=== PATIENT | male | born 1955 | race Caucasian/White ===

== ENCOUNTER 2019-05-09 09:51 | Inpatient (IN) | payer BC ==
--- NOTE | 2019-05-09 11:36 | ER Document Report ---
ED Medical Screen (RME) - General Chief Complaint: Foot Pain Stated Complaint: RIGHT FOOT PAIN Time Seen by Provider: 05/09/19 11:28 Primary Care Provider: KAMALJIT ORTEZ [Primary Care Provider] - Follow up as needed TRAVEL OUTSIDE OF THE [place] IN LAST 30 DAYS: No - HPI Notes: 05/09/19 11:35 64-year-old male to the emergency department with complaints of progressively worsening right lower foot and ankle pain, edema, erythema for the past 2 weeks. He states this started after he stepped on a rock and twisted his ankle. He seen both his primary care and orthopedist and they told him that he has gout. He has never had gout before. He states he has been taking colchicine and tramadol but the foot just keeps getting worse. Family report at home fevers up to 101. Patient has never had a DVT before. I have performed a medical screening exam on the patient and determined the patient will need further management by mainside provider. I have placed initial orders to help expedite his care. - Related Data Allergies/Adverse Reactions: No Known Allergies Allergy (Unverified 04/05/11 10:07) Past Medical History Past Surgical History: Reports: Hx Tonsillectomy - Immunizations Hx Diphtheria, Pertussis, Tetanus Vaccination: - unknown Physical Exam - Vital signs Vitals: Temp Pulse Resp BP Pulse Ox 98.4 F 85 18 139/68 H 96 05/09/19 10:55 05/09/19 10:55 05/09/19 10:55 05/09/19 10:55 05/09/19 10:55 Course - Vital Signs Vital signs: Temp Pulse Resp BP Pulse Ox 98.4 F 85 18 139/68 H 96 05/09/19 11:28 05/09/19 10:55 05/09/19 11:28 05/09/19 10:55 05/09/19 11:28 Doctor's Discharge - Discharge Referrals: KAMALJIT ORTEZ [Primary Care Provider] - Follow up as needed
--- NOTE | 2019-05-09 12:22 | RADIOLOGY REPORT (SQ) ---
EXAM DESCRIPTION: FOOT RIGHT COMPLETE COMPLETED DATE/TIME: 05/09/2019 12:10 pm REASON FOR STUDY: foot and ankle swelling and erythema COMPARISON: 04/05/2011 NUMBER OF VIEWS: Three views. TECHNIQUE: AP, lateral and oblique radiographic images acquired of the right foot. LIMITATIONS: None. FINDINGS: MINERALIZATION: Normal. BONES: No acute fracture dislocation. There are healed fractures of the 1st and 2nd metatarsals. JOINTS: Degenerative changes in the talonavicular joint. SOFT TISSUES: There is soft tissue swelling dorsally. OTHER: No other significant finding. IMPRESSION: Soft tissue swelling dorsally. No acute fracture or dislocation. TECHNICAL DOCUMENTATION: JOB ID: [id number] [employer]- All Rights Reserved Reading location - IP/workstation name: [email or web address]
--- NOTE | 2019-05-09 12:23 | RADIOLOGY REPORT (SQ) ---
EXAM DESCRIPTION: ANKLE RIGHT COMPLETE COMPLETED DATE/TIME: 05/09/2019 12:10 pm REASON FOR STUDY: foot and ankle swelling and erythema COMPARISON: None. NUMBER OF VIEWS: Three views. TECHNIQUE: AP, lateral, and oblique radiographic images acquired of the right ankle. LIMITATIONS: None. FINDINGS: MINERALIZATION: Normal. BONES: No acute fracture or dislocation. No worrisome bone lesions. JOINTS: Small joint effusion. Degenerative changes in the tail of navicular joint. SOFT TISSUES: No soft tissue swelling. No foreign body. OTHER: No other significant finding. IMPRESSION: Small joint effusion. No acute fracture. TECHNICAL DOCUMENTATION: JOB ID: [id number] [employer]- All Rights Reserved Reading location - IP/workstation name: [email or web address]
[2019-05-09 13:05] LABS: HEMATOCRIT 38.5 % (37.9-51.0); HEMOGLOBIN 13.1 g/dL (13.5-17.0); MEAN CORPUSCULAR HEMOGLOBIN 32.3 pg (27.0-33.4); MEAN CORPUSCULAR VOLUME 95 fl (80-97); PLATELET COUNT 146 10^3/uL (150-450); RED BLOOD COUNT 4.05 10^6/uL (4.35-5.55); WHITE BLOOD COUNT 21.5 10^3/uL (4.0-10.5)
[2019-05-09 13:23] LABS: ALBUMIN 2.6 g/dL (3.5-5.0); ALKALINE PHOSPHATASE 170 U/L (38-126); ANION GAP 12 (5-19); ASPARTATE AMINO TRANSFERASE 40 U/L (17-59); BILIRUBIN,DIRECT 3.5 mg/dL (0.0-0.4); BILIRUBIN,TOTAL 4.9 mg/dL (0.2-1.3); BLOOD UREA NITROGEN 24 mg/dL (7-20); CALCIUM 7.8 mg/dL (8.4-10.2); CARBON DIOXIDE 25 mmol/L (22-30); CHLORIDE 88 mmol/L (98-107); GLUCOSE 230 mg/dL (75-110); POTASSIUM 4.6 mmol/L (3.6-5.0); TOTAL PROTEIN 6.1 g/dL (6.3-8.2)
[2019-05-09 13:33] LABS: ABSOLUTE LYMPHOCYTES# (MANUAL) 0.9 10^3/uL (0.5-4.7); ABSOLUTE MONOCYTES # (MANUAL) 1.3 10^3/uL (0.1-1.4); ANISOCYTOSIS SLIGHT; BAND NEUTROPHILS % (MANUAL) 1 % (3-5); BASOPHILS % (MANUAL) 0 % (0-2); EOSINOPHILS % (MANUAL) 0 % (0-6); LYMPHOCYTES % (MANUAL) 4 % (13-45); MONOCYTES % (MANUAL) 6 % (3-13); PLATELET CLUMPS PRESENT; PLATELET COMMENT ADEQUATE; SEGMENTED NEUTROPHILS % (MAN) 89 % (42-78); TOTAL CELLS COUNTED 100; TOXIC GRANULATION SLIGHT; TOXIC VACUOLATION PRESENT
[2019-05-09] MEDS ORDERED: NORMAL SALINE 1000 ML 1,000 ML IV ONE ×2 (13:36→16:19)
--- NOTE | 2019-05-09 13:52 | RADIOLOGY REPORT (SQ) ---
EXAM DESCRIPTION: VENOUS UNILATERAL LOWER COMPLETED DATE/TIME: 05/09/2019 1:42 pm REASON FOR STUDY: unilateral leg swelling (right) COMPARISON: None. TECHNIQUE: Dynamic and static barbosa scale and color images acquired of the right leg venous system. S elected spectral images acquired with additional compression and augmentation maneuvers. The contrala teral common femoral vein and saphenofemoral junction were also imaged. Images stored on PACS. LIMITATIONS: None. FINDINGS: COMMON FEMORAL: Normal phasicity, compression and augmentation. No visualized echogenic ma terial on barbosa scale. No defects on color images. FEMORAL: Normal compression and augmentation. No visualized echogenic material on barbosa scale. No defe cts on color images. POPLITEAL: Normal compression, augmentation. No visualized echogenic material on barbosa scale. No defec ts on color images. CALF VESSELS: Normal compression, augmentation. No visualized echogenic material on barbosa scale. No de fects on color images. GSV and SSV: Normal compression, augmentation. No visualized echogenic material on barbosa scale. No def ects on color images. ANY DEEP VENOUS INSUFFICIENCY: Not evaluated. ANY EVIDENCE OF POPLITEAL CYST: No. OTHER: No other significant finding. CONTRALATERAL COMMON FEMORAL VEIN AND SAPHENOFEMORAL JUNCTION: Normal phasicity, compression and augmentation. No visualized echogenic material on barbosa scale. No de fects on color images. IMPRESSION: NO EVIDENCE DVT OR SVT IN THE RIGHT LEG. TECHNICAL DOCUMENTATION: JOB ID: [id number] [employer]- All Rights Reserved Reading location - IP/workstation name: [email or web address]
[2019-05-09] MEDS ORDERED: VANCOMYCIN HCL INJ 1000 MG VIAL IV ONE (16:21)
[2019-05-09] MEDS ORDERED: CEFEPIME 2 GM/D5W RTU 2 GM/50 ML RTUPB IV ONE (16:41)
--- NOTE | 2019-05-09 16:47 | ER Document Report ---
ED Extremity Problem, Lower - General Chief Complaint: Foot Pain Stated Complaint: RIGHT FOOT PAIN Time Seen by Provider: 05/09/19 16:00 Mode of Arrival: Wheelchair Information source: Patient Notes: Patient presents complaining of right foot and leg pain. Patient states 2 weeks ago he stepped on a rock while wearing shoes and developed right foot tenderness. Patient states that he went to see the primary doctor about this and had an x-ray on 04/27/2019 and was diagnosed with arthritis. Patient was placed on steroids at that time. Patient states that he continued to have pain and swelling to the foot and saw orthopedics on 05/03/2019 and was diagnosed with gout. Patient was placed on colchicine and tramadol at that time. Patient is complained of increased pain and swelling to the right lower extremity. Patient states for the past 4 days has had a fever. Patient reports nausea no vomiting or diarrhea. Patient also reports right shoulder pain right elbow and right hand pain. Patient complains of some chest discomfort across the entire upper chest from shoulder to shoulder for the past 4 days. Patient denies any difficulty breathing or shortness of breath. Patient states he has noticed that his urine has turned brown since yesterday. Patient denies any abdominal pain or back pain. TRAVEL OUTSIDE OF THE [place] IN LAST 30 DAYS: No - HPI Patient complains to provider of: Pain, Swelling Location: Leg Occurred: Last week Onset/Duration: Worse Quality of pain: Achy Pain Level: 4 Associated symptoms: Chest pain, Fever, Painful ambulation. denies: Rapid heart rate Exacerbated by: Movement, Walking Relieved by: Nothing - Related Data Allergies/Adverse Reactions: No Known Allergies Allergy (Unverified 04/05/11 10:07) Past Medical History - General Information source: Patient - Social History Smoking Status: Current Every Day Smoker Frequency of alcohol use: Occasional Drug Abuse: None Occupation: [employer] Lives with: Spouse/Significant other Family History: Reviewed & Not Pertinent Patient has suicidal ideation: No Patient has homicidal ideation: No - Medical History Medical History: Negative Past Surgical History: Reports: Hx Tonsillectomy - Immunizations Hx Diphtheria, Pertussis, Tetanus Vaccination: - unknown Review of Systems - Review of Systems Constitutional: Fever EENT: No symptoms reported Cardiovascular: Chest pain. denies: Dyspnea, Syncope, Dizziness Respiratory: No symptoms reported. denies: Cough Gastrointestinal: Nausea. denies: Abdominal pain, Diarrhea, Vomiting Genitourinary: No symptoms reported. denies: Dysuria Male Genitourinary: No symptoms reported Musculoskeletal: Leg swelling - Right lower extremity swelling. denies: Back pain Skin: Other - Erythema to right ankle right knee Hematologic/Lymphatic: No symptoms reported Neurological/Psychological: No symptoms reported Physical Exam - Vital signs Vitals: Temp Pulse Resp BP Pulse Ox 98.4 F 85 18 139/68 H 96 05/09/19 10:55 05/09/19 10:55 05/09/19 10:55 05/09/19 10:55 05/09/19 10:55 - General General appearance: Alert In distress: Mild - HEENT Head: Normocephalic, Atraumatic Eyes: Normal Conjunctiva: Normal Nasal: Normal Mouth/Lips: Normal Mucous membranes: Normal Neck: Normal, Supple. No: Lymphadenopathy - Respiratory Respiratory status: No respiratory distress Chest status: Tender Breath sounds: Rhonchi Chest palpation: Normal - Cardiovascular Rhythm: Regular Heart sounds: S1 appreciated, S2 appreciated Murmur: No - Abdominal Inspection: Normal Distension: No distension Bowel sounds: Normal Tenderness: Nontender Organomegaly: No organomegaly - Back Back: Normal, Nontender. No: CVA tenderness - Extremities General upper extremity: Normal inspection, Tender - Tenderness to right shoulder joint, right elbow joint and the right wrist, no tenderness to the joints of the right hand, Normal ROM, Normal strength General lower extremity: Tender - Right lower extremity tenderness 3+ edema with edema and erythema to the right ankle, right knee streaking to the right thigh Shoulder: Tender - Shoulder joint tenderness, no swelling erythema, or calor. No: Ecchymosis, Limited ROM Arm: Normal, Nontender Elbow: Tender - Right elbow joint tenderness, no swelling erythema or calor. No: Ecchymosis, Instability, Joint effusion, Limited ROM, Swollen bursa Forearm: Normal, Nontender Wrist: Tender - Right wrist tenderness, no swelling erythema or calor Hand: Normal, Nontender Hip: Normal, Nontender Knee: Tender - Erythema over lying the right knee, Joint effusion, Pain with ROM, Other - Erythema that blanches up the right thigh Ankle: Tender - Tenderness, erythema and edema about the right ankle joint with effusion, Edema. No: Limited ROM Foot: Edema - Right foot edema - Neurological Neuro grossly intact: Yes Cognition: Normal Orientation: AAOx4 [place] Coma Scale Eye Opening: Spontaneous Lillie Coma Scale Verbal: Oriented [place] Coma Scale Motor: Obeys Commands [place] Coma Scale Total: 15 - Psychological Associated symptoms: Normal affect, Normal mood - Skin Skin Temperature: Warm Skin Moisture: Dry Skin Color: Erythema - Right ankle, right knee extending into the right thigh, Mottled Course - Re-evaluation Re-evalutation: 05/09/19 16:[address] Katz, Dr. Katz to bedside for examination. Recommends consulting with orthopedics having orthopedic surgeon to come in to evaluate patient. Recommends calling hospitalist for medical admission. Recommends adding on cefepime in addition to vancomycin at this time. Does not suspect necrotizing fasciitis at this time. 05/09/19 16:[address] Vieira for consultation. Dr. Vieira asked to come in to evaluate patient. Recommends adding on ESR CRP as well as MRI of the extremity so he is better able to evaluate patient when he arrives. 05/09/19 17:[address] Colbert guarding patient presentation. Dr Colbert agrees to accept pt for admission. 05/09/19 17:47 Dr Vieira examine pt and feels pt's presentation is consistent with cellulitis at this time. Dr. Vieira does recommend adding on shoulder x-ray for further evaluation of patient's shoulder joint pain at this time. - Vital Signs Vital signs: Temp Pulse Resp BP Pulse Ox 99.9 F 89 18 152/67 H 97 05/09/19 18:41 05/09/19 18:41 05/09/19 18:41 05/09/19 18:41 05/09/19 18:41 - Laboratory Result Diagrams: 05/09/19 12:28 05/09/19 12:28 Laboratory results interpreted by me: 05/09/19 05/09/19 05/09/19 12:28 12:28 12:28 WBC 21.5 H RBC 4.05 L Hgb 13.1 L RDW 15.0 H Plt Count 146 L Seg Neuts % (Manual) 89 H Band Neutrophils % 1 L Lymphocytes % (Manual) 4 L Abs Neuts (Manual) 19.4 H ESR Sodium 125.1 L Chloride 88 L BUN 24 H Glucose 230 H Hemoglobin A1c % Lactic Acid Lactic Acid (Sepsis) 2.5 H Calcium 7.8 L Total Bilirubin 4.9 H Direct Bilirubin 3.5 H Alkaline Phosphatase 170 H C-Reactive Protein Total Protein 6.1 L Albumin 2.6 L Urine Protein Urine Glucose (UA) Urine Blood Urine Nitrite (Reflex) Urine Urobilinogen Leukocyte Esterase Rfl 05/09/19 05/09/19 05/09/19 16:30 16:30 16:30 WBC RBC Hgb RDW Plt Count Seg Neuts % (Manual) Band Neutrophils % Lymphocytes % (Manual) Abs Neuts (Manual) ESR 41 H Sodium Chloride BUN Glucose Hemoglobin A1c % 6.3 H Lactic Acid 2.4 H Lactic Acid (Sepsis) Calcium Total Bilirubin Direct Bilirubin Alkaline Phosphatase C-Reactive Protein Total Protein Albumin Urine Protein Urine Glucose (UA) Urine Blood Urine Nitrite (Reflex) Urine Urobilinogen Leukocyte Esterase Rfl 05/09/19 05/09/19 16:30 16:50 WBC RBC Hgb RDW Plt Count Seg Neuts % (Manual) Band Neutrophils % Lymphocytes % (Manual) Abs Neuts (Manual) ESR Sodium Chloride BUN Glucose Hemoglobin A1c % Lactic Acid Lactic Acid (Sepsis) Calcium Total Bilirubin Direct Bilirubin Alkaline Phosphatase C-Reactive Protein 141.8 H Total Protein Albumin Urine Protein 30 H Urine Glucose (UA) 50 H Urine Blood MODERATE H Urine Nitrite (Reflex) POSITIVE H Urine Urobilinogen 4.0 H Leukocyte Esterase Rfl LARGE H - Diagnostic Test Radiology reviewed: Image reviewed, Reports reviewed Discharge - Discharge Clinical Impression: Cellulitis Qualifiers: Site of cellulitis: extremity Site of cellulitis of extremity: lower extremity Laterality: right Qualified Code(s): L03.115 - Cellulitis of right lower limb Leukocytosis Qualifiers: Leukocytosis type: unspecified Qualified Code(s): D72.829 - Elevated white blood cell count, unspecified Disposition: ADMITTED INPATIENT Admitting Provider: Sayra (Hospitalist) Unit Admitted: Telemetry
[2019-05-09 16:49] LABS: VENOUS BLOOD BASE EXCESS 1.7 mmol/L; VENOUS BLOOD HCO3 26.2 mmol/L (20-32); VENOUS BLOOD PH 7.42 (7.30-7.42)
[2019-05-09 17:00] LABS: INTERNATIONAL RATION (INR) 1.19; PROTHROMBIN TIME 15.2 SEC (11.4-15.4)
--- NOTE | 2019-05-09 17:31 | RADIOLOGY REPORT (SQ) ---
EXAM DESCRIPTION: CHEST 2 VIEWS COMPLETED DATE/TIME: 05/09/2019 5:16 pm REASON FOR STUDY: cp COMPARISON: None. EXAM PARAMETERS: NUMBER OF VIEWS: two views TECHNIQUE: Digital Frontal and Lateral radiographic views of the chest acquired. RADIATION DOSE: NA LIMITATIONS: none FINDINGS: LUNGS AND PLEURA: No opacities, masses or pneumothorax. No pleural effusion. MEDIASTINUM AND HILAR STRUCTURES: No masses or contour abnormalities. HEART AND VASCULAR STRUCTURES: Heart normal size. No evidence for failure. BONES: No acute findings. HARDWARE: None in the chest. OTHER: No other significant finding. IMPRESSION: NO ACUTE RADIOGRAPHIC FINDING IN THE CHEST. TECHNICAL DOCUMENTATION: JOB ID: [id number] [employer]- All Rights Reserved Reading location - IP/workstation name: [email or web address]
--- NOTE | 2019-05-09 17:56 | PDOC CONSULTATION ---
Consultation Consult Date: 05/09/19 Provider Consulted: FATOU RYAN History of Present Illness Patient complains of: Right leg pain History of Present Illness: RENATA STRICKLAND is a 64 year old male presents today with right lower extremity pain and swelling. He states over the past 2 weeks has had increasing pain and swelling of his right lower extremity. Patient was seen by urgent care and outside orthopedic clinic for the issue. Initial treatment was prednisone Without improvement. Second opinion patient was started on antigout medication which also failed to provide relief. Patient does not see primary care physician regularly and denies significant medical history. Does note fever and chills which have been ongoing for the past 48 hours. Complains of pain in his right shoulder as well without specific injury. Pain worse with overhead activity and motion. Pain 4/5. Past Surgical History Past Surgical History: Reports: Tonsillectomy Social History Smoking Status: Current Every Day Smoker Family History Parental Family History Reviewed: No Children Family History Reviewed: No Sibling(s) Family History Reviewed.: No Medication/Allergy Allergies/Adverse Reactions: No Known Allergies Allergy (Unverified 04/05/11 10:07) Review of Systems Constitutional: PRESENT: chills, fever(s). ABSENT: headache(s), weight gain, weight loss Eyes: ABSENT: visual disturbances Ears: ABSENT: hearing changes Cardiovascular: ABSENT: chest pain, dyspnea on exertion, edema, orthropnea, palpitations Respiratory: ABSENT: cough, hemoptysis Gastrointestinal: ABSENT: abdominal pain, constipation, diarrhea, hematemesis, hematochezia, nausea, vomiting Genitourinary: ABSENT: dysuria, hematuria Musculoskeletal: PRESENT: as per HPI Integumentary: ABSENT: rash, wounds Neurological: ABSENT: abnormal gait, abnormal speech, confusion, dizziness, focal weakness, syncope Psychiatric: ABSENT: anxiety, depression, homidical ideation, suicidal ideation Endocrine: ABSENT: cold intolerance, heat intolerance, menstrual abnormalities, polydipsia, polyuria Hematologic/Lymphatic: ABSENT: easy bleeding, easy bruising, lymphadenopathy Physical Exam Vital Signs: Temp Pulse Resp BP Pulse Ox 98.4 F 85 18 139/68 H 98 05/09/19 11:28 05/09/19 10:55 05/09/19 11:28 05/09/19 10:55 05/09/19 16:17 Intake & Output 05/08/19 05/09/19 05/10/19 06:59 06:59 06:59 Weight 90.7 kg General appearance: PRESENT: no acute distress, well-developed, well-nourished Head exam: PRESENT: atraumatic, normocephalic Eye exam: PRESENT: conjunctiva pink, EOMI, PERRLA, scleral icterus Ear exam: PRESENT: normal external ear exam Mouth exam: PRESENT: moist, tongue midline Neck exam: PRESENT: full ROM. ABSENT: carotid bruit, JVD, lymphadenopathy, thyromegaly Cardiovascular exam: PRESENT: RRR. ABSENT: diastolic murmur, rubs, systolic murmur Pulses: PRESENT: normal dorsalis pedis pul, +2 pedal pulses bilateral Vascular exam: PRESENT: normal capillary refill GI/Abdominal exam: PRESENT: normal bowel sounds, soft. ABSENT: distended, guarding, mass, organolmegaly, rebound, tenderness Rectal exam: PRESENT: deferred Musculoskeletal exam: PRESENT: other - Right lower extremity: Demarcated erythema and swelling along the right ankle with increased redness and swelling posterior-lateral. Tenderness to palpation. No palpable fluctuance. Diffuse swelling. Compartments soft and compressible. Positive pitting edema. Dors ely pedis pulse 2+. Intact plantarflexion/dorsiflexion without discomfort. Erythema lymphangitis extending along the anterior aspect of the knee along the medial thigh without palpable fluctuance. Right shoulder: Tenderness palpation anteriorly. Limited range of motion. Pain with attempted range of motion. Full elbow flexion/extension. No streaking erythema or palpable fluctuance. Neurological exam: PRESENT: alert, awake, oriented to person, oriented to place, oriented to time, oriented to situation, CN II-XII grossly intact. ABSENT: motor sensory deficit Psychiatric exam: PRESENT: appropriate affect, normal mood. ABSENT: homicidal ideation, suicidal ideation Skin exam: PRESENT: dry, intact, warm. ABSENT: cyanosis, rash Results Laboratory Results: 05/09/19 12:28 05/09/19 12:28 05/09/19 05/09/19 05/09/19 12:28 12: 16:30 WBC 21.5 H RBC 4.05 L Hgb 13.1 L Hct 38.5 MCV 95 MCH 32.3 MCHC 34.0 RDW 15.0 H Plt Count 146 L Seg Neutrophils % Not Reportable VBG pH VBG pCO2 VBG HCO3 VBG Base Excess Sodium 125.1 L Potassium 4.6 Chloride 88 L Carbon Dioxide 25 Anion Gap 12 BUN 24 H Creatinine 0.84 Est GFR ( Amer) > 60 Glucose 230 H Lactic Acid Calcium 7.8 L Total Bilirubin 4.9 H AST 40 Alkaline Phosphatase 170 H C-Reactive Protein Total Protein 6.1 L Albumin 2.6 L Lipase 145.9 05/09/19 05/09/19 05/09/19 16:30 16:30 16:30 WBC RBC Hgb Hct MCV MCH MCHC RDW Plt Count Seg Neutrophils % VBG pH 7.42 VBG pCO2 41.0 VBG HCO3 26.2 VBG Base Excess 1.7 Sodium Potassium Chloride Carbon Dioxide Anion Gap BUN Creatinine Est GFR ( Amer) Glucose Lactic Acid 2.4 H Calcium Total Bilirubin AST Alkaline Phosphatase C-Reactive Protein 141.8 H Total Protein Albumin Lipase 05/09/19 16:30 Troponin I < 0.012 Impressions: Ankle X-Ray 05/09/19 11:34 IMPRESSION: Small joint effusion. No acute fracture. Foot X-Ray 05/09/19 11:34 IMPRESSION: Soft tissue swelling dorsally. No acute fracture or dislocation. Venous Doppler Study 05/09/19 11:34 IMPRESSION: NO EVIDENCE DVT OR SVT IN THE RIGHT LEG. Chest X-Ray 05/09/19 16:17 IMPRESSION: NO ACUTE RADIOGRAPHIC FINDING IN THE CHEST. Status: Image reviewed by me - I have reviewed patient's radiographs consistent with soft tissue swelling. No evidence of acute osseous abnormality there is chronic degenerative changes of the midfoot. Assessment & Plan - Diagnosis (1) Cellulitis Qualifiers: Site of cellulitis: extremity Site of cellulitis of extremity: lower extremity Laterality: right Qualified Code(s): L03.115 - Cellulitis of right lower limb Is this a current diagnosis for this admission?: Yes Plan: Patient has fairly advanced cellulitis of the right lower extremity however no signs or symptoms to suggest necrotizing fasciitis. LRINEC score of 5 which is low but not no risk. We will obtain an MRI to evaluate possible deep abscess. Patient can also complains of right shoulder discomfort there is no sign or symptoms to suggest abscess but given patient's complaints I have recommended radiographs for further evaluation. Clinical picture does not indicate need for operative intervention would recommend IV antibiotics. Will follow clinically.
[2019-05-09] MEDS ORDERED: VANCOMYCIN HCL 0 MG in DEXTROSE 5%-WATER 250 ML IV NR (18:00)
--- NOTE | 2019-05-09 18:38 | RADIOLOGY REPORT (SQ) ---
EXAM DESCRIPTION: SHOULDER RIGHT 2 OR MORE VIEWS COMPLETED DATE/TIME: 05/09/2019 6:22 pm REASON FOR STUDY: r shoulder pain COMPARISON: 08/19/2010 NUMBER OF VIEWS: Three views. TECHNIQUE: Internal rotation, external rotation, and Y view images acquired of the right shoulder. LIMITATIONS: None. FINDINGS: MINERALIZATION: Normal. BONES: No acute fracture. No worrisome bone lesions. JOINTS: No dislocation. VISUALIZED LUNGS AND RIBS: No pneumothorax. No rib fracture. SOFT TISSUES: No radiopaque foreign body. OTHER: No other significant finding. IMPRESSION: NEGATIVE STUDY OF THE RIGHT SHOULDER. NO RADIOGRAPHIC EVIDENCE OF ACUTE INJURY. TECHNICAL DOCUMENTATION: JOB ID: [id number] [employer]- All Rights Reserved Reading location - IP/workstation name: [email or web address]
[2019-05-09] MEDS ORDERED: PROMETHAZINE HCL INJ 25 MG/1 ML VIAL IV PRN (18:40)
[2019-05-09] MEDS ORDERED: ONDANSETRON HCL INJ/PF 4 MG/2 ML SDV IV PRN (18:40)
[2019-05-09] MEDS ORDERED: IPRATROPIUM/ALBUTEROL 0.5-2.5 MG/3 ML AMPUL NEB PRN (18:40)
--- NOTE | 2019-05-09 18:40 | PDOC H&P ---
History of Present Illness History of Present Illness: RENATA STRICKLAND is a 64 year old male no significant past medical history except for tobacco abuse and arthritis presenting to ED complaining of worsening right lower extremity swelling, pain associated with fever and chills. About 2 weeks ago he stepped on a hard rock and sustained a bruising in the plantar aspect of his right foot, the following day he noticed that his foot was swelling and starting to hurt, he went to an urgent care where he was given a shot of steroids and discharged home with diagnosis of arthritis. His right lower extremity pain, erythema and swelling not worse and traveled proximally all the way to his thigh. He also noted increasing bilateral shoulder pain and stiffness with no erythema or swelling and does not remember any trauma to the shoulders. He went to Ortho clinic and was diagnosed with gout and was discharged on colchicine and steroids. Couple days after right foot swelling he also developed copious nonbloody diarrhea which has resolved without any treatment. He has also noted sediments in his urine, and dysuria but denies any lesions or discharge. He has history of syphilis and gonorrhea when he was in the which he states were successfully treated. Currently he is on a monogamous relationship but not sure if his partner has any STIs. Patient has also been having fever and chills associated with nausea however den ies any vomiting, shortness of breath, chest pain, diarrhea, constipation, numbness, tingling, headache, vision changes, genital ulcers, oral lesions or any rash. Past Surgical History Past Surgical History: Reports: Tonsillectomy Social History Smoking Status: Current Every Day Smoker Family History Parental Family History Reviewed: Yes Children Family History Reviewed: Yes Sibling(s) Family History Reviewed.: Yes Medication/Allergy Home Medications: No Home Medications 05/09/19 Allergies/Adverse Reactions: No Known Allergies Allergy (Unverified 04/05/11 10:07) Physical Exam Vital Signs: Temp Pulse Resp BP Pulse Ox 98.4 F 85 18 139/68 H 98 05/09/19 11:28 05/09/19 10:55 05/09/19 11:28 05/09/19 10:55 05/09/19 16:17 Intake & Output 05/08/19 05/09/19 05/10/19 06:59 06:59 06:59 Weight 90.7 kg General appearance: PRESENT: no acute distress, well-developed, well-nourished Eye exam: PRESENT: conjunctiva pink, EOMI, PERRLA. ABSENT: scleral icterus Mouth exam: PRESENT: moist, tongue midline Neck exam: ABSENT: carotid bruit, JVD, lymphadenopathy, thyromegaly Respiratory exam: PRESENT: clear to auscultation brenda. ABSENT: rales, rhonchi, wheezes Cardiovascular exam: PRESENT: RRR. ABSENT: diastolic murmur, rubs, systolic murmur Pulses: PRESENT: normal dorsalis pedis pul GI/Abdominal exam: PRESENT: normal bowel sounds, soft. ABSENT: distended, guarding, mass, organolmegaly, rebound, tenderness Gentrourinary exam: ABSENT: ecchymosis, erythema, lacerations, lesions, scrotal swelling, testicular tenderness, urethral discharge, indwelling catheter, other Extremities exam: PRESENT: joint swelling, pedal edema, +2 edema, other - Left ankle swelling and tenderness, 2+ pitting edema below the knee, medial aspect of the knee erythema dullness, proximal thigh erythema no tenderness or discharge. Neurological exam: PRESENT: alert, awake, oriented to person, oriented to place, oriented to time, oriented to situation, CN II-XII grossly intact. ABSENT: motor sensory deficit Skin exam: PRESENT: dry, intact, warm. ABSENT: cyanosis, rash Results Laboratory Results: 05/09/19 12:28 05/09/19 12:28 05/09/19 05/09/19 05/09/19 12:28 12:28 16:30 WBC 21.5 H RBC 4.05 L Hgb 13.1 L Hct 38.5 MCV 95 MCH 32.3 MCHC 34.0 RDW 15.0 H Plt Count 146 L Seg Neutrophils % Not Reportable VBG pH VBG pCO2 VBG HCO3 VBG Base Excess Sodium 125.1 L Potassium 4.6 Chloride 88 L Carbon Dioxide 25 Anion Gap 12 BUN 24 H Creatinine 0.84 Est GFR ( Amer) > 60 Glucose 230 H Lactic Acid Calcium 7.8 L Total Bilirubin 4.9 H AST 40 Alkaline Phosphatase 170 H C-Reactive Protein Total Protein 6.1 L Albumin 2.6 L Lipase 145.9 05/09/19 05/09/19 05/09/19 16:30 16:30 16:30 WBC RBC Hgb Hct MCV MCH MCHC RDW Plt Count Seg Neutrophils % VBG pH 7.42 VBG pCO2 41.0 VBG HCO3 26.2 VBG Base Excess 1.7 Sodium Potassium Chloride Carbon Dioxide Anion Gap BUN Creatinine Est GFR ( Amer) Glucose Lactic Acid 2.4 H Calcium Total Bilirubin AST Alkaline Phosphatase C-Reactive Protein 141.8 H Total Protein Albumin Lipase 05/09/19 16:30 Troponin I < 0.012 Impressions: Ankle X-Ray 05/09/19 11:34 IMPRESSION: Small joint effusion. No acute fracture. Foot X-Ray 05/09/19 11:34 IMPRESSION: Soft tissue swelling dorsally. No acute fracture or dislocation. Venous Doppler Study 05/09/19 11:34 IMPRESSION: NO EVIDENCE DVT OR SVT IN THE RIGHT LEG. Chest X-Ray 05/09/19 16:17 IMPRESSION: NO ACUTE RADIOGRAPHIC FINDING IN THE CHEST. Assessment and Plan - Diagnosis (1) Septic arthritis Qualifiers: Septic arthritis location: ankle Laterality: right Is this a current diagnosis for this admission?: Yes Plan: Septic arthritis VS reactive arthritis VS gonococcal arthritis VS acute gout. Elevated ESR and CRP. Right lower extremity x-ray negative for osteomyelitis. Right lower extremity venous Doppler negative for DVT. Admit to medical floor. Start on empiric IV antibiotics. Rule out gonococcus, chlamydia and syphilis. Arthrocentesis to rule out crystal induced arthritis. MRI to rule out osteomyelitis. UA. Urine culture blood culture. Ortho has been consulted. Follow-up recommendations. (2) Hyponatremia Is this a current diagnosis for this admission?: Yes Plan: Mostly delusional. Patient endorsing excessive p.o. water intake. Continue normal saline. Seizure precautions. CMP tomorrow. (3) Cellulitis Qualifiers: Site of cellulitis: extremity Site of cellulitis of extremity: lower extremity Laterality: right Qualified Code(s): L03.115 - Cellulitis of right lower limb Is this a current diagnosis for this admission?: Yes Plan: As per #1.
[2019-05-09] MEDS ORDERED: PIPERACILLIN SODIUM/TAZOBACTAM 4.5 GM in NORMAL SALINE 100 ML IV SCH (18:45)
[2019-05-09] MEDS ORDERED: GLUCAGON,HUMAN RECOMB 1 MG INJ IM PRN (18:59)
[2019-05-09] MEDS ORDERED: DEXTROSE 40% GEL 15 GM TUBE PO PRN ×2 (18:59)
[2019-05-09] MEDS ORDERED: DEXTROSE 50%-WATER 25 GM/50 ML DISP.SYRIN IV PRN ×2 (18:59)
[2019-05-09] MEDS: OXYCODONE-ACETAMINOPHEN 5-325 MG TABLET PO PRN (19:53)
[2019-05-09] MEDS: NORMAL SALINE 1000 ML 1,000 ML IV PRN (19:55)
[2019-05-09 20:25] LABS: APPEARANCE,URINE CLOUDY; BILIRUBIN,URINE NEGATIVE (NEGATIVE); COLOR,URINE AMBER; GLUCOSE, URINE 50 mg/dL (NEGATIVE); KETONES,URINE NEGATIVE (NEGATIVE); PROTEIN,URINE 30 mg/dL (NEGATIVE); URINE SPECIFIC GRAVITY 1.018
[2019-05-09] MEDS: ACETAMINOPHEN 325 MG TABLET PO PRN (20:50)
[2019-05-09] MEDS ORDERED: PIPERACILLIN SODIUM/TAZOBACTAM 3.375 GM in NORMAL SALINE 100 ML IV SCH (21:00)
[2019-05-09] MEDS: PIPERACILLIN SODIUM/TAZOBACTAM 4.5 GM in NORMAL SALINE 100 ML IV SCH (21:40)
[2019-05-09] MEDS: HEPARIN SOD (PORCINE) 5,000 UNIT/ML 1 ML VIAL SUBCUT SCH (21:40)
[2019-05-10] MEDS: OXYCODONE-ACETAMINOPHEN 5-325 MG TABLET PO PRN ×3 (00:06→20:05)
--- NOTE | 2019-05-10 00:15 | EKG REPORT ---
SEVERITY:- ABNORMAL ECG - SINUS RHYTHM INCOMPLETE RBBB AND LAFB : Confirmed by: Keyla Harden 10-May-2019 00:14:46
[2019-05-10] MEDS ORDERED: INFLUENZA QUAD (6MOS+) 2019-20 VAC 0.5 ML SYR IM ONE (01:46)
[2019-05-10] MEDS: INSULIN LISPRO 100 UNIT/ML 3 ML VIAL SUBCUT SCH ×5 (02:01→21:22)
[2019-05-10] MEDS: PIPERACILLIN SODIUM/TAZOBACTAM 4.5 GM in NORMAL SALINE 100 ML IV SCH ×4 (02:41→21:23)
[2019-05-10 04:27] LABS: CHLAM PCR NOT DETECTED (NOT DETECT)
[2019-05-10] MEDS: HEPARIN SOD (PORCINE) 5,000 UNIT/ML 1 ML VIAL SUBCUT SCH ×3 (05:08→21:22)
[2019-05-10] MEDS: VANCOMYCIN HCL 1,500 MG in DEXTROSE 5%-WATER 250 ML IV SCH ×2 (05:10→18:10)
[2019-05-10] MEDS: PANTOPRAZOLE SODIUM 40 MG TABLET.DR PO SCH ×2 (05:10→16:54)
[2019-05-10 06:02] LABS: ABSOLUTE BASOPHILS # (AUTO) 0.1 10^3/uL (0.0-0.2); ABSOLUTE EOSINOPHILS # (AUTO) 0.1 10^3/uL (0.0-0.6); ABSOLUTE MONOCYTES (AUTO) 0.8 10^3/uL (0.1-1.4); ABSOLUTE NEUT (AUTO) 15.1 10^3/uL (1.7-8.2); BASOPHILS % (AUTO) 0.5 % (0-2); EOSINOPHILS % (AUTO) 0.8 % (0-6); HEMATOCRIT 34.3 % (37.9-51.0); HEMOGLOBIN 11.8 g/dL (13.5-17.0); LYMPHOCYTES % (AUTO) 6.1 % (13-45); MEAN CORPUSCULAR HEMOGLOBIN 32.1 pg (27.0-33.4); MEAN CORPUSCULAR HGB CONC 34.3 g/dL (32.0-36.0); MEAN CORPUSCULAR VOLUME 94 fl (80-97); MONOCYTES % (AUTO) 4.7 % (3-13); PLATELET COUNT 127 10^3/uL (150-450); RED BLOOD COUNT 3.67 10^6/uL (4.35-5.55); RED CELL DISTRIBUTION WIDTH 14.7 % (11.5-14.0); SEGMENTED NEUTROPHILS % (AUTO) 87.9 % (42-78); TOTAL CELLS COUNTED % (AUTO) 100 %; WHITE BLOOD COUNT 17.2 10^3/uL (4.0-10.5)
[2019-05-10 06:31] LABS: ANION GAP 11 (5-19); BLOOD UREA NITROGEN 21 mg/dL (7-20); CALCIUM 7.2 mg/dL (8.4-10.2); CARBON DIOXIDE 21 mmol/L (22-30); CHLORIDE 96 mmol/L (98-107); GLUCOSE 142 mg/dL (75-110); POTASSIUM 4.6 mmol/L (3.6-5.0)
[2019-05-10] MEDS ORDERED: DEXAMETHASONE SOD PHOSPHATE INJ 4 MG/1 ML VIAL ONE (09:20)
[2019-05-10] MEDS ORDERED: ONDANSETRON HCL INJ/PF 4 MG/2 ML SDV ONE (09:20)
[2019-05-10] MEDS ORDERED: METOCLOPRAMIDE HCL INJ/PF 10 MG/2 ML SDV ONE (09:20)
--- NOTE | 2019-05-10 09:56 | RADIOLOGY REPORT (SQ) ---
EXAM DESCRIPTION: MRI RT LOWER EXTREMITY WITHOUT COMPLETED DATE/TIME: 05/10/2019 8:42 am REASON FOR STUDY: RLE pain, swelling COMPARISON: Radiographs 05/09/2019. TECHNIQUE: Right ankle images acquired and stored on PACS. Multiplanar images include fat sensitive sequences as T1, fluid sensitive sequences as FST2/STIR, cartilage sensitive sequences as FSPD, and g radient echo sequences. LIMITATIONS: None. FINDINGS: BONE MARROW: Arthropathy at the talonavicular joint with associated marrow edema in the he ad of the talus and diffusely throughout the navicular. Lesser changes along the interior scratch sa t lesser similar changes along the anterior calcaneal process and cuboid. Minimal posterior talar ed jodie along the sub talar posterior facet. No evidence of displaced fracture. EFFUSIONS: Sizable ankle joint effusion. Fair amount of fluid along the talonavicular articulation d orsally as well. OSSEOUS ARTICULATIONS: As above. The talonavicular articulation in particular is extremely narrowed and irregular with prominent fragmented dorsal osteophytes. TALAR DOME AND TIBIAL PLAFOND: Talar dome looks intact. Tibial plafond and relatively preserved. ACHILLES TENDON: Intact without partial or full-thickness tear. No adjacent bursal fluid or edema. TIBIALIS ANTERIOR TENDON: Intact without edema at the 1st MT attachment. TIBIALIS POSTERIOR TENDON: Tendon looks intact. Increased fluid in the tendon sheath. FLEXOR HALLUCIS LONGUS AND FLEXOR DIGITORUM TENDONS: Increased fluid along the tendon sheaths, partic ularly flexor hallucis. PERONEUS LONGUS AND BREVIS TENDON: Fluid along the tendon sheaths diffusely. No tendon disruption. ATFL, CFL, PTFL: Intact. No thickening or signal alteration. No klarissa-ligamentous fluid. DELTOID LIGAMENT: Visualized components intact. TARSAL TUNNEL: No masses. No muscle atrophy. SINUS TARSI: At least some preserved fat. Doubt sinus tarsi syndrome. PLANTAR FASCIA: No signal alteration or tear. ADJACENT SOFT TISSUES: Generalized pronounced subcutaneous edema about the ankle extending over the f oot. Fluid extending up the tendon sheaths consistent with tenosynovitis. Extensive edema in the di stal calf muscles, also with areas of non tendon related irregular loculated fluid. This extends to the edge of the field of view, at least 12 cm above the ankle, particularly posteriorly in the deep m usculature. OTHER: No other significant finding. IMPRESSION: 1. Arthropathy as above may reflect the patient's history of gout. Significant marrow edema in the t alus and navicular, lesser changes also in the calcaneus and cuboid. 2. Extensive soft tissue swelling, muscle edema and fluid collections extending up into the calf. Wh ile some of the loculated fluid is along tendon sheaths and reflects tenosynovitis, this is not all c learly tendon related fluid. Some of the fluid may be related to other infectious/inflammatory etiol ogy. TECHNICAL DOCUMENTATION: JOB ID: [id number] [employer]- All Rights Reserved Reading location - IP/workstation name: [email or web address]
[2019-05-10] MEDS: DOCUSATE SODIUM 100 MG CAPSULE PO SCH ×2 (10:03→20:18)
[2019-05-10] MEDS: NORMAL SALINE 1000 ML 1,000 ML IV PRN ×2 (10:06→20:06)
[2019-05-10] MEDS: ACETAMINOPHEN 325 MG TABLET PO PRN (10:11)
[2019-05-10] MEDS ORDERED: GLUCAGON,HUMAN RECOMB 1 MG INJ SUBCUT PRN (10:56)
[2019-05-10] MEDS ORDERED: DEXTROSE 50%-WATER 25 GM/50 ML DISP.SYRIN IV PRN ×2 (10:56)
[2019-05-10] MEDS ORDERED: DEXTROSE 40% GEL 15 GM TUBE PO PRN ×2 (10:56)
[2019-05-10] MEDS ORDERED: NICOTINE 14 MG/24 HR PATCH.TD24 TD PRN (15:37)
--- NOTE | 2019-05-10 15:42 | PDOC PROGRESS REPORT ---
Subjective Progress Note for:: 05/10/19 Subjective:: The patient is a 64-year-old male with a past medical history significant for tobacco dependence with continuous use and arthritis who was admitted 05/09/2019 for Septic arthritis. The patient was seen on morning rounds. He was found sitting up to the edge of the bed, comfortably, on room air. He reports that his pain is adequately controlled at present. He is somewhat anxious regarding planned surgical intervention by Dr. martinez this afternoon. He has no other specific questions or concerns at this time. He denies chest pain, palpitations, dyspnea, orthopnea, cough, abdominal pain, nausea vomiting and diarrhea. He did have a fever of 101.3 overnight. No concerns per nursing. Reason For Visit: CELLULITIS,SEPTIC ARTHRITIS Physical Exam Vital Signs: Temp Pulse Resp BP Pulse Ox 98.3 F 100 16 137/63 H 97 05/10/19 12:06 05/10/19 14:46 05/10/19 14:46 05/10/19 12:06 05/10/19 14:46 Intake & Output 05/09/19 05/10/19 05/11/19 06:59 06:59 06:59 Intake Total 2800 1100 Output Total 650 Balance 2150 1100 Weight 95.3 kg General appearance: PRESENT: no acute distress, cooperative, well-developed, well-nourished Head exam: PRESENT: atraumatic, normocephalic Eye exam: PRESENT: conjunctiva pink, EOMI, PERRLA. ABSENT: scleral icterus Ear exam: PRESENT: normal external ear exam Mouth exam: PRESENT: moist, tongue midline Respiratory exam: PRESENT: clear to auscultation brenda, symmetrical, unlabored. ABSENT: rales, rhonchi, wheezes Cardiovascular exam: PRESENT: RRR, +S1, +S2. ABSENT: diastolic murmur, rubs, systolic murmur Pulses: PRESENT: normal dorsalis pedis pul Vascular exam: PRESENT: normal capillary refill GI/Abdominal exam: PRESENT: normal bowel sounds, soft. ABSENT: distended, guarding, mass, organolmegaly, rebound, tenderness Rectal exam: PRESENT: deferred Extremities exam: PRESENT: full ROM, tenderness - RLE, +2 edema - RLE extending to knee. ABSENT: calf tenderness, clubbing Neurological exam: PRESENT: alert, awake, oriented to person, oriented to place, oriented to time, oriented to situation, CN II-XII grossly intact. ABSENT: motor sensory deficit Psychiatric exam: PRESENT: anxious, normal mood, unusual affect. ABSENT: homicidal ideation, suicidal ideation Skin exam: PRESENT: dry, warm, other - RLE edema extending to knee; most significant at the ankle, increased warmth/tenderness. Erythema to Rt ankle and anterior/lateral Rt knee. ABSENT: cyanosis, rash Results Laboratory Results: 05/10/19 05:46 05/10/19 05:46 05/09/19 05/09/19 05/09/19 12:28 12:28 16:30 WBC 21.5 H RBC 4.05 L Hgb 13.1 L Hct 38.5 MCV 95 MCH 32.3 MCHC 34.0 RDW 15.0 H Plt Count 146 L Seg Neutrophils % VBG pH VBG pCO2 VBG HCO3 VBG Base Excess Sodium Cancelled Potassium Chloride Carbon Dioxide Anion Gap BUN Creatinine Est GFR ( Amer) Glucose Lactic Acid Calcium Magnesium C-Reactive Protein Lipase 145.9 Urine Color Urine Appearance Urine pH Ur Specific [place] Urine Protein Urine Glucose (UA) Urine Ketones Urine Blood Urine RBC (Auto) 05/09/19 05/09/19 05/09/19 16:30 16:30 16:30 WBC RBC Hgb Hct MCV MCH MCHC RDW Plt Count Seg Neutrophils % VBG pH 7.42 VBG pCO2 41.0 VBG HCO3 26.2 VBG Base Excess 1.7 Sodium Potassium Chloride Carbon Dioxide Anion Gap BUN Creatinine Est GFR ( Amer) Glucose Lactic Acid 2.4 H Calcium Magnesium C-Reactive Protein 141.8 H Lipase Urine Color Urine Appearance Urine pH Ur Specific [place] Urine Protein Urine Glucose (UA) Urine Ketones Urine Blood Urine RBC (Auto) 05/09/19 05/10/19 05/10/19 16:50 05:46 05:46 WBC 17.2 H RBC 3.67 L Hgb 11.8 L Hct 34.3 L MCV 94 MCH 32.1 MCHC 34.3 RDW 14.7 H Plt Count 127 L Seg Neutrophils % 87.9 H VBG pH VBG pCO2 VBG HCO3 VBG Base Excess Sodium 127.7 L Potassium 4.6 Chloride 96 L Carbon Dioxide 21 L Anion Gap 11 BUN 21 H Creatinine 0.86 Est GFR ( Amer) > 60 Glucose 142 H Lactic Acid Calcium 7.2 L Magnesium 2.2 C-Reactive Protein Lipase Urine Color ANUPAM Urine Appearance CLOUDY Urine pH 6.0 Ur Specific [place] 1.018 Urine Protein 30 H Urine Glucose (UA) 50 H Urine Ketones NEGATIVE Urine Blood MODERATE H Urine RBC (Auto) 7 05/09/19 12:28 Blood Blood Culture (PCR) - Final Staphylococcus Aureus 05/09/19 16:03 Blood Blood Culture (PCR) - Final Staphylococcus Aureus 05/09/19 16:30 Troponin I < 0.012 Impressions: Ankle X-Ray 05/09/19 11:34 IMPRESSION: Small joint effusion. No acute fracture. Foot X-Ray 05/09/19 11:34 IMPRESSION: Soft tissue swelling dorsally. No acute fracture or dislocation. Venous Doppler Study 05/09/19 11:34 IMPRESSION: NO EVIDENCE DVT OR SVT IN THE RIGHT LEG. Chest X-Ray 05/09/19 16:17 IMPRESSION: NO ACUTE RADIOGRAPHIC FINDING IN THE CHEST. Lower Extremity MRI 05/09/19 16:39 IMPRESSION: 1. Arthropathy as above may reflect the patient's history of gout. Significant marrow edema in the talus and navicular, lesser changes also in the calcaneus and cuboid. 2. Extensive soft tissue swelling, muscle edema and fluid collections extending up into the calf. While some of the loculated fluid is along tendon sheaths and reflects tenosynovitis, this is not all clearly tendon related fluid. Some of the fluid may be related to other infectious/inflammatory etiology. Shoulder X-Ray 05/09/19 17:48 IMPRESSION: NEGATIVE STUDY OF THE RIGHT SHOULDER. NO RADIOGRAPHIC EVIDENCE OF ACUTE INJURY. Assessment and Plan - Diagnosis (1) Septic arthritis Qualifiers: Septic arthritis location: ankle Laterality: right Is this a current diagnosis for this admission?: Yes Plan: Septic arthritis VS reactive arthritis VS acute gout. Elevated ESR 41 and CRP 141. RPR, Gc/Ch negative. Right lower extremity x-ray negative for osteomyelitis. Right lower extremity venous Doppler negative for DVT. MRI revealed significant marrow edema o the talus, navicular, and calcaneus w/ extensive soft tissue edema and loculated fluid along the tendon sheaths. Blood cultures (05/09/19; 4/4) positive for MRSA Admit to medical floor. Continue on empiric IV antibiotics; Day #2 Vanc/Zosyn. Ortho has been consulted; per nursing plans for surgical intervention this afternoon. Follow-up recommendations. (2) Bacteremia Is this a current diagnosis for this admission?: Yes Plan: Secondary to #1. Pt denies IVDU. Blood cultures (05/09/19; 08/26) positive for MRSA Repeat cultures tomorrow Will need WILFRED to determine 4 vs 6 weeks abx therapy. Pending Ortho findings; may require 6 weeks regardless. (3) Hyponatremia Is this a current diagnosis for this admission?: Yes Plan: Improved; 125-> 127 Mostly delusional. Patient endorsing excessive p.o. water intake. Continue IVF. Follow up chemistry. (4) Leukocytosis Qualifiers: Leukocytosis type: unspecified Qualified Code(s): D72.829 - Elevated white blood cell count, unspecified Is this a current diagnosis for this admission?: Yes Plan: Secondary to #1 Cultures and antibiotics as above. (5) Cellulitis Qualifiers: Site of cellulitis: extremity Site of cellulitis of extremity: lower extremity Laterality: right Qualified Code(s): L03.115 - Cellulitis of right lower limb Is this a current diagnosis for this admission?: Yes Plan: As per #1. (6) Tobacco abuse Is this a current diagnosis for this admission?: Yes Plan: Smoking cessation encouraged. Nicotine replacement therapies provided. - Time Time Spent with patient: 35 or more minutes
[2019-05-10] MEDS ORDERED: ONDANSETRON HCL INJ/PF 4 MG/2 ML SDV IV PRN (17:01)
[2019-05-10] MEDS ORDERED: BUPIVACAINE HCL 0.5 % INJ/PF 30 ML SDV ONE (17:16)
[2019-05-10] MEDS ORDERED: IPRATROPIUM/ALBUTEROL 0.5-2.5 MG/3 ML AMPUL NEB ONE (17:25)
[2019-05-10] MEDS ORDERED: FENTANYL CITRATE INJ/PF 100 MCG/2 ML AMPUL ONE (17:27)
[2019-05-10] MEDS ORDERED: MIDAZOLAM 2 MG/2 ML INJ ONE (17:27)
--- NOTE | 2019-05-10 17:27 | PDOC PROGRESS REPORT ---
Subjective Progress Note for:: 05/10/19 Subjective:: Patient lying in bed comfortably. Continues to have discomfort along his right leg. States some of the swelling has improved but the redness is relatively unchanged. Denies fever chills or sweats overnight. Pain 4/5. Reason For Visit: CELLULITIS,SEPTIC ARTHRITIS Physical Exam Vital Signs: Temp Pulse Resp BP Pulse Ox 98.3 F 100 16 137/63 H 97 05/10/19 12:06 05/10/19 14:46 05/10/19 14:46 05/10/19 12:06 05/10/19 14:46 Intake & Output 05/09/19 05/10/19 05/11/19 06:59 06:59 06:59 Intake Total 2800 1100 Output Total 650 Balance 2150 1100 Weight 95.3 kg General appearance: PRESENT: no acute distress, well-developed, well-nourished Head exam: PRESENT: atraumatic, normocephalic Eye exam: PRESENT: conjunctiva pink, EOMI, PERRLA, scleral icterus Ear exam: PRESENT: normal external ear exam Mouth exam: PRESENT: moist, tongue midline Neck exam: PRESENT: full ROM. ABSENT: carotid bruit, JVD, lymphadenopathy, thyromegaly Cardiovascular exam: PRESENT: RRR. ABSENT: diastolic murmur, rubs, systolic murmur Pulses: PRESENT: normal dorsalis pedis pul, +2 pedal pulses bilateral Vascular exam: PRESENT: normal capillary refill GI/Abdominal exam: PRESENT: normal bowel sounds, soft. ABSENT: distended, guarding, mass, organolmegaly, rebound, tenderness Rectal exam: PRESENT: deferred Musculoskeletal exam: PRESENT: other - Right lower extremity: Erythema demarcated with pen relatively unchanged. Swelling has improved. Compartments remain soft and compressible no sign of compartment syndrome. Tenderness posteriorly on the calf and ankle. Crepitus with ankle range of motion. Pain with terminal flexion/extension. Dorsalis pedis pulse 2+. Neurological exam: PRESENT: alert, awake, oriented to person, oriented to place, oriented to time, oriented to situation, CN II-XII grossly intact. ABSENT: motor sensory deficit Psychiatric exam: PRESENT: appropriate affect, normal mood. ABSENT: homicidal ideation, suicidal ideation Skin exam: PRESENT: dry, intact, warm. ABSENT: cyanosis, rash Results Laboratory Results: 05/10/19 05:46 05/10/19 05:46 05/09/19 05/09/19 05/09/19 12:28 12:28 16:50 WBC 21.5 H RBC 4.05 L Hgb 13.1 L Hct 38.5 MCV 95 MCH 32.3 MCHC 34.0 RDW 15.0 H Plt Count 146 L Seg Neutrophils % Sodium Cancelled Potassium Chloride Carbon Dioxide Anion Gap BUN Creatinine Est GFR ( Amer) Glucose Calcium Magnesium Urine Color ANUPAM Urine Appearance CLOUDY Urine pH 6.0 Ur Specific [place] 1.018 Urine Protein 30 H Urine Glucose (UA) 50 H Urine Ketones NEGATIVE Urine Blood MODERATE H Urine RBC (Auto) 7 05/10/19 05/10/19 05:46 05:46 WBC 17.2 H RBC 3.67 L Hgb 11.8 L Hct 34.3 L MCV 94 MCH 32.1 MCHC 34.3 RDW 14.7 H Plt Count 127 L Seg Neutrophils % 87.9 H Sodium 127.7 L Potassium 4.6 Chloride 96 L Carbon Dioxide 21 L Anion Gap 11 BUN 21 H Creatinine 0.86 Est GFR ( Amer) > 60 Glucose 142 H Calcium 7.2 L Magnesium 2.2 Urine Color Urine Appearance Urine pH Ur Specific [place] Urine Protein Urine Glucose (UA) Urine Ketones Urine Blood Urine RBC (Auto) 05/09/19 12:28 Blood Blood Culture (PCR) - Final Staphylococcus Aureus 05/09/19 16:03 Blood Blood Culture (PCR) - Final Staphylococcus Aureus 05/09/19 16:30 Troponin I < 0.012 Impressions: Ankle X-Ray 05/09/19 11:34 IMPRESSION: Small joint effusion. No acute fracture. Foot X-Ray 05/09/19 11:34 IMPRESSION: Soft tissue swelling dorsally. No acute fracture or dislocation. Venous Doppler Study 05/09/19 11:34 IMPRESSION: NO EVIDENCE DVT OR SVT IN THE RIGHT LEG. Chest X-Ray 05/09/19 16:17 IMPRESSION: NO ACUTE RADIOGRAPHIC FINDING IN THE CHEST. Lower Extremity MRI 05/09/19 16:39 IMPRESSION: 1. Arthropathy as above may reflect the patient's history of gout. Significant marrow edema in the talus and navicular, lesser changes also in the calcaneus and cuboid. 2. Extensive soft tissue swelling, muscle edema and fluid collections extending up into the calf. While some of the loculated fluid is along tendon sheaths and reflects tenosynovitis, this is not all clearly tendon related fluid. Some of the fluid may be related to other infectious/inflammatory etiology. Shoulder X-Ray 05/09/19 17:48 IMPRESSION: NEGATIVE STUDY OF THE RIGHT SHOULDER. NO RADIOGRAPHIC EVIDENCE OF ACUTE INJURY. Status: Image reviewed by me - I have reviewed patient's MRI which demonstrates fluid collection along the posterior calf region with possible concomitant extensor tenosynovitis. Assessment & Plan - Diagnosis (1) Cellulitis Qualifiers: Site of cellulitis: extremity Site of cellulitis of extremity: lower extremity Laterality: right Qualified Code(s): L03.115 - Cellulitis of right lower limb Is this a current diagnosis for this admission?: Yes (2) Abscess of right leg Is this a current diagnosis for this admission?: Yes Plan: Given fluid collection on MRI and patient's positive blood cultures along with leukocytosis I have recommended proceeding with operative intervention which includes irrigation and debridement of the right leg. He may have concomitant g outy arthropathy which would explain the degeneration and effusion of the right ankle but I do feel the deep fluid collection is likely infectious in nature. Have discussed treatment options with the patient and family given the severity of the infection understand there is certainly possibility of worsening infection, limb loss and need for additional surgery secondary to persistent infection. Also discussed further risks such as neurovascular risk, postoperative pain, postoperative stiffness and development of posttraumatic arthritis. After discussing these options decision was made to proceed with operative treatment. - Time Time Spent with patient: Less than 15 minutes
[2019-05-10] MEDS ORDERED: PROPOFOL INJ 200 MG/20 ML VIAL IV ONE (17:28)
[2019-05-10] MEDS ORDERED: FAMOTIDINE INJ/PF 20 MG/2 ML SDV IV ONE (17:43)
[2019-05-10] MEDS ORDERED: FENTANYL CITRATE INJ/PF 100 MCG/2 ML AMPUL IV PRN ×2 (18:11)
[2019-05-10] MEDS ORDERED: MEPERIDINE HCL/PF INJ 25 MG/1 ML DISP.SYRIN IV PRN (18:11)
[2019-05-10] MEDS ORDERED: PROMETHAZINE HCL INJ 25 MG/1 ML VIAL IV PRN (18:11)
[2019-05-10] MEDS ORDERED: MORPHINE SULFATE 10 MG/ML INJ IV PRN (18:11)
[2019-05-10] MEDS ORDERED: DIPHENHYDRAMINE HCL 50 MG/ML VIAL IV PRN (18:11)
--- NOTE | 2019-05-10 19:05 | Operative Report ---
Operative Report DATE OF SURGERY: 05/10/19 PREOPERATIVE DIAGNOSIS: Abscess right leg POSTOPERATIVE DIAGNOSIS: Same plus septic arthritis right ankle OPERATION: Irrigation and debridement deep abscess right leg. Irrigation and debridement septic arthritis right ankle SURGEON: FATOU RYAN ANESTHESIA: GA COMPLICATIONS: None ESTIMATED BLOOD LOSS: Minimal PROCEDURE: Indication for above procedure: 64-year-old male with complaints of right lower extremity pain for the past 2 weeks. Patient began having worsening symptoms including constitutional symptoms and was then forced by his to the emergency room. While the emergency room patient was found to have notable infection of the right lower extremity. Initial MRI was refused but additional MRI was then ordered demonstrating fluid collection. Discussed treatment options with the patient and family including operative versus nonoperative intervention after discussing risks benefits decision was made to proceed with operative treatment. Procedure In Detail: Patient was seen and evaluated in the preoperative holding area. The right lower extremity was initialized and marked. Patient receiving scheduled IV antibiotics. Patient was taken back to the operative room where transferred to the operative table and placed under general anesthesia. Once they were adequately anesthetized a nonsterile tourniquet was placed on the lower extremity. A surgical team debriefing was performed ensuring all instrumentation was available, the surgical procedure was discussed with possible concerns reviewed. The lower extremity was prepped with Betadine and draped in a sterile fashion. A timeout was done identifying correct patient, procedure and extremity everyone in attendance agree with this and verbalized no concerns. The extremity was elevated the tourniquet was inflated to 300 mmHg. Longitudinal skin incision was made posterior to distal fibula. Sural nerve was identified and retracted. Peroneal muscles were retracted anteriorly until copious amounts of purulence was encountered just posterior to the interosseous membrane. Aerobic, anaerobic, AFB and fungal cultures were obtained. The area was irrigated with normal saline and Betadine. With finger dissection there was tracking proximally by 4 cm and distally. This area was aggressively decompressed and irrigated. Additional skin incision was made along the lateral midfoot just distal to the ankle joint laterally. Significant amounts of purulence was encountered at this level. Area was copiously irrigated with normal saline. Blunt dissection was performed in the capsule of the tibial talar joint was identified and additional purulence was encountered consistent with likely septic arthritis. This area was copiously irrigated with normal saline. Any peripheral veins were coagulated with bipolar cautery. Drain was placed into the posterior compartment from the proximal incision and into the tibiotalar joint at the distal incision. Skin incisions were closed loosely with interrupted 3-0 nylon suture. Wound was dressed with Xeroform 4 x 4's ABD and a soft dressing. Tourniquet was deflated. Patient had normal peripheral perfusion. Sponge counts, instrument counts, needle counts were correct. Patient was then awoken from anesthesia. Transferred from the operating room table to the operating room stretcher. There was no intraoperative complications patient tolerated procedure well stable to PACU. Postop plan: Patient will continue IV antibiotics. Given the Proteus Medipren's may require additional irrigation debridement. We will continue to follow cultures and clinical improvement.
[2019-05-11] MEDS: PIPERACILLIN SODIUM/TAZOBACTAM 4.5 GM in NORMAL SALINE 100 ML IV SCH ×4 (03:42→21:20)
[2019-05-11] MEDS: HEPARIN SOD (PORCINE) 5,000 UNIT/ML 1 ML VIAL SUBCUT SCH ×3 (05:20→21:20)
[2019-05-11] MEDS: PANTOPRAZOLE SODIUM 40 MG TABLET.DR PO SCH ×2 (05:23→17:26)
[2019-05-11] MEDS: VANCOMYCIN HCL 1,500 MG in DEXTROSE 5%-WATER 250 ML IV SCH ×2 (05:24→18:44)
[2019-05-11 07:37] LABS: HEPATITS B SURFACE ANTIGEN Negative (Negative)
[2019-05-11 07:41] LABS: HEMATOCRIT 33.5 % (37.9-51.0); HEMOGLOBIN 11.5 g/dL (13.5-17.0); MEAN CORPUSCULAR HEMOGLOBIN 32.5 pg (27.0-33.4); MEAN CORPUSCULAR HGB CONC 34.3 g/dL (32.0-36.0); MEAN CORPUSCULAR VOLUME 95 fl (80-97); PLATELET COUNT 134 10^3/uL (150-450); RED BLOOD COUNT 3.54 10^6/uL (4.35-5.55); RED CELL DISTRIBUTION WIDTH 14.8 % (11.5-14.0); WHITE BLOOD COUNT 13.5 10^3/uL (4.0-10.5)
[2019-05-11 08:14] LABS: ANION GAP 7 (5-19); BLOOD UREA NITROGEN 20 mg/dL (7-20); CALCIUM 7.2 mg/dL (8.4-10.2); CARBON DIOXIDE 25 mmol/L (22-30); CHLORIDE 97 mmol/L (98-107); GLUCOSE 232 mg/dL (75-110); POTASSIUM 4.8 mmol/L (3.6-5.0)
[2019-05-11 08:16] LABS: VANCOMYCIN,TROUGH 31.2 ug/mL (5.0-20.0)
[2019-05-11] MEDS ORDERED: PHARMACY COMMUNICATION ORDER MC ONE (08:45)
[2019-05-11] MEDS: INSULIN LISPRO 100 UNIT/ML 3 ML VIAL SUBCUT SCH ×4 (09:50→21:20)
[2019-05-11] MEDS: DOCUSATE SODIUM 100 MG CAPSULE PO SCH ×2 (09:51→17:26)
[2019-05-11 10:31] LABS: HEPATITIS C VIRUS ANTIBODY >11.0 s/co ratio (0.0-0.9)
[2019-05-11] MEDS: NORMAL SALINE 1000 ML 1,000 ML IV PRN (12:33)
--- NOTE | 2019-05-11 14:23 | PDOC PROGRESS REPORT ---
Subjective Progress Note for:: 05/11/19 Subjective:: The patient is a 64-year-old male with a past medical history significant for tobacco dependence with continuous use and arthritis who was admitted 05/09/2019 for Septic arthritis. The patient was seen on morning rounds with a friend present. He was found sitting up to the edge of the bed, comfortably, on room air. He reports that his pain is significantly better today; also believes the erythema and edema have improved. 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 He has no other specific questions or concerns at this time. He denies chest pain, palpitations, dyspnea, orthopnea, cough, abdominal pain, nausea vomiting and diarrhea. No concerns per nursing. Reason For Visit: CELLULITIS,SEPTIC ARTHRITIS Physical Exam Vital Signs: Temp Pulse Resp BP Pulse Ox 97.9 F 75 16 141/59 H 95 05/11/19 11:01 05/11/19 12:01 05/11/19 12:01 05/11/19 11:01 05/11/19 12:01 Intake & Output 05/10/19 05/11/19 05/12/19 06:59 06:59 06:59 Intake Total 2800 4196 1100 Output Total 650 2027 Balance 2150 2169 1100 Weight 95.3 kg 95.3 kg General appearance: PRESENT: no acute distress, cooperative, well-developed, well-nourished Head exam: PRESENT: atraumatic, normocephalic Eye exam: PRESENT: conjunctiva pink, EOMI, PERRLA. ABSENT: scleral icterus Ear exam: PRESENT: normal external ear exam Mouth exam: PRESENT: moist, tongue midline Respiratory exam: PRESENT: clear to auscultation brenda, symmetrical, unlabored. ABSENT: rales, rhonchi, wheezes Cardiovascular exam: PRESENT: RRR, +S1, +S2. ABSENT: diastolic murmur, rubs, systolic murmur Vascular exam: PRESENT: normal capillary refill Rectal exam: PRESENT: deferred Extremities exam: PRESENT: other - RLE w/ post op dressing and TRENA drains in place. Edema significantly improved. Decreased erythema to knee; continues to have medial thigh lymphangitis.. ABSENT: calf tenderness, clubbing, pedal edema Neurological exam: PRESENT: alert, awake, oriented to person, oriented to place, oriented to time, oriented to situation, CN II-XII grossly intact. ABSENT: motor sensory deficit Psychiatric exam: PRESENT: appropriate affect, normal mood. ABSENT: homicidal ideation, suicidal ideation Skin exam: PRESENT: dry, warm. ABSENT: cyanosis, rash Results Laboratory Results: 05/11/19 07:02 05/11/19 07:02 05/11/19 05/11/19 07:02 07:02 WBC 13.5 H RBC 3.54 L Hgb 11.5 L Hct 33.5 L MCV 95 MCH 32.5 MCHC 34.3 RDW 14.8 H Plt Count 134 L Sodium 128.8 L Potassium 4.8 Chloride 97 L Carbon Dioxide 25 Anion Gap 7 BUN 20 Creatinine 0.84 Est GFR ( Amer) > 60 Glucose 232 H Calcium 7.2 L 05/10/19 18:28 Foot - Right Gram Stain - Final 05/10/19 18:28 Leg - Right Gram Stain - Final 05/09/19 12:28 Blood Blood Culture (PCR) - Final Staphylococcus Aureus 05/09/19 16:03 Blood Blood Culture (PCR) - Final Staphylococcus Aureus 05/09/19 16:30 Troponin I < 0.012 Impressions: Ankle X-Ray 05/09/19 11:34 IMPRESSION: Small joint effusion. No acute fracture. Foot X-Ray 05/09/19 11:34 IMPRESSION: Soft tissue swelling dorsally. No acute fracture or dislocation. Venous Doppler Study 05/09/19 11:34 IMPRESSION: NO EVIDENCE DVT OR SVT IN THE RIGHT LEG. Chest X-Ray 05/09/19 16:17 IMPRESSION: NO ACUTE RADIOGRAPHIC FINDING IN THE CHEST. Lower Extremity MRI 05/09/19 16:39 IMPRESSION: 1. Arthropathy as above may reflect the patient's history of gout. Significant marrow edema in the talus and navicular, lesser changes also in the calcaneus and cuboid. 2. Extensive soft tissue swelling, muscle edema and fluid collections extending up into the calf. While some of the loculated fluid is along tendon sheaths and reflects tenosynovitis, this is not all clearly tendon related fluid. Some of the fluid may be related to other infectious/inflammatory etiology. Shoulder X-Ray 05/09/19 17:48 IMPRESSION: NEGATIVE STUDY OF THE RIGHT SHOULDER. NO RADIOGRAPHIC EVIDENCE OF ACUTE INJURY. Assessment and Plan - Diagnosis (1) Septic arthritis Qualifiers: Septic arthritis location: ankle Laterality: right Is this a current diagnosis for this admission?: Yes Plan: Septic arthritis VS reactive arthritis VS acute gout. Elevated ESR 41 and CRP 141. RPR, Gc/Ch negative. Right lower extremity x-ray negative for osteomyelitis. Right lower extremity venous Doppler negative for DVT. MRI revealed significant marrow edema o the talus, navicular, and calcaneus w/ extensive soft tissue edema and loculated fluid along the tendon sheaths. Blood cultures (05/09/19; 4/4) positive for MRSA Repeat culture (05/11/19) pending Admit to medical floor. Continue on empiric IV antibiotics; Day #3 Vanc/Zosyn. Ortho has been consulted; now post-op surgical I&D. Follow-up recommendations. (2) Bacteremia Is this a current diagnosis for this admission?: Yes Plan: Secondary to #1. Pt denies IVDU. Blood cultures (05/09/19; 4/4) positive for MRSA Repeat cultures (05/11/19) pending Will need WILFRED to determine 4 vs 6 weeks abx therapy. Pending Ortho findings; may require 6 weeks regardless. Consider ID consultation. (3) Hyponatremia Is this a current diagnosis for this admission?: Yes Plan: Improved; 125-> 127-> 128.8 Mostly delusional. Patient endorsing excessive p.o. water intake. Continue IVF. Follow up chemistry. (4) Leukocytosis Qualifiers: Leukocytosis type: unspecified Qualified Code(s): D72.829 - Elevated white blood cell count, unspecified Is this a current diagnosis for this admission?: Yes Plan: Secondary to #1 Trending down; 21-> 17-> 13 Cultures and antibiotics as above. (5) Cellulitis Qualifiers: Site of cellulitis: extremity Site of cellulitis of extremity: lower extremity Laterality: right Qualified Code(s): L03.115 - Cellulitis of right lower limb Is this a current diagnosis for this admission?: Yes Plan: As per #1. (6) Tobacco abuse Is this a current diagnosis for this admission?: Yes Plan: Smoking cessation encouraged. Nicotine replacement therapies provided. - Time Time Spent with patient: 25-34 minutes Medications reviewed and adjusted accordingly: Yes Anticipated discharge: Home with Homehealth
[2019-05-11] MEDS: OXYCODONE-ACETAMINOPHEN 5-325 MG TABLET PO PRN (14:25)
[2019-05-12] MEDS: VANCOMYCIN HCL 1,250 MG in DEXTROSE 5%-WATER 250 ML IV SCH ×3 (02:09→18:07)
[2019-05-12] MEDS: OXYCODONE-ACETAMINOPHEN 5-325 MG TABLET PO PRN ×4 (02:52→15:58)
[2019-05-12] MEDS: PIPERACILLIN SODIUM/TAZOBACTAM 4.5 GM in NORMAL SALINE 100 ML IV SCH ×4 (03:59→21:25)
[2019-05-12] MEDS: HEPARIN SOD (PORCINE) 5,000 UNIT/ML 1 ML VIAL SUBCUT SCH ×3 (05:29→21:20)
[2019-05-12] MEDS: PANTOPRAZOLE SODIUM 40 MG TABLET.DR PO SCH ×2 (05:40→17:03)
[2019-05-12] MEDS: NORMAL SALINE 1000 ML 1,000 ML IV PRN (05:43)
[2019-05-12 07:04] LABS: ABSOLUTE EOSINOPHILS # (AUTO) 0.1 10^3/uL (0.0-0.6); ABSOLUTE LYMPHOCYTES (AUTO) 1.3 10^3/uL (0.5-4.7); ABSOLUTE MONOCYTES (AUTO) 0.5 10^3/uL (0.1-1.4); ABSOLUTE NEUT (AUTO) 11.1 10^3/uL (1.7-8.2); BASOPHILS % (AUTO) 0.1 % (0-2); EOSINOPHILS % (AUTO) 0.8 % (0-6); HEMATOCRIT 32.3 % (37.9-51.0); HEMOGLOBIN 11.2 g/dL (13.5-17.0); MEAN CORPUSCULAR HEMOGLOBIN 32.3 pg (27.0-33.4); MEAN CORPUSCULAR HGB CONC 34.5 g/dL (32.0-36.0); MEAN CORPUSCULAR VOLUME 94 fl (80-97); MONOCYTES % (AUTO) 3.8 % (3-13); PLATELET COUNT 151 10^3/uL (150-450); RED BLOOD COUNT 3.45 10^6/uL (4.35-5.55); RED CELL DISTRIBUTION WIDTH 15.2 % (11.5-14.0); SEGMENTED NEUTROPHILS % (AUTO) 85.3 % (42-78); TOTAL CELLS COUNTED % (AUTO) 100 %
--- NOTE | 2019-05-12 07:07 | PDOC PROGRESS REPORT ---
Subjective Progress Note for:: 05/12/19 Reason For Visit: CELLULITIS,SEPTIC ARTHRITIS 64-year-old white male status post I&D of a right lower extremity MRSA abscess. Patient complaining about increasing pain in the right lower extremity and scrotal swelling this morning. Physical Exam Vital Signs: Temp Pulse Resp BP Pulse Ox 36.7 C 70 19 135/61 H 97 05/11/19 23:40 05/12/19 02:00 05/11/19 23:40 05/11/19 23:40 05/11/19 23:40 Intake & Output 05/11/19 05/12/19 05/13/19 06:59 06:59 06:59 Intake Total 4196 5060 Output Total 2029 3385 Balance 2169 2665 Weight 95.3 kg 96.9 kg General appearance: PRESENT: no acute distress, mild distress Musculoskeletal exam: PRESENT: other - Right lower extremity splint in place. Drains continue to be productive of serosanguineous fluid. Results Laboratory Results: 05/12/19 06:29 05/11/19 05/11/19 05/12/19 07:02 07:02 06:29 WBC 13.5 H 13.0 H RBC 3.54 L 3.45 L Hgb 11.5 L 11.2 L Hct 33.5 L 32.3 L MCV 95 94 MCH 32.5 32.3 MCHC 34.3 34.5 RDW 14.8 H 15.2 H Plt Count 134 L 151 Seg Neutrophils % 85.3 H Sodium 128.8 L Potassium 4.8 Chloride 97 L Carbon Dioxide 25 Anion Gap 7 BUN 20 Creatinine 0.84 Est GFR ( Amer) > 60 Glucose 232 H Calcium 7.2 L 05/10/19 18:28 Foot - Right Gram Stain - Final 05/10/19 18:28 Leg - Right Gram Stain - Final 05/09/19 12:28 Blood Blood Culture (PCR) - Final Staphylococcus Aureus 05/09/19 16:03 Blood Blood Culture (PCR) - Final Staphylococcus Aureus 05/09/19 16:30 Troponin I < 0.012 Impressions: Ankle X-Ray 05/09/19 11:34 IMPRESSION: Small joint effusion. No acute fracture. Foot X-Ray 05/09/19 11:34 IMPRESSION: Soft tissue swelling dorsally. No acute fracture or dislocation. Venous Doppler Study 05/09/19 11:34 IMPRESSION: NO EVIDENCE DVT OR SVT IN THE RIGHT LEG. Chest X-Ray 05/09/19 16:17 IMPRESSION: NO ACUTE RADIOGRAPHIC FINDING IN THE CHEST. Lower Extremity MRI 05/09/19 16:39 IMPRESSION: 1. Arthropathy as above may reflect the patient's history of gout. Significant marrow edema in the talus and navicular, lesser changes also in the calcaneus and cuboid. 2. Extensive soft tissue swelling, muscle edema and fluid collections extending up into the calf. While some of the loculated fluid is along tendon sheaths and reflects tenosynovitis, this is not all clearly tendon related fluid. Some of the fluid may be related to other infectious/inflammatory etiology. Shoulder X-Ray 05/09/19 17:48 IMPRESSION: NEGATIVE STUDY OF THE RIGHT SHOULDER. NO RADIOGRAPHIC EVIDENCE OF ACUTE INJURY. Status: Imported from PACS Assessment & Plan - Diagnosis (1) Abscess of right leg Is this a current diagnosis for this admission?: Yes Plan: Continue drains, elevation, and antibiotics. - Time Time Spent with patient: 15-24 minutes Anticipated discharge: SNF Within: when bed available
[2019-05-12 07:25] LABS: ANION GAP 6 (5-19); BLOOD UREA NITROGEN 20 mg/dL (7-20); CALCIUM 7.3 mg/dL (8.4-10.2); CARBON DIOXIDE 25 mmol/L (22-30); CHLORIDE 100 mmol/L (98-107); GLUCOSE 181 mg/dL (75-110); POTASSIUM 4.4 mmol/L (3.6-5.0)
[2019-05-12] MEDS: INSULIN LISPRO 100 UNIT/ML 3 ML VIAL SUBCUT SCH ×4 (07:42→21:26)
[2019-05-12] MEDS: DOCUSATE SODIUM 100 MG CAPSULE PO SCH ×2 (09:47→17:03)
--- NOTE | 2019-05-12 15:05 | PDOC PROGRESS REPORT ---
Subjective Progress Note for:: 05/12/19 Subjective:: The patient is a 64-year-old male with a past medical history significant for tobacco dependence with continuous use and arthritis who was admitted 05/09/2019 for Septic arthritis. The patient was seen on morning rounds. He was found resting in bed, comfortably, on room air. He reports that his pain is significantly better today; also believes the erythema has improved. He does report increased RLE edema and scrotal edema, but without discomfort. He has no other specific questions or concerns at this time. He denies fever, chills, chest pain, palpitations, dyspnea, orthopnea, cough, abdominal pain, nausea vomiting and diarrhea. No concerns per nursing. Reason For Visit: CELLULITIS,SEPTIC ARTHRITIS Physical Exam Vital Signs: Temp Pulse Resp BP Pulse Ox 97.5 F 79 18 139/59 H 98 05/12/19 08:30 05/12/19 08:30 05/12/19 08:30 05/12/19 08:30 05/12/19 08:30 Intake & Output 05/11/19 05/12/19 05/13/19 06:59 06:59 06:59 Intake Total 4196 5060 100 Output Total 2027 2395 Balance 2169 2665 100 Weight 95.3 kg 96.9 kg General appearance: PRESENT: no acute distress, cooperative, well-developed, wel l-nourished Head exam: PRESENT: atraumatic, normocephalic Eye exam: PRESENT: conjunctiva pink, EOMI, PERRLA. ABSENT: scleral icterus Ear exam: PRESENT: normal external ear exam Mouth exam: PRESENT: moist, tongue midline Teeth exam: PRESENT: poor dentation Respiratory exam: PRESENT: clear to auscultation brenda, symmetrical, unlabored. ABSENT: rales, rhonchi, wheezes Cardiovascular exam: PRESENT: RRR, +S1, +S2. ABSENT: diastolic murmur, rubs, systolic murmur Pulses: PRESENT: normal dorsalis pedis pul Vascular exam: PRESENT: normal capillary refill GI/Abdominal exam: PRESENT: normal bowel sounds, soft. ABSENT: distended, guarding, mass, organolmegaly, rebound, tenderness Rectal exam: PRESENT: deferred Gentrourinary exam: PRESENT: scrotal swelling Extremities exam: PRESENT: full ROM, other - RLE w/ post op dressing and TRENA drains in place. Increased edema today. Decreased erythema to knee; continues to have medial thigh lymphangitis. No inguinal lymphadenopathy.. ABSENT: calf tenderness, clubbing Neurological exam: PRESENT: alert, awake, oriented to person, oriented to place, oriented to time, oriented to situation, CN II-XII grossly intact. ABSENT: motor sensory deficit Psychiatric exam: PRESENT: appropriate affect, normal mood. ABSENT: homicidal ideation, suicidal ideation Skin exam: PRESENT: dry, erythema - RLE, warm. ABSENT: cyanosis, rash Results Laboratory Results: 05/12/19 06:29 05/12/19 06:29 05/12/19 05/12/19 06:29 06:29 WBC 13.0 H RBC 3.45 L Hgb 11.2 L Hct 32.3 L MCV 94 MCH 32.3 MCHC 34.5 RDW 15.2 H Plt Count 151 Seg Neutrophils % 85.3 H Sodium 131.1 L Potassium 4.4 Chloride 100 Carbon Dioxide 25 Anion Gap 6 BUN 20 Creatinine 0.78 Est GFR ( Amer) > 60 Glucose 181 H Calcium 7.3 L 05/10/19 18:28 Leg - Right Gram Stain - Final 05/10/19 18:28 Leg - Right Wound Culture - Final Mrsa (Meth Resis Staph Aureus) No Anaerobic Organisms 05/10/19 18:28 Foot - Right Gram Stain - Final 05/10/19 18:28 Foot - Right Wound Culture - Final Mrsa (Meth Resis Staph Aureus) No Anaerobic Organisms 05/11/19 09:00 Blood Blood Culture (PCR) - Final Staphylococcus Aureus 05/11/19 07:02 Blood Blood Culture (PCR) - Final Staphylococcus Aureus 05/09/19 12:28 Blood Blood Culture (PCR) - Final Staphylococcus Aureus 05/09/19 12:28 Blood Blood Culture - Final Mrsa (Meth Resis Staph Aureus) 05/09/19 16:03 Blood Blood Culture (PCR) - Final Staphylococcus Aureus 05/09/19 16:03 Blood Blood Culture - Final Mrsa (Meth Resis Staph Aureus) 05/09/19 16:30 Troponin I < 0.012 Impressions: Ankle X-Ray 05/09/19 11:34 IMPRESSION: Small joint effusion. No acute fracture. Foot X-Ray 05/09/19 11:34 IMPRESSION: Soft tissue swelling dorsally. No acute fracture or dislocation. Venous Doppler Study 05/09/19 11:34 IMPRESSION: NO EVIDENCE DVT OR SVT IN THE RIGHT LEG. Chest X-Ray 05/09/19 16:17 IMPRESSION: NO ACUTE RADIOGRAPHIC FINDING IN THE CHEST. Lower Extremity MRI 05/09/19 16:39 IMPRESSION: 1. Arthropathy as above may reflect the patient's history of gout. Significant marrow edema in the talus and navicular, lesser changes also in the calcaneus and cuboid. 2. Extensive soft tissue swelling, muscle edema and fluid collections extending up into the calf. While some of the loculated fluid is along tendon sheaths and reflects tenosynovitis, this is not all clearly tendon related fluid. Some of the fluid may be related to other infectious/inflammatory etiology. Shoulder X-Ray 05/09/19 17:48 IMPRESSION: NEGATIVE STUDY OF THE RIGHT SHOULDER. NO RADIOGRAPHIC EVIDENCE OF ACUTE INJURY. Assessment and Plan - Diagnosis (1) Septic arthritis Qualifiers: Septic arthritis location: ankle Laterality: right Is this a current diagnosis for this admission?: Yes Plan: Elevated ESR 41 and CRP 141. RPR, Gc/Ch negative. Right lower extremity x-ray negative for osteomyelitis. Right lower extremity venous Doppler negative for DVT. MRI revealed significant marrow edema to the talus, navicular, and calcaneus w/ extensive soft tissue edema and loculated fluid along the tendon sheaths. Blood cultures (05/09/19; 4/4) positive for MRSA Blood culture (05/11/19) positive for MRSA Repeat culture in AM Admit to medical floor. Continue on empiric IV antibiotics; Day #4 Vanc/Zosyn. Ortho has been consulted; now post-op surgical I&D. Follow-up recommendations. Increased edema today; consider additional imaging. (2) Bacteremia Is this a current diagnosis for this admission?: Yes Plan: Secondary to #1. Pt denies IVDU. Blood cultures (05/09/19; 4/4) positive for MRSA Blood cultures (05/11/19) positive for MRSA Repeat cultures pending. Will need WILFRED to determine 4 vs 6 weeks abx therapy. Pending Ortho findings; may require 6 weeks regardless. Consider ID consultation. (3) Hyponatremia Is this a current diagnosis for this admission?: Yes Plan: Improved; 125-> 127-> 128.8-> 131.1 Mostly delusional. Patient endorsed excessive p.o. water intake. Have discontinued IVF. Follow up chemistry. (4) Leukocytosis Qualifiers: Leukocytosis type: unspecified Qualified Code(s): D72.829 - Elevated white blood cell count, unspecified Is this a current diagnosis for this admission?: Yes Plan: Secondary to #1 Trending down; 21-> 17-> 13 Cultures and antibiotics as above. (5) Cellulitis Qualifiers: Site of cellulitis: extremity Site of cellulitis of extremity: lower extremity Laterality: right Qualified Code(s): L03.115 - Cellulitis of right lower limb Is this a current diagnosis for this admission?: Yes Plan: As per #1. (6) Tobacco abuse Is this a current diagnosis for this admission?: Yes Plan: Smoking cessation encouraged. Nicotine replacement therapies provided. - Time Time Spent with patient: 35 or more minutes Medications reviewed and adjusted accordingly: Yes
[2019-05-12 18:43] LABS: VANCOMYCIN,TROUGH 16.6 ug/mL (5.0-20.0)
[2019-05-13] MEDS: OXYCODONE-ACETAMINOPHEN 5-325 MG TABLET PO PRN ×5 (00:04→20:38)
[2019-05-13] MEDS: VANCOMYCIN HCL 1,250 MG in DEXTROSE 5%-WATER 250 ML IV SCH ×3 (01:04→18:32)
[2019-05-13] MEDS: PIPERACILLIN SODIUM/TAZOBACTAM 4.5 GM in NORMAL SALINE 100 ML IV SCH ×4 (03:38→20:37)
[2019-05-13] MEDS: HEPARIN SOD (PORCINE) 5,000 UNIT/ML 1 ML VIAL SUBCUT SCH ×3 (05:27→21:30)
[2019-05-13] MEDS: PANTOPRAZOLE SODIUM 40 MG TABLET.DR PO SCH ×2 (05:27→16:29)
[2019-05-13 06:34] LABS: ABSOLUTE EOSINOPHILS # (AUTO) 0.1 10^3/uL (0.0-0.6); ABSOLUTE LYMPHOCYTES (AUTO) 1.1 10^3/uL (0.5-4.7); ABSOLUTE MONOCYTES (AUTO) 0.5 10^3/uL (0.1-1.4); ABSOLUTE NEUT (AUTO) 8.7 10^3/uL (1.7-8.2); BASOPHILS % (AUTO) 0.4 % (0-2); EOSINOPHILS % (AUTO) 0.8 % (0-6); HEMOGLOBIN 10.9 g/dL (13.5-17.0); LYMPHOCYTES % (AUTO) 10.4 % (13-45); MEAN CORPUSCULAR HGB CONC 35.1 g/dL (32.0-36.0); MEAN CORPUSCULAR VOLUME 94 fl (80-97); MONOCYTES % (AUTO) 4.6 % (3-13); PLATELET COUNT 134 10^3/uL (150-450); RED BLOOD COUNT 3.29 10^6/uL (4.35-5.55); SEGMENTED NEUTROPHILS % (AUTO) 83.8 % (42-78); TOTAL CELLS COUNTED % (AUTO) 100 %; WHITE BLOOD COUNT 10.4 10^3/uL (4.0-10.5)
[2019-05-13 07:01] LABS: ANION GAP 6 (5-19); BLOOD UREA NITROGEN 17 mg/dL (7-20); CALCIUM 7.3 mg/dL (8.4-10.2); CARBON DIOXIDE 24 mmol/L (22-30); CHLORIDE 97 mmol/L (98-107); GLUCOSE 142 mg/dL (75-110); POTASSIUM 4.2 mmol/L (3.6-5.0)
--- NOTE | 2019-05-13 07:52 | PDOC PROGRESS REPORT ---
Subjective Progress Note for:: 05/13/19 Subjective:: Patient lying in bed comfortably. Complains of pain mainly along the scrotal and groin region. Feels that the swelling and pain in his leg has improved over the past few days. Denies fever chills or sweats. Reason For Visit: CELLULITIS,SEPTIC ARTHRITIS Physical Exam Vital Signs: Temp Pulse Resp BP Pulse Ox 97.3 F 87 17 139/52 H 94 05/13/19 00:20 05/13/19 02:00 05/13/19 00:20 05/13/19 00:20 05/13/19 00:20 Intake & Output 05/12/19 05/13/19 05/14/19 06:59 06:59 06:59 Intake Total 5060 3890 Output Total 2395 1370 Balance 2665 2520 Weight 96.9 kg 100.3 kg Musculoskeletal exam: PRESENT: other - Right lower extremity: Swelling and erythema throughout the thigh improved however continues to have notable discrepancy compared to left lower extremity. Compartments soft and compressible no sign of compartment syndrome. Intact plantarflexion/dorsiflexion. Fairly significant scrotal swelling noted. Results Laboratory Results: 05/13/19 06:01 05/13/19 06:01 05/13/19 05/13/19 06:01 06:01 WBC 10.4 RBC 3.29 L Hgb 10.9 L Hct 31.0 L MCV 94 MCH 33.0 MCHC 35.1 RDW 15.0 H Plt Count 134 L Seg Neutrophils % 83.8 H Sodium 127.3 L Potassium 4.2 Chloride 97 L Carbon Dioxide 24 Anion Gap 6 BUN 17 Creatinine 0.81 Est GFR ( Amer) > 60 Glucose 142 H Calcium 7.3 L 05/11/19 09:00 Blood Blood Culture (PCR) - Final Staphylococcus Aureus 05/11/19 07:02 Blood Blood Culture (PCR) - Final Staphylococcus Aureus 05/10/19 18:28 Leg - Right Gram Stain - Final 05/10/19 18:28 Leg - Right Wound Culture - Final Mrsa (Meth Resis Staph Aureus) No Anaerobic Organisms 05/10/19 18:28 Foot - Right Gram Stain - Final 05/10/19 18:28 Foot - Right Wound Culture - Final Mrsa (Meth Resis Staph Aureus) No Anaerobic Organisms 05/09/19 12:28 Blood Blood Culture (PCR) - Final Staphylococcus Aureus 05/09/19 12:28 Blood Blood Culture - Final Mrsa (Meth Resis Staph Aureus) 05/09/19 16:03 Blood Blood Culture (PCR) - Final Staphylococcus Aureus 05/09/19 16:03 Blood Blood Culture - Final Mrsa (Meth Resis Staph Aureus) 05/09/19 16:30 Troponin I < 0.012 Impressions: Ankle X-Ray 05/09/19 11:34 IMPRESSION: Small joint effusion. No acute fracture. Foot X-Ray 05/09/19 11:34 IMPRESSION: Soft tissue swelling dorsally. No acute fracture or dislocation. Venous Doppler Study 05/09/19 11:34 IMPRESSION: NO EVIDENCE DVT OR SVT IN THE RIGHT LEG. Chest X-Ray 05/09/19 16:17 IMPRESSION: NO ACUTE RADIOGRAPHIC FINDING IN THE CHEST. Lower Extremity MRI 05/09/19 16:39 IMPRESSION: 1. Arthropathy as above may reflect the patient's history of gout. Significant marrow edema in the talus and navicular, lesser changes also in the calcaneus and cuboid. 2. Extensive soft tissue swelling, muscle edema and fluid collections extending up into the calf. While some of the loculated fluid is along tendon sheaths and reflects tenosynovitis, this is not all clearly tendon related fluid. Some of the fluid may be related to other infectious/inflammatory etiology. Shoulder X-Ray 05/09/19 17:48 IMPRESSION: NEGATIVE STUDY OF THE RIGHT SHOULDER. NO RADIOGRAPHIC EVIDENCE OF ACUTE INJURY. Assessment & Plan - Diagnosis (1) Cellulitis Qualifiers: Site of cellulitis: extremity Site of cellulitis of extremity: lower extremity Laterality: right Qualified Code(s): L03.115 - Cellulitis of right lower limb Is this a current diagnosis for this admission?: Yes (2) Abscess of right leg Is this a current diagnosis for this admission?: Yes Plan: Postop day #3 status post I&D right lower extremity. 1. Continue drains until less than 10 cc. Current drainage serosanguineous in nature no purulent drainage. 2. IV antibiotics as per infectious disease/hospitalist 3. Patient continues to have residual swelling of the right lower extremity and notable swelling of the scrotum may require additional imaging to further evaluate. At this point there is no sign or symptoms to suggest repeat irrigation and debridement. We will continue to monitor clinically. - Time Time Spent with patient: 15-24 minutes
[2019-05-13] MEDS: INSULIN LISPRO 100 UNIT/ML 3 ML VIAL SUBCUT SCH ×4 (08:01→21:34)
[2019-05-13] MEDS: DOCUSATE SODIUM 100 MG CAPSULE PO SCH ×2 (10:34→18:33)
--- NOTE | 2019-05-13 14:52 | PDOC PROGRESS REPORT ---
Subjective Progress Note for:: 05/13/19 Subjective:: The patient is a 64-year-old male with a past medical history significant for tobacco dependence with continuous use and arthritis who was admitted 05/09/2019 for Septic arthritis. The patient was seen on afternoon rounds. He was found sitting us in the recliner, comfortably, on room air. He reports that his pain is significantly better today. Edema and erythema are also improved. He continues to have scrotal edema, but without discomfort. He has no other specific questions or concerns at this time. He denies fever, chills, chest pain, palpitations, dyspnea, orthopnea, cough, abdominal pain, nausea vomiting and diarrhea. No concerns per nursing. Reason For Visit: CELLULITIS,SEPTIC ARTHRITIS Physical Exam Vital Signs: Temp Pulse Resp BP Pulse Ox 98.6 F 85 18 137/66 H 96 05/13/19 12:00 05/13/19 12:00 05/13/19 12:00 05/13/19 12:00 05/13/19 12:00 Intake & Output 05/12/19 05/13/19 05/14/19 06:59 06:59 06:59 Intake Total 5060 3890 780 Output Total 2395 1370 400 Balance 2665 2520 380 Weight 96.9 kg 100.3 kg 100.3 kg General appearance: PRESENT: no acute distress, cooperative, well-developed, well-nourished Head exam: PRESENT: atraumatic, normocephalic Eye exam: PRESENT: conjunctiva pink, EOMI, PERRLA. ABSENT: scleral icterus Ear exam: PRESENT: normal external ear exam Mouth exam: PRESENT: moist, tongue midline Teeth exam: PRESENT: poor dentation Respiratory exam: PRESENT: clear to auscultation brenda, symmetrical, unlabored. ABSENT: rales, rhonchi, wheezes Cardiovascular exam: PRESENT: RRR, +S1, +S2. ABSENT: diastolic murmur, rubs, systolic murmur Pulses: PRESENT: normal dorsalis pedis pul Vascular exam: PRESENT: normal capillary refill GI/Abdominal exam: PRESENT: normal bowel sounds, soft. ABSENT: distended, guarding, mass, organolmegaly, rebound, tenderness Rectal exam: PRESENT: deferred Gentrourinary exam: PRESENT: scrotal swelling Extremities exam: PRESENT: other - RLE w/ post op dressing and TRENA drains in place. Decreased erythem and edema today. No inguinal lymphadenopathy. ABSENT: calf tenderness, clubbing, full ROM, pedal edema Neurological exam: PRESENT: alert, awake, oriented to person, oriented to place, oriented to time, oriented to situation, CN II-XII grossly intact. ABSENT: motor sensory deficit Psychiatric exam: PRESENT: appropriate affect, normal mood. ABSENT: homicidal ideation, suicidal ideation Skin exam: PRESENT: dry, intact, warm. ABSENT: cyanosis, rash Results Laboratory Results: 05/13/19 06:01 05/13/19 06:01 05/13/19 05/13/19 06:01 06:01 WBC 10.4 RBC 3.29 L Hgb 10.9 L Hct 31.0 L MCV 94 MCH 33.0 MCHC 35.1 RDW 15.0 H Plt Count 134 L Seg Neutrophils % 83.8 H Sodium 127.3 L Potassium 4.2 Chloride 97 L Carbon Dioxide 24 Anion Gap 6 BUN 17 Creatinine 0.81 Est GFR ( Amer) > 60 Glucose 142 H Calcium 7.3 L 05/11/19 09:00 Blood Blood Culture (PCR) - Final Staphylococcus Aureus 05/11/19 07:02 Blood Blood Culture (PCR) - Final Staphylococcus Aureus 05/10/19 18:28 Leg - Right Gram Stain - Final 05/10/19 18:28 Leg - Right Wound Culture - Final Mrsa (Meth Resis Staph Aureus) No Anaerobic Organisms 05/10/19 18:28 Foot - Right Gram Stain - Final 05/10/19 18:28 Foot - Right Wound Culture - Final Mrsa (Meth Resis Staph Aureus) No Anaerobic Organisms 05/09/19 16:30 Troponin I < 0.012 Impressions: Ankle X-Ray 05/09/19 11:34 IMPRESSION: Small joint effusion. No acute fracture. Foot X-Ray 05/09/19 11:34 IMPRESSION: Soft tissue swelling dorsally. No acute fracture or dislocation. Venous Doppler Study 05/09/19 11:34 IMPRESSION: NO EVIDENCE DVT OR SVT IN THE RIGHT LEG. Chest X-Ray 05/09/19 16:17 IMPRESSION: NO ACUTE RADIOGRAPHIC FINDING IN THE CHEST. Lower Extremity MRI 05/09/19 16:39 IMPRESSION: 1. Arthropathy as above may reflect the patient's history of gout. Significant marrow edema in the talus and navicular, lesser changes also in the calcaneus and cuboid. 2. Extensive soft tissue swelling, muscle edema and fluid collections extending up into the calf. While some of the loculated fluid is along tendon sheaths and reflects tenosynovitis, this is not all clearly tendon related fluid. Some of the fluid may be related to other infectious/inflammatory etiology. Shoulder X-Ray 05/09/19 17:48 IMPRESSION: NEGATIVE STUDY OF THE RIGHT SHOULDER. NO RADIOGRAPHIC EVIDENCE OF ACUTE INJURY. Assessment and Plan - Diagnosis (1) Septic arthritis Qualifiers: Septic arthritis location: ankle Laterality: right Is this a current diagnosis for this admission?: Yes Plan: Elevated ESR 41 and CRP 141. RPR, Gc/Ch negative. Right lower extremity x-ray negative for osteomyelitis. Right lower extremity venous Doppler negative for DVT. MRI revealed significant marrow edema to the talus, navicular, and calcaneus w/ extensive soft tissue edema and loculated fluid along the tendon sheaths. Blood cultures (05/09/19; 4/4) positive for MRSA Blood culture (05/11/19) positive for MRSA Repeat culture pending Admit to medical floor. Continue on empiric IV antibiotics; Day #5 Vanc/Zosyn. Ortho has been consulted; now post-op surgical I&D. Follow-up recommendations. (2) Bacteremia Is this a current diagnosis for this admission?: Yes Plan: Secondary to #1. Pt denies IVDU. Blood cultures (05/09/19; 4/4) positive for MRSA Blood cultures (05/11/19) positive for MRSA Repeat cultures (05/13/19) pending. Will need WILFRED to determine 4 vs 6 weeks abx therapy. Pending Ortho findings; may require 6 weeks regardless. Consider ID consultation. (3) Hyponatremia Is this a current diagnosis for this admission?: Yes Plan: Improved; 125-> 127-> 128.8-> 131.1-> 127 Mostly delusional. Patient endorsed excessive p.o. water intake. Have discontinued IVF. Follow up chemistry. (4) Leukocytosis Qualifiers: Leukocytosis type: unspecified Qualified Code(s): D72.829 - Elevated white blood cell count, unspecified Is this a current diagnosis for this admission?: Yes Plan: Secondary to #1 Trending down; 21-> 17-> 13-> 10 Cultures and antibiotics as above. (5) Cellulitis Qualifiers: Site of cellulitis: extremity Site of cellulitis of extremity: lower extremity Laterality: right Qualified Code(s): L03.115 - Cellulitis of right lower limb Is this a current diagnosis for this admission?: Yes Plan: As per #1. (6) Tobacco abuse Is this a current diagnosis for this admission?: Yes Plan: Smoking cessation encouraged. Nicotine replacement therapies provided. - Time Time Spent with patient: 25-34 minutes Medications reviewed and adjusted accordingly: Yes Anticipated discharge: Home with Homehealth
[2019-05-14] MEDS: VANCOMYCIN HCL 1,250 MG in DEXTROSE 5%-WATER 250 ML IV SCH ×3 (02:00→17:11)
[2019-05-14] MEDS: OXYCODONE-ACETAMINOPHEN 5-325 MG TABLET PO PRN ×4 (03:20→22:29)
[2019-05-14] MEDS: PIPERACILLIN SODIUM/TAZOBACTAM 4.5 GM in NORMAL SALINE 100 ML IV SCH ×4 (03:21→21:30)
[2019-05-14] MEDS: HEPARIN SOD (PORCINE) 5,000 UNIT/ML 1 ML VIAL SUBCUT SCH ×3 (06:07→21:30)
[2019-05-14] MEDS: PANTOPRAZOLE SODIUM 40 MG TABLET.DR PO SCH ×2 (06:13→16:58)
[2019-05-14] MEDS: INSULIN LISPRO 100 UNIT/ML 3 ML VIAL SUBCUT SCH ×4 (08:25→21:29)
--- NOTE | 2019-05-14 09:47 | PDOC PROGRESS REPORT ---
Subjective Progress Note for:: 05/14/19 Subjective:: The patient is a 64-year-old male with a past medical history significant for tobacco dependence with continuous use and arthritis who was admitted 05/09/2019 for Septic arthritis. The patient was seen on morning rounds. He was found resting in bed, comfortably, on room air. He reports increased pain at the moment; just has returned from ambulating to restroom. Edema and erythema are improved. He continues to have scrotal edema, worsened today, with slight tenderness. He has no other specific questions or concerns at this time. He denies fever, chills, chest pain, palpitations, dyspnea, orthopnea, cough, abdominal pain, nausea vomiting and diarrhea. No concerns per nursing. Reason For Visit: CELLULITIS,SEPTIC ARTHRITIS Physical Exam Vital Signs: Temp Pulse Resp BP Pulse Ox 98.4 F 80 18 142/51 H 97 05/14/19 08:00 05/14/19 08:00 05/14/19 08:00 05/14/19 08:00 05/14/19 08:00 Intake & Output 05/13/19 05/14/19 05/15/19 06:59 06:59 06:59 Intake Total 3890 2066 Output Total 1370 2085 Balance 2520 -19 Weight 100.3 kg 102.1 kg General appearance: PRESENT: no acute distress, cooperative, well-developed, well-nourished Head exam: PRESENT: atraumatic, normocephalic Eye exam: PRESENT: conjunctiva pink, EOMI, PERRLA. ABSENT: scleral icterus Ear exam: PRESENT: normal external ear exam Mouth exam: PRESENT: moist, tongue midline Teeth exam: PRESENT: poor dentation Respiratory exam: PRESENT: clear to auscultation brenda, symmetrical, unlabored. ABSENT: rales, rhonchi, wheezes Cardiovascular exam: PRESENT: RRR, +S1, +S2. ABSENT: diastolic murmur, rubs, systolic murmur Vascular exam: PRESENT: normal capillary refill GI/Abdominal exam: PRESENT: normal bowel sounds, soft. ABSENT: distended, guarding, mass, organolmegaly, rebound, tenderness Rectal exam: PRESENT: deferred Gentrourinary exam: PRESENT: scrotal swelling - increased Extremities exam: PRESENT: other - RLE w/ post op dressing and TRENA drains in place. Slight erythema; edema unchanged. No inguinal lymphadenopathy. ABSENT: calf tenderness, clubbing, pedal edema Neurological exam: PRESENT: alert, awake, oriented to person, oriented to place, oriented to time, oriented to situation, CN II-XII grossly intact. ABSENT: motor sensory deficit Psychiatric exam: PRESENT: appropriate affect, normal mood. ABSENT: homicidal ideation, suicidal ideation Skin exam: PRESENT: dry, intact, warm. ABSENT: cyanosis, rash Results Laboratory Results: 05/13/19 06:01 05/13/19 06:01 05/11/19 09:00 Blood Blood Culture (PCR) - Final Staphylococcus Aureus 05/11/19 07:02 Blood Blood Culture (PCR) - Final Staphylococcus Aureus 05/09/19 16:30 Troponin I < 0.012 Impressions: Ankle X-Ray 05/09/19 11:34 IMPRESSION: Small joint effusion. No acute fracture. Foot X-Ray 05/09/19 11:34 IMPRESSION: Soft tissue swelling dorsally. No acute fracture or dislocation. Venous Doppler Study 05/09/19 11:34 IMPRESSION: NO EVIDENCE DVT OR SVT IN THE RIGHT LEG. Chest X-Ray 05/09/19 16:17 IMPRESSION: NO ACUTE RADIOGRAPHIC FINDING IN THE CHEST. Lower Extremity MRI 05/09/19 16:39 IMPRESSION: 1. Arthropathy as above may reflect the patient's history of gout. Significant marrow edema in the talus and navicular, lesser changes also in the calcaneus and cuboid. 2. Extensive soft tissue swelling, muscle edema and fluid collections extending up into the calf. While some of the loculated fluid is along tendon sheaths and reflects tenosynovitis, this is not all clearly tendon related fluid. Some of the fluid may be related to other infectious/inflammatory etiology. Shoulder X-Ray 05/09/19 17:48 IMPRESSION: NEGATIVE STUDY OF THE RIGHT SHOULDER. NO RADIOGRAPHIC EVIDENCE OF ACUTE INJURY. Assessment and Plan - Diagnosis (1) Septic arthritis Qualifiers: Septic arthritis location: ankle Laterality: right Is this a current diagnosis for this admission?: Yes Plan: Elevated ESR 41 and CRP 141. RPR, Gc/Ch negative. Right lower extremity x-ray negative for osteomyelitis. Right lower extremity venous Doppler negative for DVT. MRI revealed significant marrow edema to the talus, navicular, and calcaneus w/ extensive soft tissue edema and loculated fluid along the tendon sheaths. Blood cultures (05/09/19; 4/4) positive for MRSA Blood culture (05/11/19) positive for MRSA Repeat culture pending Admit to medical floor. Continue on empiric IV antibiotics; Day #6 Vanc/Zosyn. Ortho has been consulted; now post-op surgical I&D. Follow-up recommendations. (2) Bacteremia Is this a current diagnosis for this admission?: Yes Plan: Secondary to #1. Pt denies IVDU. Blood cultures (05/09/19; 4/4) positive for MRSA Blood cultures (05/11/19) positive for MRSA Repeat cultures (05/13/19) pending. Will need WILFRED to determine 4 vs 6 weeks abx therapy. Pending Ortho findings; may require 6 weeks regardless. Consider ID consultation. (3) Hyponatremia Is this a current diagnosis for this admission?: Yes Plan: Improved; 125-> 127-> 128.8-> 131.1-> 127 Mostly delusional. Patient endorsed excessive p.o. water intake. Have discontinued IVF. Follow up chemistry. (4) Leukocytosis Qualifiers: Leukocytosis type: unspecified Qualified Code(s): D72.829 - Elevated white blood cell count, unspecified Is this a current diagnosis for this admission?: Yes Plan: Secondary to #1 Trending down; 21-> 17-> 13-> 10 Cultures and antibiotics as above. (5) Cellulitis Qualifiers: Site of cellulitis: extremity Site of cellulitis of extremity: lower extremity Laterality: right Qualified Code(s): L03.115 - Cellulitis of right lower limb Is this a current diagnosis for this admission?: Yes Plan: As per #1. (6) Tobacco abuse Is this a current diagnosis for this admission?: Yes Plan: Smoking cessation encouraged. Nicotine replacement therapies provided. (7) Scrotal edema Is this a current diagnosis for this admission?: Yes Plan: Likely secondary to profound edema of RLE r/t cellulitis. However, RLE continues to improve while scrotal edema is increasing and now with slight tenderness. Elevate, frequent position changes. U/S pending. IVF discontinued; consider low dose diuretic. - Time Time Spent with patient: 25-34 minutes Medications reviewed and adjusted accordingly: Yes Anticipated discharge: Home with Homehealth
--- NOTE | 2019-05-14 11:37 | RADIOLOGY REPORT (SQ) ---
EXAM DESCRIPTION: U/S SCROTUM W/O DOPPLER COMPLETED DATE/TIME: 05/14/2019 11:28 am REASON FOR STUDY: edema, tenderness COMPARISON: None. TECHNIQUE: Static and realtime barbosa scale imaging of the scrotum and testes. Selected color Doppler and spectral images recorded to document blood flow. LIMITATIONS: None. FINDINGS: RIGHT: TESTICLE: Normal size. Normal echotexture. Normal blood flow. No mass. EPIDIDYMIS: Normal. HYDROCELE OR VARICOCELE: No. HERNIA OR EXTRA-TESTICULAR MASS: No. OTHER: No other significant finding. LEFT: TESTICLE: Normal size. Normal echotexture. Normal blood flow. No mass. EPIDIDYMIS: Normal. HYDROCELE OR VARICOCELE: Small hydrocele with debris. HERNIA OR EXTRA-TESTICULAR MASS: No. OTHER: No other significant finding. IMPRESSION: . NO EVIDENCE OF TESTICULAR MASS OR TORSION. 5 5 Scrotal wall thickness. Small left hydrocele. TECHNICAL DOCUMENTATION: JOB ID: [id number] [employer]- All Rights Reserved Reading location - IP/workstation name: [email or web address]
[2019-05-14] MEDS: DOCUSATE SODIUM 100 MG CAPSULE PO SCH ×2 (11:45→17:08)
--- NOTE | 2019-05-14 11:56 | PDOC PROGRESS REPORT ---
Subjective Progress Note for:: 05/14/19 Subjective:: Patient lying in bed comfortably. Complains of pain mainly along the scrotal and groin region which comes and goes. Has occasional thigh pain but states his thigh pain, shoulder pain and calf pain involved notably improved. Denies fever chills or sweats. Has been undergoing physical therapy with improvement. Reason For Visit: CELLULITIS,SEPTIC ARTHRITIS Physical Exam Vital Signs: Temp Pulse Resp BP Pulse Ox 98.4 F 80 18 142/51 H 97 05/14/19 08:00 05/14/19 08:00 05/14/19 08:00 05/14/19 08:00 05/14/19 08:00 Intake & Output 05/13/19 05/14/19 05/15/19 06:59 06:59 06:59 Intake Total 3890 2066 Output Total 1370 2085 Balance 0 - Weight 100.3 kg 102.1 kg Musculoskeletal exam: PRESENT: other - Right lower extremity: Dressing change today. Serosanguineous drainage on the dressing no active or expressible purulent drainage from the wounds. Drain removed today. Intact plantarflexion/dorsiflexion. Erythema and swelling notably improved. Continues to have pitting edema along the upper thigh with mild erythema laterally no palpable fluctuance. Minimal pain with palpation. Intact flexion extension of the hip without discomfort. Results Laboratory Results: 05/13/19 06:01 05/13/19 06:01 05/11/19 09:00 Blood Blood Culture (PCR) - Final Staphylococcus Aureus 05/11/19 07:02 Blood Blood Culture (PCR) - Final Staphylococcus Aureus 05/09/19 16:30 Troponin I < 0.012 Impressions: Ankle X-Ray 05/09/19 11:34 IMPRESSION: Small joint effusion. No acute fracture. Foot X-Ray 05/09/19 11:34 IMPRESSION: Soft tissue swelling dorsally. No acute fracture or dislocation. Venous Doppler Study 05/09/19 11:34 IMPRESSION: NO EVIDENCE DVT OR SVT IN THE RIGHT LEG. Chest X-Ray 05/09/19 16:17 IMPRESSION: NO ACUTE RADIOGRAPHIC FINDING IN THE CHEST. Lower Extremity MRI 05/09/19 16:39 IMPRESSION: 1. Arthropathy as above may reflect the patient's history of gout. Significant marrow edema in the talus and navicular, lesser changes also in the calcaneus and cuboid. 2. Extensive soft tissue swelling, muscle edema and fluid collections extending up into the calf. While some of the loculated fluid is along tendon sheaths and reflects tenosynovitis, this is not all clearly tendon related fluid. Some of the fluid may be related to other infectious/inflammatory etiology. Shoulder X-Ray 05/09/19 17:48 IMPRESSION: NEGATIVE STUDY OF THE RIGHT SHOULDER. NO RADIOGRAPHIC EVIDENCE OF ACUTE INJURY. Scrotum Ultrasound 05/14/19 00:00 IMPRESSION: . NO EVIDENCE OF TESTICULAR MASS OR TORSION. 5 5 Scrotal wall thickness. Small left hydrocele. Assessment & Plan - Diagnosis (1) Cellulitis Qualifiers: Site of cellulitis: extremity Site of cellulitis of extremity: lower extremity Laterality: right Qualified Code(s): L03.115 - Cellulitis of right lower limb Is this a current diagnosis for this admission?: Yes (2) Abscess of right leg Is this a current diagnosis for this admission?: Yes Plan: Postop day #4 status post I&D right lower extremity. 1. Drains DC'd today. 2. IV antibiotics as per infectious disease/hospitalist 3. Patient continues to have residual swelling of the right lower extremity and notable swelling of the scrotum scrotal ultrasound continues to be pending. At this point there is no sign or symptoms to suggest requirements for irrigation and debridement. We will continue to monitor clinically. - Time Time Spent with patient: Less than 15 minutes
[2019-05-14] MEDS: NORMAL SALINE 1000 ML 1,000 ML IV PRN ×2 (11:57→17:12)
[2019-05-15] MEDS: VANCOMYCIN HCL 1,250 MG in DEXTROSE 5%-WATER 250 ML IV SCH ×3 (01:15→17:42)
[2019-05-15] MEDS: PIPERACILLIN SODIUM/TAZOBACTAM 4.5 GM in NORMAL SALINE 100 ML IV SCH ×4 (03:05→21:26)
[2019-05-15] MEDS: HEPARIN SOD (PORCINE) 5,000 UNIT/ML 1 ML VIAL SUBCUT SCH ×3 (05:24→21:09)
[2019-05-15] MEDS: PANTOPRAZOLE SODIUM 40 MG TABLET.DR PO SCH ×2 (05:25→17:42)
[2019-05-15 06:14] LABS: HEMATOCRIT 29.7 % (37.9-51.0); HEMOGLOBIN 10.4 g/dL (13.5-17.0); MEAN CORPUSCULAR HEMOGLOBIN 33.5 pg (27.0-33.4); MEAN CORPUSCULAR HGB CONC 35.2 g/dL (32.0-36.0); MEAN CORPUSCULAR VOLUME 95 fl (80-97); PLATELET COUNT 137 10^3/uL (150-450); RED BLOOD COUNT 3.11 10^6/uL (4.35-5.55); WHITE BLOOD COUNT 10.7 10^3/uL (4.0-10.5)
[2019-05-15 06:36] LABS: ANION GAP 5 (5-19); BLOOD UREA NITROGEN 12 mg/dL (7-20); CALCIUM 7.2 mg/dL (8.4-10.2); CARBON DIOXIDE 23 mmol/L (22-30); CHLORIDE 99 mmol/L (98-107); GLUCOSE 199 mg/dL (75-110); POTASSIUM 4.4 mmol/L (3.6-5.0)
[2019-05-15] MEDS: INSULIN LISPRO 100 UNIT/ML 3 ML VIAL SUBCUT SCH ×4 (07:54→21:25)
--- NOTE | 2019-05-15 10:15 | PDOC PROGRESS REPORT ---
Subjective Progress Note for:: 05/15/19 Subjective:: The patient is a 64-year-old male with a past medical history significant for tobacco dependence with continuous use and arthritis who was admitted 05/09/2019 for Septic arthritis. The patient was seen on morning rounds. He was found resting in bed, comfortably, on room air. He reports increased pain at the moment; but overall pain is well controlled with current pain medication regiment. Edema and erythema are improved. He continues to have scrotal edema, unchanged, but without tenderness. He has no other specific questions or concerns at this time. He denies fever, chills, chest pain, palpitations, dyspnea, orthopnea, cough, abdominal pain, nausea vomiting and diarrhea. No concerns per nursing. Reason For Visit: CELLULITIS,SEPTIC ARTHRITIS Physical Exam Vital Signs: Temp Pulse Resp BP Pulse Ox 97.6 F 88 17 148/61 H 95 05/15/19 08:00 05/15/19 08:00 05/15/19 08:00 05/15/19 08:00 05/15/19 08:00 Intake & Output 05/14/19 05/15/19 05/16/19 06:59 06:59 06:59 Intake Total 2065 4197 Output Total 2084 -3 Weight 102.1 kg 105.2 kg General appearance: PRESENT: no acute distress, cooperative, well-developed, well-nourished Head exam: PRESENT: atraumatic, normocephalic Eye exam: PRESENT: conjunctiva pink, EOMI, PERRLA. ABSENT: scleral icterus Ear exam: PRESENT: normal external ear exam Mouth exam: PRESENT: moist, tongue midline Teeth exam: PRESENT: poor dentation Respiratory exam: PRESENT: rhonchi, symmetrical, unlabored. ABSENT: rales, wheezes Cardiovascular exam: PRESENT: RRR. ABSENT: diastolic murmur, rubs, systolic murmur Pulses: PRESENT: normal dorsalis pedis pul Vascular exam: PRESENT: normal capillary refill GI/Abdominal exam: PRESENT: normal bowel sounds, soft. ABSENT: distended, guarding, mass, organolmegaly, rebound, tenderness Rectal exam: PRESENT: deferred Gentrourinary exam: PRESENT: scrotal swelling. ABSENT: testicular tenderness - RLE w/ post op dressing. Slight erythema. Edema above the knee is decreased. No inguinal lymphadenopathy Extremities exam: PRESENT: other. ABSENT: calf tenderness, clubbing, pedal edema Neurological exam: PRESENT: alert, awake, oriented to person, oriented to place, oriented to time, oriented to situation, CN II-XII grossly intact. ABSENT: motor sensory deficit Psychiatric exam: PRESENT: appropriate affect, normal mood. ABSENT: homicidal ideation, suicidal ideation Skin exam: PRESENT: dry, intact, warm. ABSENT: cyanosis, rash Results Laboratory Results: 05/15/19 05:57 05/15/19 05:57 05/15/19 05/15/19 05:57 05:57 WBC 10.7 H RBC 3.11 L Hgb 10.4 L Hct 29.7 L MCV 95 MCH 33.5 H MCHC 35.2 RDW 15.0 H Plt Count 137 L Sodium 127.2 L Potassium 4.4 Chloride 99 Carbon Dioxide 23 Anion Gap 5 BUN 12 Creatinine 0.72 Est GFR ( Amer) > 60 Glucose 199 H Calcium 7.2 L 05/11/19 07:02 Blood Blood Culture (PCR) - Final Staphylococcus Aureus 05/11/19 07:02 Blood Blood Culture - Final Mrsa (Meth Resis Staph Aureus) 05/11/19 09:00 Blood Blood Culture (PCR) - Final Staphylococcus Aureus 05/09/19 16:30 Troponin I < 0.012 Impressions: Ankle X-Ray 05/09/19 11:34 IMPRESSION: Small joint effusion. No acute fracture. Foot X-Ray 05/09/19 11:34 IMPRESSION: Soft tissue swelling dorsally. No acute fracture or dislocation. Venous Doppler Study 05/09/19 11:34 IMPRESSION: NO EVIDENCE DVT OR SVT IN THE RIGHT LEG. Chest X-Ray 05/09/19 16:17 IMPRESSION: NO ACUTE RADIOGRAPHIC FINDING IN THE CHEST. Lower Extremity MRI 05/09/19 16:39 IMPRESSION: 1. Arthropathy as above may reflect the patient's history of gout. Significant marrow edema in the talus and navicular, lesser changes also in the calcaneus and cuboid. 2. Extensive soft tissue swelling, muscle edema and fluid collections extending up into the calf. While some of the loculated fluid is along tendon sheaths and reflects tenosynovitis, this is not all clearly tendon related fluid. Some of the fluid may be related to other infectious/inflammatory etiology. Shoulder X-Ray 05/09/19 17:48 IMPRESSION: NEGATIVE STUDY OF THE RIGHT SHOULDER. NO RADIOGRAPHIC EVIDENCE OF ACUTE INJURY. Scrotum Ultrasound 05/14/19 00:00 IMPRESSION: . NO EVIDENCE OF TESTICULAR MASS OR TORSION. 5 5 Scrotal wall thickness. Small left hydrocele. Assessment and Plan - Diagnosis (1) Septic arthritis Qualifiers: Septic arthritis location: ankle Laterality: right Is this a current diagnosis for this admission?: Yes Plan: Elevated ESR 41 and CRP 141. RPR, Gc/Ch negative. Right lower extremity x-ray negative for osteomyelitis. Right lower extremity venous Doppler negative for DVT. MRI revealed significant marrow edema to the talus, navicular, and calcaneus w/ extensive soft tissue edema and loculated fluid along the tendon sheaths. Blood cultures (05/09/19; 4/4) positive for MRSA Blood culture (05/11/19) positive for MRSA Repeat culture (05/13/2019) are negative to date Admit to medical floor. Continue on empiric IV antibiotics; Day #7 Vanc/Zosyn. Ortho has been consulted; now post-op surgical I&D. Follow-up recommendations. (2) Bacteremia Is this a current diagnosis for this admission?: Yes Plan: Secondary to #1. Pt denies IVDU. Blood cultures (05/09/19; 4/4) positive for MRSA Blood cultures (05/11/19) positive for MRSA Repeat cultures (05/13/19) are negative Will need WILFRED to determine 4 vs 6 weeks abx therapy. Pending Ortho findings; may require 6 weeks regardless. We will request infectious disease consultation for antibiotic guidance. (3) Hyponatremia Is this a current diagnosis for this admission?: Yes Plan: Overall stable; 125-> 127-> 128.8-> 131.1-> 127 Patient endorsed excessive p.o. water intake. Have discontinued IVF. Follow up chemistry. (4) Leukocytosis Qualifiers: Leukocytosis type: unspecified Qualified Code(s): D72.829 - Elevated white blood cell count, unspecified Is this a current diagnosis for this admission?: Yes Plan: Secondary to #1 Trending down; 21-> 17-> 13-> 10 Cultures and antibiotics as above. (5) Cellulitis Qualifiers: Site of cellulitis: extremity Site of cellulitis of extremity: lower extremity Laterality: right Qualified Code(s): L03.115 - Cellulitis of right lower limb Is this a current diagnosis for this admission?: Yes Plan: As per #1. (6) Tobacco abuse Is this a current diagnosis for this admission?: Yes Plan: Smoking cessation encouraged. Nicotine replacement therapies provided. (7) Scrotal edema Is this a current diagnosis for this admission?: Yes Plan: Likely secondary to profound edema of RLE r/t cellulitis. However, RLE continues to improve while scrotal edema is increasing and now with slight tenderness. Elevate, frequent position changes. U/S benign. IVF discontinued; consider low dose diuretic. - Time Time Spent with patient: 25-34 minutes Medications reviewed and adjusted accordingly: Yes Anticipated discharge: Home with Homehealth
[2019-05-15] MEDS: OXYCODONE-ACETAMINOPHEN 5-325 MG TABLET PO PRN ×2 (10:47→23:37)
[2019-05-15] MEDS: DOCUSATE SODIUM 100 MG CAPSULE PO SCH ×2 (10:58→17:59)
[2019-05-16] MEDS: VANCOMYCIN HCL 1,250 MG in DEXTROSE 5%-WATER 250 ML IV SCH ×3 (02:00→18:16)
[2019-05-16] MEDS: PIPERACILLIN SODIUM/TAZOBACTAM 4.5 GM in NORMAL SALINE 100 ML IV SCH ×2 (03:56→09:45)
[2019-05-16] MEDS: PANTOPRAZOLE SODIUM 40 MG TABLET.DR PO SCH ×2 (05:22→18:16)
[2019-05-16] MEDS: HEPARIN SOD (PORCINE) 5,000 UNIT/ML 1 ML VIAL SUBCUT SCH ×3 (06:10→21:07)
[2019-05-16] MEDS: NORMAL SALINE 1000 ML 1,000 ML IV PRN (07:38)
[2019-05-16] MEDS: OXYCODONE-ACETAMINOPHEN 5-325 MG TABLET PO PRN ×3 (08:42→23:53)
[2019-05-16] MEDS: INSULIN LISPRO 100 UNIT/ML 3 ML VIAL SUBCUT SCH ×4 (08:47→21:05)
[2019-05-16] MEDS: DOCUSATE SODIUM 100 MG CAPSULE PO SCH ×2 (09:43→17:49)
--- NOTE | 2019-05-16 09:49 | PDOC PROGRESS REPORT ---
Subjective Progress Note for:: 05/16/19 Subjective:: The patient is a 64-year-old male with a past medical history significant for tobacco dependence with continuous use and arthritis who was admitted 05/09/2019 for Septic arthritis. The patient was seen on morning rounds. He was found resting in the recliner, comfortably, on room air. He reports pain is well controlled with current pain medication regiment. Edema and erythema are improved. Scrotal edema significantly improved; no longer tender. He has no questions or concerns at this time. He denies fever, chills, chest pain, palpitations, dyspnea, orthopnea, cough, abdominal pain, nausea, vomiting and diarrhea. No concerns per nursing. Reason For Visit: CELLULITIS,SEPTIC ARTHRITIS Physical Exam Vital Signs: Temp Pulse Resp BP Pulse Ox 98.7 F 105 H 16 153/75 H 94 05/16/19 08:00 05/16/19 08:00 05/16/19 08:00 05/16/19 08:00 05/16/19 08:00 Intake & Output 05/15/19 05/16/19 05/17/19 06:59 06:59 06:59 Intake Total 4198 3810 Output Total 20240 Balance 2173 1760 Weight 105.2 kg 106 kg General appearance: PRESENT: no acute distress, cooperative, well-developed, well-nourished Head exam: PRESENT: atraumatic, normocephalic Eye exam: PRESENT: conjunctiva pink, EOMI, PERRLA. ABSENT: scleral icterus Ear exam: PRESENT: normal external ear exam Mouth exam: PRESENT: moist, tongue midline Teeth exam: PRESENT: poor dentation Respiratory exam: PRESENT: clear to auscultation brenda, symmetrical, unlabored. ABSENT: rales, rhonchi, wheezes Cardiovascular exam: PRESENT: RRR. ABSENT: diastolic murmur, rubs, systolic murmur Pulses: PRESENT: normal dorsalis pedis pul Vascular exam: PRESENT: normal capillary refill GI/Abdominal exam: PRESENT: normal bowel sounds, soft. ABSENT: distended, guarding, mass, organolmegaly, rebound, tenderness Rectal exam: PRESENT: deferred Gentrourinary exam: PRESENT: scrotal swelling - significantly improved. ABSENT: testicular tenderness Extremities exam: PRESENT: other - RLE w/ post op dressing. Slight erythema; especially to knee. Edema is nearly resolved. No inguinal lymphadenopathy. ABSENT: calf tenderness, clubbing, pedal edema Neurological exam: PRESENT: alert, awake, oriented to person, oriented to place, oriented to time, oriented to situation, CN II-XII grossly intact. ABSENT: motor sensory deficit Psychiatric exam: PRESENT: appropriate affect, normal mood. ABSENT: homicidal ideation, suicidal ideation Skin exam: PRESENT: dry, intact, warm. ABSENT: cyanosis, rash Results Laboratory Results: 05/15/19 05:57 05/15/19 05:57 05/11/19 09:00 Blood Blood Culture (PCR) - Final Staphylococcus Aureus 05/11/19 09:00 Blood Blood Culture - Final Mrsa (Meth Resis Staph Aureus) 05/11/19 07:02 Blood Blood Culture (PCR) - Final Staphylococcus Aureus 05/11/19 07:02 Blood Blood Culture - Final Mrsa (Meth Resis Staph Aureus) 05/09/19 16:30 Troponin I < 0.012 Impressions: Ankle X-Ray 05/09/19 11:34 IMPRESSION: Small joint effusion. No acute fracture. Foot X-Ray 05/09/19 11:34 IMPRESSION: Soft tissue swelling dorsally. No acute fracture or dislocation. Venous Doppler Study 05/09/19 11:34 IMPRESSION: NO EVIDENCE DVT OR SVT IN THE RIGHT LEG. Chest X-Ray 05/09/19 16:17 IMPRESSION: NO ACUTE RADIOGRAPHIC FINDING IN THE CHEST. Lower Extremity MRI 05/09/19 16:39 IMPRESSION: 1. Arthropathy as above may reflect the patient's history of gout. Significant marrow edema in the talus and navicular, lesser changes also in the calcaneus and cuboid. 2. Extensive soft tissue swelling, muscle edema and fluid collections extending up into the calf. While some of the loculated fluid is along tendon sheaths and reflects tenosynovitis, this is not all clearly tendon related fluid. Some of the fluid may be related to other infectious/inflammatory etiology. Shoulder X-Ray 05/09/19 17:48 IMPRESSION: NEGATIVE STUDY OF THE RIGHT SHOULDER. NO RADIOGRAPHIC EVIDENCE OF ACUTE INJURY. Scrotum Ultrasound 05/14/19 00:00 IMPRESSION: . NO EVIDENCE OF TESTICULAR MASS OR TORSION. 5 5 Scrotal wall thickness. Small left hydrocele. Assessment and Plan - Diagnosis (1) Septic arthritis Qualifiers: Septic arthritis location: ankle Laterality: right Is this a current diagnosis for this admission?: Yes Plan: Elevated ESR 41 and CRP 141. RPR, Gc/Ch negative. Right lower extremity x-ray negative for osteomyelitis. Right lower extremity venous Doppler negative for DVT. MRI revealed significant marrow edema to the talus, navicular, and calcaneus w/ extensive soft tissue edema and loculated fluid along the tendon sheaths. Blood cultures (05/09/19; 4/4) positive for MRSA Blood culture (05/11/19) positive for MRSA Repeat culture (05/13/2019) are negative to date Admit to medical floor. Continue on empiric IV antibiotics; Day #8 Vanc. Zosyn discontinued after 7 days. Ortho has been consulted; now post-op surgical I&D. ID has been consulted. (2) Bacteremia Is this a current diagnosis for this admission?: Yes Plan: Secondary to #1. Pt denies IVDU. Blood cultures (05/09/19; 4/4) positive for MRSA Blood cultures (05/11/19) positive for MRSA Repeat cultures (05/13/19) are negative May need WILFRED to determine 4 vs 6 weeks abx therapy. May require 6 weeks regardless. Have requested infectious disease consultation for antibiotic guidance. (3) Hyponatremia Is this a current diagnosis for this admission?: Yes Plan: Overall stable; 125-> 127-> 128.8-> 131.1-> 127 Patient endorsed excessive p.o. water intake. Have discontinued IVF. Follow up chemistry. (4) Leukocytosis Qualifiers: Leukocytosis type: unspecified Qualified Code(s): D72.829 - Elevated white blood cell count, unspecified Is this a current diagnosis for this admission?: Yes Plan: Secondary to #1 Trending down; 21-> 17-> 13-> 10 Cultures and antibiotics as above. (5) Cellulitis Qualifiers: Site of cellulitis: extremity Site of cellulitis of extremity: lower extremity Laterality: right Qualified Code(s): L03.115 - Cellulitis of right lower limb Is this a current diagnosis for this admission?: Yes Plan: As per #1. (6) Tobacco abuse Is this a current diagnosis for this admission?: Yes Plan: Smoking cessation encouraged. Nicotine replacement therapies provided. (7) Scrotal edema Is this a current diagnosis for this admission?: Yes Plan: Significantly improved today. Likely secondary to profound edema of RLE r/t cellulitis. Elevate, frequent position changes. U/S benign. IVF discontinued; consider low dose diuretic. - Time Time Spent with patient: 25-34 minutes Medications reviewed and adjusted accordingly: Yes Anticipated discharge: Home with Homehealth
[2019-05-16] MEDS: LISINOPRIL 10 MG TABLET PO SCH (12:55)
--- NOTE | 2019-05-16 13:09 | PDOC PROGRESS REPORT ---
Subjective Progress Note for:: 05/16/19 Subjective:: Patient lying in bed comfortably. Complains of pain mainly along the scrotal and groin region which comes and goes but improving. Has occasional thigh pain but states his thigh pain, shoulder pain and calf pain involved notably improved only has discomfort w/ WB and at night. Denies fever chills or sweats. Has been undergoing physical therapy with improvement. Reason For Visit: CELLULITIS,SEPTIC ARTHRITIS Physical Exam Vital Signs: Temp Pulse Resp BP Pulse Ox 98.7 F 105 H 16 153/75 H 94 05/16/19 08:00 05/16/19 08:00 05/16/19 08:00 05/16/19 08:00 05/16/19 08:00 Intake & Output 05/15/19 05/16/19 05/17/19 06:59 06:59 06:59 Intake Total 4198 3810 Output Total 2024 2049 Balance 2173 1760 Weight 105.2 kg 106 kg Musculoskeletal exam: PRESENT: other - other - Right lower extremity: Dressing change today. Serosanguineous drainage on the dressing no active or expressible purulent drainage from the wounds. Drain removed today. Intact plantarflexion/dorsiflexion. Erythema and swelling notably improved. Continues to have pitting edema along the upper thigh with mild erythema laterally no p alpable fluctuance. Minimal pain with palpation. Intact flexion extension of the hip without discomfort. Results Laboratory Results: 05/15/19 05:57 05/15/19 05:57 05/11/19 09:00 Blood Blood Culture (PCR) - Final Staphylococcus Aureus 05/11/19 09:00 Blood Blood Culture - Final Mrsa (Meth Resis Staph Aureus) 05/11/19 07:02 Blood Blood Culture (PCR) - Final Staphylococcus Aureus 05/11/19 07:02 Blood Blood Culture - Final Mrsa (Meth Resis Staph Aureus) 05/09/19 16:30 Troponin I < 0.012 Impressions: Ankle X-Ray 05/09/19 11:34 IMPRESSION: Small joint effusion. No acute fracture. Foot X-Ray 05/09/19 11:34 IMPRESSION: Soft tissue swelling dorsally. No acute fracture or dislocation. Venous Doppler Study 05/09/19 11:34 IMPRESSION: NO EVIDENCE DVT OR SVT IN THE RIGHT LEG. Chest X-Ray 05/09/19 16:17 IMPRESSION: NO ACUTE RADIOGRAPHIC FINDING IN THE CHEST. Lower Extremity MRI 05/09/19 16:39 IMPRESSION: 1. Arthropathy as above may reflect the patient's history of gout. Significant marrow edema in the talus and navicular, lesser changes also in the calcaneus and cuboid. 2. Extensive soft tissue swelling, muscle edema and fluid collections extending up into the calf. While some of the loculated fluid is along tendon sheaths and reflects tenosynovitis, this is not all clearly tendon related fluid. Some of the fluid may be related to other infectious/inflammatory etiology. Shoulder X-Ray 05/09/19 17:48 IMPRESSION: NEGATIVE STUDY OF THE RIGHT SHOULDER. NO RADIOGRAPHIC EVIDENCE OF ACUTE INJURY. Scrotum Ultrasound 05/14/19 00:00 IMPRESSION: . NO EVIDENCE OF TESTICULAR MASS OR TORSION. 5 5 Scrotal wall thickness. Small left hydrocele. Assessment & Plan - Diagnosis (1) Cellulitis Qualifiers: Site of cellulitis: extremity Site of cellulitis of extremity: lower extremity Laterality: right Qualified Code(s): L03.115 - Cellulitis of right lower limb Is this a current diagnosis for this admission?: Yes (2) Abscess of right leg Is this a current diagnosis for this admission?: Yes Plan: Postop day #6 status post I&D right lower extremity. 1. Drains DC'd today. 2. IV antibiotics as per infectious disease/hospitalist 3. Patient continues to have residual swelling of the right lower extremity but continues to see clinical improvement will continue to monitor - Time Time Spent with patient: 15-24 minutes
[2019-05-17] MEDS: PANTOPRAZOLE SODIUM 40 MG TABLET.DR PO SCH ×2 (05:03→18:32)
[2019-05-17] MEDS: HEPARIN SOD (PORCINE) 5,000 UNIT/ML 1 ML VIAL SUBCUT SCH ×3 (05:12→21:29)
[2019-05-17 05:45] LABS: HEMOGLOBIN 9.7 g/dL (13.5-17.0); MEAN CORPUSCULAR HEMOGLOBIN 32.8 pg (27.0-33.4); MEAN CORPUSCULAR HGB CONC 34.6 g/dL (32.0-36.0); MEAN CORPUSCULAR VOLUME 95 fl (80-97); PLATELET COUNT 169 10^3/uL (150-450); RED BLOOD COUNT 2.95 10^6/uL (4.35-5.55); RED CELL DISTRIBUTION WIDTH 15.3 % (11.5-14.0); WHITE BLOOD COUNT 12.6 10^3/uL (4.0-10.5)
[2019-05-17 06:09] LABS: ANION GAP 8 (5-19); BLOOD UREA NITROGEN 12 mg/dL (7-20); CALCIUM 7.1 mg/dL (8.4-10.2); CARBON DIOXIDE 21 mmol/L (22-30); CHLORIDE 93 mmol/L (98-107); GLUCOSE 189 mg/dL (75-110); POTASSIUM 4.2 mmol/L (3.6-5.0)
[2019-05-17] MEDS: INSULIN LISPRO 100 UNIT/ML 3 ML VIAL SUBCUT SCH ×4 (07:43→21:29)
[2019-05-17] MEDS: LISINOPRIL 10 MG TABLET PO SCH (09:22)
[2019-05-17] MEDS: DOCUSATE SODIUM 100 MG CAPSULE PO SCH ×2 (09:23→18:32)
--- NOTE | 2019-05-17 09:58 | Progress Note ---
Provider Note Provider Note: [facility] Telephone Advice Chart reviewed. This is a 64-year-old man who sustained an injury to his right plantar area witha rock. He developed an area of redness. Pain was worsening and erythema as well. His ankle was sowllen for which [facility] He received a steroid injection, he then went to ortho and colchicine was prescribed fro gout. His symptoms rapidly worsened for which he came to the hospital. He was found septic with MRSA bacteremia. MRI of the foot demonstrated tenosynovitis and abscess. He was taken to the OR by ortho on 05/10. Extensive infection with purulence was found and evidence of septic arthritis. He has been on vancomycin, but requiring 1250 mg every 8 hr due to his weight and creatinine clearance. Last trough was 16.6. ID consulted for recommendations. Allergies No Known Allergies Allergy (Unverified 04/05/11 10:07) Current Home Medications No Home Medications 05/09/19 [History] Vital Signs: Temp Pulse Resp BP Pulse Ox 98.2 F 98 16 120/56 L 90 L 05/17/19 08:00 05/17/19 08:00 05/17/19 08:00 05/17/19 08:00 05/17/19 08:00 Intake & Output 05/16/19 05/17/19 05/18/19 06:59 06:59 06:59 Intake Total 3810 3052 Output Total 2050 1375 Balance 1760 1677 Weight 106 kg 109.2 kg Weight/Height Weight 109.2 kg Height 6 ft Laboratories: 05/17/19 04:41 05/17/19 04:41 MCV 95 fl (80-97) 05/17/19 04:41 MCH 32.8 pg (27.0-33.4) 05/17/19 04:41 MCHC 34.6 g/dL (32.0-36.0) 05/17/19 04:41 RDW 15.3 % (11.5-14.0) H 05/17/19 04:41 Seg Neutrophils % 83.8 % (42-78) H 05/13/19 06:01 VBG pH 7.42 (7.30-7.42) 05/09/19 16:30 VBG pCO2 41.0 mmHg (35-63) 05/09/19 16:30 VBG HCO3 26.2 mmol/L (20-32) 05/09/19 16:30 VBG Base Excess 1.7 mmol/L 05/09/19 16:30 Chloride 93 mmol/L (98-107) L 05/17/19 04:41 Carbon Dioxide 21 mmol/L (22-30) L 05/17/19 04:41 Anion Gap 8 (5-19) 05/17/19 04:41 Est GFR ( Amer) > 60 (>60) 05/17/19 04:41 Glucose 189 mg/dL (75-110) H 05/17/19 04:41 Lactic Acid 2.4 mmol/L (0.7-2.1) H 05/09/19 16:30 Calcium 7.1 mg/dL (8.4-10.2) L 05/17/19 04:41 Magnesium 2.2 mg/dL (1.6-2.3) 05/10/19 05:46 Total Bilirubin 4.9 mg/dL (0.2-1.3) H 05/09/19 12:28 AST 40 U/L (17-59) 05/09/19 12:28 Alkaline Phosphatase 170 U/L (38-126) H 05/09/19 12:28 C-Reactive Protein 141.8 mg/L (<10.0) H 05/09/19 16:30 Total Protein 6.1 g/dL (6.3-8.2) L 05/09/19 12:28 Albumin 2.6 g/dL (3.5-5.0) L 05/09/19 12:28 Lipase 145.9 U/L (23-300) 05/09/19 16:30 Urine Color ANUPAM 05/09/19 16:50 Urine Appearance CLOUDY 05/09/19 16:50 Urine pH 6.0 (5.0-9.0) 05/09/19 16:50 Ur Specific [place] 1.018 05/09/19 16:50 Urine Protein 30 mg/dL (NEGATIVE) H 05/09/19 16:50 Urine Glucose (UA) 50 mg/dL (NEGATIVE) H 05/09/19 16:50 Urine Ketones NEGATIVE mg/dL (NEGATIVE) 05/09/19 16:50 Urine Blood MODERATE (NEGATIVE) H 05/09/19 16:50 Urine RBC (Auto) 7 /HPF 05/09/19 16:50 05/09/19 16:30 Troponin I < 0.012 Microbiology: Blood cultures: 05/09 MRSA 05/11 MRSA 05/13 NGTD Tissue Culture 05/10 MRSA Radiology: Ankle X-Ray 05/09/19 11:34 IMPRESSION: Small joint effusion. No acute fracture. Foot X-Ray 05/09/19 11:34 IMPRESSION: Soft tissue swelling dorsally. No acute fracture or dislocation. Venous Doppler Study 05/09/19 11:34 IMPRESSION: NO EVIDENCE DVT OR SVT IN THE RIGHT LEG. Chest X-Ray 05/09/19 16:17 IMPRESSION: NO ACUTE RADIOGRAPHIC FINDING IN THE CHEST. Lower Extremity MRI 05/09/19 16:39 IMPRESSION: 1. Arthropathy as above may reflect the patient's history of gout. Significant marrow edema in the talus and navicular, lesser changes also in the calcaneus and cuboid. 2. Extensive soft tissue swelling, muscle edema and fluid collections extending up into the calf. While some of the loculated fluid is along tendon sheaths and reflects tenosynovitis, this is not all clearly tendon related fluid. Some of the fluid may be related to other infectious/inflammatory etiology. Shoulder X-Ray 05/09/19 17:48 IMPRESSION: NEGATIVE STUDY OF THE RIGHT SHOULDER. NO RADIOGRAPHIC EVIDENCE OF ACUTE INJURY. Scrotum Ultrasound 05/14/19 00:00 IMPRESSION: . NO EVIDENCE OF TESTICULAR MASS OR TORSION. 5 5 Scrotal wall thickness. Small left hydrocele. Assessment and Recommendations: Patient with right foot tenosynovitis and septic arthritis in the setting of MRSA bacteremia. Right foot more likely the portal of entry. He is s/p extens ashish I&D with good source control. He cleared the infection from the blood, most recent blood cultures from 05/13 negative to date. A TTE will be needed to rule out any endovascular complications. A total of 4-6 weeks will be required considering the severity of this infection. If TTE is negative, 4 weeks is a reasonable course. If TTE is positive, 6 weeks will be requires. He is currently taking vancomycin 3 times a day, daptomycin 6mg/kg daily might be a more convenient alternative. Please monitor vancomycin trough weekly (-20 - with close GFR monitoring) or CK weekly if daptomycin used. While on antibiotics, please monitor CBC, CMP, ESR, CRP. He will need a PICC line. Please call if questions. Evelyn Ricardo MD [facility] [phone]
[2019-05-17] MEDS: OXYCODONE-ACETAMINOPHEN 5-325 MG TABLET PO PRN ×2 (10:27→15:30)
--- NOTE | 2019-05-17 10:52 | PDOC PROGRESS REPORT ---
Subjective Progress Note for:: 05/17/19 Subjective:: Patient lying in bed comfortably. Complains of pain mainly along the scrotal and groin region which comes and goes but improving. Has occasional thigh pain but states his thigh pain, shoulder pain and calf pain involved notably improved only has discomfort w/ WB and at night. Denies fever chills or sweats. Patient was able to ambulate around the mart[place] today with much better mobilization. Reason For Visit: CELLULITIS,SEPTIC ARTHRITIS Physical Exam Vital Signs: Temp Pulse Resp BP Pulse Ox 98.2 F 98 16 120/56 L 90 L 05/17/19 08:00 05/17/19 08:00 05/17/19 08:00 05/17/19 08:00 05/17/19 08:00 Intake & Output 05/16/19 05/17/19 05/18/19 06:59 06:59 06:59 Intake Total 3810 3052 Output Total 2050 1375 Balance 1760 1677 Weight 106 kg 109.2 kg Musculoskeletal exam: PRESENT: other - Right lower extremity: Mild tenderness palpation on the medial aspect at the incision site serosanguineous drainage no expressible drainage. Previous erythema and swelling notably improved throughout the extremity. Residual edema noted along the calf and thigh but no palpable fluctuance. Minimal tenderness to palpation. Results Laboratory Results: 05/17/19 04:41 05/17/19 04:41 05/17/19 05/17/19 04:41 04:41 WBC 12.6 H RBC 2.95 L Hgb 9.7 L Hct 28.0 L MCV 95 MCH 32.8 MCHC 34.6 RDW 15.3 H Plt Count 169 Sodium 122.2 L Potassium 4.2 Chloride 93 L Carbon Dioxide 21 L Anion Gap 8 BUN 12 Creatinine 0.74 Est GFR ( Amer) > 60 Glucose 189 H Calcium 7.1 L 05/09/19 16:30 Troponin I < 0.012 Impressions: Ankle X-Ray 05/09/19 11:34 IMPRESSION: Small joint effusion. No acute fracture. Foot X-Ray 05/09/19 11:34 IMPRESSION: Soft tissue swelling dorsally. No acute fracture or dislocation. Venous Doppler Study 05/09/19 11:34 IMPRESSION: NO EVIDENCE DVT OR SVT IN THE RIGHT LEG. Chest X-Ray 05/09/19 16:17 IMPRESSION: NO ACUTE RADIOGRAPHIC FINDING IN THE CHEST. Lower Extremity MRI 05/09/19 16:39 IMPRESSION: 1. Arthropathy as above may reflect the patient's history of gout. Significant marrow edema in the talus and navicular, lesser changes also in the calcaneus and cuboid. 2. Extensive soft tissue swelling, muscle edema and fluid collections extending up into the calf. While some of the loculated fluid is along tendon sheaths and reflects tenosynovitis, this is not all clearly tendon related fluid. Some of the fluid may be related to other infectious/inflammatory etiology. Shoulder X-Ray 05/09/19 17:48 IMPRESSION: NEGATIVE STUDY OF THE RIGHT SHOULDER. NO RADIOGRAPHIC EVIDENCE OF ACUTE INJURY. Scrotum Ultrasound 05/14/19 00:00 IMPRESSION: . NO EVIDENCE OF TESTICULAR MASS OR TORSION. 5 5 Scrotal wall thickness. Small left hydrocele. Assessment & Plan - Diagnosis (1) Cellulitis Qualifiers: Site of cellulitis: extremity Site of cellulitis of extremity: lower extremity Laterality: right Qualified Code(s): L03.115 - Cellulitis of right lower limb Is this a current diagnosis for this admission?: Yes (2) Abscess of right leg Is this a current diagnosis for this admission?: Yes Plan: Postop day #7 status post I&D right lower extremity. 1. Continue daily dressing changes. 2. Physical therapy weightbearing as tolerated. 3. IV vancomycin possibly daptomycin as per infectious disease recommendations. Anticipate patient will require 6 weeks of IV antibiotics. - Time Time Spent with patient: 15-24 minutes
--- NOTE | 2019-05-17 11:55 | PDOC PROGRESS REPORT ---
Subjective Progress Note for:: 05/17/19 Subjective:: Patient resting in the recliner with his legs up. Still with edema. Not complaining of much pain. No acute distress. Breathing is comfortable. He reports that he will no longer smoke has he appreciates that it is bad for his health. Reason For Visit: CELLULITIS,SEPTIC ARTHRITIS Physical Exam Vital Signs: Temp Pulse Resp BP Pulse Ox 98.2 F 98 16 120/56 L 90 L 05/17/19 08:00 05/17/19 08:00 05/17/19 08:00 05/17/19 08:00 05/17/19 08:00 Intake & Output 05/16/19 05/17/19 05/18/19 06:59 06:59 06:59 Intake Total 3810 3052 Output Total 2050 1375 Balance 1760 1677 Weight 106 kg 109.2 kg General appearance: PRESENT: no acute distress, cooperative, well-developed Head exam: PRESENT: atraumatic, normocephalic Ear exam: PRESENT: normal external ear exam. ABSENT: bleeding, drainage Respiratory exam: PRESENT: clear to auscultation brenda, symmetrical, unlabored. ABSENT: rales, rhonchi, tachypnea, wheezes Cardiovascular exam: PRESENT: RRR, +S1, +S2 GI/Abdominal exam: PRESENT: normal bowel sounds, soft, other - Pitting edema slightly above the hips.. ABSENT: distended, guarding, tenderness Gentrourinary exam: PRESENT: scrotal swelling - Marked scrotal swelling but soft and no tenderness. She reports it is slightly better. Extremities exam: PRESENT: +2 edema, other - The right leg still has pitting edema. Musculoskeletal exam: PRESENT: other - Dressing on right ankle Neurological exam: PRESENT: alert, awake, oriented to person, oriented to place, oriented to time, oriented to situation, CN II-XII grossly intact Psychiatric exam: ABSENT: agitated, anxious Skin exam: PRESENT: dry, warm, other - Pigment deposition lower extremities Results Laboratory Results: 05/17/19 04:41 05/17/19 04:41 05/17/19 05/17/19 04:41 04:41 WBC 12.6 H RBC 2.95 L Hgb 9.7 L Hct 28.0 L MCV 95 MCH 32.8 MCHC 34.6 RDW 15.3 H Plt Count 169 Sodium 122.2 L Potassium 4.2 Chloride 93 L Carbon Dioxide 21 L Anion Gap 8 BUN 12 Creatinine 0.74 Est GFR ( Amer) > 60 Glucose 189 H Calcium 7.1 L 05/10/19 18:28 Leg - Right Fungal Smear - Final 05/10/19 18:28 Leg - Right Fungal Smear - Final 05/10/19 18:28 Foot - Right Fungal Smear - Final 05/10/19 18:28 Foot - Right Fungal Smear - Final 05/09/19 16:30 Troponin I < 0.012 Impressions: Ankle X-Ray 05/09/19 11:34 IMPRESSION: Small joint effusion. No acute fracture. Foot X-Ray 05/09/19 11:34 IMPRESSION: Soft tissue swelling dorsally. No acute fracture or dislocation. Venous Doppler Study 05/09/19 11:34 IMPRESSION: NO EVIDENCE DVT OR SVT IN THE RIGHT LEG. Chest X-Ray 05/09/19 16:17 IMPRESSION: NO ACUTE RADIOGRAPHIC FINDING IN THE CHEST. Lower Extremity MRI 05/09/19 16:39 IMPRESSION: 1. Arthropathy as above may reflect the patient's history of gout. Significant marrow edema in the talus and navicular, lesser changes also in the calcaneus and cuboid. 2. Extensive soft tissue swelling, muscle edema and fluid collections extending up into the calf. While some of the loculated fluid is along tendon sheaths and reflects tenosynovitis, this is not all clearly tendon related fluid. Some of the fluid may be related to other infectious/inflammatory etiology. Shoulder X-Ray 05/09/19 17:48 IMPRESSION: NEGATIVE STUDY OF THE RIGHT SHOULDER. NO RADIOGRAPHIC EVIDENCE OF ACUTE INJURY. Scrotum Ultrasound 05/14/19 00:00 IMPRESSION: . NO EVIDENCE OF TESTICULAR MASS OR TORSION. 5 5 Scrotal wall thickness. Small left hydrocele. Assessment and Plan - Diagnosis (1) Septic arthritis Qualifiers: Septic arthritis location: ankle Laterality: right Is this a current diagnosis for this admission?: Yes Plan: 05/17/2019-the patient continues on his antibiotic therapy. I appreciate the consultation with infectious diseases. With the negative blood cultures on May 13 the bacteremia is controlled. Because of the septic arthritis he will need 4 to 6 weeks of IV antibiotics. The recommendation is if the transthoracic echocardiogram is negative then 4 weeks is reasonable. If positive then 6 weeks. He will need monitoring laboratory studies including vancomycin levels. Daptomycin might be an alternative. The patient will need to have a PICC line as well as orders for infusion therapy and home health. (2) Bacteremia Is this a current diagnosis for this admission?: Yes Plan: 05/17/2019-blood cultures from May 13 are negative. Patient will need long-term antibiotics as noted above. Etiology of bacteremia was the septic arthritis/cellulitis. (3) Hyponatremia Is this a current diagnosis for this admission?: Yes Plan: 05/17/2019-patient serum sodium has been below 130 for the majority of his admission. Because of his edema I have instituted Bumex therapy. I may need to institute a fluid restriction. Continue to monitor sodium. (4) Leukocytosis Qualifiers: Leukocytosis type: unspecified Qualified Code(s): D72.829 - Elevated white blood cell count, unspecified Is this a current diagnosis for this admission?: Yes Plan: 05/17/2019-the white blood cell count temporarily normalized. It is slightly elevated today. We will continue to monitor. (5) Cellulitis Qualifiers: Site of cellulitis: extremity Site of cellulitis of extremity: lower extremity Laterality: right Qualified Code(s): L03.115 - Cellulitis of right lower limb Is this a current diagnosis for this admission?: Yes Plan: 05/17/2019-antibiotic therapy as noted above. Still some swelling in the leg. (6) Tobacco abuse Is this a current diagnosis for this admission?: Yes Plan: 05/17/2019-patient reports he will no longer use tobacco products. (7) Scrotal edema Is this a current diagnosis for this admission?: Yes Plan: 05/17/2019-consistent with the edema that is present. I have initiated diuretic therapy as noted above. He may also need fluid restriction as noted above. He reports that an ultrasound study was done. No testicular pathology was noted. Hydrocele is present. Patient reports that the edema is slowly improving. (8) Hepatitis C antibody positive in blood Is this a current diagnosis for this admission?: Yes Plan: 05/17/2019-I could find no evidence of immunization. I will research further into the patient's history. With a positive antibody titer pathology suggests a follow-up with nucleic acid amplification. This test has been ordered. We will follow-up based on results. - Plan Summary Summary: 05/17/2019-Per infectious disease consult I have ordered placement of a PICC line and ordered an echocardiogram. Duration of treatment will be based on the ultrasound results. - Time Time Spent with patient: 25-34 minutes Smoking Cessation Education: 3 to 10 minutes Medications reviewed and adjusted accordingly: Yes Anticipated discharge: Home with Homehealth, Other - Home infusion
[2019-05-17 12:50] LABS: INTERNATIONAL RATION (INR) 1.13; PROTHROMBIN TIME 14.6 SEC (11.4-15.4)
[2019-05-17] MEDS ORDERED: BUMETANIDE 1 MG TABLET PO SCH (13:00)
--- NOTE | 2019-05-17 13:09 | RADIOLOGY REPORT (SQ) ---
EXAM DESCRIPTION: PICC INSERTION; U/S GUIDE FOR VASCULAR ACCESS; FLUORO/CV PLACEMENT COMPLETED DATE/TIME: 05/17/2019 12:55 pm REASON FOR STUDY: Septic arthritis right ankle; IV ACCESS; SEPTIC ARTHRITIS RIGHT ANKLE IV ABX COMPARISON: None. FLUOROSCOPY TIME: 16 seconds of fluoroscopy was used. 1 images saved to PACS. TECHNIQUE: Fluoroscopic and ultrasound guided PICC placement. LIMITATIONS: None. PROCEDURE: After written consent and assessment were obtained, the patient was brought into the fluo roscopy room and placed supine on the table. Ultrasound evaluation of potential access sites were per formed. After successfully identifying a patent left basilic vein, the left arm was prepped and drape d in a sterile fashion along with the ultrasound probe. The entry site was anesthetized with 1% lidoc sania. A 21 gauge 7 cm needle was advanced through the skin and into the left basilic vein under live ultrasound guidance. An ultrasound image was saved to PACS confirming access site. A .018 guide wir e was then inserted through the needle and into the venous system. The needle was then removed and an 11 blade scalpel was used to make a 1cm skin incision. A 5 fr peel-away sheath was advanced over th e wire and into the venous system. A measurement was then made using the existing wire and live fluor oscopic guidance. The wire was then removed and trimmed. The PICC was advanced through the peel-away sheath and into the venous system. The peel-away sheath was removed and the catheter was adhered to t he patients arm with a stat lock. The catheter was then aspirated and flushed and a sterile bandage w as placed over the access site. A fluoroscopic spot image was saved to PACS confirming the catheter tip within the superior vena cava. IMPRESSION: SUCCESSFUL PLACEMENT OF A 5 FR DUAL LUMEN 42 CM PICC IN THE LEFT BASILIC VEIN. COMMENT: Patient medication list reviewed: Yes- Quality ID# 130:Eligible professional attests to doc umenting in the medical record they obtained, updated, or reviewed the patient's current medications. . Quality ID 145: Final reports for procedures using fluoroscopy that document radiation exposure fran eber, or exposure time and number of fluorographic images (if radiation exposure indices are not avail able) Quality ID #76: The patient was prepped and draped using maximum sterile barrier technique including cap, mask, sterile gown, sterile gloves, a large sterile sheet, hand hygiene, and 2% Chlorhexidine fo r cutaneous antisepsis. When ultrasound is used, sterile ultrasound techniques are followed requiring sterile gel and sterile probes. TECHNICAL DOCUMENTATION: JOB ID: [id number] [employer]- All Rights Reserved rev-10/09 Reading location - IP/workstation name: [id number]
[2019-05-17] MEDS: VANCOMYCIN HCL 1,250 MG in DEXTROSE 5%-WATER 250 ML IV SCH ×2 (15:32→21:29)
--- NOTE | 2019-05-17 19:13 | XCELERA REPORT ---
[address] [address] Transthoracic Echocardiogram Report Name: RENATA STRICKLAND Age: 64 yrs Gender: Male : 1955 Patient Status: Inpatient Patient Location: [address] [place] [address] Study Date: 05/17/2019 02:33 PM Height: 72 in Weight: 240 lb BSA: 2.3 m2 Procedure: A complete two-dimensional transthoracic echocardiogram was performed (2D, M-mode, spectral and color flow Doppler). The study was technically adequate with some images being suboptimal in quality. Reason For Study: Bacteremia possible endocarditis Ordering Physician: MARJAN CHOI Performed By: Jose Purcell Interpretation Summary The left ventricular ejection fraction is within normal limits. There is borderline concentric left ventricular hypertrophy. The left ventricle is grossly normal size. Doppler measurements suggest pseudonormalized left ventricular relaxation, which is associated with grade II/IV or mild to moderate diastolic dysfunction Wall motion cannot be accurately commented on, but no definite regional wall motion abnormalities noted. The right ventricular systolic function is normal. The left atrial size is normal. The right atrium is dilated There is no mitral valve stenosis. There is a trace amount of mitral regurgitation There is a trace amount of aortic regurgitation There is no aortic valve stenosis There is a trace or physiologic amount of tricuspid regurgitation Tricuspid regurgitation jet envelope not well defined to measure RV systolic pressure accurately. There is a trace or physiologic amount of pulmonic regurgitation There is no pulmonic valvular stenosis. The aortic root is normal size. The inferior vena cava was not well visualized Minimal pericardial effusion. MMode/2D Measurements & Calculations RVDd: 3.7 cm LVIDd: 5.6 cm FS: 36.5 % Ao root diam: 3.8 cm IVSd: 0.82 cm LVIDs: 3.6 cm EDV(Teich): 155.5 ml Ao root area: 11.2 cm2 LVPWd: 0.80 cm ESV(Teich): 53.4 ml LA dimension: 3.3 cm EF(Teich): 65.6 % Doppler Measurements & Calculations MV E max andrews: MV P1/2t max andrews: Ao V2 max: LV V1 max P.2 cm/sec 83.8 cm/sec 193.0 cm/sec 8.2 mmHg MV A max andrews: MV P1/2t: 75.0 msec Ao max PG: LV V1 max: 80.2 cm/sec MVA(P1/2t): 2.9 cm2 14.9 mmHg 143.1 cm/sec MV E/A: 1.1 MV dec slope: 327.2 cm/sec2 MV dec time: 0.28 sec PA V2 max: PI end-d andrews: TR max andrews: MV P1/2t-pr_phl: 119.0 cm/sec 112.2 cm/sec 276.2 cm/sec 75.0 msec PA max PG: TR max P.7 mmHg 30.5 mmHg Left Ventricle The left ventricle is grossly normal size. There is borderline concentric left ventricular hypertrophy. The left ventricular ejection fraction is within normal limits. Doppler measurements suggest pseudonormalized left ventricular relaxation, which is associated with grade II/IV or mild to moderate diastolic dysfunction. Wall motion cannot be accurately commented on, but no definite regional wall motion abnormalities noted. Right Ventricle The right ventricle is grossly normal size. There is normal right ventricular wall thickness. The right ventricular systolic function is normal. Atria The right atrium is dilated. The left atrial size is normal. Interarterial septum not well visualized and not well dopplered. Cannot comment on ASD/PFO presence. Mitral Valve The mitral valve is grossly normal. There is no mitral valve stenosis. There is a trace amount of mitral regurgitation. Aortic Valve The aortic valve is grossly normal. There is no aortic valve stenosis. There is a trace amount of aortic regurgitation. Tricuspid Valve The tricuspid valve is not well visualized, but is grossly normal. There is no tricuspid stenosis. There is a trace or physiologic amount of tricuspid regurgitation. Tricuspid regurgitation jet envelope not well defined to measure RV systolic pressure accurately. Pulmonic Valve The pulmonic valve is not well seen, but is grossly normal. There is no pulmonic valvular stenosis. There is a trace or physiologic amount of pulmonic regurgitation. Great Vessels The aortic root is normal size. The inferior vena cava was not well visualized. Effusions Minimal pericardial effusion. : MARJAN CHOI Shyamal
[2019-05-17] MEDS: NORMAL SALINE 10 ML SDV (SCHEDULED) IV SCH (21:30)
[2019-05-18] MEDS: OXYCODONE-ACETAMINOPHEN 5-325 MG TABLET PO PRN ×4 (00:01→16:04)
[2019-05-18] MEDS: ACETAMINOPHEN 325 MG TABLET PO PRN (00:01)
[2019-05-18] MEDS: HEPARIN SOD (PORCINE) 5,000 UNIT/ML 1 ML VIAL SUBCUT SCH ×3 (06:26→22:22)
[2019-05-18] MEDS: VANCOMYCIN HCL 1,250 MG in DEXTROSE 5%-WATER 250 ML IV SCH ×3 (06:26→22:21)
[2019-05-18] MEDS: PANTOPRAZOLE SODIUM 40 MG TABLET.DR PO SCH ×2 (06:27→17:08)
[2019-05-18 06:48] LABS: HEMATOCRIT 27.4 % (37.9-51.0); HEMOGLOBIN 9.6 g/dL (13.5-17.0); MEAN CORPUSCULAR HEMOGLOBIN 33.4 pg (27.0-33.4); MEAN CORPUSCULAR HGB CONC 35.1 g/dL (32.0-36.0); MEAN CORPUSCULAR VOLUME 95 fl (80-97); PLATELET COUNT 171 10^3/uL (150-450); RED BLOOD COUNT 2.88 10^6/uL (4.35-5.55); RED CELL DISTRIBUTION WIDTH 15.4 % (11.5-14.0); WHITE BLOOD COUNT 11.9 10^3/uL (4.0-10.5)
[2019-05-18 07:01] LABS: ALBUMIN 1.9 g/dL (3.5-5.0); ALKALINE PHOSPHATASE 84 U/L (38-126); ANION GAP 8 (5-19); ASPARTATE AMINO TRANSFERASE 32 U/L (17-59); BILIRUBIN,DIRECT 0.4 mg/dL (0.0-0.4); BLOOD UREA NITROGEN 13 mg/dL (7-20); CARBON DIOXIDE 22 mmol/L (22-30); CHLORIDE 95 mmol/L (98-107); GLUCOSE 170 mg/dL (75-110); POTASSIUM 4.2 mmol/L (3.6-5.0); TOTAL PROTEIN 5.4 g/dL (6.3-8.2)
[2019-05-18 07:21] LABS: CALCIUM 6.3 mg/dL (8.4-10.2)
[2019-05-18] MEDS: INSULIN LISPRO 100 UNIT/ML 3 ML VIAL SUBCUT SCH ×4 (08:07→22:22)
--- NOTE | 2019-05-18 08:50 | PDOC PROGRESS REPORT ---
Subjective Progress Note for:: 05/18/19 Subjective:: 05/18/2019-the patient is in good spirits today. Again he is resting in the recliner with his legs up. We did discover that he has been eating Pringles and saltines. I explained that sodium tends to hold onto fluid. We will make sure that he is on a low-sodium diet. Reason For Visit: CELLULITIS,SEPTIC ARTHRITIS Physical Exam Vital Signs: Temp Pulse Resp BP Pulse Ox 100.2 F 100 20 131/67 H 93 05/17/19 20:30 05/18/19 02:00 05/17/19 20:30 05/17/19 20:30 05/17/19 20:30 Intake & Output 05/17/19 05/18/19 05/19/19 06:59 06:59 06:59 Intake Total 3052 1940 Output Total 1375 1125 Balance 1677 815 Weight 109.2 kg General appearance: PRESENT: no acute distress, cooperative, well-developed Head exam: PRESENT: atraumatic, normocephalic Eye exam: PRESENT: conjunctiva pale, EOMI. ABSENT: scleral icterus Ear exam: PRESENT: normal external ear exam. ABSENT: bleeding, drainage Mouth exam: PRESENT: moist, tongue midline Respiratory exam: PRESENT: clear to auscultation brenda - Anteriorly, symmetrical, unlabored. ABSENT: rales, rhonchi, tachypnea, wheezes Cardiovascular exam: PRESENT: RRR, +S1, +S2, tachycardia GI/Abdominal exam: PRESENT: distended - Slightly distended, firm, normal bowel sounds, soft, other - Firm texture due to edema. ABSENT: tenderness Rectal exam: PRESENT: deferred Gentrourinary exam: PRESENT: scrotal swelling Extremities exam: PRESENT: +1 edema Musculoskeletal exam: PRESENT: ambulatory. ABSENT: deformity Neurological exam: PRESENT: alert, awake, oriented to person, oriented to place, oriented to time, oriented to situation, CN II-XII grossly intact Psychiatric exam: PRESENT: appropriate affect. ABSENT: agitated, anxious Focused psych exam: ABSENT: delusional, restlessness Skin exam: PRESENT: dry, warm. ABSENT: rash Results Laboratory Results: 05/18/19 06:33 05/18/19 06:33 05/18/19 05/18/19 06:33 06:33 WBC 11.9 H RBC 2.88 L Hgb 9.6 L Hct 27.4 L MCV 95 MCH 33.4 MCHC 35.1 RDW 15.4 H Plt Count 171 Sodium 124.8 L Potassium 4.2 Chloride 95 L Carbon Dioxide 22 Anion Gap 8 BUN 13 Creatinine 0.73 Est GFR ( Amer) > 60 Glucose 170 H Calcium 6.3 L* Total Bilirubin 1.0 AST 32 Alkaline Phosphatase 84 Total Protein 5.4 L Albumin 1.9 L 05/10/19 18:28 Leg - Right Fungal Smear - Final 05/10/19 18:28 Leg - Right Fungal Smear - Final 05/10/19 18:28 Foot - Right Fungal Smear - Final 05/10/19 18:28 Foot - Right Fungal Smear - Final 05/09/19 16:30 Troponin I < 0.012 Impressions: Ankle X-Ray 05/09/19 11:34 IMPRESSION: Small joint effusion. No acute fracture. Foot X-Ray 05/09/19 11:34 IMPRESSION: Soft tissue swelling dorsally. No acute fracture or dislocation. Venous Doppler Study 05/09/19 11:34 IMPRESSION: NO EVIDENCE DVT OR SVT IN THE RIGHT LEG. Chest X-Ray 05/09/19 16:17 IMPRESSION: NO ACUTE RADIOGRAPHIC FINDING IN THE CHEST. Lower Extremity MRI 05/09/19 16:39 IMPRESSION: 1. Arthropathy as above may reflect the patient's history of gout. Significant marrow edema in the talus and navicular, lesser changes also in the calcaneus and cuboid. 2. Extensive soft tissue swelling, muscle edema and fluid collections extending up into the calf. While some of the loculated fluid is along tendon sheaths and reflects tenosynovitis, this is not all clearly tendon related fluid. Some of the fluid may be related to other infectious/inflammatory etiology. Shoulder X-Ray 05/09/19 17:48 IMPRESSION: NEGATIVE STUDY OF THE RIGHT SHOULDER. NO RADIOGRAPHIC EVIDENCE OF ACUTE INJURY. Scrotum Ultrasound 05/14/19 00:00 IMPRESSION: . NO EVIDENCE OF TESTICULAR MASS OR TORSION. 5 5 Scrotal wall thickness. Small left hydrocele. Guidance Fluoroscopy 05/17/19 00:00 IMPRESSION: SUCCESSFUL PLACEMENT OF A 5 FR DUAL LUMEN 42 CM PICC IN THE LEFT BASILIC VEIN. Interventional Vascular Procedure 05/17/19 00:00 IMPRESSION: SUCCESSFUL PLACEMENT OF A 5 FR DUAL LUMEN 42 CM PICC IN THE LEFT BASILIC VEIN. PICC Line Insertion 05/17/19 00:00 IMPRESSION: SUCCESSFUL PLACEMENT OF A 5 FR DUAL LUMEN 42 CM PICC IN THE LEFT BASILIC VEIN. Assessment and Plan - Diagnosis (1) Septic arthritis Qualifiers: Septic arthritis location: ankle Laterality: right Is this a current diagnosis for this admission?: Yes Plan: 05/17/2019-the patient continues on his antibiotic therapy. I appreciate the consultation with infectious diseases. With the negative blood cultures on May 13 the bacteremia is controlled. Because of the septic arthritis he will need 4 to 6 weeks of IV antibiotics. The recommendation is if the transthoracic echocardiogram is negative then 4 weeks is reasonable. If positive then 6 weeks. He will need monitoring laboratory studies including vancomycin levels. Daptomycin might be an alternative. The patient will need to have a PICC line as well as orders for infusion therapy and home health. 05/18/2019-PICC line has been placed. Will begin to work on home infusion therapy as well as home health. (2) Bacteremia Is this a current diagnosis for this admission?: Yes Plan: 05/17/2019-blood cultures from May 13 are negative. Patient will need long-term antibiotics as noted above. Etiology of bacteremia was the septic arthritis/cellulitis. 05/18/2019-management as above (3) Hyponatremia Is this a current diagnosis for this admission?: Yes Plan: 05/17/2019-patient serum sodium has been below 130 for the majority of his admission. Because of his edema I have instituted Bumex therapy. I may need to institute a fluid restriction. Continue to monitor sodium. 05/18/2019-we will administer albumin before Bumex. This should remove excess volume and ultimately improve serum sodium. (4) Leukocytosis Qualifiers: Leukocytosis type: unspecified Qualified Code(s): D72.829 - Elevated white blood cell count, unspecified Is this a current diagnosis for this admission?: Yes Plan: 05/17/2019-the white blood cell count temporarily normalized. It is slightly elevated today. We will continue to monitor. 05/18/2019-still slightly elevated. Continue to monitor while on antibiotic therapy. (5) Cellulitis Qualifiers: Site of cellulitis: extremity Site of cellulitis of extremity: lower extremity Laterality: right Qualified Code(s): L03.115 - Cellulitis of right lower limb Is this a current diagnosis for this admission?: Yes Plan: 05/17/2019-antibiotic therapy as noted above. Still some swelling in the leg. 05/18/2019-continue antibiotics (6) Tobacco abuse Is this a current diagnosis for this admission?: Yes Plan: 05/17/2019-patient reports he will no longer use tobacco products. 05/18/2019-continue to encourage cessation (7) Scrotal edema Is this a current diagnosis for this admission?: Yes Plan: 05/17/2019-consistent with the edema that is present. I have initiated diuretic therapy as noted above. He may also need fluid restriction as noted above. He reports that an ultrasound study was done. No testicular pathology was noted. Hydrocele is present. Patient reports that the edema is slowly improving. 05/18/2019-we will sling scrotum with pillowcase of bedsheet. This and diuretic therapy should assist in decreasing scrotal edema. (8) Hepatitis C antibody positive in blood Is this a current diagnosis for this admission?: Yes Plan: 05/17/2019-I could find no evidence of immunization. I will research further in to the patient's history. With a positive antibody titer pathology suggests a follow-up with nucleic acid amplification. This test has been ordered. We will follow-up based on results. 05/18/2019-any further discussed hepatitis C with the patient. To his knowledge he has never had hepatitis C. He also does not remember getting any hepatitis C vaccine. I explained that additional testing is pending and he will likely need to follow-up with gastroenterology post discharge. (9) Hypocalcemia Is this a current diagnosis for this admission?: Yes Plan: 05/18/2019-despite the correction for albumin the calcium level was still slightly low. I will initiate calcium carbonate with vitamin D supplement daily. (10) Hypoalbuminemia Is this a current diagnosis for this admission?: Yes Plan: 05/18/2019-albumin is only 1.9. We will begin to administer IV albumin with diuretics to expedite fluid removal. Unsure of exact etiology of low albumin and elevated bilirubin. (11) Edema due to hypoalbuminemia Is this a current diagnosis for this admission?: Yes Plan: 05/18/2019-we will begin to administer IV albumin before Bumex. This should expedite fluid removal. With a question of underlying hepatitis C this may explain the hypoalbuminemia. (12) Chronic diastolic heart failure Is this a current diagnosis for this admission?: Yes Plan: 05/18/2019-echocardiogram reveals grade 2/4 diastolic dysfunction. Ejection fra ction is normal. No report of pulmonary hypertension. - Plan Summary Summary: 05/17/2019-Per infectious disease consult I have ordered placement of a PICC elaine e and ordered an echocardiogram. Duration of treatment will be based on the ultrasound results. - Time Time Spent with patient: 15-24 minutes Smoking Cessation Education: 3 to 10 minutes Medications reviewed and adjusted accordingly: Yes Anticipated discharge: Home with Homehealth, Other - Home with infusion therapy
[2019-05-18] MEDS: DOCUSATE SODIUM 100 MG CAPSULE PO SCH ×2 (10:03→17:08)
[2019-05-18] MEDS: NORMAL SALINE 10 ML SDV (SCHEDULED) IV SCH ×2 (10:11→22:23)
[2019-05-18] MEDS: CALCIUM CARBONATE 250 MG/VITAMIN D3 125 UNIT TABLET PO SCH (10:11)
[2019-05-18] MEDS: LISINOPRIL 10 MG TABLET PO SCH (10:12)
[2019-05-18] MEDS: ALBUMIN HUMAN 12.5 GM/50 ML RTUINJ IV SCH (12:09)
[2019-05-18] MEDS: BUMETANIDE INJ/PF 1 MG/4 ML SDV IV SCH (12:09)
[2019-05-18 15:01] LABS: VANCOMYCIN,TROUGH 17.6 ug/mL (5.0-20.0)
[2019-05-19] MEDS: OXYCODONE-ACETAMINOPHEN 5-325 MG TABLET PO PRN ×3 (01:24→12:31)
[2019-05-19 04:52] LABS: APPEARANCE,URINE CLOUDY; BILIRUBIN,URINE NEGATIVE (NEGATIVE); COLOR,URINE YELLOW; GLUCOSE, URINE NEGATIVE (NEGATIVE); KETONES,URINE NEGATIVE (NEGATIVE); LEUKOCYTE ESTERASE,URINE NEGATIVE (NEGATIVE); NITRITE,URINE NEGATIVE (NEGATIVE); PROTEIN,URINE NEGATIVE (NEGATIVE); URINE SPECIFIC GRAVITY 1.012; UROBILINOGEN,URINE NEGATIVE mg/dL (<2.0)
[2019-05-19] MEDS: PANTOPRAZOLE SODIUM 40 MG TABLET.DR PO SCH ×2 (05:31→16:38)
[2019-05-19] MEDS: HEPARIN SOD (PORCINE) 5,000 UNIT/ML 1 ML VIAL SUBCUT SCH ×3 (05:31→22:22)
[2019-05-19] MEDS: VANCOMYCIN HCL 1,250 MG in DEXTROSE 5%-WATER 250 ML IV SCH ×3 (05:32→22:22)
[2019-05-19 06:50] LABS: ANION GAP 8 (5-19); BLOOD UREA NITROGEN 14 mg/dL (7-20); CALCIUM 7.2 mg/dL (8.4-10.2); CARBON DIOXIDE 24 mmol/L (22-30); CHLORIDE 92 mmol/L (98-107); GLUCOSE 113 mg/dL (75-110); POTASSIUM 4.1 mmol/L (3.6-5.0)
[2019-05-19] MEDS: INSULIN LISPRO 100 UNIT/ML 3 ML VIAL SUBCUT SCH ×4 (07:54→22:21)
[2019-05-19] MEDS: DOCUSATE SODIUM 100 MG CAPSULE PO SCH ×2 (10:04→18:28)
[2019-05-19] MEDS: BUMETANIDE INJ/PF 1 MG/4 ML SDV IV SCH ×2 (10:04→18:44)
[2019-05-19] MEDS: CALCIUM CARBONATE 250 MG/VITAMIN D3 125 UNIT TABLET PO SCH (10:04)
[2019-05-19] MEDS: LISINOPRIL 10 MG TABLET PO SCH (10:04)
[2019-05-19] MEDS: ALBUMIN HUMAN 12.5 GM/50 ML RTUINJ IV SCH (10:04)
[2019-05-19] MEDS: NORMAL SALINE 10 ML SDV (SCHEDULED) IV SCH ×2 (10:14→22:23)
--- NOTE | 2019-05-19 13:52 | PDOC PROGRESS REPORT ---
Subjective Progress Note for:: 05/19/19 Subjective:: I was alerted to the fact that the patient's family is very concerned. The patient evidently is not a reliable historian when relating information to his family. The family reports that narcotic analgesia makes the patient confused and they believe that this is the reason. They are concerned about the ongoing edema as well as new diagnoses of diabetes, hypertension and hepatitis C. Unfortunately the patient has not been to a physician on a regular basis and 30 or 40 years. The patient himself is in reasonable spirits and has no acute complaints. Reason For Visit: CELLULITIS,SEPTIC ARTHRITIS Physical Exam Vital Signs: Temp Pulse Resp BP Pulse Ox 99.1 F 96 18 133/81 H 95 05/19/19 08:00 05/19/19 08:00 05/19/19 08:00 05/19/19 08:00 05/19/19 08:00 Intake & Output 05/18/19 05/19/19 05/20/19 06:59 06:59 06:59 Intake Total 1940 3788 780 Output Total 1125 1575 1300 Balance 815 2213 -520 Weight 108.9 kg General appearance: PRESENT: no acute distress, cooperative, well-developed Head exam: PRESENT: atraumatic, normocephalic Eye exam: PRESENT: conjunctiva pink. ABSENT: scleral icterus Ear exam: PRESENT: normal external ear exam. ABSENT: bleeding, drainage Mouth exam: PRESENT: moist, tongue midline Respiratory exam: PRESENT: clear to auscultation brenda, symmetrical, unlabored. ABSENT: accessory muscle use, rales, rhonchi, tachypnea, wheezes Cardiovascular exam: PRESENT: RRR, +S1, +S2 GI/Abdominal exam: PRESENT: diminished bowel sounds, distended, soft. ABSENT: tenderness Rectal exam: PRESENT: deferred Gentrourinary exam: PRESENT: scrotal swelling Extremities exam: PRESENT: +2 edema - 2-3+ edema lower extremities Neurological exam: PRESENT: alert, awake, oriented to person, oriented to place, oriented to situation Psychiatric exam: PRESENT: appropriate affect. ABSENT: agitated, anxious Skin exam: ABSENT: erythema Results Laboratory Results: 05/18/19 06:33 05/19/19 05:40 05/18/19 05/19/19 05/19/19 14:27 02:26 05:40 Sodium 123.9 L Potassium 4.1 Chloride 92 L Carbon Dioxide 24 Anion Gap 8 BUN 14 Creatinine 0.74 0.86 Est GFR ( Amer) > 60 > 60 Glucose 113 H Calcium 7.2 L Urine Color YELLOW Urine Appearance CLOUDY Urine pH 6.0 Ur Specific [place] 1.012 Urine Protein NEGATIVE Urine Glucose (UA) NEGATIVE Urine Ketones NEGATIVE Urine Blood SMALL H Urine Nitrite NEGATIVE Ur Leukocyte Esterase NEGATIVE Urine WBC (Auto) 1 Urine RBC (Auto) 1 05/13/19 12:44 Blood Blood Culture - Final NO GROWTH IN 5 DAYS 05/13/19 12:36 Blood Blood Culture - Final NO GROWTH IN 5 DAYS 05/09/19 16:30 Troponin I < 0.012 Impressions: Ankle X-Ray 05/09/19 11:34 IMPRESSION: Small joint effusion. No acute fracture. Foot X-Ray 05/09/19 11:34 IMPRESSION: Soft tissue swelling dorsally. No acute fracture or dislocation. Venous Doppler Study 05/09/19 11:34 IMPRESSION: NO EVIDENCE DVT OR SVT IN THE RIGHT LEG. Chest X-Ray 05/09/19 16:17 IMPRESSION: NO ACUTE RADIOGRAPHIC FINDING IN THE CHEST. Lower Extremity MRI 05/09/19 16:39 IMPRESSION: 1. Arthropathy as above may reflect the patient's history of gout. Significant marrow edema in the talus and navicular, lesser changes also in the calcaneus and cuboid. 2. Extensive soft tissue swelling, muscle edema and fluid collections extending up into the calf. While some of the loculated fluid is along tendon sheaths and reflects tenosynovitis, this is not all clearly tendon related fluid. Some of the fluid may be related to other infectious/inflammatory etiology. Shoulder X-Ray 05/09/19 17:48 IMPRESSION: NEGATIVE STUDY OF THE RIGHT SHOULDER. NO RADIOGRAPHIC EVIDENCE OF ACUTE INJURY. Scrotum Ultrasound 05/14/19 00:00 IMPRESSION: . NO EVIDENCE OF TESTICULAR MASS OR TORSION. 5 5 Scrotal wall thickness. Small left hydrocele. Guidance Fluoroscopy 05/17/19 00:00 IMPRESSION: SUCCESSFUL PLACEMENT OF A 5 FR DUAL LUMEN 42 CM PICC IN THE LEFT BASILIC VEIN. Interventional Vascular Procedure 05/17/19 00:00 IMPRESSION: SUCCESSFUL PLACEMENT OF A 5 FR DUAL LUMEN 42 CM PICC IN THE LEFT BASILIC VEIN. PICC Line Insertion 05/17/19 00:00 IMPRESSION: SUCCESSFUL PLACEMENT OF A 5 FR DUAL LUMEN 42 CM PICC IN THE LEFT BASILIC VEIN. Assessment and Plan - Diagnosis (1) Septic arthritis Qualifiers: Septic arthritis location: ankle Laterality: right Is this a current diagnosis for this admission?: Yes Plan: 05/17/2019-the patient continues on his antibiotic therapy. I appreciate the c onsultation with infectious diseases. With the negative blood cultures on May 13 the bacteremia is controlled. Because of the septic arthritis he will need 4 to 6 weeks of IV antibiotics. The recommendation is if the transthoracic echocardiogram is negative then 4 weeks is reasonable. If po sitive then 6 weeks. He will need monitoring laboratory studies including vancomycin levels. Daptomycin might be an alternative. The patient will need to have a PICC line as well as orders for infusion therapy and home health. 05/18/2019-PICC line has been placed. Will begin to work on home infusion therapy as well as home health. 05/19/2019-we will need an additional 4 to 5 weeks of IV vancomycin. Considering his multiple comorbidities I feel it would be better to aim for 6 weeks of treatment in total rather than 4. (2) Bacteremia Is this a current diagnosis for this admission?: Yes Plan: 05/17/2019-blood cultures from May 13 are negative. Patient will need long-term antibiotics as noted above. Etiology of bacteremia was the septic arthritis/cellulitis. 05/18/2019-management as above 05/19/2019-resolved with IV antibiotics (3) Hyponatremia Is this a current diagnosis for this admission?: Yes Plan: 05/17/2019-patient serum sodium has been below 130 for the majority of his admission. Because of his edema I have instituted Bumex therapy. I may need to institute a fluid restriction. Continue to monitor sodium. 05/18/2019-we will administer albumin before Bumex. This should remove excess volume and ultimately improve serum sodium. 05/19/2019-likely due to excess fluid retention. Monitor during diuresis. I did institute a 1 L fluid restriction as well. (4) Leukocytosis Qualifiers: Leukocytosis type: unspecified Qualified Code(s): D72.829 - Elevated white blood cell count, unspecified Is this a current diagnosis for this admission?: Yes Plan: 05/17/2019-the white blood cell count temporarily normalized. It is slightly elevated today. We will continue to monitor. 05/18/2019-still slightly elevated. Continue to monitor while on antibiotic therapy. 05/19/2019-white blood cell count continues to improve and is near normal. (5) Cellulitis Qualifiers: Site of cellulitis: extremity Site of cellulitis of extremity: lower e xtremity Laterality: right Qualified Code(s): L03.115 - Cellulitis of right lower limb Is this a current diagnosis for this admission?: Yes Plan: 05/17/2019-antibiotic therapy as noted above. Still some swelling in the leg. 05/18/2019-continue antibiotics 05/19/2019-the cellulitis component appears to have resolved (6) Tobacco abuse Is this a current diagnosis for this admission?: Yes Plan: 05/17/2019-patient reports he will no longer use tobacco products. 05/18/2019-continue to encourage cessation 05/19/2019-patient encouraged to stick with his plan of no further use of tobacco (7) Scrotal edema Is this a current diagnosis for this admission?: Yes Plan: 05/17/2019-consistent with the edema that is present. I have initiated diuretic therapy as noted above. He may also need fluid restriction as noted above. He reports that an ultrasound study was done. No testicular pathology was noted. Hydrocele is present. Patient reports that the edema is slowly improving. 05/18/2019-we will sling scrotum with pillowcase of bedsheet. This and diuretic therapy should assist in decreasing scrotal edema. 05/19/2019-still with significant edema. It will likely take more than a week to see improvement with the aggressive diuresis. Continue to sling the scrotum whenever possible. (8) Hepatitis C antibody positive in blood Is this a current diagnosis for this admission?: Yes Plan: 05/17/2019-I could find no evidence of immunization. I will research further into the patient's history. With a positive antibody titer pathology suggests a follow-up with nucleic acid amplification. This test has been ordered. We will follow-up based on results. 05/18/2019-any further discussed hepatitis C with the patient. To his knowledge he has never had hepatitis C. He also does not remember getting any hepatitis C vaccine. I explained that additional testing is pending and he will likely need to follow-up with gastroenterology post discharge. 05/19/2019-etiology unknown. Hepatitis C RNA and typing are pending (9) Hypocalcemia Is this a current diagnosis for this admission?: Yes Plan: 05/18/2019-despite the correction for albumin the calcium level was still slightly low. I will initiate calcium carbonate with vitamin D supplement daily. 05/19/2019-check calcium tomorrow (10) Hypoalbuminemia Is this a current diagnosis for this admission?: Yes Plan: 05/18/2019-albumin is only 1.9. We will begin to administer IV albumin with diuretics to expedite fluid removal. Unsure of exact etiology of low albumin and elevated bilirubin. 05/19/2019-possibly related to occult liver disease. IV albumin with diuretics is now part of the treatment plan. (11) Edema due to hypoalbuminemia Is this a current diagnosis for this admission?: Yes Plan: 05/18/2019-we will begin to administer IV albumin before Bumex. This should expedite fluid removal. With a question of underlying hepatitis C this may explain the hypoalbuminemia. 05/19/2019-plan as above (12) Chronic diastolic heart failure Is this a current diagnosis for this admission?: Yes Plan: 05/18/2019-echocardiogram reveals grade 2/4 diastolic dysfunction. Ejection fraction is normal. No report of pulmonary hypertension. 05/19/2019-management will be with the medications noted above - Plan Summary Summary: 05/17/2019-Per infectious disease consult I have ordered placement of a PICC line and ordered an echocardiogram. Duration of treatment will be based on the ultrasound results. 05/19/2019-today I spent 70 minutes with the patient and family going over all of the details of his hospitalization from the beginning. The patient's had multiple questions. When did he have high blood pressure-I explained that because he has not been to a doctor in 40 years it is impossible to know when his hypertension started When did he get diabetes-his hemoglobin A1c is only 6.3. I explained that with a good diabetic diet this should be easily controlled Where did he get hepatitis C-there is no obvious etiology. He has not had transfusions. The patient and his deny promiscuity, homosexual activity and IV drug use. He has never had a transfusion. I explained that a more sensitive test is pending. We will also further investigate the existence of liver disease. An ultrasound has been ordered. How long will take the swelling to get better-I explained that with the aggressive regimen of albumin and intravenous diuretics we should see some progress daily. I explained that our goal is a negative fluid balance of 1 to 2 L daily. I reviewed the low albumin and the mechanism of low oncotic pressure causing edema. Why is he confused-the family actually reported to me that he has had narcotic analgesia in the past and this has caused confusion. I will discontinue the oxy codone. We reviewed the need for IV antibiotics for an extended period. The patient's states that she will not be able to care for the patient at home. She does not feel comfortable administering the IV antibiotics. There really is no one else to do this. I do not believe the patient is capable. In addition he is markedly deconditioned and will need aggressive diuresis as well as ongoing antibiotics and therefore we have agreed that a halfway facility placement is best for the patient. - Time Time Spent with patient: 35 or more minutes Smoking Cessation Education: 3 to 10 minutes Medications reviewed and adjusted accordingly: Yes Anticipated discharge: SNF
[2019-05-19] MEDS ORDERED: PHARMACY COMMUNICATION ORDER MC NR (17:15)
[2019-05-20] MEDS: VANCOMYCIN HCL 1,250 MG in DEXTROSE 5%-WATER 250 ML IV SCH ×3 (05:20→21:49)
[2019-05-20] MEDS: HEPARIN SOD (PORCINE) 5,000 UNIT/ML 1 ML VIAL SUBCUT SCH ×3 (05:21→21:49)
[2019-05-20] MEDS: PANTOPRAZOLE SODIUM 40 MG TABLET.DR PO SCH ×2 (05:21→17:16)
[2019-05-20] MEDS: KETOROLAC TROMETHAMINE INJ/PF 30 MG/1 ML SDV IV PRN (06:12)
[2019-05-20] MEDS: INSULIN LISPRO 100 UNIT/ML 3 ML VIAL SUBCUT SCH ×4 (07:28→21:49)
--- NOTE | 2019-05-20 08:36 | RADIOLOGY REPORT (SQ) ---
EXAM DESCRIPTION: U/S ABDOMEN COMPLETE W/DOPPLER COMPLETED DATE/TIME: 05/19/2019 6:48 pm REASON FOR STUDY: Distended abdomen COMPARISON: None. TECHNIQUE: Dynamic and static grayscale images acquired of the abdomen and recorded on PACS. Additio nal selected color Doppler and spectral images recorded. Note: Study does not meet criteria for complete doppler/duplex scan LIMITATIONS: None. FINDINGS: PANCREAS: Unable to visualize the pancreas. LIVER: Heterogeneous echogenic echotexture. There is no mass. LIVER VASCULATURE: Normal directional flow within the portal and hepatic veins. GALLBLADDER: The gallbladder is contracted. ULTRASOUND-DETECTED LOFTON'S SIGN: Negative. INTRAHEPATIC DUCTS AND COMMON DUCT: The common bile duct measures 4 mm in diameter. The intrahepatic bile ducts are normal in caliber. INFERIOR VENA CAVA: Normal flow. AORTA: The proximal abdominal aorta measures 2.9 cm and AP diameter. RIGHT KIDNEY: The right kidney measures 11.7 cm length. There is no hydronephrosis. LEFT KIDNEY: The left kidney measures 13.2 cm in length. There is no hydronephrosis. SPLEEN: The spleen is enlarged and measures 17.6 cm in length. PERITONEAL AND PLEURAL SPACES: There is a [id number] amount of ascites. OTHER: No other finding. IMPRESSION: 1. Cirrhosis with ascites and splenomegaly. 2. Limited evaluation of the gallbladder, pancreas, and abdominal aorta. 3. No hydronephrosis. TECHNICAL DOCUMENTATION: JOB ID: [id number] [employer]- All Rights Reserved Reading location - IP/workstation name: [email or web address]
[2019-05-20] MEDS: ALBUMIN HUMAN 12.5 GM/50 ML RTUINJ IV SCH (09:38)
[2019-05-20] MEDS: BUMETANIDE INJ/PF 1 MG/4 ML SDV IV SCH ×2 (09:45→17:16)
[2019-05-20] MEDS: CALCIUM CARBONATE 250 MG/VITAMIN D3 125 UNIT TABLET PO SCH (09:46)
[2019-05-20] MEDS: LISINOPRIL 10 MG TABLET PO SCH (09:46)
[2019-05-20] MEDS: DOCUSATE SODIUM 100 MG CAPSULE PO SCH ×2 (09:47→17:17)
[2019-05-20] MEDS: NORMAL SALINE 10 ML SDV (SCHEDULED) IV SCH ×2 (09:49→21:50)
[2019-05-20] MEDS: ALBUMIN HUMAN 25 GM/100 ML RTUINJ IV SCH (10:24)
--- NOTE | 2019-05-20 11:12 | PDOC PROGRESS REPORT ---
Subjective Progress Note for:: 05/20/19 Subjective:: The patient reports feeling better today. He states that he has seen a noticeable decrease in the edema especially in the scrotum and penis area. He is very pleased. He has no new complaints to report. His abdomen is still distended. Reason For Visit: CELLULITIS,SEPTIC ARTHRITIS Physical Exam Vital Signs: Temp Pulse Resp BP Pulse Ox 98.2 F 95 18 126/66 H 94 05/20/19 08:00 05/20/19 08:00 05/20/19 08:00 05/20/19 08:00 05/20/19 08:00 Intake & Output 05/19/19 05/20/19 05/21/19 06:59 06:59 06:59 Intake Total 3788 1560 Output Total 1575 3950 Balance 2213 -2390 Weight 108.9 kg 109 kg General appearance: PRESENT: no acute distress, cooperative, well-developed, well-nourished Head exam: PRESENT: atraumatic, normocephalic Eye exam: PRESENT: conjunctiva pink. ABSENT: scleral icterus Ear exam: PRESENT: normal external ear exam. ABSENT: bleeding, drainage Respiratory exam: PRESENT: rales - At bases but clear anteriorly, symmetrical, unlabored. ABSENT: rhonchi, tachypnea, wheezes Cardiovascular exam: PRESENT: RRR, +S1, +S2 GI/Abdominal exam: PRESENT: diminished bowel sounds, distended, firm. ABSENT: guarding, tenderness Rectal exam: PRESENT: deferred Gentrourinary exam: PRESENT: scrotal swelling. ABSENT: indwelling catheter Extremities exam: PRESENT: pedal edema, +1 edema Musculoskeletal exam: PRESENT: ambulatory - Weak but working with physical therapy. ABSENT: normal inspection - Still with edema. Dressing on the right foot. Neurological exam: PRESENT: alert, awake, oriented to person, oriented to place, oriented to time, oriented to situation, CN II-XII grossly intact Psychiatric exam: PRESENT: appropriate affect. ABSENT: agitated, anxious Focused psych exam: ABSENT: delusional, restlessness Skin exam: ABSENT: erythema Results Laboratory Results: 05/18/19 06:33 05/19/19 05:40 05/09/19 16:30 Troponin I < 0.012 Impressions: Ankle X-Ray 05/09/19 11:34 IMPRESSION: Small joint effusion. No acute fracture. Foot X-Ray 05/09/19 11:34 IMPRESSION: Soft tissue swelling dorsally. No acute fracture or dislocation. Venous Doppler Study 05/09/19 11:34 IMPRESSION: NO EVIDENCE DVT OR SVT IN THE RIGHT LEG. Chest X-Ray 05/09/19 16:17 IMPRESSION: NO ACUTE RADIOGRAPHIC FINDING IN THE CHEST. Lower Extremity MRI 05/09/19 16:39 IMPRESSION: 1. Arthropathy as above may reflect the patient's history of gout. Significant marrow edema in the talus and navicular, lesser changes also in the calcaneus and cuboid. 2. Extensive soft tissue swelling, muscle edema and fluid collections extending up into the calf. While some of the loculated fluid is along tendon sheaths and reflects tenosynovitis, this is not all clearly tendon related fluid. Some of the fluid may be related to other infectious/inflammatory etiology. Shoulder X-Ray 05/09/19 17:48 IMPRESSION: NEGATIVE STUDY OF THE RIGHT SHOULDER. NO RADIOGRAPHIC EVIDENCE OF ACUTE INJURY. Scrotum Ultrasound 05/14/19 00:00 IMPRESSION: . NO EVIDENCE OF TESTICULAR MASS OR TORSION. 5 5 Scrotal wall thickness. Small left hydrocele. Guidance Fluoroscopy 05/17/19 00:00 IMPRESSION: SUCCESSFUL PLACEMENT OF A 5 FR DUAL LUMEN 42 CM PICC IN THE LEFT BASILIC VEIN. Interventional Vascular Procedure 05/17/19 00:00 IMPRESSION: SUCCESSFUL PLACEMENT OF A 5 FR DUAL LUMEN 42 CM PICC IN THE LEFT BASILIC VEIN. PICC Line Insertion 05/17/19 00:00 IMPRESSION: SUCCESSFUL PLACEMENT OF A 5 FR DUAL LUMEN 42 CM PICC IN THE LEFT BASILIC VEIN. Abdomen Ultrasound 05/19/19 00:00 IMPRESSION: 1. Cirrhosis with ascites and splenomegaly. 2. Limited evaluation of the gallbladder, pancreas, and abdominal aorta. 3. No hydronephrosis. Assessment and Plan - Diagnosis (1) Septic arthritis Qualifiers: Septic arthritis location: ankle Laterality: right Is this a current diagnosis for this admission?: Yes Plan: 05/17/2019-the patient continues on his antibiotic therapy. I appreciate the consultation with infectious diseases. With the negative blood cultures on May 13 the bacteremia is controlled. Because of the septic arthritis he will need 4 to 6 weeks of IV antibiotics. The recommendation is if the transthoracic echocardiogram is negative then 4 weeks is reasonable. If positive then 6 weeks. He will need monitoring laboratory studies including vancomycin levels. Daptomycin might be an alternative. The patient will need to have a PICC line as well as orders for infusion therapy and home health. 05/18/2019-PICC line has been placed. Will begin to work on home infusion therapy as well as home health. 05/19/2019-we will need an additional 4 to 5 weeks of IV vancomycin. Considering his multiple comorbidities I feel it would be better to aim for 6 weeks of treatment in total rather than 4. 05/20/2019-because of the patient's family's inability to care for the patient at home including monitoring of blood work, intake and output, daily weights and IV antibiotics the patient will be transferring to a senior care facility upon insurance approval. He will be able to get the remaining 4 to 5 weeks of IV vancomycin to treat his methicillin-resistant staph aureus septic arthritis. He will continue to work with physical therapy. (2) Bacteremia Is this a current diagnosis for this admission?: Yes Plan: 05/17/2019-blood cultures from May 13 are negative. Patient will need long-term antibiotics as noted above. Etiology of bacteremia was the septic arthritis/cellulitis. 05/18/2019-management as above 05/19/2019-resolved with IV antibiotics (3) Hyponatremia Is this a current diagnosis for this admission?: Yes Plan: 05/17/2019-patient serum sodium has been below 130 for the majority of his admission. Because of his edema I have instituted Bumex therapy. I may need to institute a fluid restriction. Continue to monitor sodium. 05/18/2019-we will administer albumin before Bumex. This should remove excess volume and ultimately improve serum sodium. 05/19/2019-likely due to excess fluid retention. Monitor during diuresis. I did institute a 1 L fluid restriction as well. 05/20/2019-we will recheck electrolytes tomorrow. Fluid restriction has been bumped up to 1.5 L. (4) Leukocytosis Qualifiers: Leukocytosis type: unspecified Qualified Code(s): D72.829 - Elevated white blood cell count, unspecified Is this a current diagnosis for this admission?: Yes Plan: 05/17/2019-the white blood cell count temporarily normalized. It is slightly elevated today. We will continue to monitor. 05/18/2019-still slightly elevated. Continue to monitor while on antibiotic therapy. 05/19/2019-white blood cell count continues to improve and is near normal. 05/20/2019-I have discontinued daily blood draws. I will check a CBC tomorrow. I expect that his white blood cell count will be normal at that time. (5) Cellulitis Qualifiers: Site of cellulitis: extremity Site of cellulitis of extremity: lower extremity Laterality: right Qualified Code(s): L03.115 - Cellulitis of right lower limb Is this a current diagnosis for this admission?: Yes Plan: 05/17/2019-antibiotic therapy as noted above. Still some swelling in the leg. 05/18/2019-continue antibiotics 05/19/2019-the cellulitis component appears to have resolved 05/20/2019-still with swelling but this is likely due to his liver failure. Cellulitis appears to be resolved. Ongoing treatment for the septic arthritis. (6) Tobacco abuse Is this a current diagnosis for this admission?: Yes Plan: 05/17/2019-patient reports he will no longer use tobacco products. 05/18/2019-continue to encourage cessation 05/19/2019-patient encouraged to stick with his plan of no further use of tobacco 05/20/2019-the patient actually calculated the number of packs of cigarettes that he has avoided during his entire stay. He was congratulated. He appears to be very firm about not returning to smoking. (7) Scrotal edema Is this a current diagnosis for this admission?: Yes Plan: 05/17/2019-consistent with the edema that is present. I have initiated diuretic therapy as noted above. He may also need fluid restriction as noted above. He reports that an ultrasound study was done. No testicular pathology was noted. Hydrocele is present. Patient reports that the edema is slowly improving. 05/18/2019-we will sling scrotum with pillowcase of bedsheet. This and diuretic therapy should assist in decreasing scrotal edema. 05/19/2019-still with significant edema. It will likely take more than a week to see improvement with the aggressive diuresis. Continue to sling the scrotum whenever possible. 05/20/2019-the albumin and IV diuretics appear to be helping. Hopefully with a -1.5 to -2 L fluid balance daily we will see a significant decrease in his edema over the next several days. (8) Hepatitis C antibody positive in blood Is this a current diagnosis for this admission?: Yes Plan: 05/17/2019-I could find no evidence of immunization. I will research further into the patient's history. With a positive antibody titer pathology suggests a follow-up with nucleic acid amplification. This test has been ordered. We will follow-up based on results. 05/18/2019-any further discussed hepatitis C with the patient. To his knowledge he has never had hepatitis C. He also does not remember getting any hepatitis C vaccine. I explained that additional testing is pending and he will likely need to follow-up with gastroenterology post discharge. 05/19/2019-etiology unknown. Hepatitis C RNA and typing are pending 05/20/2019-awaiting hepatitis C RNA and typing. This will help determine if he is a candidate for anti-hepatitis C viral treatment. (9) Hypocalcemia Is this a current diagnosis for this admission?: Yes Plan: 05/18/2019-despite the correction for albumin the calcium level was still slightly low. I will initiate calcium carbonate with vitamin D supplement daily. 05/19/2019-check calcium tomorrow 05/20/2019-continue calcium supplementation and monitor calcium. (10) Hypoalbuminemia Is this a current diagnosis for this admission?: Yes Plan: 05/18/2019-albumin is only 1.9. We will begin to administer IV albumin with diuretics to expedite fluid removal. Unsure of exact etiology of low albumin and elevated bilirubin. 05/19/2019-possibly related to occult liver disease. IV albumin with diuretics is now part of the treatment plan. 05/20/2019-abdominal ultrasound shows cirrhosis and ascites. Hypoalbuminemia is definitely related to the cirrhosis. The etiology of the cirrhosis is most likely the hepatitis C. The etiology of the hepatitis C is still unknown. (11) Edema due to hypoalbuminemia Is this a current diagnosis for this admission?: Yes Plan: 05/18/2019-we will begin to administer IV albumin before Bumex. This should expedite fluid removal. With a question of underlying hepatitis C this may explain the hypoalbuminemia. 05/19/2019-plan as above 05/20/2019-as discussed above. (12) Chronic diastolic heart failure Is this a current diagnosis for this admission?: Yes Plan: 05/18/2019-echocardiogram reveals grade 2/4 diastolic dysfunction. Ejection fraction is normal. No report of pulmonary hypertension. 05/19/2019-management will be with the medications noted above 05/20/2019-continue aggressive medical management. With confirmation of cirrhosis I did add spironolactone today. (13) Hepatic cirrhosis due to chronic hepatitis C infection Is this a current diagnosis for this admission?: Yes Plan: 05/20/2019-the abdominal ultrasound does reveal cirrhotic changes in the hepatic texture as well as ascites. There is also mild splenomegaly. I will discuss these results with the patient. At this time we will continue the diuresis regimen and as noted above spironolactone was initiated. - Plan Summary Summary: 05/17/2019-Per infectious disease consult I have ordered placement of a PICC line and ordered an echocardiogram. Duration of treatment will be based on the ultrasound results. 05/19/2019-today I spent 70 minutes with the patient and family going over all of the details of his hospitalization from the beginning. The patient's had multiple questions. When did he have high blood pressure-I explained that because he has not been to a doctor in 40 years it is impossible to know when his hypertension started When did he get diabetes-his hemoglobin A1c is only 6.3. I explained that with a good diabetic diet this should be easily controlled Where did he get hepatitis C-there is no obvious etiology. He has not had transfusions. The patient and his deny promiscuity, homosexual activity and IV drug use. He has never had a transfusion. I explained that a more sensitive test is pending. We will also further investigate the existence of liver disease. An ultrasound has been ordered. How long will take the swelling to get better-I explained that with the aggressive regimen of albumin and intravenous diuretics we should see some progress daily. I explained that our goal is a negative fluid balance of 1 to 2 L daily. I reviewed the low albumin and the mechanism of low oncotic pressure causing edema. Why is he confused-the family actually reported to me that he has had narcotic analgesia in the past and this has caused confusion. I will discontinue the oxycodone. We reviewed the need for IV antibiotics for an extended period. The patient's states that she will not be able to care for the patient at home. She does not feel comfortable administering the IV antibiotics. There really is no one else to do this. I do not believe the patient is capable. In addition he is markedly deconditioned and will need aggressive diuresis as well as ongoing antibiotics and therefore we have agreed that a senior care facility placement is best for the patient. - Time Time Spent with patient: 15-24 minutes Medications reviewed and adjusted accordingly: Yes Anticipated discharge: SNF
--- NOTE | 2019-05-20 12:56 | PDOC PROGRESS REPORT ---
Subjective Subjective:: Patient lying in bed comfortably. Patient continues to state swelling and pain improved only has discomfort w/ WB and at night. Denies fever chills or sweats. Continues to ambulate the halls with physical therapy. Reason For Visit: CELLULITIS,SEPTIC ARTHRITIS Physical Exam Vital Signs: Temp Pulse Resp BP Pulse Ox 98.2 F 95 18 126/66 H 94 05/20/19 08:00 05/20/19 08:00 05/20/19 08:00 05/20/19 08:00 05/20/19 08:00 Intake & Output 05/19/19 05/20/19 05/21/19 06:59 06:59 06:59 Intake Total 3788 1560 Output Total 1575 9660 Balance 2213 -2390 Weight 108.9 kg 109 kg Musculoskeletal exam: PRESENT: other - Right lower extremity: Dressing change today. Mild drainage on the bandage. Swelling and erythema notably improved around the ankle continues to have dependent edema throughout the right upper extremity and thigh. No palpable fluctuance. No pain with knee or hip range of motion. Intact plantarflexion/dorsiflexion. Results Laboratory Results: 05/18/19 06:33 05/19/19 05:40 05/09/19 16:30 Troponin I < 0.012 Impressions: Ankle X-Ray 05/09/19 11:34 IMPRESSION: Small joint effusion. No acute fracture. Foot X-Ray 05/09/19 11:34 IMPRESSION: Soft tissue swelling dorsally. No acute fracture or dislocation. Venous Doppler Study 05/09/19 11:34 IMPRESSION: NO EVIDENCE DVT OR SVT IN THE RIGHT LEG. Chest X-Ray 05/09/19 16:17 IMPRESSION: NO ACUTE RADIOGRAPHIC FINDING IN THE CHEST. Lower Extremity MRI 05/09/19 16:39 IMPRESSION: 1. Arthropathy as above may reflect the patient's history of gout. Significant marrow edema in the talus and navicular, lesser changes also in the calcaneus and cuboid. 2. Extensive soft tissue swelling, muscle edema and fluid collections extending up into the calf. While some of the loculated fluid is along tendon sheaths and reflects tenosynovitis, this is not all clearly tendon related fluid. Some of the fluid may be related to other infectious/inflammatory etiology. Shoulder X-Ray 05/09/19 17:48 IMPRESSION: NEGATIVE STUDY OF THE RIGHT SHOULDER. NO RADIOGRAPHIC EVIDENCE OF A CUTE INJURY. Scrotum Ultrasound 05/14/19 00:00 IMPRESSION: . NO EVIDENCE OF TESTICULAR MASS OR TORSION. 5 5 Scrotal wall thickness. Small left hydrocele. Guidance Fluoroscopy 05/17/19 00:00 IMPRESSION: SUCCESSFUL PLACEMENT OF A 5 FR DUAL LUMEN 42 CM PICC IN THE LEFT BASILIC VEIN. Interventional Vascular Procedure 05/17/19 00:00 IMPRESSION: SUCCESSFUL PLACEMENT OF A 5 FR DUAL LUMEN 42 CM PICC IN THE LEFT BASILIC VEIN. PICC Line Insertion 05/17/19 00:00 IMPRESSION: SUCCESSFUL PLACEMENT OF A 5 FR DUAL LUMEN 42 CM PICC IN THE LEFT BASILIC VEIN. Abdomen Ultrasound 05/19/19 00:00 IMPRESSION: 1. Cirrhosis with ascites and splenomegaly. 2. Limited evaluation of the gallbladder, pancreas, and abdominal aorta. 3. No hydronephrosis. Assessment & Plan - Diagnosis (1) Cellulitis Qualifiers: Site of cellulitis: extremity Site of cellulitis of extremity: lower extremity Laterality: right Qualified Code(s): L03.115 - Cellulitis of right lower limb Is this a current diagnosis for this admission?: Yes (2) Abscess of right leg Is this a current diagnosis for this admission?: Yes Plan: status post I&D right lower extremity. 1. Continue daily wet-to-dry dressing changes. 2. Physical therapy weightbearing as tolerated. 3. Patient continues to have edema around the right lower extremity possibly secondary to hypoalbuminemia we will continue monitor clinical improvement. - Time Time Spent with patient: 15-24 minutes
[2019-05-21] MEDS: HEPARIN SOD (PORCINE) 5,000 UNIT/ML 1 ML VIAL SUBCUT SCH ×3 (05:41→21:35)
[2019-05-21] MEDS: PANTOPRAZOLE SODIUM 40 MG TABLET.DR PO SCH ×2 (05:41→18:39)
[2019-05-21] MEDS: VANCOMYCIN HCL 1,250 MG in DEXTROSE 5%-WATER 250 ML IV SCH ×3 (05:45→21:34)
[2019-05-21 06:09] LABS: HEMATOCRIT 25.8 % (37.9-51.0); MEAN CORPUSCULAR HEMOGLOBIN 33.3 pg (27.0-33.4); MEAN CORPUSCULAR HGB CONC 34.7 g/dL (32.0-36.0); MEAN CORPUSCULAR VOLUME 96 fl (80-97); PLATELET COUNT 145 10^3/uL (150-450); RED BLOOD COUNT 2.69 10^6/uL (4.35-5.55); RED CELL DISTRIBUTION WIDTH 15.6 % (11.5-14.0); WHITE BLOOD COUNT 8.2 10^3/uL (4.0-10.5)
[2019-05-21 06:31] LABS: ANION GAP 11 (5-19); BLOOD UREA NITROGEN 18 mg/dL (7-20); CALCIUM 7.4 mg/dL (8.4-10.2); CARBON DIOXIDE 24 mmol/L (22-30); CHLORIDE 94 mmol/L (98-107); GLUCOSE 130 mg/dL (75-110); POTASSIUM 3.4 mmol/L (3.6-5.0)
[2019-05-21] MEDS: INSULIN LISPRO 100 UNIT/ML 3 ML VIAL SUBCUT SCH ×4 (07:23→21:35)
[2019-05-21] MEDS: DOCUSATE SODIUM 100 MG CAPSULE PO SCH ×2 (09:16→17:06)
[2019-05-21] MEDS: BUMETANIDE INJ/PF 1 MG/4 ML SDV IV SCH ×2 (09:23→18:39)
[2019-05-21] MEDS: NORMAL SALINE 10 ML SDV (SCHEDULED) IV SCH ×2 (09:26→21:34)
[2019-05-21] MEDS: CALCIUM CARBONATE 250 MG/VITAMIN D3 125 UNIT TABLET PO SCH (09:26)
[2019-05-21] MEDS: SPIRONOLACTONE 25 MG TABLET PO SCH (09:26)
[2019-05-21] MEDS: LISINOPRIL 10 MG TABLET PO SCH (09:26)
[2019-05-21] MEDS: ALBUMIN HUMAN 25 GM/100 ML RTUINJ IV SCH (09:27)
[2019-05-21] MEDS: POTASSIUM CHLORIDE 20 MEQ PACKET PO SCH ×2 (10:20→18:40)
--- NOTE | 2019-05-21 10:47 | Progress Note ---
Provider Note Provider Note: [facility] Telephone Advice - Follow Up Chart reviewed. This is a 64-year-old man who sustained an injury to his right plantar area. He developed an area of redness. Pain was worsening and erythema as well. His ankle was swollen [facility] which [facility] He received a steroid injection, he then went to ortho and colchicine was prescribed fro gout. His symptoms rapidly worsened for which he came to the hospital. He was found septic with MRSA bacteremia. MRI of the foot demonstrated tenosynovitis and abscess. He was taken to the OR by ortho on 05/10. Extensive infection with purulence was found and evidence of septic arthritis. He has been on vancomycin, but requiring 1250 mg every 8 hr due to his weight and creatinine clearance. Last trough was 17.6. He has been doing well, still there is some edema of the leg, but no fluctuance per ortho notes. His blood cultures cleared on 05/13. He has a PICC line in place. Vital Signs: Temp Pulse Resp BP Pulse Ox 99.0 F 101 H 24 H 128/65 H 94 05/21/19 08:04 05/21/19 08:04 05/21/19 08:04 05/21/19 08:04 05/21/19 08:04 Intake & Output 05/20/19 05/21/19 05/22/19 06:59 06:59 06:59 Intake Total 1560 1680 250 Output Total 3950 3300 Balance -2390 -1620 250 Weight 109 kg 104 kg Weight/Height Weight 104 kg Height 6 ft Laboratories: 05/21/19 05:54 05/21/19 05:54 MCV 96 fl (80-97) 05/21/19 05:54 MCH 33.3 pg (27.0-33.4) 05/21/19 05:54 MCHC 34.7 g/dL (32.0-36.0) 05/21/19 05:54 RDW 15.6 % (11.5-14.0) H 05/21/19 05:54 Seg Neutrophils % 83.8 % (42-78) H 05/13/19 06:01 VBG pH 7.42 (7.30-7.42) 05/09/19 16:30 VBG pCO2 41.0 mmHg (35-63) 05/09/19 16:30 VBG HCO3 26.2 mmol/L (20-32) 05/09/19 16:30 VBG Base Excess 1.7 mmol/L 05/09/19 16:30 Chloride 94 mmol/L (98-107) L 05/21/19 05:54 Carbon Dioxide 24 mmol/L (22-30) 05/21/19 05:54 Anion Gap 11 (5-19) 05/21/19 05:54 Est GFR ( Amer) > 60 (>60) 05/21/19 05:54 Glucose 130 mg/dL (75-110) H 05/21/19 05:54 Lactic Acid 2.4 mmol/L (0.7-2.1) H 05/09/19 16:30 Calcium 7.4 mg/dL (8.4-10.2) L 05/21/19 05:54 Magnesium 1.6 mg/dL (1.6-2.3) 05/21/19 05:54 Total Bilirubin 1.0 mg/dL (0.2-1.3) 05/18/19 06:33 AST 32 U/L (17-59) 05/18/19 06:33 Alkaline Phosphatase 84 U/L (38-126) 05/18/19 06:33 Ammonia < 8.7 umol/L (9-33) L 05/21/19 07:20 C-Reactive Protein 141.8 mg/L (<10.0) H 05/09/19 16:30 Total Protein 5.4 g/dL (6.3-8.2) L 05/18/19 06:33 Albumin 1.9 g/dL (3.5-5.0) L 05/18/19 06:33 Lipase 145.9 U/L (23-300) 05/09/19 16:30 Urine Color YELLOW 05/19/19 02:26 Urine Appearance CLOUDY 05/19/19 02:26 Urine pH 6.0 (5.0-9.0) 05/19/19 02:26 Ur Specific [place] 1.012 05/19/19 02:26 Urine Protein NEGATIVE mg/dL (NEGATIVE) 05/19/19 02:26 Urine Glucose (UA) NEGATIVE mg/dL (NEGATIVE) 05/19/19 02:26 Urine Ketones NEGATIVE mg/dL (NEGATIVE) 05/19/19 02:26 Urine Blood SMALL (NEGATIVE) H 05/19/19 02:26 Urine Nitrite NEGATIVE (NEGATIVE) 05/19/19 02:26 Ur Leukocyte Esterase NEGATIVE (NEGATIVE) 05/19/19 02:26 Urine WBC (Auto) 1 /HPF 05/19/19 02:26 Urine RBC (Auto) 1 /HPF 05/19/19 02:26 05/09/19 16:30 Troponin I < 0.012 Microbiology: Blood cultures: 05/09 MRSA 05/11 MRSA 05/13 NGTD Tissue Culture: 05/10 MRSA Radiology: Ankle X-Ray 05/09/19 11:34 IMPRESSION: Small joint effusion. No acute fracture. Foot X-Ray 05/09/19 11:34 IMPRESSION: Soft tissue swelling dorsally. No acute fracture or dislocation. Venous Doppler Study 05/09/19 11:34 IMPRESSION: NO EVIDENCE DVT OR SVT IN THE RIGHT LEG. Chest X-Ray 05/09/19 16:17 IMPRESSION: NO ACUTE RADIOGRAPHIC FINDING IN THE CHEST. Lower Extremity MRI 05/09/19 16:39 IMPRESSION: 1. Arthropathy as above may reflect the patient's history of gout. Significant marrow edema in the talus and navicular, lesser changes also in the calcaneus and cuboid. 2. Extensive soft tissue swelling, muscle edema and fluid collections extending up into the calf. While some of the loculated fluid is along tendon sheaths and reflects tenosynovitis, this is not all clearly tendon related fluid. Some of the fluid may be related to other infectious/inflammatory etiology. Shoulder X-Ray 05/09/19 17:48 IMPRESSION: NEGATIVE STUDY OF THE RIGHT SHOULDER. NO RADIOGRAPHIC EVIDENCE OF ACUTE INJURY. Scrotum Ultrasound 05/14/19 00:00 IMPRESSION: . NO EVIDENCE OF TESTICULAR MASS OR TORSION. 5 5 Scrotal wall thickness. Small left hydrocele. Guidance Fluoroscopy 05/17/19 00:00 IMPRESSION: SUCCESSFUL PLACEMENT OF A 5 FR DUAL LUMEN 42 CM PICC IN THE LEFT BASILIC VEIN. Interventional Vascular Procedure 05/17/19 00:00 IMPRESSION: SUCCESSFUL PLACEMENT OF A 5 FR DUAL LUMEN 42 CM PICC IN THE LEFT BASILIC VEIN. PICC Line Insertion 05/17/19 00:00 IMPRESSION: SUCCESSFUL PLACEMENT OF A 5 FR DUAL LUMEN 42 CM PICC IN THE LEFT BASILIC VEIN. Abdomen Ultrasound 05/19/19 00:00 IMPRESSION: 1. Cirrhosis with ascites and splenomegaly. 2. Limited evaluation of the gallbladder, pancreas, and abdominal aorta. 3. No hydronephrosis. Assessment and Recommendations: Patient with MRSA bacteremia from right foot infection. He has had I&D with adequate source control, negative blood cultures on 05/13 and negative TTE. 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 Considering the severity of this infection with a resistant organism, 4-6 weeks is recommended. In his case, ortho considers that 6 weeks would be best and I agree. EOT would be: 06/24/2019. Please monitor CBC, CMP, ESR and CRP. Vancomycin trough 15-20. If too difficult to administer vancomycin at home, can consider daptomycin 6mg/kg IV daily instead. If this is chosen, will need to monitor CPK weekly and avoid statins. PICC line should be removed at completion of therapy. Please call if questions. Evelyn Ricardo MD [facility] [phone]
--- NOTE | 2019-05-21 11:13 | PDOC PROGRESS REPORT ---
Subjective Progress Note for:: 05/21/19 Subjective:: Multiple family members at the bedside. The patient's reports that there is still erythema in the right leg however on exam it was not appreciated. They do recognize that he is improving. We did discuss the hepatitis C and cirrhosis. There is still no idea of how he acquired the virus. Reason For Visit: CELLULITIS,SEPTIC ARTHRITIS Physical Exam Vital Signs: Temp Pulse Resp BP Pulse Ox 99.0 F 101 H 24 H 128/65 H 94 05/21/19 08:04 05/21/19 08:04 05/21/19 08:04 05/21/19 08:04 05/21/19 08:04 Intake & Output 05/20/19 05/21/19 05/22/19 06:59 06:59 06:59 Intake Total 1560 1680 250 Output Total 3950 3300 Balance -2390 -1620 250 Weight 109 kg 104 kg General appearance: PRESENT: no acute distress, cooperative, well-developed Head exam: PRESENT: atraumatic, normocephalic Eye exam: PRESENT: conjunctiva pale Ear exam: PRESENT: normal external ear exam. ABSENT: bleeding, drainage Respiratory exam: PRESENT: clear to auscultation brenda, symmetrical, unlabored. ABSENT: rales, rhonchi, tachypnea, wheezes Cardiovascular exam: PRESENT: RRR, +S1, +S2 GI/Abdominal exam: PRESENT: distended, firm, normal bowel sounds. ABSENT: tenderness Extremities exam: PRESENT: pedal edema, +1 edema - Right leg slightly more swollen than the left, other - Still with dressing on right ankle Musculoskeletal exam: PRESENT: ambulatory Neurological exam: PRESENT: alert, awake, oriented to person, oriented to place, oriented to time, oriented to situation, CN II-XII grossly intact Psychiatric exam: PRESENT: appropriate affect, normal mood. ABSENT: agitated, anxious Focused psych exam: ABSENT: delusional, restlessness Results Laboratory Results: 05/21/19 05:54 05/21/19 05:54 05/21/19 05/21/19 05/21/19 05:54 05:54 06:09 WBC 8.2 RBC 2.69 L Hgb 9.0 L Hct 25.8 L MCV 96 MCH 33.3 MCHC 34.7 RDW 15.6 H Plt Count 145 L Sodium 128.5 L Potassium 3.4 L Chloride 94 L Carbon Dioxide 24 Anion Gap 11 BUN 18 Creatinine 1.08 Est GFR ( Amer) > 60 Glucose 130 H Calcium 7.4 L Magnesium 1.6 Ammonia Cancelled 05/21/19 07:20 WBC RBC Hgb Hct MCV MCH MCHC RDW Plt Count Sodium Potassium Chloride Carbon Dioxide Anion Gap BUN Creatinine Est GFR ( Amer) Glucose Calcium Magnesium Ammonia < 8.7 L 05/09/19 16:30 Troponin I < 0.012 Impressions: Ankle X-Ray 05/09/19 11:34 IMPRESSION: Small joint effusion. No acute fracture. Foot X-Ray 05/09/19 11:34 IMPRESSION: Soft tissue swelling dorsally. No acute fracture or dislocation. Venous Doppler Study 05/09/19 11:34 IMPRESSION: NO EVIDENCE DVT OR SVT IN THE RIGHT LEG. Chest X-Ray 05/09/19 16:17 IMPRESSION: NO ACUTE RADIOGRAPHIC FINDING IN THE CHEST. Lower Extremity MRI 05/09/19 16:39 IMPRESSION: 1. Arthropathy as above may reflect the patient's history of gout. Significant marrow edema in the talus and navicular, lesser changes also in the calcaneus and cuboid. 2. Extensive soft tissue swelling, muscle edema and fluid collections extending up into the calf. While some of the loculated fluid is along tendon sheaths and reflects tenosynovitis, this is not all clearly tendon related fluid. Some of the fluid may be related to other infectious/inflammatory etiology. Shoulder X-Ray 05/09/19 17:48 IMPRESSION: NEGATIVE STUDY OF THE RIGHT SHOULDER. NO RADIOGRAPHIC EVIDENCE OF ACUTE INJURY. Scrotum Ultrasound 05/14/19 00:00 IMPRESSION: . NO EVIDENCE OF TESTICULAR MASS OR TORSION. 5 5 Scrotal wall thickness. Small left hydrocele. Guidance Fluoroscopy 05/17/19 00:00 IMPRESSION: SUCCESSFUL PLACEMENT OF A 5 FR DUAL LUMEN 42 CM PICC IN THE LEFT BASILIC VEIN. Interventional Vascular Procedure 05/17/19 00:00 IMPRESSION: SUCCESSFUL PLACEMENT OF A 5 FR DUAL LUMEN 42 CM PICC IN THE LEFT BASILIC VEIN. PICC Line Insertion 05/17/19 00:00 IMPRESSION: SUCCESSFUL PLACEMENT OF A 5 FR DUAL LUMEN 42 CM PICC IN THE LEFT BASILIC VEIN. Abdomen Ultrasound 05/19/19 00:00 IMPRESSION: 1. Cirrhosis with ascites and splenomegaly. 2. Limited evaluation of the gallbladder, pancreas, and abdominal aorta. 3. No hydronephrosis. Assessment and Plan - Diagnosis (1) Septic arthritis Qualifiers: Septic arthritis location: ankle Laterality: right Is this a current diagnosis for this admission?: Yes Plan: 05/17/2019-the patient continues on his antibiotic therapy. I appreciate the consultation with infectious diseases. With the negative blood cultures on May 13 the bacteremia is controlled. Because of the septic arthritis he will need 4 to 6 weeks of IV antibiotics. The recommendation is if the transthoracic echocardiogram is negative then 4 weeks is reasonable. If positive then 6 weeks. He will need monitoring laboratory studies including vancomycin levels. Daptomycin might be an alternative. The patient will need to have a PICC line as well as orders for infusion therapy and home health. 05/18/2019-PICC line has been placed. Will begin to work on home infusion therapy as well as home health. 05/19/2019-we will need an additional 4 to 5 weeks of IV vancomycin. Considering his multiple comorbidities I feel it would be better to aim for 6 weeks of treatment in total rather than 4. 05/20/2019-because of the patient's family's inability to care for the patient at home including monitoring of blood work, intake and output, daily weights and IV antibiotics the patient will be transferring to a senior care facility upon insurance approval. He will be able to get the remaining 4 to 5 weeks of IV vancomycin to treat his methicillin-resistant staph aureus septic arthritis. He will continue to work with physical therapy. 05/21/2019-complete 6 weeks of IV vancomycin (2) Bacteremia Is this a current diagnosis for this admission?: Yes Plan: 05/17/2019-blood cultures from May 13 are negative. Patient will need long-term antibiotics as noted above. Etiology of bacteremia was the septic arthritis/cellulitis. 05/18/2019-management as above 05/19/2019-resolved with IV antibiotics (3) Hyponatremia Is this a current diagnosis for this admission?: Yes Plan: 05/17/2019-patient serum sodium has been below 130 for the majority of his admission. Because of his edema I have instituted Bumex therapy. I may need to institute a fluid restriction. Continue to monitor sodium. 05/18/2019-we will administer albumin before Bumex. This should remove excess volume and ultimately improve serum sodium. 05/19/2019-likely due to excess fluid retention. Monitor during diuresis. I did institute a 1 L fluid restriction as well. 05/20/2019-we will recheck electrolytes tomorrow. Fluid restriction has been bumped up to 1.5 L. 05/21/2019-fluid restriction implemented. Continue to monitor electrolytes. (4) Leukocytosis Qualifiers: Leukocytosis type: unspecified Qualified Code(s): D72.829 - Elevated white blood cell count, unspecified Is this a current diagnosis for this admission?: Yes Plan: 05/17/2019-the white blood cell count temporarily normalized. It is slightly elevated today. We will continue to monitor. 05/18/2019-still slightly elevated. Continue to monitor while on antibiotic therapy. 05/19/2019-white blood cell count continues to improve and is near normal. 05/20/2019-I have discontinued daily blood draws. I will check a CBC tomorrow. I expect that his white blood cell count will be normal at that time. 05/21/2019-the patient now has a normal white blood cell count. Continue to follow. (5) Cellulitis Qualifiers: Site of cellulitis: extremity Site of cellulitis of extremity: lower extremity Laterality: right Qualified Code(s): L03.115 - Cellulitis of right lower limb Is this a current diagnosis for this admission?: Yes Plan: 05/17/2019-antibiotic therapy as noted above. Still some swelling in the leg. 05/18/2019-continue antibiotics 05/19/2019-the cellulitis component appears to have resolved 05/20/2019-still with swelling but this is likely due to his liver failure. Cellulitis appears to be resolved. Ongoing treatment for the septic arthritis. (6) Tobacco abuse Is this a current diagnosis for this admission?: Yes Plan: 05/17/2019-patient reports he will no longer use tobacco products. 05/18/2019-continue to encourage cessation 05/19/2019-patient encouraged to stick with his plan of no further use of tobacco 05/20/2019-the patient actually calculated the number of packs of cigarettes that he has avoided during his entire stay. He was congratulated. He appears to be very firm about not returning to smoking. 05/21/2019-the patient remains firm in his request of tobacco cessation (7) Scrotal edema Is this a current diagnosis for this admission?: Yes Plan: 05/17/2019-consistent with the edema that is present. I have initiated diuretic therapy as noted above. He may also need fluid restriction as noted above. He reports that an ultrasound study was done. No testicular pathology was noted. Hydrocele is present. Patient reports that the edema is slowly improving. 05/18/2019-we will sling scrotum with pillowcase of bedsheet. This and diuretic therapy should assist in decreasing scrotal edema. 05/19/2019-still with significant edema. It will likely take more than a week to see improvement with the aggressive diuresis. Continue to sling the scrotum whenever possible. 05/20/2019-the albumin and IV diuretics appear to be helping. Hopefully with a -1.5 to -2 L fluid balance daily we will see a significant decrease in his edema over the next several days. 05/21/2019-improving with diuresis (8) Hepatitis C antibody positive in blood Is this a current diagnosis for this admission?: Yes Plan: 05/17/2019-I could find no evidence of immunization. I will research further i nto the patient's history. With a positive antibody titer pathology suggests a follow-up with nucleic acid amplification. This test has been ordered. We will follow-up based on results. 05/18/2019-any further discussed hepatitis C with the patient. To his knowledge he has never had hepatitis C. He also does not remember getting any hepatitis C vaccine. I explained that additional testing is pending and he will likely need to follow-up with gastroenterology post discharge. 05/19/2019-etiology unknown. Hepatitis C RNA and typing are pending 05/20/2019-awaiting hepatitis C RNA and typing. This will help determine if he is a candidate for anti-hepatitis C viral treatment. 05/21/2019-ultrasound confirms cirrhosis. Hepatitis C is the most likely etiology. Awaiting hep C RNA. (9) Hypocalcemia Is this a current diagnosis for this admission?: Yes Plan: 05/18/2019-despite the correction for albumin the calcium level was still slightly low. I will initiate calcium carbonate with vitamin D supplement daily. 05/19/2019-check calcium tomorrow 05/20/2019-continue calcium supplementation and monitor calcium. 05/13/2019-monitor electrolytes (10) Hypoalbuminemia Is this a current diagnosis for this admission?: Yes Plan: 05/18/2019-albumin is only 1.9. We will begin to administer IV albumin with diuretics to expedite fluid removal. Unsure of exact etiology of low albumin and elevated bilirubin. 05/19/2019-possibly related to occult liver disease. IV albumin with diuretics is now part of the treatment plan. 05/20/2019-abdominal ultrasound shows cirrhosis and ascites. Hypoalbuminemia is definitely related to the cirrhosis. The etiology of the cirrhosis is most likely the hepatitis C. The etiology of the hepatitis C is still unknown. 05/21/2019-secondary to cirrhosis (11) Edema due to hypoalbuminemia Is this a current diagnosis for this admission?: Yes Plan: 05/18/2019-we will begin to administer IV albumin before Bumex. This should expedite fluid removal. With a question of underlying hepatitis C this may explain the hypoalbuminemia. 05/19/2019-plan as above 05/20/2019-as discussed above. 05/21/2019-responding to IV albumin and Bumex. We will add Spironolactone. (12) Chronic diastolic heart failure Is this a current diagnosis for this admission?: Yes Plan: 05/18/2019-echocardiogram reveals grade 2/4 diastolic dysfunction. Ejection fraction is normal. No report of pulmonary hypertension. 05/19/2019-management will be with the medications noted above 05/20/2019-continue aggressive medical management. With confirmation of cirrhosis I did add spironolactone today. 05/21/2019-continue current treatment plan (13) Hepatic cirrhosis due to chronic hepatitis C infection Is this a current diagnosis for this admission?: Yes Plan: 05/20/2019-the abdominal ultrasound does reveal cirrhotic changes in the hepatic texture as well as ascites. There is also mild splenomegaly. I will discuss these results with the patient. At this time we will continue the diuresis regimen and as noted above spironolactone was initiated. 05/21/2019-await hepatitis C RNA with typing to see if the patient is a candidate for treatment for the hepatitis. (14) Diabetes mellitus type 2 in nonobese Is this a current diagnosis for this admission?: Yes Plan: 05/21/2019-hemoglobin A1c was only 6.2. We will continue diabetic diet. He is currently on insulin sliding scale. I will add low-dose glipizide. - Plan Summary Summary: 05/17/2019-Per infectious disease consult I have ordered placement of a PICC line and ordered an echocardiogram. Duration of treatment will be based on the ultrasound results. 05/19/2019-today I spent 70 minutes with the patient and family going over all of the details of his hospitalization from the beginning. The patient's had multiple questions. When did he have high blood pressure-I explained that because he has not been to a doctor in 40 years it is impossible to know when his hypertension started When did he get diabetes-his hemoglobin A1c is only 6.3. I explained that with a good diabetic diet this should be easily controlled Where did he get hepatitis C-there is no obvious etiology. He has not had transfusions. The patient and his deny promiscuity, homosexual activity and IV drug use. He has never had a transfusion. I explained that a more sensitive test is pending. We will also further investigate the existence of liver disease. An ultrasound has been ordered. How long will take the swelling to get better-I explained that with the aggressive regimen of albumin and intravenous diuretics we should see some progress daily. I explained that our goal is a negative fluid balance of 1 to 2 L daily. I reviewed the low albumin and the mechanism of low oncotic pressure causing edema. Why is he confused-the family actually reported to me that he has had narcotic analgesia in the past and this has caused confusion. I will discontinue the oxycodone. We reviewed the need for IV antibiotics for an extended period. The patient's states that she will not be able to care for the patient at home. She does not feel comfortable administering the IV antibiotics. There really is no one else to do this. I do not believe the patient is capable. In addition he is markedly deconditioned and will need aggressive diuresis as well as ongoing antibiotics and therefore we have agreed that a senior care facility placement is best for the patient. - Time Time Spent with patient: 15-24 minutes Medications reviewed and adjusted accordingly: Yes Anticipated discharge: SNF - For completion of long-term antibiotics, monitor laboratory studies, monitor diuresis and physical therapy for marked physical deconditioning. Within: within 48 hours
[2019-05-21] MEDS: KETOROLAC TROMETHAMINE INJ/PF 30 MG/1 ML SDV IV PRN (23:37)
[2019-05-22] MEDS: NORMAL SALINE 10 ML SDV (AFTER EACH USE) IV PRN (00:04)
[2019-05-22] MEDS: KETOROLAC TROMETHAMINE INJ/PF 30 MG/1 ML SDV IV PRN (06:12)
[2019-05-22] MEDS: PANTOPRAZOLE SODIUM 40 MG TABLET.DR PO SCH ×2 (06:12→17:19)
[2019-05-22] MEDS: HEPARIN SOD (PORCINE) 5,000 UNIT/ML 1 ML VIAL SUBCUT SCH ×3 (06:13→22:01)
[2019-05-22] MEDS: VANCOMYCIN HCL 1,250 MG in DEXTROSE 5%-WATER 250 ML IV SCH (06:13)
[2019-05-22 06:57] LABS: ALBUMIN 2.1 g/dL (3.5-5.0); ANION GAP 8 (5-19); BLOOD UREA NITROGEN 20 mg/dL (7-20); CALCIUM 7.3 mg/dL (8.4-10.2); CARBON DIOXIDE 26 mmol/L (22-30); CHLORIDE 97 mmol/L (98-107); GLUCOSE 157 mg/dL (75-110); PHOSPHORUS 3.9 mg/dL (2.5-4.5); POTASSIUM 3.6 mmol/L (3.6-5.0)
[2019-05-22 07:00] LABS: VANCOMYCIN,TROUGH 24.7 ug/mL (5.0-20.0)
[2019-05-22] MEDS: GLIPIZIDE 5 MG TABLET PO SCH (08:33)
[2019-05-22] MEDS: INSULIN LISPRO 100 UNIT/ML 3 ML VIAL SUBCUT SCH ×4 (08:33→21:56)
[2019-05-22] MEDS: SPIRONOLACTONE 25 MG TABLET PO SCH (10:21)
[2019-05-22] MEDS: CALCIUM CARBONATE 250 MG/VITAMIN D3 125 UNIT TABLET PO SCH (10:21)
[2019-05-22] MEDS: POTASSIUM CHLORIDE 20 MEQ PACKET PO SCH ×2 (10:21→17:20)
[2019-05-22] MEDS: DOCUSATE SODIUM 100 MG CAPSULE PO SCH ×2 (10:21→17:19)
[2019-05-22] MEDS: LISINOPRIL 10 MG TABLET PO SCH (10:21)
[2019-05-22] MEDS: NORMAL SALINE 10 ML SDV (SCHEDULED) IV SCH (10:22)
[2019-05-22] MEDS: BUMETANIDE INJ/PF 1 MG/4 ML SDV IV SCH ×2 (10:23→17:20)
--- NOTE | 2019-05-22 12:26 | PDOC PROGRESS REPORT ---
Subjective Progress Note for:: 05/22/19 Subjective:: Resting in the chair with legs elevated eating his lunch. He reports that his arms are feeling stronger each day. He is still putting out good urine. He did have some trouble having a bowel movement last night but with prune juice he had a bowel movement this morning. Reason For Visit: CELLULITIS,SEPTIC ARTHRITIS Physical Exam Vital Signs: Temp Pulse Resp BP Pulse Ox 98.0 F 96 28 H 151/67 H 98 05/22/19 08:27 05/22/19 08:27 05/22/19 08:27 05/22/19 08:27 05/22/19 08:27 Intake & Output 05/21/19 05/22/19 05/23/19 06:59 06:59 06:59 Intake Total 1680 2410 250 Output Total 3300 3575 Balance -1620 -1165 250 Weight 104 kg 103.9 kg General appearance: PRESENT: no acute distress, cooperative, well-developed, well-nourished Respiratory exam: PRESENT: clear to auscultation brenda - Anteriorly, rales - Bases, symmetrical, unlabored. ABSENT: retraction, rhonchi, tachypnea, wheezes Cardiovascular exam: PRESENT: RRR, +S1, +S2 GI/Abdominal exam: PRESENT: distended, normal bowel sounds, soft, other - Dull to percussion. ABSENT: tenderness Rectal exam: PRESENT: deferred Extremities exam: PRESENT: +1 edema - Left leg, +2 edema - Right leg Neurological exam: PRESENT: alert, awake, oriented to person, oriented to place, oriented to time, oriented to situation, CN II-XII grossly intact Psychiatric exam: PRESENT: appropriate affect. ABSENT: agitated, anxious Focused psych exam: ABSENT: delusional, restlessness Skin exam: PRESENT: dry, normal color, warm. ABSENT: rash Results Laboratory Results: 05/21/19 05:54 05/22/19 06:05 05/22/19 06:05 Sodium 130.9 L Potassium 3.6 Chloride 97 L Carbon Dioxide 26 Anion Gap 8 BUN 20 Creatinine 1.10 Est GFR ( Amer) > 60 Glucose 157 H Calcium 7.3 L Phosphorus 3.9 Albumin 2.1 L 05/09/19 16:30 Troponin I < 0.012 Impressions: Ankle X-Ray 05/09/19 11:34 IMPRESSION: Small joint effusion. No acute fracture. Foot X-Ray 05/09/19 11:34 IMPRESSION: Soft tissue swelling dorsally. No acute fracture or dislocation. Venous Doppler Study 05/09/19 11:34 IMPRESSION: NO EVIDENCE DVT OR SVT IN THE RIGHT LEG. Chest X-Ray 05/09/19 16:17 IMPRESSION: NO ACUTE RADIOGRAPHIC FINDING IN THE CHEST. Lower Extremity MRI 05/09/19 16:39 IMPRESSION: 1. Arthropathy as above may reflect the patient's history of gout. Significant marrow edema in the talus and navicular, lesser changes also in the calcaneus and cuboid. 2. Extensive soft tissue swelling, muscle edema and fluid collections extending up into the calf. While some of the loculated fluid is along tendon sheaths and reflects tenosynovitis, this is not all clearly tendon related fluid. Some of the fluid may be related to other infectious/inflammatory etiology. Shoulder X-Ray 05/09/19 17:48 IMPRESSION: NEGATIVE STUDY OF THE RIGHT SHOULDER. NO RADIOGRAPHIC EVIDENCE OF ACUTE INJURY. Scrotum Ultrasound 05/14/19 00:00 IMPRESSION: . NO EVIDENCE OF TESTICULAR MASS OR TORSION. 5 5 Scrotal wall thickness. Small left hydrocele. Guidance Fluoroscopy 05/17/19 00:00 IMPRESSION: SUCCESSFUL PLACEMENT OF A 5 FR DUAL LUMEN 42 CM PICC IN THE LEFT BASILIC VEIN. Interventional Vascular Procedure 05/17/19 00:00 IMPRESSION: SUCCESSFUL PLACEMENT OF A 5 FR DUAL LUMEN 42 CM PICC IN THE LEFT BASILIC VEIN. PICC Line Insertion 05/17/19 00:00 IMPRESSION: SUCCESSFUL PLACEMENT OF A 5 FR DUAL LUMEN 42 CM PICC IN THE LEFT BASILIC VEIN. Abdomen Ultrasound 05/19/19 00:00 IMPRESSION: 1. Cirrhosis with ascites and splenomegaly. 2. Limited evaluation of the gallbladder, pancreas, and abdominal aorta. 3. No hydronephrosis. Assessment and Plan - Diagnosis (1) Septic arthritis Qualifiers: Septic arthritis location: ankle Laterality: right Is this a current diagnosis for this admission?: Yes Plan: 05/17/2019-the patient continues on his antibiotic therapy. I appreciate the consultation with infectious diseases. With the negative blood cultures on May 13 the bacteremia is controlled. Because of the septic arthritis he will need 4 to 6 weeks of IV antibiotics. The recommendation is if the transthoracic echocardiogram is negative then 4 weeks is reasonable. If positive then 6 weeks. He will need monitoring laboratory studies including vancomycin levels. Daptomycin might be an alternative. The patient will need to have a PICC line as well as orders for infusion therapy and home health. 05/18/2019-PICC line has been placed. Will begin to work on home infusion therapy as well as home health. 05/19/2019-we will need an additional 4 to 5 weeks of IV vancomycin. Considering his multiple comorbidities I feel it would be better to aim for 6 weeks of treatment in total rather than 4. 05/20/2019-because of the patient's family's inability to care for the patient at home including monitoring of blood work, intake and output, daily weights and IV antibiotics the patient will be transferring to a retirement facility upon insurance approval. He will be able to get the remaining 4 to 5 weeks of IV vancomycin to treat his methicillin-resistant staph aureus septic arthritis. He will continue to work with physical therapy. 05/21/2019-complete 6 weeks of IV vancomycin 05/22/2019-as above (2) Bacteremia Is this a current diagnosis for this admission?: Yes Plan: 05/17/2019-blood cultures from May 13 are negative. Patient will need long-term antibiotics as noted above. Etiology of bacteremia was the septic arthritis/cellulitis. 05/18/2019-management as above 05/19/2019-resolved with IV antibiotics (3) Hyponatremia Is this a current diagnosis for this admission?: Yes Plan: 05/17/2019-patient serum sodium has been below 130 for the majority of his admission. Because of his edema I have instituted Bumex therapy. I may need to institute a fluid restriction. Continue to monitor sodium. 05/18/2019-we will administer albumin before Bumex. This should remove excess volume and ultimately improve serum sodium. 05/19/2019-likely due to excess fluid retention. Monitor during diuresis. I did institute a 1 L fluid restriction as well. 05/20/2019-we will recheck electrolytes tomorrow. Fluid restriction has been bumped up to 1.5 L. 05/21/2019-fluid restriction implemented. Continue to monitor electrolytes. 05/22/2019-improving slowly with fluid restriction (4) Leukocytosis Qualifiers: Leukocytosis type: unspecified Qualified Code(s): D72.829 - Elevated white blood cell count, unspecified Is this a current diagnosis for this admission?: Yes Plan: 05/17/2019-the white blood cell count temporarily normalized. It is slightly elevated today. We will continue to monitor. 05/18/2019-still slightly elevated. Continue to monitor while on antibiotic therapy. 05/19/2019-white blood cell count continues to improve and is near normal. 05/20/2019-I have discontinued daily blood draws. I will check a CBC tomorrow. I expect that his white blood cell count will be normal at that time. 05/21/2019-the patient now has a normal white blood cell count. Continue to follow. 05/22/2019-continue to monitor (5) Cellulitis Qualifiers: Site of cellulitis: extremity Site of cellulitis of extremity: lower extremity Laterality: right Qualified Code(s): L03.115 - Cellulitis of right lower limb Is this a current diagnosis for this admission?: Yes Plan: 05/17/2019-antibiotic therapy as noted above. Still some swelling in the leg. 05/18/2019-continue antibiotics 05/19/2019-the cellulitis component appears to have resolved 05/20/2019-still with swelling but this is likely due to his liver failure. Cellulitis appears to be resolved. Ongoing treatment for the septic arthritis. (6) Tobacco abuse Is this a current diagnosis for this admission?: Yes Plan: 05/17/2019-patient reports he will no longer use tobacco products. 05/18/2019-continue to encourage cessation 05/19/2019-patient encouraged to stick with his plan of no further use of tobacco 05/20/2019-the patient actually calculated the number of packs of cigarettes that he has avoided during his entire stay. He was congratulated. He appears to be very firm about not returning to smoking. 05/21/2019-the patient remains firm in his request of tobacco cessation (7) Scrotal edema Is this a current diagnosis for this admission?: Yes Plan: 05/17/2019-consistent with the edema that is present. I have initiated diuretic therapy as noted above. He may also need fluid restriction as noted above. He reports that an ultrasound study was done. No testicular pathology was noted. Hydrocele is present. Patient reports that the edema is slowly improving. 05/18/2019-we will sling scrotum with pillowcase of bedsheet. This and diuretic therapy should assist in decreasing scrotal edema. 05/19/2019-still with significant edema. It will likely take more than a week to see improvement with the aggressive diuresis. Continue to sling the scrotum whenever possible. 05/20/2019-the albumin and IV diuretics appear to be helping. Hopefully with a -1.5 to -2 L fluid balance daily we will see a significant decrease in his edema over the next several days. 05/21/2019-improving with diuresis 05/22/2019- Continues to improve. Will always be an issue with his cirrhosis (8) Hepatitis C antibody positive in blood Is this a current diagnosis for this admission?: Yes Plan: 05/17/2019-I could find no evidence of immunization. I will research further into the patient's history. With a positive antibody titer pathology suggests a follow-up with nucleic acid amplification. This test has been ordered. We will follow-up based on results. 05/18/2019-any further discussed hepatitis C with the patient. To his knowledge he has never had hepatitis C. He also does not remember getting any hepatitis C vaccine. I explained that additional testing is pending and he will likely need to follow-up with gastroenterology post discharge. 05/19/2019-etiology unknown. Hepatitis C RNA and typing are pending 05/20/2019-awaiting hepatitis C RNA and typing. This will help determine if he is a candidate for anti-hepatitis C viral treatment. 05/21/2019-ultrasound confirms cirrhosis. Hepatitis C is the most likely etiology. Awaiting hep C RNA. 05/22/2019-still waiting for the hepatitis C RNA studies. The patient will need to complete his IV antibiotics well before considering any treatment. I did reinforce that he needs the alarm field technician after discharge from the retirement facility. (9) Hypocalcemia Is this a current diagnosis for this admission?: Yes Plan: 05/18/2019-despite the correction for albumin the calcium level was still slig htly low. I will initiate calcium carbonate with vitamin D supplement daily. 05/19/2019-check calcium tomorrow 05/20/2019-continue calcium supplementation and monitor calcium. 05/13/2019-monitor electrolytes 05/22/2019-still on the low side but continues to correct to normal with albumin levels (10) Hypoalbuminemia Is this a current diagnosis for this admission?: Yes Plan: 05/18/2019-albumin is only 1.9. We will begin to administer IV albumin with diuretics to expedite fluid removal. Unsure of exact etiology of low albumin and elevated bilirubin. 05/19/2019-possibly related to occult liver disease. IV albumin with diuretics is now part of the treatment plan. 05/20/2019-abdominal ultrasound shows cirrhosis and ascites. Hypoalbuminemia is definitely related to the cirrhosis. The etiology of the cirrhosis is most lik roula the hepatitis C. The etiology of the hepatitis C is still unknown. 05/21/2019-secondary to cirrhosis (11) Edema due to hypoalbuminemia Is this a current diagnosis for this admission?: Yes Plan: 05/18/2019-we will begin to administer IV albumin before Bumex. This should expedite fluid removal. With a question of underlying hepatitis C this may explain the hypoalbuminemia. 05/19/2019-plan as above 05/20/2019-as discussed above. 05/21/2019-responding to IV albumin and Bumex. We will add Spironolactone. 05/22/2019-Now with aldactone, bumex and fluid restriction with ongoing improvement (12) Chronic diastolic heart failure Is this a current diagnosis for this admission?: Yes Plan: 05/18/2019-echocardiogram reveals grade 2/4 diastolic dysfunction. Ejection fraction is normal. No report of pulmonary hypertension. 05/19/2019-management will be with the medications noted above 05/20/2019-continue aggressive medical management. With confirmation of cirrhosis I did add spironolactone today. 05/21/2019-continue current treatment plan 05/22/2019- Ongoing improvement (13) Hepatic cirrhosis due to chronic hepatitis C infection Is this a current diagnosis for this admission?: Yes Plan: 05/20/2019-the abdominal ultrasound does reveal cirrhotic changes in the hepatic texture as well as ascites. There is also mild splenomegaly. I will discuss these results with the patient. At this time we will continue the diuresis regimen and as noted above spironolactone was initiated. 05/21/2019-await hepatitis C RNA with typing to see if the patient is a candidate for treatment for the hepatitis. 05/22/2019- needs trousseau consultant for treatment consideration (14) Diabetes mellitus type 2 in nonobese Is this a current diagnosis for this admission?: Yes Plan: 05/21/2019-hemoglobin A1c was only 6.2. We will continue diabetic diet. He is currently on insulin sliding scale. I will add low-dose glipizide. 05/22/2019- Some fluctuation noted. Adjust treatment based on accuchecks - Plan Summary Summary: 05/17/2019-Per infectious disease consult I have ordered placement of a PICC line and ordered an echocardiogram. Duration of treatment will be based on the ultrasound results. 05/19/2019-today I spent 70 minutes with the patient and family going over all of the details of his hospitalization from the beginning. The patient's had multiple questions. When did he have high blood pressure-I explained that because he has not been to a doctor in 40 years it is impossible to know when his hypertension started When did he get diabetes-his hemoglobin A1c is only 6.3. I explained that with a good diabetic diet this should be easily controlled Where did he get hepatitis C-there is no obvious etiology. He has not had transfusions. The patient and his deny promiscuity, homosexual activity and IV drug use. He has never had a transfusion. I explained that a more sensitive test is pending. We will also further investigate the existence of liver disease. An ultrasound has been ordered. How long will take the swelling to get better-I explained that with the aggressive regimen of albumin and intravenous diuretics we should see some progress daily. I explained that our goal is a negative fluid balance of 1 to 2 L daily. I reviewed the low albumin and the mechanism of low oncotic pressure causing edema. Why is he confused-the family actually reported to me that he has had narcotic analgesia in the past and this has caused confusion. I will discontinue the oxycodone. We reviewed the need for IV antibiotics for an extended period. The patient's states that she will not be able to care for the patient at home. She does not feel comfortable administering the IV antibiotics. There really is no one else to do this. I do not believe the patient is capable. In addition he is markedly deconditioned and will need aggressive diuresis as well as ongoing antibiotics and therefore we have agreed that a retirement facility placement is best for the patient. - Time Time Spent with patient: 15-24 minutes Medications reviewed and adjusted accordingly: Yes Anticipated discharge: SNF
[2019-05-22 12:36] LABS: HEPATITIS C QUANTITATION 1190000 IU/mL (.)
[2019-05-22] MEDS: VANCOMYCIN HCL 1,500 MG in DEXTROSE 5%-WATER 250 ML IV SCH (22:03)
[2019-05-23] MEDS: HEPARIN SOD (PORCINE) 5,000 UNIT/ML 1 ML VIAL SUBCUT SCH ×3 (05:05→21:33)
[2019-05-23] MEDS: PANTOPRAZOLE SODIUM 40 MG TABLET.DR PO SCH ×2 (05:05→17:38)
[2019-05-23 06:58] LABS: HEPATITIS C LOG10 6.076 (.)
[2019-05-23] MEDS: NORMAL SALINE 10 ML SDV (AFTER EACH USE) IV PRN (07:05)
[2019-05-23] MEDS: KETOROLAC TROMETHAMINE INJ/PF 30 MG/1 ML SDV IV PRN (07:05)
[2019-05-23] MEDS: INSULIN LISPRO 100 UNIT/ML 3 ML VIAL SUBCUT SCH ×4 (08:50→21:38)
[2019-05-23] MEDS: VANCOMYCIN HCL 1,500 MG in DEXTROSE 5%-WATER 250 ML IV SCH ×2 (10:26→21:32)
[2019-05-23] MEDS: CALCIUM CARBONATE 250 MG/VITAMIN D3 125 UNIT TABLET PO SCH (10:27)
[2019-05-23] MEDS: GLIPIZIDE 5 MG TABLET PO SCH (10:27)
[2019-05-23] MEDS: SPIRONOLACTONE 25 MG TABLET PO SCH (10:27)
[2019-05-23] MEDS: LISINOPRIL 10 MG TABLET PO SCH (10:27)
[2019-05-23] MEDS: POTASSIUM CHLORIDE 20 MEQ PACKET PO SCH ×2 (10:27→17:38)
[2019-05-23] MEDS: BUMETANIDE 1 MG TABLET PO SCH ×2 (10:27→17:38)
[2019-05-23] MEDS: DOCUSATE SODIUM 100 MG CAPSULE PO SCH ×2 (10:28→17:42)
[2019-05-23] MEDS: NORMAL SALINE 10 ML SDV (SCHEDULED) IV SCH ×3 (10:29→21:44)
--- NOTE | 2019-05-23 12:53 | PDOC PROGRESS REPORT ---
Subjective Progress Note for:: 05/23/19 Subjective:: Patient sitting at bedside. Patient states swelling and pain continue to improve. Has been weightbearing and ambulating with rolling walker. Denies fever chills or sweats. Reason For Visit: CELLULITIS,SEPTIC ARTHRITIS Physical Exam Vital Signs: Temp Pulse Resp BP Pulse Ox 98.3 F 89 17 123/70 97 05/23/19 08:21 05/23/19 08:21 05/23/19 08:21 05/23/19 08:21 05/23/19 08:21 Intake & Output 05/22/19 05/23/19 05/24/19 06:59 06:59 06:59 Intake Total 2410 1460 Output Total 3575 1650 Balance -1165 -190 Weight 103.9 kg Musculoskeletal exam: PRESENT: other - Right lower extremity: Dressing change today. Serosanguineous drainage on the dressing no active drainage from the wound. Swelling notably improved throughout the lower extremity. Intact plantarflexion/dorsiflexion. No sensory deficits. Results Laboratory Results: 05/21/19 05:54 05/22/19 06:05 05/09/19 16:30 Troponin I < 0.012 Impressions: Ankle X-Ray 05/09/19 11:34 IMPRESSION: Small joint effusion. No acute fracture. Foot X-Ray 05/09/19 11:34 IMPRESSION: Soft tissue swelling dorsally. No acute fracture or dislocation. Venous Doppler Study 05/09/19 11:34 IMPRESSION: NO EVIDENCE DVT OR SVT IN THE RIGHT LEG. Chest X-Ray 05/09/19 16:17 IMPRESSION: NO ACUTE RADIOGRAPHIC FINDING IN THE CHEST. Lower Extremity MRI 05/09/19 16:39 IMPRESSION: 1. Arthropathy as above may reflect the patient's history of gout. Significant marrow edema in the talus and navicular, lesser changes also in the calcaneus and cuboid. 2. Extensive soft tissue swelling, muscle edema and fluid collections extending up into the calf. While some of the loculated fluid is along tendon sheaths and reflects tenosynovitis, this is not all clearly tendon related fluid. Some of the fluid may be related to other infectious/inflammatory etiology. Shoulder X-Ray 05/09/19 17:48 IMPRESSION: NEGATIVE STUDY OF THE RIGHT SHOULDER. NO RADIOGRAPHIC EVIDENCE OF ACUTE INJURY. Scrotum Ultrasound 05/14/19 00:00 IMPRESSION: . NO EVIDENCE OF TESTICULAR MASS OR TORSION. 5 5 Scrotal wall thickness. Small left hydrocele. Guidance Fluoroscopy 05/17/19 00:00 IMPRESSION: SUCCESSFUL PLACEMENT OF A 5 FR DUAL LUMEN 42 CM PICC IN THE LEFT BASILIC VEIN. Interventional Vascular Procedure 05/17/19 00:00 IMPRESSION: SUCCESSFUL PLACEMENT OF A 5 FR DUAL LUMEN 42 CM PICC IN THE LEFT BASILIC VEIN. PICC Line Insertion 05/17/19 00:00 IMPRESSION: SUCCESSFUL PLACEMENT OF A 5 FR DUAL LUMEN 42 CM PICC IN THE LEFT BASILIC VEIN. Abdomen Ultrasound 05/19/19 00:00 IMPRESSION: 1. Cirrhosis with ascites and splenomegaly. 2. Limited evaluation of the gallbladder, pancreas, and abdominal aorta. 3. No hydronephrosis. Assessment & Plan - Diagnosis (1) Cellulitis Qualifiers: Qualified Code(s): L03.115 - Cellulitis of right lower limb Is this a current diagnosis for this admission?: Yes (2) Abscess of right leg Is this a current diagnosis for this admission?: Yes Plan: status post I&D right lower extremity. 1. Continue daily wet-to-dry dressing changes. 2. Physical therapy weightbearing as tolerated. 3. Patient with white cell count has normalized. We will continue IV antibiotics as per infectious disease recommendation for 6 weeks. 4. Patient orthopedically stable for discharge to long-term facility follow-up as an outpatient in 7 days. - Time Time Spent with patient: 15-24 minutes
--- NOTE | 2019-05-23 16:22 | PDOC PROGRESS REPORT ---
Subjective Progress Note for:: 05/23/19 Subjective:: The patient is a 64-year-old male with a past medical history significant for tobacco dependence with continuous use and arthritis who was admitted 05/09/2019 for Septic arthritis. The patient was seen on morning rounds. He was found resting in the recliner, comfortably, on room air. He reports pain is well controlled and that his swelling has decreased significantly since I last saw him last week. He has no questions or concerns at this time. He denies fever, chills, chest pain, palpitations, dyspnea, orthopnea, cough, abdominal pain, nausea, vomiting and diarrhea. No concerns per nursing. Reason For Visit: CELLULITIS,SEPTIC ARTHRITIS Physical Exam Vital Signs: Temp Pulse Resp BP Pulse Ox 98.1 F 88 18 103/59 L 99 05/23/19 10:57 05/23/19 10:57 05/23/19 10:57 05/23/19 10:57 05/23/19 10:57 Intake & Output 05/22/19 05/23/19 05/24/19 06:59 06:59 06:59 Intake Total 2410 1460 Output Total 3575 1650 Balance -1165 -190 Weight 103.9 kg General appearance: PRESENT: no acute distress, cooperative, well-developed, well-nourished Head exam: PRESENT: atraumatic, normocephalic Eye exam: PRESENT: conjunctiva pink, EOMI, PERRLA. ABSENT: scleral icterus Ear exam: PRESENT: normal external ear exam Mouth exam: PRESENT: moist, tongue midline Teeth exam: PRESENT: poor dentation Respiratory exam: PRESENT: clear to auscultation brenda, symmetrical, unlabored. ABSENT: rales, rhonchi, wheezes Cardiovascular exam: PRESENT: RRR, +S1, +S2. ABSENT: diastolic murmur, rubs, systolic murmur Vascular exam: PRESENT: normal capillary refill GI/Abdominal exam: PRESENT: normal bowel sounds, soft. ABSENT: distended, guarding, mass, organolmegaly, rebound, tenderness Rectal exam: PRESENT: deferred Extremities exam: PRESENT: full ROM, +1 edema - LLE, +2 edema - RLE. ABSENT: calf tenderness, clubbing, pedal edema Neurological exam: PRESENT: alert, awake, oriented to person, oriented to place, oriented to time, oriented to situation, CN II-XII grossly intact. ABSENT: motor sensory deficit Psychiatric exam: PRESENT: appropriate affect, normal mood. ABSENT: homicidal ideation, suicidal ideation Skin exam: PRESENT: dry, intact, warm. ABSENT: cyanosis, rash Results Laboratory Results: 05/21/19 05:54 05/22/19 06:05 05/09/19 16:30 Troponin I < 0.012 Impressions: Ankle X-Ray 05/09/19 11:34 IMPRESSION: Small joint effusion. No acute fracture. Foot X-Ray 05/09/19 11:34 IMPRESSION: Soft tissue swelling dorsally. No acute fracture or dislocation. Venous Doppler Study 05/09/19 11:34 IMPRESSION: NO EVIDENCE DVT OR SVT IN THE RIGHT LEG. Chest X-Ray 05/09/19 16:17 IMPRESSION: NO ACUTE RADIOGRAPHIC FINDING IN THE CHEST. Lower Extremity MRI 05/09/19 16:39 IMPRESSION: 1. Arthropathy as above may reflect the patient's history of gout. Significant marrow edema in the talus and navicular, lesser changes also in the calcaneus and cuboid. 2. Extensive soft tissue swelling, muscle edema and fluid collections extending up into the calf. While some of the loculated fluid is along tendon sheaths and reflects tenosynovitis, this is not all clearly tendon related fluid. Some of the fluid may be related to other infectious/inflammatory etiology. Shoulder X-Ray 05/09/19 17:48 IMPRESSION: NEGATIVE STUDY OF THE RIGHT SHOULDER. NO RADIOGRAPHIC EVIDENCE OF ACUTE INJURY. Scrotum Ultrasound 05/14/19 00:00 IMPRESSION: . NO EVIDENCE OF TESTICULAR MASS OR TORSION. 5 5 Scrotal wall thickness. Small left hydrocele. Guidance Fluoroscopy 05/17/19 00:00 IMPRESSION: SUCCESSFUL PLACEMENT OF A 5 FR DUAL LUMEN 42 CM PICC IN THE LEFT BASILIC VEIN. Interventional Vascular Procedure 05/17/19 00:00 IMPRESSION: SUCCESSFUL PLACEMENT OF A 5 FR DUAL LUMEN 42 CM PICC IN THE LEFT BASILIC VEIN. PICC Line Insertion 05/17/19 00:00 IMPRESSION: SUCCESSFUL PLACEMENT OF A 5 FR DUAL LUMEN 42 CM PICC IN THE LEFT BASILIC VEIN. Abdomen Ultrasound 05/19/19 00:00 IMPRESSION: 1. Cirrhosis with ascites and splenomegaly. 2. Limited evaluation of the gallbladder, pancreas, and abdominal aorta. 3. No hydronephrosis. Assessment and Plan - Diagnosis (1) Septic arthritis Qualifiers: Septic arthritis location: ankle Laterality: right Is this a current diagnosis for this admission?: Yes Plan: Elevated ESR 41 and CRP 141. RPR, Gc/Ch negative. Right lower extremity x-ray negative for osteomyelitis. Right lower extremity venous Doppler negative for DVT. MRI revealed significant marrow edema to the talus, navicular, and calcaneus w/ extensive soft tissue edema and loculated fluid along the tendon sheaths. Blood cultures (05/09/19; 4/) positive for MRSA Blood culture (05/11/19) positive for MRSA Repeat culture (05/13/2019) are negative to date Now with PICC line Admit to medical floor. Continue IV Vanc, last day of treatment is 06/24/19 Recommend weekly CBC, CMP, ESR, and CRP. Keep Vanco trough 15-20. Appreciate both orthopedics and infectious disease consultations and assistance. (2) Bacteremia Is this a current diagnosis for this admission?: Yes Plan: Blood cultures from May 13 are negative. Patient will need long-term antibiotics as noted above. Etiology of bacteremia was the septic arthritis/cellulitis. TTE negative. Infectious disease was consulted; continue IV vancomycin as above. (3) Hyponatremia Is this a current diagnosis for this admission?: Yes Plan: Overall stable; slight upward trend. Continue fluid restriction of 1.5 L Liberalize dietary sodium. Continue spironolactone. Have transition to oral Bumex. (4) Leukocytosis Qualifiers: Leukocytosis type: unspecified Qualified Code(s): D72.829 - Elevated white blood cell count, unspecified Is this a current diagnosis for this admission?: Yes Plan: Resolved. Cultures and antibiotics as above. Follow up CBC, SED, and CRP. (5) Cellulitis Qualifiers: Site of cellulitis: extremity Site of cellulitis of extremity: lower extremity Laterality: right Qualified Code(s): L03.115 - Cellulitis of right lower limb Is this a current diagnosis for this admission?: Yes Plan: Improved. Antibiotics as above (6) Tobacco abuse Is this a current diagnosis for this admission?: Yes Plan: Smoking cessation encouraged. Nicotine replacement therapies available as needed. Patient is highly motivated to discontinue smoking. (7) Scrotal edema Is this a current diagnosis for this admission?: Yes Plan: Continues to improve. Continue spironolactone and bumex. (8) Chronic diastolic heart failure Is this a current diagnosis for this admission?: Yes Plan: Echocardiogram reveals grade 2/4 diastolic dysfunction. Ejection fraction is normal. No report of pulmonary hypertension. Continue p.o. lisinopril, Bumex and spironolactone (9) Diabetes mellitus type 2 in nonobese Is this a current diagnosis for this admission?: Yes Plan: Hemoglobin A1c was only 6.2. We will continue diabetic diet. He is currently on insulin sliding scale. Continue low-dose glipizide. The patient has had the opportunity meet with the registered dietitian and warehouse assembly worker. (10) Edema due to hypoalbuminemia Is this a current diagnosis for this admission?: Yes Plan: Gradual improvements; secondary to hepatitis C/cirrhosis. Continue fluid restriction. Continue p.o. Bumex and spironolactone. Consider additional IV albumin. Patient has met with the registered dietitian. Outpatient gastroenterology follow-up. [facility]. (11) Hepatitis C antibody positive in blood Is this a current diagnosis for this admission?: Yes Plan: Hepatitis C antibody is positive. HCV RNA PCR [id number] Pt should follow up with GI as outpatient following completion of antibiotic therapy for evaluation for antiviral therapy. (12) Hypoalbuminemia Is this a current diagnosis for this admission?: Yes Plan: Slight improvement. Registered dietitian is consulted. Consider additional IV albumin replacement. Continue furosemide and spironolactone as above. (13) Hypocalcemia Is this a current diagnosis for this admission?: Yes Plan: Corrected calcium for albumin is normal. Continue periodic chemistry evaluation - Time Time Spent with patient: 35 or more minutes Medications reviewed and adjusted accordingly: Yes Anticipated discharge: SNF Within: when bed available
[2019-05-24] MEDS: KETOROLAC TROMETHAMINE INJ/PF 30 MG/1 ML SDV IV PRN (01:26)
[2019-05-24] MEDS: PANTOPRAZOLE SODIUM 40 MG TABLET.DR PO SCH ×2 (05:39→17:40)
[2019-05-24] MEDS: NORMAL SALINE 10 ML SDV (AFTER EACH USE) IV PRN (05:40)
[2019-05-24 06:05] LABS: HEMATOCRIT 26.2 % (37.9-51.0); HEMOGLOBIN 9.1 g/dL (13.5-17.0); MEAN CORPUSCULAR HEMOGLOBIN 33.4 pg (27.0-33.4); MEAN CORPUSCULAR HGB CONC 34.8 g/dL (32.0-36.0); MEAN CORPUSCULAR VOLUME 96 fl (80-97); PLATELET COUNT 115 10^3/uL (150-450); RED BLOOD COUNT 2.72 10^6/uL (4.35-5.55); RED CELL DISTRIBUTION WIDTH 15.9 % (11.5-14.0); WHITE BLOOD COUNT 7.4 10^3/uL (4.0-10.5)
[2019-05-24 06:28] LABS: ALBUMIN 2.1 g/dL (3.5-5.0); ALKALINE PHOSPHATASE 71 U/L (38-126); ANION GAP 6 (5-19); ASPARTATE AMINO TRANSFERASE 44 U/L (17-59); BILIRUBIN,DIRECT 0.3 mg/dL (0.0-0.4); BILIRUBIN,TOTAL 0.9 mg/dL (0.2-1.3); BLOOD UREA NITROGEN 30 mg/dL (7-20); CALCIUM 7.5 mg/dL (8.4-10.2); CARBON DIOXIDE 26 mmol/L (22-30); CHLORIDE 99 mmol/L (98-107); GLUCOSE 88 mg/dL (75-110); POTASSIUM 4.3 mmol/L (3.6-5.0); TOTAL PROTEIN 5.5 g/dL (6.3-8.2)
[2019-05-24 06:42] LABS: ERYTHROCYTE SEDIMENTATION RATE 46 mm/hr (0-20)
[2019-05-24] MEDS ORDERED: NORMAL SALINE 1000 ML 1,000 ML IV ONE ×2 (08:31)
[2019-05-24] MEDS: INSULIN LISPRO 100 UNIT/ML 3 ML VIAL SUBCUT SCH ×4 (10:08→22:49)
[2019-05-24] MEDS: DOCUSATE SODIUM 100 MG CAPSULE PO SCH ×2 (10:10→17:35)
[2019-05-24] MEDS: CALCIUM CARBONATE 250 MG/VITAMIN D3 125 UNIT TABLET PO SCH (10:22)
[2019-05-24] MEDS: POTASSIUM CHLORIDE 20 MEQ PACKET PO SCH ×2 (10:22→17:40)
[2019-05-24] MEDS: GLIPIZIDE 5 MG TABLET PO SCH (10:22)
[2019-05-24] MEDS: AMLODIPINE BESYLATE 5 MG TABLET PO SCH (10:27)
[2019-05-24] MEDS: VANCOMYCIN HCL 1,500 MG in DEXTROSE 5%-WATER 250 ML IV SCH (10:34)
[2019-05-24 11:09] LABS: VANCOMYCIN,TROUGH 32.3 ug/mL (5.0-20.0)
[2019-05-24] MEDS: HEPARIN SOD (PORCINE) 5,000 UNIT/ML 1 ML VIAL SUBCUT SCH ×2 (15:57→22:49)
[2019-05-24] MEDS: NORMAL SALINE 10 ML SDV (SCHEDULED) IV SCH ×2 (15:58→22:57)
[2019-05-24] MEDS ORDERED: NORMAL SALINE 1000 ML 1,000 ML IV PRN (16:17)
--- NOTE | 2019-05-24 16:43 | PDOC PROGRESS REPORT ---
Subjective Progress Note for:: 05/24/19 Subjective:: The patient is a 64-year-old male with a past medical history significant for tobacco dependence with continuous use and arthritis who was admitted 05/09/2019 for Septic arthritis. The patient was seen on afternoon rounds. He was found resting in the recliner, comfortably, on room air. He reports pain is well controlled and that his swelling continues to gradually improve. He has no questions or concerns at this time. He denies fever, chills, chest pain, palpitations, dyspnea, orthopnea, cough, abdominal pain, nausea, vomiting and diarrhea. No concerns per nursing. Reason For Visit: CELLULITIS,SEPTIC ARTHRITIS Physical Exam Vital Signs: Temp Pulse Resp BP Pulse Ox 97.9 F 94 18 109/53 L 96 05/24/19 08:29 05/24/19 08:29 05/24/19 08:29 05/24/19 08:29 05/24/19 08:29 Intake & Output 05/23/19 05/24/19 05/25/19 06:59 06:59 06:59 Intake Total 1460 2007 Output Total 1650 2440 Balance -190 -433 Weight 105 kg General appearance: PRESENT: no acute distress, well-developed, well-nourished Head exam: PRESENT: atraumatic, normocephalic Eye exam: PRESENT: conjunctiva pink, EOMI, PERRLA. ABSENT: scleral icterus Mouth exam: PRESENT: moist, tongue midline Teeth exam: PRESENT: poor dentation Respiratory exam: PRESENT: clear to auscultation brenda, symmetrical, unlabored. A BSENT: rales, rhonchi, wheezes Cardiovascular exam: PRESENT: RRR, +S1, +S2. ABSENT: diastolic murmur, rubs, systolic murmur Vascular exam: PRESENT: normal capillary refill GI/Abdominal exam: PRESENT: ascites, normal bowel sounds, soft. ABSENT: distended, guarding, mass, organolmegaly, rebound, tenderness Rectal exam: PRESENT: deferred Extremities exam: PRESENT: +2 edema - BLE. ABSENT: calf tenderness, clubbing, pedal edema Musculoskeletal exam: PRESENT: ambulatory Neurological exam: PRESENT: alert, awake, oriented to person, oriented to place, oriented to time, oriented to situation, CN II-XII grossly intact. ABSENT: motor sensory deficit Psychiatric exam: PRESENT: appropriate affect, normal mood. ABSENT: homicidal ideation, suicidal ideation Skin exam: PRESENT: dry, intact, warm. ABSENT: cyanosis, rash Results Laboratory Results: 05/24/19 05:40 05/24/19 10:30 05/24/19 05/24/19 05/24/19 05:40 05:40 10:30 WBC 7.4 RBC 2.72 L Hgb 9.1 L Hct 26.2 L MCV 96 MCH 33.4 MCHC 34.8 RDW 15.9 H Plt Count 115 L Sodium 131.3 L Potassium 4.3 Chloride 99 Carbon Dioxide 26 Anion Gap 6 BUN 30 H Creatinine 1.68 H 1.72 H Est GFR ( Amer) 50 L 49 L Glucose 88 Calcium 7.5 L Total Bilirubin 0.9 AST 44 Alkaline Phosphatase 71 C-Reactive Protein 41.0 H Total Protein 5.5 L Albumin 2.1 L 05/09/19 16:30 Troponin I < 0.012 Impressions: Ankle X-Ray 05/09/19 11:34 IMPRESSION: Small joint effusion. No acute fracture. Foot X-Ray 05/09/19 11:34 IMPRESSION: Soft tissue swelling dorsally. No acute fracture or dislocation. Venous Doppler Study 05/09/19 11:34 IMPRESSION: NO EVIDENCE DVT OR SVT IN THE RIGHT LEG. Chest X-Ray 05/09/19 16:17 IMPRESSION: NO ACUTE RADIOGRAPHIC FINDING IN THE CHEST. Lower Extremity MRI 05/09/19 16:39 IMPRESSION: 1. Arthropathy as above may reflect the patient's history of gout. Significant marrow edema in the talus and navicular, lesser changes also in the calcaneus and cuboid. 2. Extensive soft tissue swelling, muscle edema and fluid collections extending up into the calf. While some of the loculated fluid is along tendon sheaths and reflects tenosynovitis, this is not all clearly tendon related fluid. Some of the fluid may be related to other infectious/inflammatory etiology. Shoulder X-Ray 05/09/19 17:48 IMPRESSION: NEGATIVE STUDY OF THE RIGHT SHOULDER. NO RADIOGRAPHIC EVIDENCE OF ACUTE INJURY. Scrotum Ultrasound 05/14/19 00:00 IMPRESSION: . NO EVIDENCE OF TESTICULAR MASS OR TORSION. 5 5 Scrotal wall thickness. Small left hydrocele. Guidance Fluoroscopy 05/17/19 00:00 IMPRESSION: SUCCESSFUL PLACEMENT OF A 5 FR DUAL LUMEN 42 CM PICC IN THE LEFT BASILIC VEIN. Interventional Vascular Procedure 05/17/19 00:00 IMPRESSION: SUCCESSFUL PLACEMENT OF A 5 FR DUAL LUMEN 42 CM PICC IN THE LEFT BASILIC VEIN. PICC Line Insertion 05/17/19 00:00 IMPRESSION: SUCCESSFUL PLACEMENT OF A 5 FR DUAL LUMEN 42 CM PICC IN THE LEFT BASILIC VEIN. Abdomen Ultrasound 05/19/19 00:00 IMPRESSION: 1. Cirrhosis with ascites and splenomegaly. 2. Limited evaluation of the gallbladder, pancreas, and abdominal aorta. 3. No hydronephrosis. Assessment and Plan - Diagnosis (1) UNIQUE (acute kidney injury) Is this a current diagnosis for this admission?: Yes Plan: Likely ATN related to vancomycin toxicity; Vanco trough level of 32 today with increase in creatinine from baseline of 1.10 to 1.72. Patient has received a 2 L normal saline bolus; we will continue maintenance IV fluids. Continue p.o. spironolactone and Bumex; low threshold for placing these medications on hold. Lisinopril discontinued; transition to p.o. amlodipine. Avoid nephrotoxic medications as able. Consider nephrology consultation. (2) Septic arthritis Qualifiers: Septic arthritis location: ankle Laterality: right Is this a current diagnosis for this admission?: Yes Plan: Elevated ESR 41 and CRP 141. RPR, Gc/Ch negative. Right lower extremity x-ray negative for osteomyelitis. Right lower extremity venous Doppler negative for DVT. MRI revealed significant marrow edema to the talus, navicular, and calcaneus w/ extensive soft tissue edema and loculated fluid along the tendon sheaths. Blood cultures (05/09/19; 4/) positive for MRSA Blood culture (05/11/19) positive for MRSA Repeat culture (05/13/2019) are negative to date Now with PICC line Admit to medical floor. Continue IV Vanc, last day of treatment is 06/24/19 Recommend weekly CBC, CMP, ESR, and CRP. Keep Vanco trough 15-20. Appreciate both orthopedics and infectious disease consultations and assistance. (3) Bacteremia Is this a current diagnosis for this admission?: Yes Plan: Blood cultures from May 13 are negative. Patient will need long-term antibiotics as noted above. Etiology of bacteremia was the septic art hritis/cellulitis. TTE negative. Infectious disease was consulted; continue IV vancomycin as above. (4) Hyponatremia Is this a current diagnosis for this admission?: Yes Plan: Overall stable; slight upward trend. Continue fluid restriction of 1.5 L Liberalize dietary sodium. Continue spironolactone and Bumex. (5) Leukocytosis Qualifiers: Leukocytosis type: unspecified Qualified Code(s): D72.829 - Elevated white blood cell count, unspecified Is this a current diagnosis for this admission?: Yes Plan: Resolved. Cultures and antibiotics as above. Follow up CBC, SED, and CRP. (6) Cellulitis Qualifiers: Site of cellulitis: extremity Site of cellulitis of extremity: lower extremity Laterality: right Qualified Code(s): L03.115 - Cellulitis of right lower limb Is this a current diagnosis for this admission?: Yes Plan: Improved. Antibiotics as above (7) Tobacco abuse Is this a current diagnosis for this admission?: Yes Plan: Smoking cessation encouraged. Nicotine replacement therapies available as needed. Patient is highly motivated to discontinue smoking. (8) Scrotal edema Is this a current diagnosis for this admission?: Yes Plan: Continues to improve. Continue spironolactone and bumex. (9) Chronic diastolic heart failure Is this a current diagnosis for this admission?: Yes Plan: Echocardiogram reveals grade 2/4 diastolic dysfunction. Ejection fraction is normal. No report of pulmonary hypertension. Continue p.o. lisinopril, Bumex and spironolactone (10) Diabetes mellitus type 2 in nonobese Is this a current diagnosis for this admission?: Yes Plan: Hemoglobin A1c was only 6.2. We will continue diabetic diet. He is currently on insulin sliding scale. Continue low-dose glipizide. The patient has had the opportunity meet with the registered dietitian and conservation educator. (11) Edema due to hypoalbuminemia Is this a current diagnosis for this admission?: Yes Plan: Gradual improvements; secondary to hepatitis C/cirrhosis. Continue fluid restriction. Continue p.o. Bumex and spironolactone. Consider additional IV albumin. Patient has met with the registered dietitian. Outpatient gastroenterology follow-up. [facility]. (12) Hepatitis C antibody positive in blood Is this a current diagnosis for this admission?: Yes Plan: Hepatitis C antibody is positive. HCV RNA PCR [id number] Pt should follow up with GI as outpatient following completion of antibiotic therapy for evaluation for antiviral therapy. (13) Hypoalbuminemia Is this a current diagnosis for this admission?: Yes Plan: Slight improvement. Registered dietitian is consulted. Consider additional IV albumin replacement. Continue furosemide and spironolactone as above. (14) Hypocalcemia Is this a current diagnosis for this admission?: Yes Plan: Corrected calcium for albumin is normal. Continue periodic chemistry evaluation - Time Time Spent with patient: 25-34 minutes Medications reviewed and adjusted accordingly: Yes Anticipated discharge: SNF Within: within 24 hours - Pending improvement in creatinine
--- NOTE | 2019-05-24 17:29 | PDOC PROGRESS REPORT ---
Subjective Progress Note for:: 05/24/19 Subjective:: Patient sitting at bedside. Patient states swelling and pain continue to improve. Has been weightbearing and ambulating with rolling walker. Denies significant changes. Has been able to ambulate more independently. Denies fever chills or sweats. Reason For Visit: CELLULITIS,SEPTIC ARTHRITIS Physical Exam Vital Signs: Temp Pulse Resp BP Pulse Ox 97.9 F 94 18 109/53 L 96 05/24/19 08:29 05/24/19 08:29 05/24/19 08:29 05/24/19 08:29 05/24/19 08:29 Intake & Output 05/23/19 05/24/19 05/25/19 06:59 06:59 06:59 Intake Total 1460 2006 Output Total 1650 2440 Balance -190 -433 Weight 105 kg Musculoskeletal exam: PRESENT: other - Right lower extremity: Intact plantarflexion/dorsiflexion. Intact knee flexion/extension without pain. Swelling normal thigh and calf notably improved. Previous erythema demonstrates improvement. Serosanguineous drainage along the dressing no purulent drainage. Results Laboratory Results: 05/24/19 05:40 05/24/19 10:30 05/24/19 05/24/19 05/24/19 05:40 05:40 10:30 WBC 7.4 RBC 2.72 L Hgb 9.1 L Hct 26.2 L MCV 96 MCH 33.4 MCHC 34.8 RDW 15.9 H Plt Count 115 L Sodium 131.3 L Potassium 4.3 Chloride 99 Carbon Dioxide 26 Anion Gap 6 BUN 30 H Creatinine 1.68 H 1.72 H Est GFR ( Amer) 50 L 49 L Glucose 88 Calcium 7.5 L Total Bilirubin 0.9 AST 44 Alkaline Phosphatase 71 C-Reactive Protein 41.0 H Total Protein 5.5 L Albumin 2.1 L 05/09/19 16:30 Troponin I < 0.012 Impressions: Ankle X-Ray 05/09/19 11:34 IMPRESSION: Small joint effusion. No acute fracture. Foot X-Ray 05/09/19 11:34 IMPRESSION: Soft tissue swelling dorsally. No acute fracture or dislocation. Venous Doppler Study 05/09/19 11:34 IMPRESSION: NO EVIDENCE DVT OR SVT IN THE RIGHT LEG. Chest X-Ray 05/09/19 16:17 IMPRESSION: NO ACUTE RADIOGRAPHIC FINDING IN THE CHEST. Lower Extremity MRI 05/09/19 16:39 IMPRESSION: 1. Arthropathy as above may reflect the patient's history of gout. Significant marrow edema in the talus and navicular, lesser changes also in the calcaneus and cuboid. 2. Extensive soft tissue swelling, muscle edema and fluid collections extending up into the calf. While some of the loculated fluid is along tendon sheaths and reflects tenosynovitis, this is not all clearly tendon related fluid. Some of the fluid may be related to other infectious/inflammatory etiology. Shoulder X-Ray 05/09/19 17:48 IMPRESSION: NEGATIVE STUDY OF THE RIGHT SHOULDER. NO RADIOGRAPHIC EVIDENCE OF ACUTE INJURY. Scrotum Ultrasound 05/14/19 00:00 IMPRESSION: . NO EVIDENCE OF TESTICULAR MASS OR TORSION. 5 5 Scrotal wall thickness. Small left hydrocele. Guidance Fluoroscopy 05/17/19 00:00 IMPRESSION: SUCCESSFUL PLACEMENT OF A 5 FR DUAL LUMEN 42 CM PICC IN THE LEFT BASILIC VEIN. Interventional Vascular Procedure 05/17/19 00:00 IMPRESSION: SUCCESSFUL PLACEMENT OF A 5 FR DUAL LUMEN 42 CM PICC IN THE LEFT B ASILIC VEIN. PICC Line Insertion 05/17/19 00:00 IMPRESSION: SUCCESSFUL PLACEMENT OF A 5 FR DUAL LUMEN 42 CM PICC IN THE LEFT BASILIC VEIN. Abdomen Ultrasound 05/19/19 00:00 IMPRESSION: 1. Cirrhosis with ascites and splenomegaly. 2. Limited evaluation of the gallbladder, pancreas, and abdominal aorta. 3. No hydronephrosis. Assessment & Plan - Diagnosis (1) Cellulitis Qualifiers: Site of cellulitis: extremity Site of cellulitis of extremity: lower extremity Laterality: right Qualified Code(s): L03.115 - Cellulitis of right lower limb Is this a current diagnosis for this admission?: Yes (2) Abscess of right leg Is this a current diagnosis for this admission?: Yes Plan: status post I&D right lower extremity. 1. Continue daily wet-to-dry dressing changes. 2. Physical therapy weightbearing as tolerated. 3. Patient with white cell count has normalized and CRP/sed rate have trended in the appropriate direction. Unfortunately patient has evidence of acute k idney injury and thus will require nephrology consult. Otherwise we will continue current IV antibiotics. 4. Patient orthopedically stable for discharge to assisted facility follow-up as an outpatient in 7 days. - Time Time Spent with patient: Less than 15 minutes
[2019-05-24] MEDS: BUMETANIDE 1 MG TABLET PO SCH (17:40)
[2019-05-25] MEDS: PANTOPRAZOLE SODIUM 40 MG TABLET.DR PO SCH ×2 (05:05→17:20)
[2019-05-25] MEDS: HEPARIN SOD (PORCINE) 5,000 UNIT/ML 1 ML VIAL SUBCUT SCH ×3 (07:09→22:44)
[2019-05-25 07:54] LABS: ANION GAP 8 (5-19); BLOOD UREA NITROGEN 31 mg/dL (7-20); CALCIUM 7.6 mg/dL (8.4-10.2); CARBON DIOXIDE 22 mmol/L (22-30); CHLORIDE 102 mmol/L (98-107); GLUCOSE 85 mg/dL (75-110); POTASSIUM 4.6 mmol/L (3.6-5.0)
[2019-05-25] MEDS: GLIPIZIDE 5 MG TABLET PO SCH (09:51)
[2019-05-25] MEDS: CALCIUM CARBONATE 250 MG/VITAMIN D3 125 UNIT TABLET PO SCH (09:51)
[2019-05-25] MEDS: SPIRONOLACTONE 25 MG TABLET PO SCH (09:51)
[2019-05-25] MEDS: AMLODIPINE BESYLATE 5 MG TABLET PO SCH (09:52)
[2019-05-25] MEDS: FUROSEMIDE 40 MG TABLET PO SCH (09:52)
[2019-05-25] MEDS: INSULIN LISPRO 100 UNIT/ML 3 ML VIAL SUBCUT SCH ×4 (09:54→22:44)
[2019-05-25] MEDS: DOCUSATE SODIUM 100 MG CAPSULE PO SCH ×2 (09:56→18:43)
[2019-05-25] MEDS: NORMAL SALINE 10 ML SDV (SCHEDULED) IV SCH ×2 (09:57→22:47)
[2019-05-25 10:48] LABS: VANCOMYCIN,TROUGH 25.4 ug/mL (5.0-20.0)
[2019-05-25 12:06] LABS: INTERNATIONAL RATION (INR) 1.25; PROTHROMBIN TIME 15.8 SEC (11.4-15.4)
[2019-05-25 12:07] LABS: PARTIAL THROMBOPLASTIN TIME 33.2 SEC (23.5-35.8)
--- NOTE | 2019-05-25 14:35 | PDOC PROGRESS REPORT ---
Subjective Progress Note for:: 05/25/19 Subjective:: The patient is a 64-year-old male with a past medical history significant for tobacco dependence with continuous use and arthritis who was admitted 05/09/2019 for Septic arthritis. The patient was seen on morning rounds with multiple family members present. He was found resting in the recliner, comfortably, on room air. He reports pain is well controlled and that his swelling continues to gradually improve. Does report increased abdominal distention/fullness today. He denies fever, chills, chest pain, palpitations, dyspnea, orthopnea, cough, abdominal pain, nausea, vomiting and diarrhea. Discussed indications for paracentesis and need for continued medication management/GI follow up for cirrhosis. All questions addressed. Reason For Visit: CELLULITIS,SEPTIC ARTHRITIS Physical Exam Vital Signs: Temp Pulse Resp BP Pulse Ox 99.9 F 97 17 132/72 H 96 05/24/19 23:01 05/24/19 23:01 05/24/19 19:30 05/24/19 23:01 05/24/19 23:01 Intake & Output 05/24/19 05/25/19 05/26/19 06:59 06:59 06:59 Intake Total 20060 Output Total 2440 780 Balance -433 1050 Weight 105 kg 105.6 kg General appearance: PRESENT: no acute distress, cooperative, obese, well- developed, well-nourished Head exam: PRESENT: atraumatic, normocephalic Eye exam: PRESENT: conjunctiva pink, EOMI, PERRLA. ABSENT: scleral icterus Ear exam: PRESENT: normal external ear exam Mouth exam: PRESENT: moist, tongue midline Teeth exam: PRESENT: poor dentation Respiratory exam: PRESENT: clear to auscultation brenda, symmetrical, unlabored. ABSENT: rales, rhonchi, wheezes Cardiovascular exam: PRESENT: RRR, +S1, +S2. ABSENT: diastolic murmur, rubs, systolic murmur Vascular exam: PRESENT: normal capillary refill GI/Abdominal exam: PRESENT: ascites, distended, firm, normal bowel sounds. ABSENT: guarding, mass, organolmegaly, rebound, tenderness Rectal exam: PRESENT: deferred Extremities exam: PRESENT: full ROM, +1 edema - LLE, +2 edema - RLE. ABSENT: calf tenderness, clubbing Neurological exam: PRESENT: alert, awake, oriented to person, oriented to place, oriented to time, oriented to situation, CN II-XII grossly intact. ABSENT: motor sensory deficit Psychiatric exam: PRESENT: appropriate affect, normal mood. ABSENT: homicidal ideation, suicidal ideation Skin exam: PRESENT: dry, warm. ABSENT: cyanosis, rash Results Laboratory Results: 05/24/19 05:40 05/25/19 07:05 05/25/19 07:05 Sodium 132.3 L Potassium 4.6 Chloride 102 Carbon Dioxide 22 Anion Gap 8 BUN 31 H Creatinine 1.67 H Est GFR ( Amer) 51 L Glucose 85 Calcium 7.6 L 05/09/19 16:30 Troponin I < 0.012 Impressions: Ankle X-Ray 05/09/19 11:34 IMPRESSION: Small joint effusion. No acute fracture. Foot X-Ray 05/09/19 11:34 IMPRESSION: Soft tissue swelling dorsally. No acute fracture or dislocation. Venous Doppler Study 05/09/19 11:34 IMPRESSION: NO EVIDENCE DVT OR SVT IN THE RIGHT LEG. Chest X-Ray 05/09/19 16:17 IMPRESSION: NO ACUTE RADIOGRAPHIC FINDING IN THE CHEST. Lower Extremity MRI 05/09/19 16:39 IMPRESSION: 1. Arthropathy as above may reflect the patient's history of gout. Significant marrow edema in the talus and navicular, lesser changes also in the calcaneus and cuboid. 2. Extensive soft tissue swelling, muscle edema and fluid collections extending up into the calf. While some of the loculated fluid is along tendon sheaths and reflects tenosynovitis, this is not all clearly tendon related fluid. Some of the fluid may be related to other infectious/inflammatory etiology. Shoulder X-Ray 05/09/19 17:48 IMPRESSION: NEGATIVE STUDY OF THE RIGHT SHOULDER. NO RADIOGRAPHIC EVIDENCE OF ACUTE INJURY. Scrotum Ultrasound 05/14/19 00:00 IMPRESSION: . NO EVIDENCE OF TESTICULAR MASS OR TORSION. 5 5 Scrotal wall thickness. Small left hydrocele. Guidance Fluoroscopy 05/17/19 00:00 IMPRESSION: SUCCESSFUL PLACEMENT OF A 5 FR DUAL LUMEN 42 CM PICC IN THE LEFT BASILIC VEIN. Interventional Vascular Procedure 05/17/19 00:00 IMPRESSION: SUCCESSFUL PLACEMENT OF A 5 FR DUAL LUMEN 42 CM PICC IN THE LEFT BASILIC VEIN. PICC Line Insertion 05/17/19 00:00 IMPRESSION: SUCCESSFUL PLACEMENT OF A 5 FR DUAL LUMEN 42 CM PICC IN THE LEFT BASILIC VEIN. Abdomen Ultrasound 05/19/19 00:00 IMPRESSION: 1. Cirrhosis with ascites and splenomegaly. 2. Limited evaluation of the gallbladder, pancreas, and abdominal aorta. 3. No hydronephrosis. Assessment and Plan - Diagnosis (1) UNIQUE (acute kidney injury) Is this a current diagnosis for this admission?: Yes Plan: Likely ATN related to vancomycin toxicity; Vanc trough level of 32 Cr 0.84-> 1.68-> 1.72-> 1.67 Continue maintenance IV fluids. Continue p.o. spironolactone and furosemide; have made dose adjustments today. Low threshold for placing these medications on hold. Lisinopril discontinued; transition to p.o. amlodipine. Avoid nephrotoxic medications as able. Vancomycin dosing per pharmacy; consider transition to daptomycin. Consider nephrology consultation. (2) Septic arthritis Qualifiers: Septic arthritis location: ankle Laterality: right Is this a current diagnosis for this admission?: Yes Plan: Elevated ESR 41 and CRP 141. RPR, Gc/Ch negative. Right lower extremity x-ray negative for osteomyelitis. Right lower extremity venous Doppler negative for DVT. MRI revealed significant marrow edema to the talus, navicular, and calcaneus w/ extensive soft tissue edema and loculated fluid along the tendon sheaths. Blood cultures (05/09/19; 4/4) positive for MRSA Blood culture (05/11/19) positive for MRSA Repeat culture (05/13/2019) are negative to date Now with PICC line Admit to medical floor. Continue IV Vanc, last day of treatment is 06/24/19 Recommend weekly CBC, CMP, ESR, and CRP. Keep Vanco trough 15-20. Appreciate both orthopedics and infectious disease consultations and assistance. (3) Bacteremia Is this a current diagnosis for this admission?: Yes Plan: Blood cultures from May 13 are negative. Patient will need long-term antibiotics as noted above. Etiology of bacteremia was the septic arthritis/cellulitis. TTE negative. Infectious disease was consulted; continue IV vancomycin as above. (4) Hyponatremia Is this a current diagnosis for this admission?: Yes Plan: Overall stable; slight upward trend. Continue fluid restriction of 1.5 L Liberalize dietary sodium. Continue spironolactone and furosemide; dose adjustments today. (5) Leukocytosis Qualifiers: Leukocytosis type: unspecified Qualified Code(s): D72.829 - Elevated white blood cell count, unspecified Is this a current diagnosis for this admission?: Yes Plan: Resolved. Cultures and antibiotics as above. Follow up CBC, SED, and CRP. (6) Cellulitis Qualifiers: Site of cellulitis: extremity Site of cellulitis of extremity: lower extremity Laterality: right Qualified Code(s): L03.115 - Cellulitis of right lower limb Is this a current diagnosis for this admission?: Yes Plan: Improved. Antibiotics as above (7) Tobacco abuse Is this a current diagnosis for this admission?: Yes Plan: Smoking cessation encouraged. Nicotine replacement therapies available as needed. Patient is highly motivated to discontinue smoking. (8) Scrotal edema Is this a current diagnosis for this admission?: Yes Plan: Continues to improve. Continue spironolactone and furosemide (9) Chronic diastolic heart failure Is this a current diagnosis for this admission?: Yes Plan: Echocardiogram reveals grade 2/4 diastolic dysfunction. Ejection fraction is normal. No report of pulmonary hypertension. Continue p.o. lisinopril, furosemide and spironolactone Start low dose carvedilol (10) Diabetes mellitus type 2 in nonobese Is this a current diagnosis for this admission?: Yes Plan: Hemoglobin A1c was only 6.2. We will continue diabetic diet. He is currently on insulin sliding scale. Continue low-dose glipizide. The patient has had the opportunity meet with the registered dietitian and clinical trial educator. (11) Edema due to hypoalbuminemia Is this a current diagnosis for this admission?: Yes Plan: Gradual improvements; secondary to hepatitis C/cirrhosis. Continue fluid restriction. Continue p.o. furosemide and spironolactone. Consider additional IV albumin. Patient has met with the registered dietitian. Outpatient gastroenterology follow-up. [facility]. (12) Hepatitis C antibody positive in blood Is this a current diagnosis for this admission?: Yes Plan: Hepatitis C antibody is positive. HCV RNA PCR [id number] Pt should follow up with GI as outpatient following completion of antibiotic therapy for evaluation for antiviral therapy. (13) Hypoalbuminemia Is this a current diagnosis for this admission?: Yes Plan: Slight improvement. Registered dietitian is consulted. Consider additional IV albumin replacement. Continue furosemide and spironolactone as above. (14) Hypocalcemia Is this a current diagnosis for this admission?: Yes Plan: Corrected calcium for albumin is normal. Continue periodic chemistry evaluation (15) Ascites Is this a current diagnosis for this admission?: Yes Plan: Secondary to cirrhosis/hepatitis C, and diastolic heart failure. Continue furosemide and spironolactone; dosing adjustments made today. We will ask interventional radiology to provide paracentesis. - Time Time Spent with patient: 25-34 minutes Medications reviewed and adjusted accordingly: Yes Anticipated discharge: SNF Within: within 48 hours - Pending resolution of UNIQUE
[2019-05-25] MEDS: NORMAL SALINE 1000 ML 1,000 ML IV PRN (17:20)
[2019-05-25] MEDS: CARVEDILOL 3.125 MG TABLET PO SCH (22:47)
[2019-05-26] MEDS: HEPARIN SOD (PORCINE) 5,000 UNIT/ML 1 ML VIAL SUBCUT SCH ×3 (06:15→22:25)
[2019-05-26] MEDS: PANTOPRAZOLE SODIUM 40 MG TABLET.DR PO SCH ×2 (06:15→17:55)
[2019-05-26] MEDS: INSULIN LISPRO 100 UNIT/ML 3 ML VIAL SUBCUT SCH ×4 (08:18→22:28)
[2019-05-26] MEDS: GLIPIZIDE 5 MG TABLET PO SCH (08:28)
[2019-05-26 08:37] LABS: ANION GAP 7 (5-19); BLOOD UREA NITROGEN 30 mg/dL (7-20); CALCIUM 7.9 mg/dL (8.4-10.2); CARBON DIOXIDE 23 mmol/L (22-30); CHLORIDE 105 mmol/L (98-107); GLUCOSE 106 mg/dL (75-110); POTASSIUM 4.7 mmol/L (3.6-5.0)
[2019-05-26] MEDS: CALCIUM CARBONATE 250 MG/VITAMIN D3 125 UNIT TABLET PO SCH (10:28)
[2019-05-26] MEDS: FUROSEMIDE 40 MG TABLET PO SCH (10:29)
[2019-05-26] MEDS: SPIRONOLACTONE 25 MG TABLET PO SCH (10:29)
[2019-05-26] MEDS: DAPTOMYCIN 600 MG in NORMAL SALINE 50 ML IV SCH (10:29)
[2019-05-26] MEDS: DOCUSATE SODIUM 100 MG CAPSULE PO SCH ×2 (10:29→17:55)
[2019-05-26] MEDS: NORMAL SALINE 10 ML SDV (SCHEDULED) IV SCH (10:30)
[2019-05-26] MEDS: AMLODIPINE BESYLATE 5 MG TABLET PO SCH (10:33)
[2019-05-26] MEDS: CARVEDILOL 3.125 MG TABLET PO SCH ×2 (10:34→22:22)
--- NOTE | 2019-05-26 11:28 | RADIOLOGY REPORT (SQ) ---
EXAM DESCRIPTION: U/S ABD PARACENTESIS COMPLETED DATE/TIME: 05/26/2019 10:12 am REASON FOR STUDY: ascites COMPARISON: None. LIMITATIONS: None. PROCEDURE: Procedure, risks, benefit, and alternative explained to patient who then gave written con sent. The right lower quadrant abdominal wall marked using ultrasound guidance. A time-out was call ed for correct marking verification. Abdomen prepped and draped using sterile technique. Local anest hesia achieved using 3.0 ml of 1% lidocaine injection. A 6fr Ohrl-X-Pykbfmrd set was introduced into the peritoneal cavity. Fluid was drained. The catheter was removed and entry site was covered with sterile bandage. No immediate complications noted. Images acquired during the procedure were stored on PACS. FINDINGS: ENTRY SITE: Right lower quadrant. FLUID VOLUME: 3060 cc FLUID ANALYSIS: Cloudy straw OTHER: Fluid sent to the lab for testing. IMPRESSION: SUCCESSFUL ULTRASOUND GUIDED PARACENTESIS. COMMENT: Patient medication list reviewed:Yes- Quality ID# [id number]:Eligible professional attests to docu menting in the medical record they obtained, updated, or reviewed the patient's current medications. TECHNICAL DOCUMENTATION: JOB ID: [id number] [employer]- All Rights Reserved Reading location - IP/workstation name: [email or web address]
[2019-05-26 11:45] LABS: FLUID SOURCE ABDOMEN; FLUID TYPE PERITONEAL
[2019-05-26 11:46] LABS: FLUID APPEARANCE CLEAR; FLUID COLOR STRAW; FLUID VISCOSITY LIQUID
--- NOTE | 2019-05-26 13:43 | PDOC PROGRESS REPORT ---
Subjective Progress Note for:: 05/26/19 Subjective:: The patient is a 64-year-old male with a past medical history significant for tobacco dependence with continuous use and arthritis who was admitted 05/09/2019 for Septic arthritis. The patient was seen on morning rounds, following paracentesis, with his and daughter present. He was found resting in the recliner, comfortably, on room air. He reports pain is well controlled. He is very satisfied with the paracentesis; significant improvement in abdominal distension. Notes he is able to breathe easier. He denies fever, chills, chest pain, palpitations, dyspnea, orthopnea, cough, abdominal pain, nausea, vomiting and diarrhea. He has no new questions or concerns. No concerns per nursing. Reason For Visit: CELLULITIS,SEPTIC ARTHRITIS Physical Exam Vital Signs: Temp Pulse Resp BP Pulse Ox 98.9 F 93 18 127/71 H 97 05/25/19 23:06 05/25/19 23:06 05/25/19 23:06 05/25/19 23:06 05/25/19 23:06 Intake & Output 05/25/19 05/26/19 05/27/19 06:59 06:59 06:59 Intake Total 1830 2640 50 Output Total 780 800 Balance 1050 1840 50 Weight 105.6 kg 104.6 kg General appearance: PRESENT: no acute distress, cooperative, well-developed, well-nourished Head exam: PRESENT: atraumatic, normocephalic Eye exam: PRESENT: conjunctiva pink, EOMI, PERRLA. ABSENT: scleral icterus Ear exam: PRESENT: normal external ear exam Mouth exam: PRESENT: moist, tongue midline Teeth exam: PRESENT: poor dentation Respiratory exam: PRESENT: clear to auscultation brenda, symmetrical, unlabored. ABSENT: rales, rhonchi, wheezes Cardiovascular exam: PRESENT: RRR, +S1, +S2. ABSENT: diastolic murmur, rubs, systolic murmur Pulses: PRESENT: normal dorsalis pedis pul Vascular exam: PRESENT: normal capillary refill GI/Abdominal exam: PRESENT: ascites - Improved following paracentesis, normal bowel sounds, soft. ABSENT: distended, guarding, mass, organolmegaly, rebound, tenderness Rectal exam: PRESENT: deferred Extremities exam: PRESENT: full ROM, +1 edema - BLE. ABSENT: calf tenderness, clubbing, pedal edema Neurological exam: PRESENT: alert, awake, oriented to person, oriented to place, oriented to time, oriented to situation, CN II-XII grossly intact. ABSENT: motor sensory deficit Psychiatric exam: PRESENT: appropriate affect, normal mood. ABSENT: homicidal ideation, suicidal ideation Skin exam: PRESENT: dry, intact, warm. ABSENT: cyanosis, rash Results Laboratory Results: 05/24/19 05:40 05/26/19 07:58 05/26/19 05/26/19 07:58 09:15 Sodium 134.9 L Potassium 4.7 Chloride 105 Carbon Dioxide 23 Anion Gap 7 BUN 30 H Creatinine 1.72 H Est GFR ( Amer) 49 L Glucose 106 Calcium 7.9 L Fluid Type PERITONEAL Fluid Source ABDOMEN Fluid Color STRAW Fluid Appearance CLEAR Fluid Viscosity LIQUID Fluid WBC 142 Fluid RBC 41 05/09/19 05/26/19 16:30 07:58 Creatine Kinase 29 L Troponin I < 0.012 Impressions: Ankle X-Ray 05/09/19 11:34 IMPRESSION: Small joint effusion. No acute fracture. Foot X-Ray 05/09/19 11:34 IMPRESSION: Soft tissue swelling dorsally. No acute fracture or dislocation. Venous Doppler Study 05/09/19 11:34 IMPRESSION: NO EVIDENCE DVT OR SVT IN THE RIGHT LEG. Chest X-Ray 05/09/19 16:17 IMPRESSION: NO ACUTE RADIOGRAPHIC FINDING IN THE CHEST. Lower Extremity MRI 05/09/19 16:39 IMPRESSION: 1. Arthropathy as above may reflect the patient's history of gout. Significant marrow edema in the talus and navicular, lesser changes also in the calcaneus and cuboid. 2. Extensive soft tissue swelling, muscle edema and fluid collections extending up into the calf. While some of the loculated fluid is along tendon sheaths and reflects tenosynovitis, this is not all clearly tendon related fluid. Some of the fluid may be related to other infectious/inflammatory etiology. Shoulder X-Ray 05/09/19 17:48 IMPRESSION: NEGATIVE STUDY OF THE RIGHT SHOULDER. NO RADIOGRAPHIC EVIDENCE OF ACUTE INJURY. Scrotum Ultrasound 05/14/19 00:00 IMPRESSION: . NO EVIDENCE OF TESTICULAR MASS OR TORSION. 5 5 Scrotal wall thickness. Small left hydrocele. Guidance Fluoroscopy 05/17/19 00:00 IMPRESSION: SUCCESSFUL PLACEMENT OF A 5 FR DUAL LUMEN 42 CM PICC IN THE LEFT BASILIC VEIN. Interventional Vascular Procedure 05/17/19 00:00 IMPRESSION: SUCCESSFUL PLACEMENT OF A 5 FR DUAL LUMEN 42 CM PICC IN THE LEFT BASILIC VEIN. PICC Line Insertion 05/17/19 00:00 IMPRESSION: SUCCESSFUL PLACEMENT OF A 5 FR DUAL LUMEN 42 CM PICC IN THE LEFT BASILIC VEIN. Abdomen Ultrasound 05/19/19 00:00 IMPRESSION: 1. Cirrhosis with ascites and splenomegaly. 2. Limited evaluation of the gallbladder, pancreas, and abdominal aorta. 3. No hydronephrosis. Paracentesis Ultrasound 05/26/19 00:00 IMPRESSION: SUCCESSFUL ULTRASOUND GUIDED PARACENTESIS. Assessment and Plan - Diagnosis (1) UNIQUE (acute kidney injury) Is this a current diagnosis for this admission?: Yes Plan: Likely ATN related to vancomycin toxicity; Vanc trough level of 32 Cr 0.84-> 1.68-> 1.72-> 1.67-> 1.72 Continue p.o. spironolactone and furosemide; have made dose adjustments. Low threshold for placing these medications on hold. Lisinopril discontinued; transitioned to p.o. amlodipine. Avoid nephrotoxic medications as able. Vancomycin discontinued; will transition to daptomycin. Consider nephrology consultation. (2) Septic arthritis Qualifiers: Septic arthritis location: ankle Laterality: right Is this a current diagnosis for this admission?: Yes Plan: Elevated ESR 41 and CRP 141. RPR, Gc/Ch negative. Right lower extremity x-ray negative for osteomyelitis. Right lower extremity venous Doppler negative for DVT. MRI revealed significant marrow edema to the talus, navicular, and calcaneus w/ extensive soft tissue edema and loculated fluid along the tendon sheaths. Blood cultures (05/09/19; 4/4) positive for MRSA Blood culture (05/11/19) positive for MRSA Repeat culture (05/13/2019) are negative to date Now with PICC line Admit to medical floor. Transition to Daptomycin, last day of treatment is 06/24/19 Recommend weekly CKP. Appreciate both orthopedics and infectious disease consultations and assistance. (3) Bacteremia Is this a current diagnosis for this admission?: Yes Plan: Blood cultures from May 13 are negative. Patient will need long-term antibiotics as noted above. Etiology of bacteremia was the septic arthritis/cellulitis. TTE negative. Infectious disease was consulted; continue IV Daptomycin as above. (4) Ascites Is this a current diagnosis for this admission?: Yes Plan: Secondary to cirrhosis/hepatitis C, and diastolic heart failure. Now s/p paracentesis; 3 L removed today. Initial laboratory evaluation is benign. Cytology pending. Continue furosemide and spironolactone. Registered dietitian consulted. Outpatient GI follow-up. (5) Hyponatremia Is this a current diagnosis for this admission?: Yes Plan: Overall stable; slight upward trend. Continue fluid restriction of 1.5 L Liberalize dietary sodium. Continue spironolactone and furosemide; dose adjustments today. (6) Leukocytosis Qualifiers: Leukocytosis type: unspecified Qualified Code(s): D72.829 - Elevated white blood cell count, unspecified Is this a current diagnosis for this admission?: Yes Plan: Resolved. Cultures and antibiotics as above. Follow up CBC, SED, and CRP. (7) Cellulitis Qualifiers: Site of cellulitis: extremity Site of cellulitis of extremity: lower extremity Laterality: right Qualified Code(s): L03.115 - Cellulitis of right lower limb Is this a current diagnosis for this admission?: Yes Plan: Improved. Antibiotics as above (8) Tobacco abuse Is this a current diagnosis for this admission?: Yes Plan: Smoking cessation encouraged. Nicotine replacement therapies available as needed. Patient is highly motivated to discontinue smoking. (9) Scrotal edema Is this a current diagnosis for this admission?: Yes Plan: Continues to improve. Continue spironolactone and furosemide (10) Chronic diastolic heart failure Is this a current diagnosis for this admission?: Yes Plan: Echocardiogram reveals grade 2/4 diastolic dysfunction. Ejection fraction is normal. No report of pulmonary hypertension. Continue p.o. lisinopril, furosemide and spironolactone Continue low dose carvedilol (11) Diabetes mellitus type 2 in nonobese Is this a current diagnosis for this admission?: Yes Plan: Hemoglobin A1c was only 6.2. We will continue diabetic diet. He is currently on insulin sliding scale. Continue low-dose glipizide. The patient has had the opportunity meet with the registered dietitian and adaptive physical educator. (12) Edema due to hypoalbuminemia Is this a current diagnosis for this admission?: Yes Plan: Gradual improvements; secondary to hepatitis C/cirrhosis. Continue fluid restriction. Continue p.o. furosemide and spironolactone. Consider additional IV albumin. Patient has met with the registered dietitian. Outpatient gastroenterology follow-up. [facility]. (13) Hepatitis C antibody positive in blood Is this a current diagnosis for this admission?: Yes Plan: Hepatitis C antibody is positive. HCV RNA PCR [id number] Pt should follow up with GI as outpatient following completion of antibiotic therapy for evaluation for antiviral therapy. (14) Hypoalbuminemia Is this a current diagnosis for this admission?: Yes Plan: Slight improvement. Registered dietitian is consulted. Consider additional IV albumin replacement. Continue furosemide and spironolactone as above. (15) Hypocalcemia Is this a current diagnosis for this admission?: Yes Plan: Corrected calcium for albumin is normal. Continue periodic chemistry evaluation - Time Time Spent with patient: 35 or more minutes Medications reviewed and adjusted accordingly: Yes Anticipated discharge: SNF - vs LTAC for IV abx Within: when bed available
[2019-05-27] MEDS: NORMAL SALINE 10 ML SDV (SCHEDULED) IV SCH ×3 (02:56→22:04)
[2019-05-27] MEDS: PANTOPRAZOLE SODIUM 40 MG TABLET.DR PO SCH ×2 (06:04→16:59)
[2019-05-27] MEDS: NORMAL SALINE 1000 ML 1,000 ML IV PRN (06:04)
[2019-05-27] MEDS: HEPARIN SOD (PORCINE) 5,000 UNIT/ML 1 ML VIAL SUBCUT SCH ×3 (06:04→22:01)
[2019-05-27] MEDS: INSULIN LISPRO 100 UNIT/ML 3 ML VIAL SUBCUT SCH ×4 (08:06→22:00)
[2019-05-27 08:18] LABS: ANION GAP 6 (5-19); BLOOD UREA NITROGEN 32 mg/dL (7-20); CALCIUM 7.6 mg/dL (8.4-10.2); CARBON DIOXIDE 21 mmol/L (22-30); CHLORIDE 106 mmol/L (98-107); GLUCOSE 102 mg/dL (75-110); POTASSIUM 4.4 mmol/L (3.6-5.0)
[2019-05-27] MEDS: GLIPIZIDE 5 MG TABLET PO SCH (09:07)
[2019-05-27] MEDS: CARVEDILOL 3.125 MG TABLET PO SCH ×2 (09:08→22:02)
[2019-05-27] MEDS: FUROSEMIDE 40 MG TABLET PO SCH (09:09)
[2019-05-27] MEDS: AMLODIPINE BESYLATE 5 MG TABLET PO SCH (09:10)
[2019-05-27] MEDS: SPIRONOLACTONE 25 MG TABLET PO SCH (09:11)
[2019-05-27] MEDS: DOCUSATE SODIUM 100 MG CAPSULE PO SCH ×2 (09:11→17:03)
[2019-05-27] MEDS: CALCIUM CARBONATE 250 MG/VITAMIN D3 125 UNIT TABLET PO SCH (09:54)
[2019-05-27] MEDS: DAPTOMYCIN 600 MG in NORMAL SALINE 50 ML IV SCH (09:54)
--- NOTE | 2019-05-27 13:04 | PDOC PROGRESS REPORT ---
Subjective Subjective:: Patient sitting at bedside. Patient states swelling and pain continue to improve. Has been weightbearing and ambulating with rolling walker. Denies significant changes. Has been able to ambulate more independently. States he feels better after paracentesis Reason For Visit: CELLULITIS,SEPTIC ARTHRITIS Physical Exam Vital Signs: Temp Pulse Resp BP Pulse Ox 98.3 F 80 18 130/71 H 96 05/27/19 07:52 05/27/19 07:52 05/27/19 07:52 05/27/19 07:52 05/27/19 07:52 Intake & Output 05/26/19 05/27/19 05/28/19 06:59 06:59 06:59 Intake Total 2640 1860 Output Total 800 1825 Balance 1840 35 Weight 104.6 kg 102.7 kg Musculoskeletal exam: PRESENT: other - Right lower extremity: Edema present however notably improved. No erythema. Previous erythema resolved. Surgical incisions well approximated and healing. Mild serosanguineous drainage from the dorsal foot wound. No palpable fluctuance. Compartments soft and compressible no sign of compartment syndrome. Results Laboratory Results: 05/24/19 05:40 05/27/19 06:58 05/27/19 06:58 Sodium 133.4 L Potassium 4.4 Chloride 106 Carbon Dioxide 21 L Anion Gap 6 BUN 32 H Creatinine 1.65 H Est GFR ( Amer) 51 L Glucose 102 Calcium 7.6 L 05/09/19 05/26/19 16:30 07:58 Creatine Kinase 29 L Troponin I < 0.012 Impressions: Ankle X-Ray 05/09/19 11:34 IMPRESSION: Small joint effusion. No acute fracture. Foot X-Ray 05/09/19 11:34 IMPRESSION: Soft tissue swelling dorsally. No acute fracture or dislocation. Venous Doppler Study 05/09/19 11:34 IMPRESSION: NO EVIDENCE DVT OR SVT IN THE RIGHT LEG. Chest X-Ray 05/09/19 16:17 IMPRESSION: NO ACUTE RADIOGRAPHIC FINDING IN THE CHEST. Lower Extremity MRI 05/09/19 16:39 IMPRESSION: 1. Arthropathy as above may reflect the patient's history of gout. Significant marrow edema in the talus and navicular, lesser changes also in the calcaneus and cuboid. 2. Extensive soft tissue swelling, muscle edema and fluid collections extending up into the calf. While some of the loculated fluid is along tendon sheaths and reflects tenosynovitis, this is not all clearly tendon related fluid. Some of the fluid may be related to other infectious/inflammatory etiology. Shoulder X-Ray 05/09/19 17:48 IMPRESSION: NEGATIVE STUDY OF THE RIGHT SHOULDER. NO RADIOGRAPHIC EVIDENCE OF ACUTE INJURY. Scrotum Ultrasound 05/14/19 00:00 IMPRESSION: . NO EVIDENCE OF TESTICULAR MASS OR TORSION. 5 5 Scrotal wall thickness. Small left hydrocele. Guidance Fluoroscopy 05/17/19 00:00 IMPRESSION: SUCCESSFUL PLACEMENT OF A 5 FR DUAL LUMEN 42 CM PICC IN THE LEFT BASILIC VEIN. Interventional Vascular Procedure 05/17/19 00:00 IMPRESSION: SUCCESSFUL PLACEMENT OF A 5 FR DUAL LUMEN 42 CM PICC IN THE LEFT BASILIC VEIN. PICC Line Insertion 05/17/19 00:00 IMPRESSION: SUCCESSFUL PLACEMENT OF A 5 FR DUAL LUMEN 42 CM PICC IN THE LEFT BASILIC VEIN. Abdomen Ultrasound 05/19/19 00:00 IMPRESSION: 1. Cirrhosis with ascites and splenomegaly. 2. Limited evaluation of the gallbladder, pancreas, and abdominal aorta. 3. No hydronephrosis. Paracentesis Ultrasound 05/26/19 00:00 IMPRESSION: SUCCESSFUL ULTRASOUND GUIDED PARACENTESIS. Assessment & Plan - Diagnosis (1) Cellulitis Qualifiers: Site of cellulitis: extremity Site of cellulitis of extremity: lower extremity Laterality: right Qualified Code(s): L03.115 - Cellulitis of right lower limb Is this a current diagnosis for this admission?: Yes (2) Abscess of right leg Is this a current diagnosis for this admission?: Yes Plan: status post I&D right lower extremity. 1. Continue daily wet-to-dry dressing changes. 2. Physical therapy weightbearing as tolerated. 3. Patient with white cell count has normalized and CRP/sed rate have trended in the appropriate direction. Unfortunately patient has evidence of acute kidney injury and thus will require nephrology consult. Otherwise we will continue current IV antibiotics. 4. Patient orthopedically stable for discharge to long term facility follow-up as an outpatient in 7 days. - Time Time Spent with patient: Less than 15 minutes
--- NOTE | 2019-05-27 17:08 | PDOC PROGRESS REPORT ---
Subjective Progress Note for:: 05/27/19 Subjective:: The patient is a 64-year-old male with a past medical history significant for tobacco dependence with continuous use and arthritis who was admitted 05/09/2019 for Septic arthritis. The patient was seen on morning rounds. He was found resting in the recliner, comfortably, on room air. He reports pain is well controlled. Swelling continues to improve. He is very pleased with the improvement in his abdominal distention; breathing easily and ate well today. He is concerned about the cost of his antibiotic (currently on daptomycin). Discussed that we are going to ask [facility] RENAN to review his case again for any additional options. Otherwise, he has no new questions or concerns and is very happy with his progress. Ambulated ~200 feet yesterday. He denies fever, chills, chest pain, palpitations, dyspnea, orthopnea, cough, abdominal pain, nausea, vomiting and diarrhea. No concerns per nursing. Reason For Visit: CELLULITIS,SEPTIC ARTHRITIS Physical Exam Vital Signs: Temp Pulse Resp BP Pulse Ox 98.4 F 80 18 126/65 H 99 05/27/19 11:27 05/27/19 11:27 05/27/19 11:27 05/27/19 11:27 05/27/19 11:27 Intake & Output 05/26/19 05/27/19 05/28/19 06:59 06:59 06:59 Intake Total 2640 1860 Output Total 800 1825 Balance 1840 35 Weight 104.6 kg 102.7 kg 102.7 kg General appearance: PRESENT: no acute distress, cooperative, well-developed, well-nourished Head exam: PRESENT: atraumatic, normocephalic Eye exam: PRESENT: conjunctiva pink, EOMI, PERRLA. ABSENT: scleral icterus Mouth exam: PRESENT: moist, tongue midline Teeth exam: PRESENT: poor dentation Respiratory exam: PRESENT: clear to auscultation brenda, symmetrical, unlabored. ABSENT: rales, rhonchi, wheezes Cardiovascular exam: PRESENT: RRR, +S1, +S2. ABSENT: diastolic murmur, rubs, systolic murmur Pulses: PRESENT: normal dorsalis pedis pul Vascular exam: PRESENT: normal capillary refill GI/Abdominal exam: PRESENT: normal bowel sounds, soft. ABSENT: distended, guarding, mass, organolmegaly, rebound, tenderness Rectal exam: PRESENT: deferred Extremities exam: PRESENT: full ROM. ABSENT: calf tenderness, clubbing, pedal edema Neurological exam: PRESENT: alert, awake, oriented to person, oriented to place, oriented to time, oriented to situation, CN II-XII grossly intact. ABSENT: motor sensory deficit Psychiatric exam: PRESENT: appropriate affect, normal mood. ABSENT: homicidal ideation, suicidal ideation Skin exam: PRESENT: dry, warm. ABSENT: cyanosis, intact - MICHAEL wrap to right foot, rash Results Laboratory Results: 05/24/19 05:40 05/27/19 06:58 05/27/19 06:58 Sodium 133.4 L Potassium 4.4 Chloride 106 Carbon Dioxide 21 L Anion Gap 6 BUN 32 H Creatinine 1.65 H Est GFR ( Amer) 51 L Glucose 102 Calcium 7.6 L 05/09/19 05/26/19 16:30 07:58 Creatine Kinase 29 L Troponin I < 0.012 Impressions: Ankle X-Ray 05/09/19 11:34 IMPRESSION: Small joint effusion. No acute fracture. Foot X-Ray 05/09/19 11:34 IMPRESSION: Soft tissue swelling dorsally. No acute fracture or dislocation. Venous Doppler Study 05/09/19 11:34 IMPRESSION: NO EVIDENCE DVT OR SVT IN THE RIGHT LEG. Chest X-Ray 05/09/19 16:17 IMPRESSION: NO ACUTE RADIOGRAPHIC FINDING IN THE CHEST. Lower Extremity MRI 05/09/19 16:39 IMPRESSION: 1. Arthropathy as above may reflect the patient's history of gout. Significant marrow edema in the talus and navicular, lesser changes also in the calcaneus and cuboid. 2. Extensive soft tissue swelling, muscle edema and fluid collections extending up into the calf. While some of the loculated fluid is along tendon sheaths and reflects tenosynovitis, this is not all clearly tendon related fluid. Some of the fluid may be related to other infectious/inflammatory etiology. Shoulder X-Ray 05/09/19 17:48 IMPRESSION: NEGATIVE STUDY OF THE RIGHT SHOULDER. NO RADIOGRAPHIC EVIDENCE OF ACUTE INJURY. Scrotum Ultrasound 05/14/19 00:00 IMPRESSION: . NO EVIDENCE OF TESTICULAR MASS OR TORSION. 5 5 Scrotal wall thickness. Small left hydrocele. Guidance Fluoroscopy 05/17/19 00:00 IMPRESSION: SUCCESSFUL PLACEMENT OF A 5 FR DUAL LUMEN 42 CM PICC IN THE LEFT BASILIC VEIN. Interventional Vascular Procedure 05/17/19 00:00 IMPRESSION: SUCCESSFUL PLACEMENT OF A 5 FR DUAL LUMEN 42 CM PICC IN THE LEFT BASILIC VEIN. PICC Line Insertion 05/17/19 00:00 IMPRESSION: SUCCESSFUL PLACEMENT OF A 5 FR DUAL LUMEN 42 CM PICC IN THE LEFT BASILIC VEIN. Abdomen Ultrasound 05/19/19 00:00 IMPRESSION: 1. Cirrhosis with ascites and splenomegaly. 2. Limited evaluation of the gallbladder, pancreas, and abdominal aorta. 3. No hydronephrosis. Paracentesis Ultrasound 05/26/19 00:00 IMPRESSION: SUCCESSFUL ULTRASOUND GUIDED PARACENTESIS. Assessment and Plan - Diagnosis (1) UNIQUE (acute kidney injury) Is this a current diagnosis for this admission?: Yes Plan: Likely ATN related to vancomycin toxicity; Vanc trough level of 32 Cr 0.84-> 1.68-> 1.72-> 1.67-> 1.72-> 1.65 Continue p.o. spironolactone and furosemide; have made dose adjustments. Low threshold for placing these medications on hold. Weight stable. Lisinopril discontinued; transitioned to p.o. amlodipine. Avoid nephrotoxic medications as able. Vancomycin discontinued; have transitioned to daptomycin. Consider nephrology consultation. (2) Septic arthritis Qualifiers: Septic arthritis location: ankle Laterality: right Is this a current diagnosis for this admission?: Yes Plan: Elevated ESR 41 and CRP 141. RPR, Gc/Ch negative. Right lower extremity x-ray negative for osteomyelitis. Right lower extremity venous Doppler negative for DVT. MRI revealed significant marrow edema to the talus, navicular, and calcaneus w/ extensive soft tissue edema and loculated fluid along the tendon sheaths. Blood cultures (05/09/19; 4/4) positive for MRSA Blood culture (05/11/19) positive for MRSA Repeat culture (05/13/2019) are negative to date Now with PICC line Admit to medical floor. Transitioned to Daptomycin, last day of treatment is 06/24/19 Recommend weekly CKP. Appreciate both orthopedics and infectious disease consultations and assistance. Will ask ID to review for any other medication options as daptomycin is cost prohibitive. (3) Bacteremia Is this a current diagnosis for this admission?: Yes Plan: Blood cultures from May 13 are negative. Patient will need long-term antibiotics as noted above. Etiology of bacteremia was the septic arthritis/cellulitis. TTE negative. Infectious disease was consulted; continue IV Daptomycin as above. (4) Ascites Is this a current diagnosis for this admission?: Yes Plan: Secondary to cirrhosis/hepatitis C, and diastolic heart failure. Now s/p paracentesis; 3 L removed yesterday Initial laboratory evaluation is benign. Cytology evaluation is benign. Continue furosemide and spironolactone; consider dose increase as renal function and blood pressure allows Registered dietitian consulted. Outpatient GI follow-up. (5) Hyponatremia Is this a current diagnosis for this admission?: Yes Plan: Overall stable; continue to slight upward trend. Continue fluid restriction of 1.5 L Liberalize dietary sodium. Continue spironolactone and furosemide (6) Leukocytosis Qualifiers: Leukocytosis type: unspecified Qualified Code(s): D72.829 - Elevated white blood cell count, unspecified Is this a current diagnosis for this admission?: Yes Plan: Resolved. Cultures and antibiotics as above. (7) Cellulitis Qualifiers: Site of cellulitis: extremity Site of cellulitis of extremity: lower extremity Laterality: right Qualified Code(s): L03.115 - Cellulitis of right lower limb Is this a current diagnosis for this admission?: Yes Plan: Improved. Antibiotics as above (8) Tobacco abuse Is this a current diagnosis for this admission?: Yes Plan: Smoking cessation encouraged. Nicotine replacement therapies available as needed. Patient is highly motivated to discontinue smoking. (9) Scrotal edema Is this a current diagnosis for this admission?: Yes Plan: Resolved. (10) Chronic diastolic heart failure Is this a current diagnosis for this admission?: Yes Plan: Echocardiogram reveals grade 2/4 diastolic dysfunction. Ejection fraction is normal. No report of pulmonary hypertension. Continue p.o. amlodipine, furosemide and spironolactone Consider lisinopril 2.5 mg daily if renal function improves Continue low dose carvedilol (11) Diabetes mellitus type 2 in nonobese Is this a current diagnosis for this admission?: Yes Plan: Hemoglobin A1c was only 6.2. We will continue diabetic diet. He is currently on insulin sliding scale. Continue low-dose glipizide. The patient has had the opportunity meet with the registered dietitian and clinical systems educator. (12) Edema due to hypoalbuminemia Is this a current diagnosis for this admission?: Yes Plan: Gradual improvements; secondary to hepatitis C/cirrhosis. Continue fluid restriction. Continue p.o. furosemide and spironolactone. Consider additional IV albumin. Patient has met with the registered dietitian. Outpatient gastroenterology follow-up. [employer] [facility]. (13) Hepatitis C antibody positive in blood Is this a current diagnosis for this admission?: Yes Plan: Hepatitis C antibody is positive. HCV RNA PCR [id number] Pt should follow up with GI as outpatient following completion of antibiotic therapy for evaluation for antiviral therapy. (14) Hypoalbuminemia Is this a current diagnosis for this admission?: Yes Plan: Slight improvement. Registered dietitian is consulted. Consider additional IV albumin replacement. Continue furosemide and spironolactone as above. (15) Hypocalcemia Is this a current diagnosis for this admission?: Yes Plan: Corrected calcium for albumin is normal. Continue periodic chemistry evaluation - Time Time Spent with patient: 25-34 minutes Medications reviewed and adjusted accordingly: Yes Anticipated discharge: SNF Within: when bed available
[2019-05-27] MEDS: NORMAL SALINE 10 ML SDV (AFTER EACH USE) IV PRN (22:04)
[2019-05-28] MEDS: NORMAL SALINE 1000 ML 1,000 ML IV PRN ×2 (01:18→09:15)
[2019-05-28] MEDS: HEPARIN SOD (PORCINE) 5,000 UNIT/ML 1 ML VIAL SUBCUT SCH ×3 (05:46→22:51)
[2019-05-28] MEDS: PANTOPRAZOLE SODIUM 40 MG TABLET.DR PO SCH ×2 (05:53→17:41)
[2019-05-28 06:41] LABS: ANION GAP 5 (5-19); BLOOD UREA NITROGEN 31 mg/dL (7-20); CALCIUM 7.6 mg/dL (8.4-10.2); CARBON DIOXIDE 22 mmol/L (22-30); CHLORIDE 108 mmol/L (98-107); GLUCOSE 100 mg/dL (75-110); POTASSIUM 4.2 mmol/L (3.6-5.0)
[2019-05-28] MEDS: INSULIN LISPRO 100 UNIT/ML 3 ML VIAL SUBCUT SCH ×4 (08:16→22:52)
[2019-05-28] MEDS: CARVEDILOL 3.125 MG TABLET PO SCH ×2 (09:09→22:46)
[2019-05-28] MEDS: SPIRONOLACTONE 25 MG TABLET PO SCH (09:09)
[2019-05-28] MEDS: DOCUSATE SODIUM 100 MG CAPSULE PO SCH ×2 (09:09→19:16)
[2019-05-28] MEDS: CALCIUM CARBONATE 250 MG/VITAMIN D3 125 UNIT TABLET PO SCH (09:09)
[2019-05-28] MEDS: FUROSEMIDE 40 MG TABLET PO SCH (09:09)
[2019-05-28] MEDS: AMLODIPINE BESYLATE 5 MG TABLET PO SCH (09:10)
[2019-05-28] MEDS: DAPTOMYCIN 600 MG in NORMAL SALINE 50 ML IV SCH (09:10)
[2019-05-28] MEDS: GLIPIZIDE 5 MG TABLET PO SCH (09:10)
[2019-05-28] MEDS: NORMAL SALINE 10 ML SDV (SCHEDULED) IV SCH ×2 (09:11→22:47)
--- NOTE | 2019-05-28 09:45 | Progress Note ---
Provider Note Provider Note: [facility] Telephone Advice - Follow Up Chart reviewed. This is a 64-year-old man who sustained an injury to his right plantar area. He developed an area of redness. Pain was worsening and erythema as well. His symptoms rapidly worsened for which he came to the hospital on 05/09. He was found septic with MRSA bacteremia. MRI of the foot demonstrated tenosynovitis and abscess. He was taken to the OR by ortho on 05/10. Extensive infection with purulence was found and evidence of septic arthritis. He was on vancomycin, but requiring 1250 mg every 8 hr due to his weight and creatinine clearance. He had an UNIQUE for which therapy was changed to daptomycin. His bl ood cultures cleared on 05/13. He has a PICC line in place and is currently getting better, walking with assistance, swelling and redness improved per notes. Vital Signs: Temp Pulse Resp BP Pulse Ox 98.3 F 89 18 148/69 H 98 05/28/19 08:00 05/28/19 08:00 05/28/19 08:00 05/28/19 08:00 05/28/19 08:00 Intake & Output 05/27/19 05/28/19 05/29/19 06:59 06:59 06:59 Intake Total 1860 2170 Output Total 1825 2200 Balance 35 -30 Weight 102.7 kg 101.2 kg Weight/Height Weight 101.2 kg Height 6 ft Laboratories: 05/24/19 05:40 05/28/19 05:59 MCV 96 fl (80-97) 05/24/19 05:40 MCH 33.4 pg (27.0-33.4) 05/24/19 05:40 MCHC 34.8 g/dL (32.0-36.0) 05/24/19 05:40 RDW 15.9 % (11.5-14.0) H 05/24/19 05:40 Seg Neutrophils % 83.8 % (42-78) H 05/13/19 06:01 VBG pH 7.42 (7.30-7.42) 05/09/19 16:30 VBG pCO2 41.0 mmHg (35-63) 05/09/19 16:30 VBG HCO3 26.2 mmol/L (20-32) 05/09/19 16:30 VBG Base Excess 1.7 mmol/L 05/09/19 16:30 Chloride 108 mmol/L (98-107) H 05/28/19 05:59 Carbon Dioxide 22 mmol/L (22-30) 05/28/19 05:59 Anion Gap 5 (5-19) 05/28/19 05:59 Est GFR ( Amer) 50 (>60) L 05/28/19 05:59 Glucose 100 mg/dL (75-110) 05/28/19 05:59 Lactic Acid 2.4 mmol/L (0.7-2.1) H 05/09/19 16:30 Calcium 7.6 mg/dL (8.4-10.2) L 05/28/19 05:59 Phosphorus 3.9 mg/dL (2.5-4.5) 05/22/19 06:05 Magnesium 1.6 mg/dL (1.6-2.3) 05/21/19 05:54 Total Bilirubin 0.9 mg/dL (0.2-1.3) 05/24/19 05:40 AST 44 U/L (17-59) 05/24/19 05:40 Alkaline Phosphatase 71 U/L (38-126) 05/24/19 05:40 Ammonia < 8.7 umol/L (9-33) L 05/21/19 07:20 C-Reactive Protein 41.0 mg/L (<10.0) H 05/24/19 05:40 Total Protein 5.5 g/dL (6.3-8.2) L 05/24/19 05:40 Albumin 2.1 g/dL (3.5-5.0) L 05/24/19 05:40 Lipase 145.9 U/L (23-300) 05/09/19 16:30 Urine Color YELLOW 05/19/19 02:26 Urine Appearance CLOUDY 05/19/19 02:26 Urine pH 6.0 (5.0-9.0) 05/19/19 02:26 Ur Specific [place] 1.012 05/19/19 02:26 Urine Protein NEGATIVE mg/dL (NEGATIVE) 05/19/19 02:26 Urine Glucose (UA) NEGATIVE mg/dL (NEGATIVE) 05/19/19 02:26 Urine Ketones NEGATIVE mg/dL (NEGATIVE) 05/19/19 02:26 Urine Blood SMALL (NEGATIVE) H 05/19/19 02:26 Urine Nitrite NEGATIVE (NEGATIVE) 05/19/19 02:26 Ur Leukocyte Esterase NEGATIVE (NEGATIVE) 05/19/19 02:26 Urine WBC (Auto) 1 /HPF 05/19/19 02:26 Urine RBC (Auto) 1 /HPF 05/19/19 02:26 Fluid Type PERITONEAL 05/26/19 09:15 Fluid Source ABDOMEN 05/26/19 09:15 Fluid Color STRAW 05/26/19 09:15 Fluid Appearance CLEAR 05/26/19 09:15 Fluid Viscosity LIQUID 05/26/19 09:15 Fluid WBC 142 /uL 05/26/19 09:15 Fluid RBC 41 /uL 05/26/19 09:15 05/09/19 05/26/19 16:30 07:58 Creatine Kinase 29 L Troponin I < 0.012 Microbiology: Blood cultures 05/09 MRSA 05/11 MRSA 05/13 Negative Tissue culture 05/10 MRSA Radiology: Ankle X-Ray 05/09/19 11:34 IMPRESSION: Small joint effusion. No acute fracture. Foot X-Ray 05/09/19 11:34 IMPRESSION: Soft tissue swelling dorsally. No acute fracture or dislocation. Venous Doppler Study 05/09/19 11:34 IMPRESSION: NO EVIDENCE DVT OR SVT IN THE RIGHT LEG. Chest X-Ray 05/09/19 16:17 IMPRESSION: NO ACUTE RADIOGRAPHIC FINDING IN THE CHEST. Lower Extremity MRI 05/09/19 16:39 IMPRESSION: 1. Arthropathy as above may reflect the patient's history of gout. Significant marrow edema in the talus and navicular, lesser changes also in the calcaneus and cuboid. 2. Extensive soft tissue swelling, muscle edema and fluid collections extending up into the calf. While some of the loculated fluid is along tendon sheaths and reflects tenosynovitis, this is not all clearly tendon related fluid. Some of the fluid may be related to other infectious/inflammatory etiology. Shoulder X-Ray 05/09/19 17:48 IMPRESSION: NEGATIVE STUDY OF THE RIGHT SHOULDER. NO RADIOGRAPHIC EVIDENCE OF ACUTE INJURY. Scrotum Ultrasound 05/14/19 00:00 IMPRESSION: . NO EVIDENCE OF TESTICULAR MASS OR TORSION. 5 5 Scrotal wall thickness. Small left hydrocele. Guidance Fluoroscopy 05/17/19 00:00 IMPRESSION: SUCCESSFUL PLACEMENT OF A 5 FR DUAL LUMEN 42 CM PICC IN THE LEFT BASILIC VEIN. Interventional Vascular Procedure 05/17/19 00:00 IMPRESSION: SUCCESSFUL PLACEMENT OF A 5 FR DUAL LUMEN 42 CM PICC IN THE LEFT BASILIC VEIN. PICC Line Insertion 05/17/19 00:00 IMPRESSION: SUCCESSFUL PLACEMENT OF A 5 FR DUAL LUMEN 42 CM PICC IN THE LEFT BASILIC VEIN. Abdomen Ultrasound 05/19/19 00:00 IMPRESSION: 1. Cirrhosis with ascites and splenomegaly. 2. Limited evaluation of the gallbladder, pancreas, and abdominal aorta. 3. No hydronephrosis. Paracentesis Ultrasound 05/26/19 00:00 IMPRESSION: SUCCESSFUL ULTRASOUND GUIDED PARACENTESIS. Assessment and Recommendations: Patient with above mentioned diagnosis of MRSA bacteremia with right foot septic arthritis concerns for possible osteomyelitis at the tibiotalar joint. He has been on daptomycin with adequate response. CK adequate. Blood cultures negative from 05/13, TTE negative. A recommendation was made to treat for at least 4 weeks of antibiotics for septic arthritis, but orthopedics concerned about the extent of the infection recommending 6 weeks. For complicated bacteremia, the standard of care is to treat with IV antibiotics. There are few studies supporting linezolid as step down to oral therapy, but toxicity associated with linezolid (>2 weeks) outweighs the benefits. Optic and peripheral neuritis are irreversible. This patient already has anemia and thrombocytopenia, linezolid is associated with marrow suppression. For this reason he will have to continue daptomycin for at least 2 more weeks before considering changing to oral therapy. Ideally complete the 6 week course with IV antibiotic. Other agents as Bactrim or clindamycin are inferior, associated with poor outcomes. EOT continues to be 06/24/19. Please call if questions. Evelyn Ricardo MD [facility] [place] [phone]
--- NOTE | 2019-05-28 17:52 | PDOC PROGRESS REPORT ---
Subjective Progress Note for:: 05/28/19 Subjective:: The patient is a 64-year-old male with a past medical history significant for tobacco dependence with continuous use and arthritis who was admitted 05/09/2019 for Septic arthritis. The patient was seen on morning rounds. He was found resting in the recliner, comfortably, on room air. He reports pain is well controlled. Swelling continues to improve. He notes slight return of his abdominal distention but without discomfort or constipation. He denies dyspnea. Otherwise, he has no new questions or concerns. He denies fever, chills, chest pain, palpitations, dyspnea, orthopnea, cough, abdominal pain, nausea, vomiting and diarrhea. No concerns per nursing. Reason For Visit: CELLULITIS,SEPTIC ARTHRITIS Physical Exam Vital Signs: Temp Pulse Resp BP Pulse Ox 98.0 F 84 18 113/59 L 98 05/28/19 12:00 05/28/19 12:00 05/28/19 12:00 05/28/19 12:00 05/28/19 12:00 Intake & Output 05/27/19 05/28/19 05/29/19 06:59 06:59 06:59 Intake Total 1860 2170 1410 Output Total 1825 2200 700 Balance 35 -30 710 Weight 102.7 kg 101.2 kg General appearance: PRESENT: no acute distress, cooperative, well-developed, well-nourished - Overweight Head exam: PRESENT: atraumatic, normocephalic Eye exam: PRESENT: conjunctiva pink, EOMI, PERRLA. ABSENT: scleral icterus Mouth exam: PRESENT: moist, tongue midline Teeth exam: PRESENT: poor dentation Neck exam: ABSENT: carotid bruit, JVD, lymphadenopathy, thyromegaly Respiratory exam: PRESENT: clear to auscultation brenda, symmetrical, unlabored. ABSENT: rales, rhonchi, wheezes Cardiovascular exam: PRESENT: RRR, +S1, +S2. ABSENT: diastolic murmur, rubs, systolic murmur Vascular exam: PRESENT: normal capillary refill GI/Abdominal exam: PRESENT: ascites, normal bowel sounds, soft. ABSENT: distended, guarding, mass, organolmegaly, rebound, tenderness Rectal exam: PRESENT: deferred Extremities exam: PRESENT: full ROM, +1 edema - LL, +2 edema - RLE. ABSENT: calf tenderness, clubbing, pedal edema Neurological exam: PRESENT: alert, awake, oriented to person, oriented to place, oriented to time, oriented to situation, CN II-XII grossly intact. ABSENT: motor sensory deficit Psychiatric exam: PRESENT: appropriate affect, normal mood. ABSENT: homicidal ideation, suicidal ideation Skin exam: PRESENT: dry, intact, warm. ABSENT: cyanosis, rash Results Laboratory Results: 05/24/19 05:40 05/28/19 05:59 05/28/19 05:59 Sodium 134.8 L Potassium 4.2 Chloride 108 H Carbon Dioxide 22 Anion Gap 5 BUN 31 H Creatinine 1.69 H Est GFR ( Amer) 50 L Glucose 100 Calcium 7.6 L 05/09/19 05/26/19 16:30 07:58 Creatine Kinase 29 L Troponin I < 0.012 Impressions: Ankle X-Ray 05/09/19 11:34 IMPRESSION: Small joint effusion. No acute fracture. Foot X-Ray 05/09/19 11:34 IMPRESSION: Soft tissue swelling dorsally. No acute fracture or dislocation. Venous Doppler Study 05/09/19 11:34 IMPRESSION: NO EVIDENCE DVT OR SVT IN THE RIGHT LEG. Chest X-Ray 05/09/19 16:17 IMPRESSION: NO ACUTE RADIOGRAPHIC FINDING IN THE CHEST. Lower Extremity MRI 05/09/19 16:39 IMPRESSION: 1. Arthropathy as above may reflect the patient's history of gout. Significant marrow edema in the talus and navicular, lesser changes also in the calcaneus and cuboid. 2. Extensive soft tissue swelling, muscle edema and fluid collections extending up into the calf. While some of the loculated fluid is along tendon sheaths and reflects tenosynovitis, this is not all clearly tendon related fluid. Some of the fluid may be related to other infectious/inflammatory etiology. Shoulder X-Ray 05/09/19 17:48 IMPRESSION: NEGATIVE STUDY OF THE RIGHT SHOULDER. NO RADIOGRAPHIC EVIDENCE OF ACUTE INJURY. Scrotum Ultrasound 05/14/19 00:00 IMPRESSION: . NO EVIDENCE OF TESTICULAR MASS OR TORSION. 5 5 Scrotal wall thickness. Small left hydrocele. Guidance Fluoroscopy 05/17/19 00:00 IMPRESSION: SUCCESSFUL PLACEMENT OF A 5 FR DUAL LUMEN 42 CM PICC IN THE LEFT BASILIC VEIN. Interventional Vascular Procedure 05/17/19 00:00 IMPRESSION: SUCCESSFUL PLACEMENT OF A 5 FR DUAL LUMEN 42 CM PICC IN THE LEFT BASILIC VEIN. PICC Line Insertion 05/17/19 00:00 IMPRESSION: SUCCESSFUL PLACEMENT OF A 5 FR DUAL LUMEN 42 CM PICC IN THE LEFT BASILIC VEIN. Abdomen Ultrasound 05/19/19 00:00 IMPRESSION: 1. Cirrhosis with ascites and splenomegaly. 2. Limited evaluation of the gallbladder, pancreas, and abdominal aorta. 3. No hydronephrosis. Paracentesis Ultrasound 05/26/19 00:00 IMPRESSION: SUCCESSFUL ULTRASOUND GUIDED PARACENTESIS. Assessment and Plan - Diagnosis (1) UNIQUE (acute kidney injury) Is this a current diagnosis for this admission?: Yes Plan: Likely ATN related to vancomycin toxicity; Vanc trough level of 32 Cr 0.84-> 1.68-> 1.72-> 1.67-> 1.72-> 1.65-> 1.69 Continue p.o. spironolactone and furosemide. Low threshold for placing these medications on hold. Weight stable. Lisinopril discontinued; transitioned to p.o. amlodipine. Avoid nephrotoxic medications as able. Vancomycin discontinued; have transitioned to daptomycin. Consider nephrology consultation. (2) Septic arthritis Qualifiers: Septic arthritis location: ankle Laterality: right Is this a current diagnosis for this admission?: Yes Plan: Elevated ESR 41 and CRP 141. RPR, Gc/Ch negative. Right lower extremity x-ray negative for osteomyelitis. Right lower extremity venous Doppler negative for DVT. MRI revealed significant marrow edema to the talus, navicular, and calcaneus w/ extensive soft tissue edema and loculated fluid along the tendon sheaths. Blood cultures (05/09/19; 4/4) positive for MRSA Blood culture (05/11/19) positive for MRSA Repeat culture (05/13/2019) are negative to date Now with PICC line Admit to medical floor. Transitioned to Daptomycin, last day of treatment is 06/24/19 Recommend weekly CKP. Appreciate both orthopedics and infectious disease consultations and assistance. Infectious disease reviewed patient's medications; confirms that he requires at minimum, another 2 weeks of IV daptomycin and then may consider transitioning to linezolid. However, they have significant reservations about transitioning to linezolid due to risk for marrow suppression and patient already with anemia and thrombocytopenia. Final recommendations are for the patient to continue daptomycin for a total 6 weeks course of therapy with end date of 06/24/2019. (3) Bacteremia Is this a current diagnosis for this admission?: Yes Plan: Blood cultures from May 13 are negative. Patient will need long-term antibiotics as noted above. Etiology of bacteremia was the septic arthritis/cellulitis. TTE negative. Infectious disease was consulted; continue IV Daptomycin as above. (4) Ascites Is this a current diagnosis for this admission?: Yes Plan: Secondary to cirrhosis/hepatitis C, and diastolic heart failure. Now s/p paracentesis; 3 L removed Initial laboratory evaluation is benign. Cytology evaluation is benign. Continue furosemide and spironolactone Have decreased IV fluids today; may benefit from dose increase of furosemide and spironolactone. May also require repeat paracentesis. Registered dietitian consulted. Outpatient GI follow-up. (5) Hyponatremia Is this a current diagnosis for this admission?: Yes Plan: Overall stable; continue to slight upward trend. Continue fluid restriction of 1.5 L Liberalize dietary sodium. Continue spironolactone and furosemide (6) Leukocytosis Qualifiers: Leukocytosis type: unspecified Qualified Code(s): D72.829 - Elevated white blood cell count, unspecified Is this a current diagnosis for this admission?: Yes Plan: Resolved. Cultures and antibiotics as above. (7) Cellulitis Qualifiers: Site of cellulitis: extremity Site of cellulitis of extremity: lower extremity Laterality: right Qualified Code(s): L03.115 - Cellulitis of right lower limb Is this a current diagnosis for this admission?: Yes Plan: Improved. Antibiotics as above (8) Tobacco abuse Is this a current diagnosis for this admission?: Yes Plan: Smoking cessation encouraged. Nicotine replacement therapies available as needed. Patient is highly motivated to discontinue smoking. (9) Scrotal edema Is this a current diagnosis for this admission?: Yes Plan: Resolved. (10) Chronic diastolic heart failure Is this a current diagnosis for this admission?: Yes Plan: Echocardiogram reveals grade 2/4 diastolic dysfunction. Ejection fraction is normal. No report of pulmonary hypertension. Continue p.o. amlodipine, furosemide and spironolactone Consider lisinopril 2.5 mg daily if renal function improves Continue low dose carvedilol (11) Diabetes mellitus type 2 in nonobese Is this a current diagnosis for this admission?: Yes Plan: Hemoglobin A1c was only 6.2. We will continue diabetic diet. He is currently on insulin sliding scale. Continue low-dose glipizide. The patient has had the opportunity meet with the registered dietitian and nurses educator. (12) Edema due to hypoalbuminemia Is this a current diagnosis for this admission?: Yes Plan: Gradual improvements; secondary to hepatitis C/cirrhosis. Continue fluid restriction. Continue p.o. furosemide and spironolactone. Consider additional IV albumin. Patient has met with the registered dietitian. Outpatient gastroenterology follow-up. [facility]. (13) Hepatitis C antibody positive in blood Is this a current diagnosis for this admission?: Yes Plan: Hepatitis C antibody is positive. HCV RNA PCR [id number] Pt should follow up with GI as outpatient following completion of antibiotic therapy for evaluation for antiviral therapy. (14) Hypoalbuminemia Is this a current diagnosis for this admission?: Yes Plan: Slight improvement. Registered dietitian is consulted. Consider additional IV albumin replacement. Continue furosemide and spironolactone as above. (15) Hypocalcemia Is this a current diagnosis for this admission?: Yes Plan: Corrected calcium for albumin is normal. Continue periodic chemistry evaluation - Time Time Spent with patient: 25-34 minutes Medications reviewed and adjusted accordingly: Yes Within: Other - 06/24/19
[2019-05-29] MEDS: HEPARIN SOD (PORCINE) 5,000 UNIT/ML 1 ML VIAL SUBCUT SCH ×3 (05:33→22:23)
[2019-05-29] MEDS: PANTOPRAZOLE SODIUM 40 MG TABLET.DR PO SCH ×2 (05:36→17:45)
[2019-05-29] MEDS: INSULIN LISPRO 100 UNIT/ML 3 ML VIAL SUBCUT SCH ×4 (08:56→22:23)
[2019-05-29] MEDS: GLIPIZIDE 5 MG TABLET PO SCH (09:27)
[2019-05-29] MEDS: CARVEDILOL 3.125 MG TABLET PO SCH ×2 (09:27→22:23)
[2019-05-29] MEDS: FUROSEMIDE 40 MG TABLET PO SCH (09:27)
[2019-05-29] MEDS: AMLODIPINE BESYLATE 5 MG TABLET PO SCH (09:27)
[2019-05-29] MEDS: DAPTOMYCIN 600 MG in NORMAL SALINE 50 ML IV SCH (09:27)
[2019-05-29] MEDS: SPIRONOLACTONE 25 MG TABLET PO SCH (09:27)
[2019-05-29] MEDS: CALCIUM CARBONATE 250 MG/VITAMIN D3 125 UNIT TABLET PO SCH (09:27)
[2019-05-29] MEDS: NORMAL SALINE 10 ML SDV (SCHEDULED) IV SCH ×2 (09:28→22:24)
[2019-05-29] MEDS: DOCUSATE SODIUM 100 MG CAPSULE PO SCH ×2 (09:31→17:41)
--- NOTE | 2019-05-29 15:03 | PDOC PROGRESS REPORT ---
Subjective Progress Note for:: 05/29/19 Subjective:: The patient is a 64-year-old male with a past medical history significant for tobacco dependence with continuous use and arthritis who was admitted 05/09/2019 for Septic arthritis. The patient was seen on morning rounds. He was found resting in the recliner, comfortably, on room air. He reports pain is well controlled. Swelling continues to improve. He notes slight return of his abdominal distention but without discomfort or constipation. He denies dyspnea. He asks to be allowed to go outside today with his family members. Otherwise, he has no new questions or concerns. He denies fever, chills, chest pain, palpitations, dyspnea, orthopnea, cough, abdominal pain, nausea, vomiting and diarrhea. No concerns per nursing. Reason For Visit: CELLULITIS,SEPTIC ARTHRITIS Physical Exam Vital Signs: Temp Pulse Resp BP Pulse Ox 97.8 F 80 17 127/65 H 99 05/29/19 11:40 05/29/19 11:40 05/29/19 11:40 05/29/19 11:40 05/29/19 11:40 Intake & Output 05/28/19 05/29/19 05/30/19 06:59 06:59 06:59 Intake Total 2170 2610 310 Output Total 2200 4000 500 Balance -30 -1390 -190 Weight 101.2 kg 103 kg General appearance: PRESENT: no acute distress, cooperative, well-developed, well-nourished - overweight Head exam: PRESENT: atraumatic, normocephalic Eye exam: PRESENT: conjunctiva pink, EOMI, PERRLA. ABSENT: scleral icterus Mouth exam: PRESENT: moist, tongue midline Teeth exam: PRESENT: poor dentation Neck exam: ABSENT: carotid bruit, JVD, lymphadenopathy, thyromegaly Respiratory exam: PRESENT: clear to auscultation brenda, symmetrical, unlabored. ABSENT: rales, rhonchi, wheezes Cardiovascular exam: PRESENT: RRR, +S1, +S2. ABSENT: diastolic murmur, rubs, systolic murmur Vascular exam: PRESENT: normal capillary refill GI/Abdominal exam: PRESENT: ascites, distended, normal bowel sounds, soft. ABSENT: guarding, mass, organolmegaly, rebound, tenderness Rectal exam: PRESENT: deferred Extremities exam: PRESENT: full ROM, +1 edema - LLE, +2 edema - RLE. ABSENT: calf tenderness, clubbing, pedal edema Neurological exam: PRESENT: alert, awake, oriented to person, oriented to place, oriented to time, oriented to situation, CN II-XII grossly intact. ABSENT: motor sensory deficit Psychiatric exam: PRESENT: appropriate affect, normal mood. ABSENT: homicidal ideation, suicidal ideation Skin exam: PRESENT: dry, intact, warm. ABSENT: cyanosis, rash Results Laboratory Results: 05/24/19 05:40 05/28/19 05:59 05/26/19 09:15 Foot - Diabetic Ulcer Gram Stain - Final 05/09/19 05/26/19 16:30 07:58 Creatine Kinase 29 L Troponin I < 0.012 Impressions: Ankle X-Ray 05/09/19 11:34 IMPRESSION: Small joint effusion. No acute fracture. Foot X-Ray 05/09/19 11:34 IMPRESSION: Soft tissue swelling dorsally. No acute fracture or dislocation. Venous Doppler Study 05/09/19 11:34 IMPRESSION: NO EVIDENCE DVT OR SVT IN THE RIGHT LEG. Chest X-Ray 05/09/19 16:17 IMPRESSION: NO ACUTE RADIOGRAPHIC FINDING IN THE CHEST. Lower Extremity MRI 05/09/19 16:39 IMPRESSION: 1. Arthropathy as above may reflect the patient's history of gout. Significant marrow edema in the talus and navicular, lesser changes also in the calcaneus and cuboid. 2. Extensive soft tissue swelling, muscle edema and fluid collections extending up into the calf. While some of the loculated fluid is along tendon sheaths and reflects tenosynovitis, this is not all clearly tendon related fluid. Some of the fluid may be related to other infectious/inflammatory etiology. Shoulder X-Ray 05/09/19 17:48 IMPRESSION: NEGATIVE STUDY OF THE RIGHT SHOULDER. NO RADIOGRAPHIC EVIDENCE OF ACUTE INJURY. Scrotum Ultrasound 05/14/19 00:00 IMPRESSION: . NO EVIDENCE OF TESTICULAR MASS OR TORSION. 5 5 Scrotal wall thickness. Small left hydrocele. Guidance Fluoroscopy 05/17/19 00:00 IMPRESSION: SUCCESSFUL PLACEMENT OF A 5 FR DUAL LUMEN 42 CM PICC IN THE LEFT BASILIC VEIN. Interventional Vascular Procedure 05/17/19 00:00 IMPRESSION: SUCCESSFUL PLACEMENT OF A 5 FR DUAL LUMEN 42 CM PICC IN THE LEFT BASILIC VEIN. PICC Line Insertion 05/17/19 00:00 IMPRESSION: SUCCESSFUL PLACEMENT OF A 5 FR DUAL LUMEN 42 CM PICC IN THE LEFT BASILIC VEIN. Abdomen Ultrasound 05/19/19 00:00 IMPRESSION: 1. Cirrhosis with ascites and splenomegaly. 2. Limited evaluation of the gallbladder, pancreas, and abdominal aorta. 3. No hydronephrosis. Paracentesis Ultrasound 05/26/19 00:00 IMPRESSION: SUCCESSFUL ULTRASOUND GUIDED PARACENTESIS. Assessment and Plan - Diagnosis (1) UNIQUE (acute kidney injury) Is this a current diagnosis for this admission?: Yes Plan: Likely ATN related to vancomycin toxicity; Vanc trough level of 32 Cr 0.84-> 1.68-> 1.72-> 1.67-> 1.72-> 1.65-> 1.69 Continue p.o. spironolactone and furosemide. Low threshold for placing these medications on hold. Weight stable. Lisinopril discontinued; transitioned to p.o. amlodipine. Avoid nephrotoxic medications as able. Vancomycin discontinued; have transitioned to daptomycin. Consider nephrology consultation. (2) Septic arthritis Qualifiers: Septic arthritis location: ankle Laterality: right Is this a current diagnosis for this admission?: Yes Plan: Elevated ESR 41 and CRP 141. CRP decreased 41 RPR, Gc/Ch negative. Right lower extremity x-ray negative for osteomyelitis. Right lower extremity venous Doppler negative for DVT. MRI revealed significant marrow edema to the talus, navicular, and calcaneus w/ extensive soft tissue edema and loculated fluid along the tendon sheaths. Blood cultures (05/09/19; 4/4) positive for MRSA Blood culture (05/11/19) positive for MRSA Repeat culture (05/13/2019) are negative to date Now with PICC line Admit to medical floor. Transitioned to Daptomycin, last day of treatment is 06/24/19 Recommend weekly CKP. Appreciate both orthopedics and infectious disease consultations and assistance. Infectious disease reviewed patient's medications; confirms that he requires at minimum, another 2 weeks of IV daptomycin and then may consider transitioning to linezolid. However, they have significant reservations about transitioning to linezolid due to risk for marrow suppression in patient already with anemia and thrombocytopenia. Final recommendations are for the patient to continue daptom ycin for a total 6 weeks course of therapy with end date of 06/24/2019. (3) Bacteremia Is this a current diagnosis for this admission?: Yes Plan: Blood cultures from May 13 are negative. Patient will need long-term antibiotics as noted above. Etiology of bacteremia was the septic arthritis/cellulitis. TTE negative. Infectious disease was consulted; continue IV Daptomycin as above. (4) Ascites Is this a current diagnosis for this admission?: Yes Plan: Secondary to cirrhosis/hepatitis C, and diastolic heart failure. Now s/p paracentesis; 3 L removed Laboratory evaluation is benign. Cytology evaluation is benign. Continue furosemide and spironolactone; increased dose today Have decreased IV fluids May also require repeat paracentesis. Registered dietitian consulted. Outpatient GI follow-up. (5) Hyponatremia Is this a current diagnosis for this admission?: Yes Plan: Overall stable; continue to slight upward trend. Continue fluid restriction of 1.5 L Liberalize dietary sodium. Continue spironolactone and furosemide (6) Leukocytosis Qualifiers: Leukocytosis type: unspecified Qualified Code(s): D72.829 - Elevated white blood cell count, unspecified Is this a current diagnosis for this admission?: Yes Plan: Resolved. Cultures and antibiotics as above. (7) Cellulitis Qualifiers: Site of cellulitis: extremity Site of cellulitis of extremity: lower extremity Laterality: right Qualified Code(s): L03.115 - Cellulitis of right lower limb Is this a current diagnosis for this admission?: Yes Plan: Improved. Antibiotics as above (8) Tobacco abuse Is this a current diagnosis for this admission?: Yes Plan: Smoking cessation encouraged. Nicotine replacement therapies available as needed. Patient is highly motivated to discontinue smoking. (9) Scrotal edema Is this a current diagnosis for this admission?: Yes Plan: Resolved. (10) Chronic diastolic heart failure Is this a current diagnosis for this admission?: Yes Plan: Echocardiogram reveals grade 2/4 diastolic dysfunction. Ejection fraction is normal. No report of pulmonary hypertension. Continue p.o. amlodipine, furosemide and spironolactone Consider lisinopril 2.5 mg daily if renal function improves Continue low dose carvedilol (11) Diabetes mellitus type 2 in nonobese Is this a current diagnosis for this admission?: Yes Plan: Hemoglobin A1c was only 6.2. We will continue diabetic diet. He is currently on insulin sliding scale. Continue low-dose glipizide. The patient has had the opportunity meet with the registered dietitian and ems educator. (12) Edema due to hypoalbuminemia Is this a current diagnosis for this admission?: Yes Plan: Gradual improvements; secondary to hepatitis C/cirrhosis. Continue fluid restriction. Continue p.o. furosemide and spironolactone. Consider additional IV albumin. Patient has met with the registered dietitian. Outpatient gastroenterology follow-up. [facility]. (13) Hepatitis C antibody positive in blood Is this a current diagnosis for this admission?: Yes Plan: Hepatitis C antibody is positive. HCV RNA PCR [id number] Pt should follow up with GI as outpatient following completion of antibiotic therapy for evaluation for antiviral therapy. (14) Hypoalbuminemia Is this a current diagnosis for this admission?: Yes Plan: Slight improvement. Registered dietitian is consulted. Consider additional IV albumin replacement. Continue furosemide and spironolactone as above. (15) Hypocalcemia Is this a current diagnosis for this admission?: Yes Plan: Corrected calcium for albumin is normal. Continue periodic chemistry evaluation - Time Time Spent with patient: 25-34 minutes Medications reviewed and adjusted accordingly: Yes Anticipated discharge: Home Within: Other - 06/24/19
[2019-05-30] MEDS: NORMAL SALINE 1000 ML 1,000 ML IV PRN (04:21)
[2019-05-30] MEDS: HEPARIN SOD (PORCINE) 5,000 UNIT/ML 1 ML VIAL SUBCUT SCH ×3 (05:35→21:24)
[2019-05-30] MEDS: PANTOPRAZOLE SODIUM 40 MG TABLET.DR PO SCH ×2 (05:36→17:08)
[2019-05-30 06:44] LABS: ANION GAP 5 (5-19); BLOOD UREA NITROGEN 28 mg/dL (7-20); CALCIUM 7.7 mg/dL (8.4-10.2); CARBON DIOXIDE 22 mmol/L (22-30); CHLORIDE 109 mmol/L (98-107); GLUCOSE 101 mg/dL (75-110); POTASSIUM 4.3 mmol/L (3.6-5.0)
[2019-05-30] MEDS: INSULIN LISPRO 100 UNIT/ML 3 ML VIAL SUBCUT SCH ×4 (08:22→22:17)
[2019-05-30] MEDS: GLIPIZIDE 5 MG TABLET PO SCH (09:05)
[2019-05-30] MEDS: AMLODIPINE BESYLATE 5 MG TABLET PO SCH (09:05)
[2019-05-30] MEDS: SPIRONOLACTONE 25 MG TABLET PO SCH (09:06)
[2019-05-30] MEDS: CARVEDILOL 3.125 MG TABLET PO SCH ×2 (09:06→21:24)
[2019-05-30] MEDS: DOCUSATE SODIUM 100 MG CAPSULE PO SCH ×2 (09:06→17:08)
[2019-05-30] MEDS: FUROSEMIDE 40 MG TABLET PO SCH (09:06)
[2019-05-30] MEDS: NORMAL SALINE 10 ML SDV (SCHEDULED) IV SCH ×2 (09:07→21:24)
[2019-05-30] MEDS: CALCIUM CARBONATE 250 MG/VITAMIN D3 125 UNIT TABLET PO SCH (09:16)
[2019-05-30] MEDS: DAPTOMYCIN 600 MG in NORMAL SALINE 50 ML IV SCH (10:26)
[2019-05-30 12:10] LABS: PLATELET COUNT 142 10^3/uL (150-450)
[2019-05-30 12:22] LABS: INTERNATIONAL RATION (INR) 1.28; PROTHROMBIN TIME 16.1 SEC (11.4-15.4)
--- NOTE | 2019-05-30 15:30 | PDOC PROGRESS REPORT ---
Subjective Progress Note for:: 05/30/19 Subjective:: The patient is a 64-year-old male with a past medical history significant for tobacco dependence with continuous use and arthritis who was admitted 05/09/2019 for Septic arthritis. The patient was seen on morning rounds. He was found resting in the recliner, comfortably, on room air. He reports pain is well controlled. He notes return of his abdominal distention; requesting repeat paracentesis due to sensation of abdominal fullness and difficulty taking a deep breath. Otherwise, he has no new questions or concerns. He denies fever, chills, chest pain, palpitations, dyspnea, orthopnea, cough, abdominal pain, nausea, vomiting and diarrhea. No concerns per nursing. Reason For Visit: CELLULITIS,SEPTIC ARTHRITIS Physical Exam Vital Signs: Temp Pulse Resp BP Pulse Ox 97.5 F 84 18 118/73 97 05/30/19 12:37 05/30/19 12:37 05/30/19 12:37 05/30/19 12:37 05/30/19 12:37 Intake & Output 05/29/19 05/30/19 05/31/19 06:59 06:59 06:59 Intake Total 3610 1560 Output Total 4000 1450 Balance -390 110 Weight 103 kg 104.2 kg General appearance: PRESENT: no acute distress, cooperative, well-developed, w ell-nourished - Overweight Head exam: PRESENT: atraumatic, normocephalic Eye exam: PRESENT: conjunctiva pink, EOMI, PERRLA. ABSENT: scleral icterus Ear exam: PRESENT: normal external ear exam Mouth exam: PRESENT: moist, tongue midline Respiratory exam: PRESENT: clear to auscultation brenda, symmetrical, unlabored. ABSENT: rales, rhonchi, wheezes Cardiovascular exam: PRESENT: RRR, +S1, +S2. ABSENT: diastolic murmur, rubs, systolic murmur Vascular exam: PRESENT: normal capillary refill GI/Abdominal exam: PRESENT: ascites, distended, normal bowel sounds, soft. ABSENT: guarding, mass, organolmegaly, rebound, tenderness Rectal exam: PRESENT: deferred Extremities exam: PRESENT: full ROM. ABSENT: calf tenderness, clubbing, pedal edema Musculoskeletal exam: PRESENT: ambulatory Neurological exam: PRESENT: alert, awake, oriented to person, oriented to place, oriented to time, oriented to situation, CN II-XII grossly intact. ABSENT: motor sensory deficit Psychiatric exam: PRESENT: appropriate affect, normal mood. ABSENT: homicidal ideation, suicidal ideation Skin exam: PRESENT: dry, intact, warm. ABSENT: cyanosis, rash Results Laboratory Results: 05/30/19 11:00 05/30/19 06:15 05/30/19 05/30/19 06:15 11:00 Plt Count 142 L Sodium 136.0 L Potassium 4.3 Chloride 109 H Carbon Dioxide 22 Anion Gap 5 BUN 28 H Creatinine 1.51 H Est GFR ( Amer) 57 L Glucose 101 Calcium 7.7 L 05/26/19 09:15 Foot - Diabetic Ulcer Gram Stain - Final 05/26/19 09:15 Foot - Diabetic Ulcer Body Fluid Culture - Final NO AEROBIC OR ANAEROBIC ORGANISMS RECOVERED 05/09/19 05/26/19 16:30 07:58 Creatine Kinase 29 L Troponin I < 0.012 Impressions: Ankle X-Ray 05/09/19 11:34 IMPRESSION: Small joint effusion. No acute fracture. Foot X-Ray 05/09/19 11:34 IMPRESSION: Soft tissue swelling dorsally. No acute fracture or dislocation. Venous Doppler Study 05/09/19 11:34 IMPRESSION: NO EVIDENCE DVT OR SVT IN THE RIGHT LEG. Chest X-Ray 05/09/19 16:17 IMPRESSION: NO ACUTE RADIOGRAPHIC FINDING IN THE CHEST. Lower Extremity MRI 05/09/19 16:39 IMPRESSION: 1. Arthropathy as above may reflect the patient's history of gout. Significant marrow edema in the talus and navicular, lesser changes also in the calcaneus and cuboid. 2. Extensive soft tissue swelling, muscle edema and fluid collections extending up into the calf. While some of the loculated fluid is along tendon sheaths and reflects tenosynovitis, this is not all clearly tendon related fluid. Some of the fluid may be related to other infectious/inflammatory etiology. Shoulder X-Ray 05/09/19 17:48 IMPRESSION: NEGATIVE STUDY OF THE RIGHT SHOULDER. NO RADIOGRAPHIC EVIDENCE OF ACUTE INJURY. Scrotum Ultrasound 05/14/19 00:00 IMPRESSION: . NO EVIDENCE OF TESTICULAR MASS OR TORSION. 5 5 Scrotal wall thickness. Small left hydrocele. Guidance Fluoroscopy 05/17/19 00:00 IMPRESSION: SUCCESSFUL PLACEMENT OF A 5 FR DUAL LUMEN 42 CM PICC IN THE LEFT BASILIC VEIN. Interventional Vascular Procedure 05/17/19 00:00 IMPRESSION: SUCCESSFUL PLACEMENT OF A 5 FR DUAL LUMEN 42 CM PICC IN THE LEFT BASILIC VEIN. PICC Line Insertion 05/17/19 00:00 IMPRESSION: SUCCESSFUL PLACEMENT OF A 5 FR DUAL LUMEN 42 CM PICC IN THE LEFT BASILIC VEIN. Abdomen Ultrasound 05/19/19 00:00 IMPRESSION: 1. Cirrhosis with ascites and splenomegaly. 2. Limited evaluation of the gallbladder, pancreas, and abdominal aorta. 3. No hydronephrosis. Paracentesis Ultrasound 05/26/19 00:00 IMPRESSION: SUCCESSFUL ULTRASOUND GUIDED PARACENTESIS. Assessment and Plan - Diagnosis (1) UNIQUE (acute kidney injury) Is this a current diagnosis for this admission?: Yes Plan: Slight improvement today. Likely ATN related to vancomycin toxicity; Vanc trough level of 32 Cr 0.84-> 1.68-> 1.72-> 1.67-> 1.72-> 1.65-> 1.69-> 1.51 Continue p.o. spironolactone and furosemide. Low threshold for placing these medications on hold. Lisinopril discontinued; transitioned to p.o. amlodipine. Avoid nephrotoxic medications as able. Vancomycin discontinued; have transitioned to daptomycin. Consider nephrology consultation. Follow-up chemistry (2) Septic arthritis Qualifiers: Septic arthritis location: ankle Laterality: right Is this a current diagnosis for this admission?: Yes Plan: Elevated ESR 41 and CRP 141. CRP decreased 41 RPR, Gc/Ch negative. Right lower extremity x-ray negative for osteomyelitis. Right lower extremity venous Doppler negative for DVT. MRI revealed significant marrow edema to the talus, navicular, and calcaneus w/ extensive soft tissue edema and loculated fluid along the tendon sheaths. Blood cultures (05/09/19; 4/4) positive for MRSA Blood culture (05/11/19) positive for MRSA Repeat culture (05/13/2019) are negative to date Now with PICC line Admit to medical floor. Transitioned to Daptomycin, last day of treatment is 06/24/19 Recommend weekly CKP. Appreciate both orthopedics and infectious disease consultations and assistance. Infectious disease reviewed patient's medications; confirms that he requires at minimum, another 2 weeks of IV daptomycin and then may consider transitioning to linezolid. However, they have significant reservations about transitioning to linezolid due to risk for marrow suppression in patient already with anemia and thrombocytopenia. Final recommendations are for the patient to continue daptomycin for a total 6 weeks course of therapy with end date of 06/24/2019. (3) Bacteremia Is this a current diagnosis for this admission?: Yes Plan: Blood cultures from May 13 are negative. Patient will need long-term antibiotics as noted above. Etiology of bacteremia was the septic arth ritis/cellulitis. TTE negative. Infectious disease was consulted; continue IV Daptomycin as above. (4) Ascites Is this a current diagnosis for this admission?: Yes Plan: Secondary to cirrhosis/hepatitis C, and diastolic heart failure. Now s/p paracentesis; 3 L removed Laboratory evaluation is benign. Cytology evaluation is benign. Continue furosemide and spironolactone Have discontinued IV fluids Repeat paracentesis requested Registered dietitian consulted. Outpatient GI follow-up. (5) Hyponatremia Is this a current diagnosis for this admission?: Yes Plan: Overall stable; continue to slight upward trend. Continue fluid restriction of 1.5 L Liberalize dietary sodium. Continue spironolactone and furosemide (6) Leukocytosis Qualifiers: Leukocytosis type: unspecified Qualified Code(s): D72.829 - Elevated white blood cell count, unspecified Is this a current diagnosis for this admission?: Yes Plan: Resolved. Cultures and antibiotics as above. (7) Cellulitis Qualifiers: Site of cellulitis: extremity Site of cellulitis of extremity: lower extremity Laterality: right Qualified Code(s): L03.115 - Cellulitis of right lower limb Is this a current diagnosis for this admission?: Yes Plan: Improved. Antibiotics as above (8) Tobacco abuse Is this a current diagnosis for this admission?: Yes Plan: Smoking cessation encouraged. Nicotine replacement therapies available as needed. Patient is highly motivated to discontinue smoking. (9) Scrotal edema Is this a current diagnosis for this admission?: Yes Plan: Resolved. (10) Chronic diastolic heart failure Is this a current diagnosis for this admission?: Yes Plan: Echocardiogram reveals grade 2/4 diastolic dysfunction. Ejection fraction is normal. No report of pulmonary hypertension. Continue p.o. amlodipine, furosemide and spironolactone Consider lisinopril 2.5 mg daily if renal function improves Continue low dose carvedilol (11) Diabetes mellitus type 2 in nonobese Is this a current diagnosis for this admission?: Yes Plan: Hemoglobin A1c was only 6.2. We will continue diabetic diet. He is currently on insulin sliding scale. Continue low-dose glipizide. The patient has had the opportunity meet with the registered dietitian and environmental educator. (12) Edema due to hypoalbuminemia Is this a current diagnosis for this admission?: Yes Plan: Gradual improvements; secondary to hepatitis C/cirrhosis. Continue fluid restriction. Continue p.o. furosemide and spironolactone. Consider additional IV albumin. Patient has met with the registered dietitian. Outpatient gastroenterology follow-up. [employer]. (13) Hepatitis C antibody positive in blood Is this a current diagnosis for this admission?: Yes Plan: Hepatitis C antibody is positive. HCV RNA PCR [id number] Pt should follow up with GI as outpatient following completion of antibiotic therapy for evaluation for antiviral therapy. (14) Hypoalbuminemia Is this a current diagnosis for this admission?: Yes Plan: Slight improvement. Registered dietitian is consulted. Consider additional IV albumin replacement. Continue furosemide and spironolactone as above. (15) Hypocalcemia Is this a current diagnosis for this admission?: Yes Plan: Corrected calcium for albumin is normal. Continue periodic chemistry evaluation - Plan Summary Summary: Have discussed with discharge planning possible option for patient to be discharged home with PICC line in place and return to [facility] daily for outpatient infusion clinic. Discharge planning will be in touch with the patient's insurance provider to obtain authorization. Infectious disease has advised against transition to linezolid due to patient's anemia and thrombocytopenia. They recommend continuing daptomycin for full course of therapy; last dose 06/24/19 - Time Time Spent with patient: 25-34 minutes Medications reviewed and adjusted accordingly: Yes
--- NOTE | 2019-05-30 15:47 | RADIOLOGY REPORT (SQ) ---
EXAM DESCRIPTION: U/S ABD PARACENTESIS COMPLETED DATE/TIME: 05/30/2019 3:23 pm REASON FOR STUDY: therapeutic paracentesis COMPARISON: 05/26/2019 LIMITATIONS: None. PROCEDURE: Procedure, risks, benefit, and alternative explained to patient who then gave written con sent. The right lower quadrant abdominal wall marked using ultrasound guidance. A time-out was call ed for correct marking verification. Abdomen prepped and draped using sterile technique. Local anest hesia achieved using 10 ml of 1% lidocaine injection. A 6fr [id number]-M-[id number] set was introduced into the peritoneal cavity. Fluid was drained. The catheter was removed and entry site was covered with sterile bandage. No immediate complications noted. Images acquired during the procedure were stored on PACS. FINDINGS: ENTRY SITE: Right lower quadrant FLUID VOLUME: 3750 cc FLUID ANALYSIS: Cloudy yellow OTHER: Therapeutic only. IMPRESSION: SUCCESSFUL ULTRASOUND GUIDED PARACENTESIS. COMMENT: Patient medication list reviewed:Yes- Quality ID# [id number]:Eligible professional attests to docu menting in the medical record they obtained, updated, or reviewed the patient's current medications. TECHNICAL DOCUMENTATION: JOB ID: [id number] [employer]- All Rights Reserved Reading location - IP/workstation name: [email or web address]
[2019-05-31] MEDS: HEPARIN SOD (PORCINE) 5,000 UNIT/ML 1 ML VIAL SUBCUT SCH ×3 (05:11→21:25)
[2019-05-31] MEDS: PANTOPRAZOLE SODIUM 40 MG TABLET.DR PO SCH ×2 (06:12→18:02)
[2019-05-31 06:53] LABS: ANION GAP 5 (5-19); BLOOD UREA NITROGEN 28 mg/dL (7-20); CALCIUM 7.8 mg/dL (8.4-10.2); CARBON DIOXIDE 23 mmol/L (22-30); CHLORIDE 107 mmol/L (98-107); GLUCOSE 103 mg/dL (75-110)
[2019-05-31] MEDS: GLIPIZIDE 5 MG TABLET PO SCH (08:52)
[2019-05-31] MEDS: INSULIN LISPRO 100 UNIT/ML 3 ML VIAL SUBCUT SCH ×4 (08:52→21:25)
[2019-05-31] MEDS: SPIRONOLACTONE 25 MG TABLET PO SCH (11:14)
[2019-05-31] MEDS: CALCIUM CARBONATE 250 MG/VITAMIN D3 125 UNIT TABLET PO SCH (11:14)
[2019-05-31] MEDS: CARVEDILOL 3.125 MG TABLET PO SCH ×2 (11:14→21:29)
[2019-05-31] MEDS: AMLODIPINE BESYLATE 5 MG TABLET PO SCH (11:14)
[2019-05-31] MEDS: FUROSEMIDE 40 MG TABLET PO SCH (11:14)
[2019-05-31] MEDS: DOCUSATE SODIUM 100 MG CAPSULE PO SCH ×2 (11:14→18:02)
[2019-05-31] MEDS: NORMAL SALINE 10 ML SDV (SCHEDULED) IV SCH ×2 (11:15→21:30)
[2019-05-31] MEDS: DAPTOMYCIN 600 MG in NORMAL SALINE 50 ML IV SCH (11:15)
--- NOTE | 2019-05-31 15:43 | PDOC PROGRESS REPORT ---
Subjective Progress Note for:: 05/31/19 Subjective:: The patient is resting in the chair. He reports that he has had a paracentesis x2. He is still making excellent urine. He also remembered where he contracted the hepatitis C virus. It was from his first . He remembers that she had talked about hepatitis C. She stated that she was being treated. I do not know if the antiviral therapies were available in the 1970s. Regardless we are still waiting for the genotype to determine the treatability. Otherwise he has been feeling good. Still weak but improving. Reason For Visit: CELLULITIS,SEPTIC ARTHRITIS Physical Exam Vital Signs: Temp Pulse Resp BP Pulse Ox 98.0 F 83 16 120/84 96 05/31/19 04:13 05/31/19 04:13 05/31/19 04:13 05/31/19 04:13 05/31/19 04:13 Intake & Output 05/30/19 05/31/19 06/01/19 06:59 06:59 06:59 Intake Total 1560 1844 Output Total 1450 2225 Balance 110 -381 Weight 104.2 kg General appearance: PRESENT: no acute distress, cooperative, well-developed Respiratory exam: PRESENT: clear to auscultation brenda, symmetrical, unlabored. ABSENT: rales, rhonchi, tachypnea, wheezes Cardiovascular exam: PRESENT: RRR, +S1, +S2 GI/Abdominal exam: PRESENT: distended, normal bowel sounds, soft. ABSENT: tenderness Extremities exam: PRESENT: joint swelling - Right ankle (kristy wrap and dressing in place), +1 edema Neurological exam: PRESENT: alert, awake, oriented to person, oriented to place, oriented to time, oriented to situation, CN II-XII grossly intact Psychiatric exam: PRESENT: appropriate affect. ABSENT: agitated, anxious Results Laboratory Results: 05/30/19 11:00 05/31/19 06:15 05/31/19 06:15 Sodium 135.0 L Potassium 4.0 Chloride 107 Carbon Dioxide 23 Anion Gap 5 BUN 28 H Creatinine 1.51 H Est GFR ( Amer) 57 L Glucose 103 Calcium 7.8 L 05/09/19 05/26/19 16:30 07:58 Creatine Kinase 29 L Troponin I < 0.012 Impressions: Ankle X-Ray 05/09/19 11:34 IMPRESSION: Small joint effusion. No acute fracture. Foot X-Ray 05/09/19 11:34 IMPRESSION: Soft tissue swelling dorsally. No acute fracture or dislocation. Venous Doppler Study 05/09/19 11:34 IMPRESSION: NO EVIDENCE DVT OR SVT IN THE RIGHT LEG. Chest X-Ray 05/09/19 16:17 IMPRESSION: NO ACUTE RADIOGRAPHIC FINDING IN THE CHEST. Lower Extremity MRI 05/09/19 16:39 IMPRESSION: 1. Arthropathy as above may reflect the patient's history of gout. Significant marrow edema in the talus and navicular, lesser changes also in the calcaneus and cuboid. 2. Extensive soft tissue swelling, muscle edema and fluid collections extending up into the calf. While some of the loculated fluid is along tendon sheaths and reflects tenosynovitis, this is not all clearly tendon related fluid. Some of the fluid may be related to other infectious/inflammatory etiology. Shoulder X-Ray 05/09/19 17:48 IMPRESSION: NEGATIVE STUDY OF THE RIGHT SHOULDER. NO RADIOGRAPHIC EVIDENCE OF ACUTE INJURY. Scrotum Ultrasound 05/14/19 00:00 IMPRESSION: . NO EVIDENCE OF TESTICULAR MASS OR TORSION. 5 5 Scrotal wall thickness. Small left hydrocele. Guidance Fluoroscopy 05/17/19 00:00 IMPRESSION: SUCCESSFUL PLACEMENT OF A 5 FR DUAL LUMEN 42 CM PICC IN THE LEFT BASILIC VEIN. Interventional Vascular Procedure 05/17/19 00:00 IMPRESSION: SUCCESSFUL PLACEMENT OF A 5 FR DUAL LUMEN 42 CM PICC IN THE LEFT BASILIC VEIN. PICC Line Insertion 05/17/19 00:00 IMPRESSION: SUCCESSFUL PLACEMENT OF A 5 FR DUAL LUMEN 42 CM PICC IN THE LEFT BASILIC VEIN. Abdomen Ultrasound 05/19/19 00:00 IMPRESSION: 1. Cirrhosis with ascites and splenomegaly. 2. Limited evaluation of the gallbladder, pancreas, and abdominal aorta. 3. No hydronephrosis. Paracentesis Ultrasound 05/30/19 10:08 IMPRESSION: SUCCESSFUL ULTRASOUND GUIDED PARACENTESIS. Assessment and Plan - Diagnosis (1) UNIQUE (acute kidney injury) Is this a current diagnosis for this admission?: Yes Plan: Secondary to vancomycin. Improving. Avoid nephrotoxic medications. (2) Septic arthritis Qualifiers: Septic arthritis location: ankle Laterality: right Is this a current diagnosis for this admission?: Yes Plan: Continue daptomycin until June 24 (3) Bacteremia Is this a current diagnosis for this admission?: Yes Plan: Resolved (4) Hyponatremia Is this a current diagnosis for this admission?: Yes Plan: Likely secondary to liver failure and ascites. Stable. (5) Leukocytosis Qualifiers: Leukocytosis type: unspecified Qualified Code(s): D72.829 - Elevated white blood cell count, unspecified Is this a current diagnosis for this admission?: Yes Plan: Secondary to infection (6) Cellulitis Qualifiers: Site of cellulitis: extremity Site of cellulitis of extremity: lower extremity Laterality: right Qualified Code(s): L03.115 - Cellulitis of right lower limb Is this a current diagnosis for this admission?: Yes Plan: Resolved (7) Tobacco abuse Is this a current diagnosis for this admission?: Yes Plan: Encourage cessation (8) Scrotal edema Is this a current diagnosis for this admission?: Yes Plan: Secondary to ascites and volume overload. Resolved (9) Hepatitis C antibody positive in blood Is this a current diagnosis for this admission?: Yes Plan: Confirm. Awaiting genotyping for possible treatment (10) Hypocalcemia Is this a current diagnosis for this admission?: Yes Plan: Corrects for low albumin. Stable (11) Hypoalbuminemia Is this a current diagnosis for this admission?: Yes Plan: Secondary to liver disease (12) Edema due to hypoalbuminemia Is this a current diagnosis for this admission?: Yes Plan: Improved (13) Chronic diastolic heart failure Is this a current diagnosis for this admission?: Yes Plan: Stable. Continue current medications (14) Hepatic cirrhosis due to chronic hepatitis C infection Is this a current diagnosis for this admission?: Yes Plan: Stable (15) Diabetes mellitus type 2 in nonobese Is this a current diagnosis for this admission?: Yes Plan: Excellent glucose control. Continue glipizide and diabetic diet. - Plan Summary Summary: Have discussed with discharge planning possible option for patient to be discharged home with PICC line in place and return to [facility] daily for outpatient infusion clinic. Discharge planning will be in touch with the patient's insurance provider to obtain authorization. Infectious disease has advised against transition to linezolid due to patient's anemia and thrombocytopenia. They recommend continuing daptomycin for full course of therapy; last dose 06/24/19 - Time Time Spent with patient: 15-24 minutes Anticipated discharge: Home Within: within 24 hours
--- NOTE | 2019-05-31 20:20 | PDOC PROGRESS REPORT ---
Subjective Subjective:: Patient sitting at bedside. Patient states swelling and pain continue to improve. Has been weightbearing and ambulating. Denies significant changes in terms of his right lower extremity. Continues to have swelling along his abdomen. Reason For Visit: CELLULITIS,SEPTIC ARTHRITIS Physical Exam Vital Signs: Temp Pulse Resp BP Pulse Ox 98.1 F 80 19 130/64 H 100 05/31/19 16:15 05/31/19 16:15 05/31/19 16:15 05/31/19 16:15 05/31/19 16:15 Intake & Output 05/30/19 05/31/19 06/01/19 06:59 06:59 06:59 Intake Total 1560 1844 50 Output Total 1450 2225 Balance 110 -381 50 Weight 104.2 kg Musculoskeletal exam: PRESENT: other - Right lower extremity: Dressing c lean/dry/intact. Previous erythema, swelling and pitting edema significantly improved throughout the right lower extremity. Intact plantarflexion/dorsiflexion. Cap refill less than 2 seconds. Results Laboratory Results: 05/30/19 11:00 05/31/19 06:15 05/31/19 06:15 Sodium 135.0 L Potassium 4.0 Chloride 107 Carbon Dioxide 23 Anion Gap 5 BUN 28 H Creatinine 1.51 H Est GFR ( Amer) 57 L Glucose 103 Calcium 7.8 L 05/09/19 05/26/19 16:30 07:58 Creatine Kinase 29 L Troponin I < 0.012 Impressions: Ankle X-Ray 05/09/19 11:34 IMPRESSION: Small joint effusion. No acute fracture. Foot X-Ray 05/09/19 11:34 IMPRESSION: Soft tissue swelling dorsally. No acute fracture or dislocation. Venous Doppler Study 05/09/19 11:34 IMPRESSION: NO EVIDENCE DVT OR SVT IN THE RIGHT LEG. Chest X-Ray 05/09/19 16:17 IMPRESSION: NO ACUTE RADIOGRAPHIC FINDING IN THE CHEST. Lower Extremity MRI 05/09/19 16:39 IMPRESSION: 1. Arthropathy as above may reflect the patient's history of gout. Significant marrow edema in the talus and navicular, lesser changes also in the calcaneus and cuboid. 2. Extensive soft tissue swelling, muscle edema and fluid collections extending up into the calf. While some of the loculated fluid is along tendon sheaths and reflects tenosynovitis, this is not all clearly tendon related fluid. Some of the fluid may be related to other infectious/inflammatory etiology. Shoulder X-Ray 05/09/19 17:48 IMPRESSION: NEGATIVE STUDY OF THE RIGHT SHOULDER. NO RADIOGRAPHIC EVIDENCE OF ACUTE INJURY. Scrotum Ultrasound 05/14/19 00:00 IMPRESSION: . NO EVIDENCE OF TESTICULAR MASS OR TORSION. 5 5 Scrotal wall thickness. Small left hydrocele. Guidance Fluoroscopy 05/17/19 00:00 IMPRESSION: SUCCESSFUL PLACEMENT OF A 5 FR DUAL LUMEN 42 CM PICC IN THE LEFT BASILIC VEIN. Interventional Vascular Procedure 05/17/19 00:00 IMPRESSION: SUCCESSFUL PLACEMENT OF A 5 FR DUAL LUMEN 42 CM PICC IN THE LEFT BASILIC VEIN. PICC Line Insertion 05/17/19 00:00 IMPRESSION: SUCCESSFUL PLACEMENT OF A 5 FR DUAL LUMEN 42 CM PICC IN THE LEFT BASILIC VEIN. Abdomen Ultrasound 05/19/19 00:00 IMPRESSION: 1. Cirrhosis with ascites and splenomegaly. 2. Limited evaluation of the gallbladder, pancreas, and abdominal aorta. 3. No hydronephrosis. Paracentesis Ultrasound 05/30/19 10:08 IMPRESSION: SUCCESSFUL ULTRASOUND GUIDED PARACENTESIS. Assessment & Plan - Diagnosis (1) Cellulitis Qualifiers: Site of cellulitis: extremity Site of cellulitis of extremity: lower extremity Laterality: right Qualified Code(s): L03.115 - Cellulitis of right lower limb Is this a current diagnosis for this admission?: Yes (2) Abscess of right leg Is this a current diagnosis for this admission?: Yes Plan: status post I&D right lower extremity. 1. Continue daily wet-to-dry dressing changes. 2. Physical therapy weightbearing as tolerated. 3. Patient continues to show clinical improvement. Sutures will be removed by nursing staff. Patient orthopedically stable for discharge. - Time Time Spent with patient: Less than 15 minutes
[2019-06-01] MEDS: HEPARIN SOD (PORCINE) 5,000 UNIT/ML 1 ML VIAL SUBCUT SCH ×2 (05:27→13:01)
[2019-06-01] MEDS: PANTOPRAZOLE SODIUM 40 MG TABLET.DR PO SCH ×2 (05:28→16:57)
[2019-06-01] MEDS: INSULIN LISPRO 100 UNIT/ML 3 ML VIAL SUBCUT SCH ×3 (07:37→16:31)
[2019-06-01] MEDS: GLIPIZIDE 5 MG TABLET PO SCH (08:02)
[2019-06-01] MEDS: SPIRONOLACTONE 25 MG TABLET PO SCH (09:55)
[2019-06-01] MEDS: FUROSEMIDE 40 MG TABLET PO SCH (09:55)
[2019-06-01] MEDS: CALCIUM CARBONATE 250 MG/VITAMIN D3 125 UNIT TABLET PO SCH (09:55)
[2019-06-01] MEDS: CARVEDILOL 3.125 MG TABLET PO SCH (09:55)
[2019-06-01] MEDS: AMLODIPINE BESYLATE 5 MG TABLET PO SCH (09:56)
[2019-06-01] MEDS: DOCUSATE SODIUM 100 MG CAPSULE PO SCH (09:56)
[2019-06-01] MEDS: DAPTOMYCIN 600 MG in NORMAL SALINE 50 ML IV SCH (09:58)
[2019-06-01] MEDS: NORMAL SALINE 10 ML SDV (SCHEDULED) IV SCH (10:00)
[2019-06-01] MEDS: NORMAL SALINE 10 ML SDV (AFTER EACH USE) IV PRN (10:33)
--- NOTE | 2019-06-01 11:01 | PDOC DISCHARGE SUMMARY ---
Impression - Admit/DC Date/PCP Admission Date/Primary Care Provider: 05/09/19 18:02 Discharge Date: 06/01/19 - Discharge Diagnosis (1) UNIQUE (acute kidney injury) Is this a current diagnosis for this admission?: Yes (2) Septic arthritis Is this a current diagnosis for this admission?: Yes (3) Bacteremia Is this a current diagnosis for this admission?: Yes (4) Hyponatremia Is this a current diagnosis for this admission?: Yes (5) Leukocytosis Is this a current diagnosis for this admission?: Yes (6) Cellulitis Is this a current diagnosis for this admission?: Yes (7) Tobacco abuse Is this a current diagnosis for this admission?: Yes (8) Scrotal edema Is this a current diagnosis for this admission?: Yes (9) Hepatitis C antibody positive in blood Is this a current diagnosis for this admission?: Yes (10) Hypocalcemia Is this a current diagnosis for this admission?: Yes (11) Hypoalbuminemia Is this a current diagnosis for this admission?: Yes (12) Edema due to hypoalbuminemia Is this a current diagnosis for this admission?: Yes (13) Chronic diastolic heart failure Is this a current diagnosis for this admission?: Yes (14) Hepatic cirrhosis due to chronic hepatitis C infection Is this a current diagnosis for this admission?: Yes (15) Diabetes mellitus type 2 in nonobese Is this a current diagnosis for this admission?: Yes - Assessment Summary: Have discussed with discharge planning possible option for patient to be discharged home with PICC line in place and return to [facility] daily for outpatient infusion clinic. Discharge planning will be in touch with the patient's [place] [facility] provider to obtain authorization. Infectious disease has advised against transition to linezolid due to patient's anemia and thrombocytopenia. They recommend continuing daptomycin for full c ourse of therapy; last dose 06/24/19 - Additional Information Resuscitation Status: Full Code Discharge Diet: Cardiac, Diabetic, Other (Comments) - 1.5 L fluid restriction Discharge Activity: Activity As Tolerated Referrals: [place] [Outside] [facility] [Outside] KRUPA ABERNATHY MD [COMMUNITY BASED STAFF] - 06/09/19 2:00 pm RENATA RINALDI MD [ACTIVE STAFF] - 08/01/19 1:45 pm FATOU RYAN DO [ACTIVE STAFF] - 06/06/19 1:20 pm Prescriptions: Spironolactone [Aldactone 25 mg Tablet] 100 mg PO DAILY 15 Days #15 tablet Carvedilol [Coreg 3.125 mg Tablet] 3.125 mg PO Q12 15 Days #30 tablet Glipizide [Glucotrol 5 mg Tablet] 5 mg PO QAM 15 Days #15 tablet Furosemide [Lasix 40 mg Tablet] 40 mg PO DAILY 15 Days #15 tablet Amlodipine Besylate [Norvasc 5 mg Tablet] 5 mg PO DAILY 15 Days #15 tablet Pantoprazole Sodium [Protonix [address] Tablet] 40 mg PO BID@0600,1700 15 Days #15 tablet.dr Home Medications: Amlodipine Besylate [Norvasc 5 mg Tablet] 5 mg PO DAILY 15 Days #15 tablet 06/01/19 Calcium Carbonate/Vitamin D3 [Os-Angel 250 mg with Vitamin D 125 Units] 1 tab PO DAILY tablet 06/01/19 Carvedilol [Coreg 3.125 mg Tablet] 3.125 mg PO Q12 15 Days #30 tablet 06/01/19 Daptomycin [Cubicin Inj 500 mg Vial] 600 mg IV DAILY vial 06/01/19 Docusate Sodium [Colace 100 mg Capsule] 100 mg PO BID capsule 06/01/19 Furosemide [Lasix 40 mg Tablet] 40 mg PO DAILY 15 Days #15 tablet 06/01/19 Glipizide [Glucotrol 5 mg Tablet] 5 mg PO QAM 15 Days #15 tablet 06/01/19 Nicotine [Nicoderm 14 mg/24 Hr Transdermal Patch] 1 each TD DAILYP PRN patch.td24 06/01/19 Pantoprazole Sodium [Protonix [address] Tablet] 40 mg PO BID@0600,1700 15 Days #15 tablet.dr 06/01/19 Spironolactone [Aldactone 25 mg Tablet] 100 mg PO DAILY 15 Days #15 tablet 06/01/19 History of Present Illiness History of Present Illness: RENATA STRICKLAND is a 64 year old male who has not seen a physician in 40 years. He had hit his leg and was evaluated in the emergency department and given antibiotic therapy. Despite outpatient antibiotics the patient's leg worsen. When he returned he had an abscess on his foot and was found to have septic arthritis in the right ankle. In addition he was found to have an abnormal hemoglobin A1c, hypertension, marked ascites, anasarca, cirrhotic changes of the liver and hepatitis C. He was admitted. Surgical intervention for his right foot was provided. He was admitted to the hospitalist service for ongoing treatment of the infection as well as investigation of the other comorbidities. Hospital Course Hospital Course: The patient had a prolonged hospital course MRSA abscess with septic arthritis right ankle-PICC line was placed. Prolonged therapy with vancomycin. Unfortunately the patient began to experience an acute kidney injury. The vancomycin was changed to daptomycin. The patient still needs 3 weeks of therapy (through June 24) to complete treatment. This will be on an outpatient basis. Hepatitis C-the patient was cirrhotic, had ascites and anasarca. Investigations revealed hepatitis C. He believes he contracted it from his first . With multiple medication changes, aggressive diuresis with the use of intravenous albumin, fluid restriction and paracentesis x2 the patient is markedly improved. I have referred him to gastroenterology as an outpatient to assess possible treatments for his hepatitis C and ongoing management of his liver disease. Hypertension-it is unclear when the patient developed hypertension since he had not been to see a physician in 40+ years. He will discharge on the ant ihypertensive regimen outlined above. His blood pressure has exhibited good control. Diabetes mellitus type 2-his hemoglobin A1c was 6.3 on admission. With the infection his serum glucose levels increased significantly. Over time, with diabetic diet and low-dose glipizide, he is able to maintain good control. He will continue this regimen as an outpatient. Physical Exam Vital Signs: Temp Pulse Resp BP Pulse Ox 97.5 F 79 18 101/55 L 98 06/01/19 07:50 06/01/19 07:50 06/01/19 07:50 06/01/19 07:50 06/01/19 07:50 Intake & Output 05/31/19 06/01/19 06/02/19 06:59 06:59 06:59 Intake Total 1844 450 50 Output Total 2221 1450 Balance -381 -1000 50 Weight 96.3 kg General appearance: PRESENT: no acute distress, well-developed Respiratory exam: PRESENT: clear to auscultation brenda, symmetrical, unlabored. ABSENT: accessory muscle use, rales, rhonchi, tachypnea, wheezes Cardiovascular exam: PRESENT: RRR, +S1, +S2 GI/Abdominal exam: PRESENT: distended, normal bowel sounds, soft. ABSENT: tenderness Rectal exam: PRESENT: deferred Gentrourinary exam: PRESENT: scrotal swelling - Marked improvement in scrotal swelling Extremities exam: PRESENT: +1 edema, other - Dressing on right ankle Musculoskeletal exam: PRESENT: ambulatory Neurological exam: PRESENT: alert, awake, oriented to person, oriented to place, oriented to time, oriented to situation, CN II-XII grossly intact Psychiatric exam: PRESENT: appropriate affect. ABSENT: agitated, anxious Focused psych exam: ABSENT: delusional, restlessness Skin exam: PRESENT: dry, normal color, warm. ABSENT: rash Results Laboratory Results: WBC 7.4 10^3/uL (4.0-10.5) 05/24/19 05:40 RBC 2.72 10^6/uL (4.35-5.55) L 05/24/19 05:40 Hgb 9.1 g/dL (13.5-17.0) L 05/24/19 05:40 Hct 26.2 % (37.9-51.0) L 05/24/19 05:40 MCV 96 fl (80-97) 05/24/19 05:40 MCH 33.4 pg (27.0-33.4) 05/24/19 05:40 MCHC 34.8 g/dL (32.0-36.0) 05/24/19 05:40 RDW 15.9 % (11.5-14.0) H 05/24/19 05:40 Plt Count 142 10^3/uL (150-450) L 05/30/19 11:00 Lymph % (Auto) 10.4 % (13-45) L 05/13/19 06:01 [place] % (Auto) 4.6 % (3-13) 05/13/19 06:01 Eos % (Auto) 0.8 % (0-6) 05/13/19 06:01 Baso % (Auto) 0.4 % (0-2) 05/13/19 06:01 Absolute Neuts (auto) 8.7 10^3/uL (1.7-8.2) H 05/13/19 06:01 Absolute Lymphs (auto) 1.1 10^3/uL (0.5-4.7) 05/13/19 06:01 Absolute Monos (auto) 0.5 10^3/uL (0.1-1.4) 05/13/19 06:01 Absolute Eos (auto) 0.1 10^3/uL (0.0-0.6) 05/13/19 06:01 Absolute Basos (auto) 0.0 10^3/uL (0.0-0.2) 05/13/19 06:01 Total Counted 100 05/09/19 12:28 Seg Neutrophils % 83.8 % (42-78) H 05/13/19 06:01 Seg Neuts % (Manual) 89 % (42-78) H 05/09/19 12:28 Band Neutrophils % 1 % (3-5) L 05/09/19 12:28 Lymphocytes % (Manual) 4 % (13-45) L 05/09/19 12:28 Monocytes % (Manual) 6 % (3-13) 05/09/19 12:28 Eosinophils % (Manual) 0 % (0-6) 05/09/19 12:28 Basophils % (Manual) 0 % (0-2) 05/09/19 12:28 Abs Neuts (Manual) 19.4 10^3/uL (1.7-8.2) H 05/09/19 12:28 Abs Lymphs (Manual) 0.9 10^3/uL (0.5-4.7) 05/09/19 12:28 Abs Monocytes (Manual) 1.3 10^3/uL (0.1-1.4) 05/09/19 12:28 Absolute Eos (Manual) 0.0 10^3/uL (0.0-0.6) 05/09/19 12:28 Abs Basophils (Manual) 0.0 10^3/uL (0.0-0.2) 05/09/19 12:28 Toxic Granulation SLIGHT 05/09/19 12:28 Toxic Vacuolation PRESENT 05/09/19 12:28 Clumped Platelets PRESENT 05/09/19 12:28 Platelet Comment ADEQUATE 05/09/19 12:28 Anisocytosis SLIGHT 05/09/19 12:28 ESR 46 mm/hr (0-20) H 05/24/19 05:40 PT 16.1 SEC (11.4-15.4) H 05/30/19 11:45 INR 1.28 05/30/19 11:45 INR (Anticoag Therapy) Cancelled 05/30/19 11:00 APTT 28.0 SEC (23.5-35.8) 05/30/19 11:45 VBG pH 7.42 (7.30-7.42) 05/09/19 16:30 VBG pCO2 41.0 mmHg (35-63) 05/09/19 16:30 VBG HCO3 26.2 mmol/L (20-32) 05/09/19 16:30 VBG Base Excess 1.7 mmol/L 05/09/19 16:30 Sodium 135.0 mmol/L (137-145) L 05/31/19 06:15 Potassium 4.0 mmol/L (3.6-5.0) 05/31/19 06:15 Chloride 107 mmol/L (98-107) 05/31/19 06:15 Carbon Dioxide 23 mmol/L (22-30) 05/31/19 06:15 Anion Gap 5 (5-19) 05/31/19 06:15 BUN 28 mg/dL (7-20) H 05/31/19 06:15 Creatinine 1.51 mg/dL (0.52-1.25) H 05/31/19 06:15 Est GFR ( Amer) 57 (>60) L 05/31/19 06:15 Est GFR (MDRD) Non-Af 47 (>60) L 05/31/19 06:15 Glucose 103 mg/dL (75-110) 05/31/19 06:15 POC Glucose 112 mg/dL (70-110) H 06/01/19 06:30 Hemoglobin A1c % 6.3 % (4.7-6.0) H 05/09/19 16:30 Lactic Acid 2.4 mmol/L (0.7-2.1) H 05/09/19 16:30 Lactic Acid (Sepsis) 2.5 mmol/L (0.7-2.1) H 05/09/19 12:28 Calcium 7.8 mg/dL (8.4-10.2) L 05/31/19 06:15 Phosphorus 3.9 mg/dL (2.5-4.5) 05/22/19 06:05 Magnesium 1.6 mg/dL (1.6-2.3) 05/21/19 05:54 Total Bilirubin 0.9 mg/dL (0.2-1.3) 05/24/19 05:40 Direct Bilirubin 0.3 mg/dL (0.0-0.4) 05/24/19 05:40 Neonat Total Bilirubin Not Reportable 05/24/19 05:40 Neonat Direct Bilirubin Not Reportable 05/24/19 05:40 Neonat Indirect Bili Not Reportable 05/24/19 05:40 AST 44 U/L (17-59) 05/24/19 05:40 ALT 28 U/L (<50) 05/24/19 05:40 Alkaline Phosphatase 71 U/L (38-126) 05/24/19 05:40 Ammonia < 8.7 umol/L (9-33) L 05/21/19 07:20 Creatine Kinase 29 U/L (55-170) L 05/26/19 07:58 Troponin I < 0.012 ng/mL 05/09/19 16:30 C-Reactive Protein 41.0 mg/L (<10.0) H 05/24/19 05:40 Total Protein 5.5 g/dL (6.3-8.2) L 05/24/19 05:40 Albumin 2.1 g/dL (3.5-5.0) L 05/24/19 05:40 Lipase 145.9 U/L (23-300) 05/09/19 16:30 Urine Color YELLOW 05/19/19 02:26 Urine Appearance CLOUDY 05/19/19 02:26 Urine pH 6.0 (5.0-9.0) 05/19/19 02:26 Ur Specific [place] 1.012 05/19/19 02:26 Urine Protein NEGATIVE mg/dL (NEGATIVE) 05/19/19 02:26 Urine Glucose (UA) NEGATIVE mg/dL (NEGATIVE) 05/19/19 02:26 Urine Ketones NEGATIVE mg/dL (NEGATIVE) 05/19/19 02:26 Urine Blood SMALL (NEGATIVE) H 05/19/19 02:26 Urine Nitrite NEGATIVE (NEGATIVE) 05/19/19 02:26 Urine Nitrite (Reflex) POSITIVE (NEGATIVE) H 05/09/19 16:50 Urine Bilirubin NEGATIVE (NEGATIVE) 05/19/19 02:26 Urine Urobilinogen NEGATIVE mg/dL (<2.0) 05/19/19 02:26 Ur Leukocyte Esterase NEGATIVE (NEGATIVE) 05/19/19 02:26 Leukocyte Esterase Rfl LARGE (NEGATIVE) H 05/09/19 16:50 Urine WBC (Auto) 1 /HPF 05/19/19 02:26 Urine RBC (Auto) 1 /HPF 05/19/19 02:26 Urine Bacteria (Auto) TRACE /HPF 05/19/19 02:26 Urine WBC (Reflex) > 182 /HPF 05/09/19 16:50 Urine WBC Clumps MOD /HPF 05/09/19 16:50 U Non-Squamous Epis Auto 1 /HPF 05/09/19 16:50 Urine Mucus (Auto) RARE /LPF 05/19/19 02:26 Urine Ascorbic Acid NEGATIVE (NEGATIVE) 05/19/19 02:26 Fluid Type PERITONEAL 05/26/19 09:15 Fluid Source ABDOMEN 05/26/19 09:15 Fluid Color STRAW 05/26/19 09:15 Fluid Appearance CLEAR 05/26/19 09:15 Fluid Viscosity LIQUID 05/26/19 09:15 Fluid WBC 142 /uL 05/26/19 09:15 Fluid RBC 41 /uL 05/26/19 09:15 Fluid Seg Neutrophils 31 % 05/26/19 09:15 Fluid Lymphocytes 28 % 05/26/19 09:15 Fluid Monocytes 41 % 05/26/19 09:15 Fluid Eosinophils 0 % 05/26/19 09:15 Fluid Basophils 0 % 05/26/19 09:15 Time Trough Drawn 0950 05/25/19 09:50 Vancomycin Trough 25.4 ug/mL (5.0-20.0) H 05/25/19 09:50 RPR NONREACTIVE (NONREACTIVE) 05/09/19 16:30 Chlamydia DNA (PCR) NOT DETECTED (NOT DETECT) 05/10/19 02:46 Hepatitis A IgM Ab Negative (Negative) 05/09/19 16:30 Hep Bs Antigen Negative (Negative) 05/09/19 16:30 Hep B Core IgM Ab Negative (Negative) 05/09/19 16:30 Hepatitis C Antibody >11.0 s/co ratio (0.0-0.9) H 05/09/19 16:30 HCV RNA Quant (PCR) [id number] IU/mL (.) 05/17/19 04:41 HCV RNA (PCR) IU log10 6.076 (.) 05/17/19 04:41 Hepatitis C Genotype Comment (.) 05/17/19 04:41 HIV 1&2 Antibody NEGATIVE (NEGATIVE) 05/09/19 16:30 N.gonorrhoeae DNA (PCR) NOT DETECTED (NOT DETECT) 05/10/19 02:46 05/09/19 16:30 Troponin I < 0.012 Impressions: Ankle X-Ray 05/09/19 11:34 IMPRESSION: Small joint effusion. No acute fracture. Foot X-Ray 05/09/19 11:34 IMPRESSION: Soft tissue swelling dorsally. No acute fracture or dislocation. Venous Doppler Study 05/09/19 11:34 IMPRESSION: NO EVIDENCE DVT OR SVT IN THE RIGHT LEG. Chest X-Ray 05/09/19 16:17 IMPRESSION: NO ACUTE RADIOGRAPHIC FINDING IN THE CHEST. Lower Extremity MRI 05/09/19 16:39 IMPRESSION: 1. Arthropathy as above may reflect the patient's history of gout. Significant marrow edema in the talus and navicular, lesser changes also in the calcaneus and cuboid. 2. Extensive soft tissue swelling, muscle edema and fluid collections extending up into the calf. While some of the loculated fluid is along tendon sheaths and reflects tenosynovitis, this is not all clearly tendon related fluid. Some of the fluid may be related to other infectious/inflammatory etiology. Shoulder X-Ray 05/09/19 17:48 IMPRESSION: NEGATIVE STUDY OF THE RIGHT SHOULDER. NO RADIOGRAPHIC EVIDENCE OF ACUTE INJURY. Scrotum Ultrasound 05/14/19 00:00 IMPRESSION: . NO EVIDENCE OF TESTICULAR MASS OR TORSION. 5 5 Scrotal wall thickness. Small left hydrocele. Guidance Fluoroscopy 05/17/19 00:00 IMPRESSION: SUCCESSFUL PLACEMENT OF A 5 FR DUAL LUMEN 42 CM PICC IN THE LEFT BASILIC VEIN. Interventional Vascular Procedure 05/17/19 00:00 IMPRESSION: SUCCESSFUL PLACEMENT OF A 5 FR DUAL LUMEN 42 CM PICC IN THE LEFT BASILIC VEIN. PICC Line Insertion 05/17/19 00:00 IMPRESSION: SUCCESSFUL PLACEMENT OF A 5 FR DUAL LUMEN 42 CM PICC IN THE LEFT BASILIC VEIN. Abdomen Ultrasound 05/19/19 00:00 IMPRESSION: 1. Cirrhosis with ascites and splenomegaly. 2. Limited evaluation of the gallbladder, pancreas, and abdominal aorta. 3. No hydronephrosis. Paracentesis Ultrasound 05/26/19 00:00 IMPRESSION: SUCCESSFUL ULTRASOUND GUIDED PARACENTESIS. Paracentesis Ultrasound 05/30/19 10:08 IMPRESSION: SUCCESSFUL ULTRASOUND GUIDED PARACENTESIS. Plan Health Concerns: New discovery of hypertension, diabetes, hepatitis C with cirrhosis and ascites. Septic arthritis and bacteremia from methicillin-resistant staph aureus. Plan of Treatment: As outlined above Goals: Resolution of septic arthritis with prolonged IV antibiotic therapy. Establish relationship with gastroenterology for treatment of hepatitis C and cirrhosis. Establish with a primary care provider to monitor diabetes, hypertension and provide consistent health care for the patient. Time Spent: Greater than 30 Minutes Stroke Is this a Stroke Patient?: No Acute Heart Failure - Is this a Heart Failure Patient?: No
[2019-06-01 16:46] VITALS: BP 103/50
== END 2019-06-01 17:00 | disposition home health service (06) | DRG 549 ==
LOC: ER 09:51 → EH 18:02 → 4S 19:20
PROVIDERS: ADMIT Internal Medicine; ATTEND Internal Medicine
PROC: 3E1U38X Irrigation of Joints using Irrigating Substance, Percutaneous Approach, Diagnostic (ICD-10-PCS; 2019-05-10)
PROC: 3E1038X Irrigation of Skin and Mucous Membranes using Irrigating Substance, Percutaneous Approach, Diagnostic (ICD-10-PCS; principal; 2019-05-10 19:00)
PROC: 02HV33Z Insertion of Infusion Device into Superior Vena Cava, Percutaneous Approach (ICD-10-PCS; 2019-05-17)
PROC: B518ZZA Fluoroscopy of Superior Vena Cava, Guidance (ICD-10-PCS; 2019-05-17)
PROC: B548ZZA Ultrasonography of Superior Vena Cava, Guidance (ICD-10-PCS; 2019-05-17)
PROC: 0W9G3ZX Drainage of Peritoneal Cavity, Percutaneous Approach, Diagnostic (ICD-10-PCS; 2019-05-26)
PROC: 0W9G3ZX Drainage of Peritoneal Cavity, Percutaneous Approach, Diagnostic (ICD-10-PCS; 2019-05-30)
DX: M00.071 Staphylococcal arthritis, right ankle and foot (principal); L03.115 Cellulitis of right lower limb; E87.1 Hypo-osmolality and hyponatremia; R78.81 Bacteremia; L02.415 Cutaneous abscess of right lower limb; I50.32 Chronic diastolic (congestive) heart failure; N17.9 Acute kidney failure, unspecified; R18.8 Other ascites; E11.65 Type 2 diabetes mellitus with hyperglycemia; I11.0 Hypertensive heart disease with heart failure; B95.62 Methicillin resistant Staphylococcus aureus infection as the cause of diseases classified elsewhere; E83.51 Hypocalcemia; E88.09 Other disorders of plasma-protein metabolism, not elsewhere classified; N50.89 Other specified disorders of the male genital organs; K74.69 Other cirrhosis of liver; B18.2 Chronic viral hepatitis C; M19.90 Unspecified osteoarthritis, unspecified site; F17.210 Nicotine dependence, cigarettes, uncomplicated
CPT/HCPCS: 01470; 36415; 36569; 49083; 71046; 76700; 76870; 76937; 77001; 80048; 80053; 80069; 80074; 80202; 81001; 82140; 82550; 82565; 82803; 82962; 83036; 83605; 83690; 83735; 84484; 85025; 85027; 85049; 85610; 85652; 85730; 86140; 86592; 86701; 87040; 87070; 87075; 87077; 87101; 87150; 87186; 87205; 87491; 87522; 87591; 89050; 93005; 93010; 93306; 93971; 93976; 94640; 94799; 96361; 96365; 96375; 99285; J0692; J0878; J1100; J1642; J1644; J1815; J1885; J2250; J2405; J2543; J2704; J2765; J3010; J3370; J3490; J7030; J7050; J7060; J7620; P9047; S0028

== ENCOUNTER → 2019-06-10 | Outpatient (CLI) | payer BC ==
[2019-06-10 08:12] LABS: ABSOLUTE BASOPHILS # (AUTO) 0.1 10^3/uL (0.0-0.2); ABSOLUTE EOSINOPHILS # (AUTO) 0.9 10^3/uL (0.0-0.6); ABSOLUTE LYMPHOCYTES (AUTO) 1.1 10^3/uL (0.5-4.7); ABSOLUTE MONOCYTES (AUTO) 0.7 10^3/uL (0.1-1.4); ABSOLUTE NEUT (AUTO) 3.7 10^3/uL (1.7-8.2); BASOPHILS % (AUTO) 1.9 % (0-2); EOSINOPHILS % (AUTO) 14.3 % (0-6); HEMATOCRIT 26.4 % (37.9-51.0); HEMOGLOBIN 9.2 g/dL (13.5-17.0); LYMPHOCYTES % (AUTO) 16.6 % (13-45); MEAN CORPUSCULAR HEMOGLOBIN 33.3 pg (27.0-33.4); MEAN CORPUSCULAR VOLUME 95 fl (80-97); PLATELET COUNT 105 10^3/uL (150-450); RED BLOOD COUNT 2.77 10^6/uL (4.35-5.55); RED CELL DISTRIBUTION WIDTH 16.5 % (11.5-14.0); SEGMENTED NEUTROPHILS % (AUTO) 56.2 % (42-78); TOTAL CELLS COUNTED % (AUTO) 100 %; WHITE BLOOD COUNT 6.5 10^3/uL (4.0-10.5)
[2019-06-10 08:40] LABS: ALBUMIN 2.7 g/dL (3.5-5.0); ALKALINE PHOSPHATASE 84 U/L (38-126); ANION GAP 9 (5-19); ASPARTATE AMINO TRANSFERASE 40 U/L (17-59); BILIRUBIN,DIRECT 0.5 mg/dL (0.0-0.4); BLOOD UREA NITROGEN 17 mg/dL (7-20); CALCIUM 8.2 mg/dL (8.4-10.2); CARBON DIOXIDE 22 mmol/L (22-30); CHLORIDE 104 mmol/L (98-107); CHOLESTEROL 116.97 mg/dL (0-200); GLUCOSE 103 mg/dL (75-110); POTASSIUM 3.8 mmol/L (3.6-5.0); TOTAL PROTEIN 7.2 g/dL (6.3-8.2); TRIGLYCERIDES 73 mg/dL (<150)
[2019-06-10 08:50] LABS: DIRECT LDL 57 mg/dL (<100)
--- NOTE | 2019-06-10 09:30 | RADIOLOGY REPORT (SQ) ---
EXAM DESCRIPTION: SHOULDER RIGHT 2 OR MORE VIEWS COMPLETED DATE/TIME: 06/10/2019 8:06 am REASON FOR STUDY: PAIN IN RIGHT SHOULDER E11.9 TYPE 2 DIABETES MELLITUS WITHOUT COMPLICATIONS E78.5 HYPERLIPIDEMIA, UNSPECIFIED I50.30 UNSPECIFIED DIASTOLIC (CONGESTIVE) HEART FAILURE COMPARISON: Plain films of the right shoulder dated 05/09/2019 NUMBER OF VIEWS: Three views. TECHNIQUE: Internal rotation, external rotation, and Y view images acquired of the right shoulder. LIMITATIONS: None. FINDINGS: MINERALIZATION: Normal. BONES: No acute fracture. No worrisome bone lesions. JOINTS: No dislocation. VISUALIZED LUNGS AND RIBS: No pneumothorax. No rib fracture. SOFT TISSUES: No radiopaque foreign body. OTHER: No other significant finding. IMPRESSION: 1. No significant interval changes since the prior study dated 05/09/2019. No acute os seous findings. 2. If clinically indicated, additional imaging may be helpful. TECHNICAL DOCUMENTATION: JOB ID: [id number] [employer]- All Rights Reserved Reading location - IP/workstation name: [email or web address]
[2019-06-11 13:36] LABS: CREATININE URINE 82.1 mg/dL (Not Estab.); MICROALBUMIN URINE 5.2 ug/mL (Not Estab.)
== END ==
LOC: OD 07:28
PROVIDERS: ATTEND Family Medicine Geriatric Medicine
DX: M25.511 Pain in right shoulder (principal); E11.9 Type 2 diabetes mellitus without complications; E78.5 Hyperlipidemia, unspecified; I50.30 Unspecified diastolic (congestive) heart failure; K74.60 Unspecified cirrhosis of liver; Z79.899 Other long term (current) drug therapy
CPT/HCPCS: 36415; 80053; 80061; 82043; 82140; 82570; 83036; 84443; 85025

== ENCOUNTER → 2019-06-27 | Outpatient (CLI) | payer BC | LOC: OD 07:20 | PROVIDERS: ATTEND Family Medicine Geriatric Medicine | DX: E05.90 Thyrotoxicosis, unspecified without thyrotoxic crisis or storm (principal); L02.415 Cutaneous abscess of right lower limb | CPT/HCPCS: 36415; 84443; 87015; 87070; 87075; 87101; 87116; 87205; 87206 ==

== ENCOUNTER → 2019-06-29 | Outpatient (CLI) | payer BC ==
[2019-06-29 16:16] LABS: ABSOLUTE EOSINOPHILS # (AUTO) 0.3 10^3/uL (0.0-0.6); ABSOLUTE LYMPHOCYTES (AUTO) 0.9 10^3/uL (0.5-4.7); ABSOLUTE MONOCYTES (AUTO) 0.5 10^3/uL (0.1-1.4); ABSOLUTE NEUT (AUTO) 3.5 10^3/uL (1.7-8.2); BASOPHILS % (AUTO) 0.8 % (0-2); EOSINOPHILS % (AUTO) 5.4 % (0-6); HEMATOCRIT 23.9 % (37.9-51.0); HEMOGLOBIN 8.6 g/dL (13.5-17.0); LYMPHOCYTES % (AUTO) 17.8 % (13-45); MEAN CORPUSCULAR HGB CONC 35.7 g/dL (32.0-36.0); MEAN CORPUSCULAR VOLUME 93 fl (80-97); MONOCYTES % (AUTO) 9.7 % (3-13); PLATELET COUNT 135 10^3/uL (150-450); RED BLOOD COUNT 2.59 10^6/uL (4.35-5.55); RED CELL DISTRIBUTION WIDTH 15.8 % (11.5-14.0); SEGMENTED NEUTROPHILS % (AUTO) 66.3 % (42-78); TOTAL CELLS COUNTED % (AUTO) 100 %; WHITE BLOOD COUNT 5.2 10^3/uL (4.0-10.5)
[2019-06-29 16:44] LABS: ALBUMIN 2.6 g/dL (3.5-5.0); ALKALINE PHOSPHATASE 102 U/L (38-126); ANION GAP 7 (5-19); ASPARTATE AMINO TRANSFERASE 30 U/L (17-59); BILIRUBIN,DIRECT 0.3 mg/dL (0.0-0.4); BILIRUBIN,TOTAL 0.5 mg/dL (0.2-1.3); BLOOD UREA NITROGEN 14 mg/dL (7-20); C-REACTIVE PROTEIN 12.9 mg/L (<10.0); CALCIUM 8.6 mg/dL (8.4-10.2); CARBON DIOXIDE 25 mmol/L (22-30); CHLORIDE 101 mmol/L (98-107); GLUCOSE 132 mg/dL (75-110); TOTAL PROTEIN 6.9 g/dL (6.3-8.2)
[2019-06-29 16:47] LABS: CREATINE KINASE < 20 U/L (55-170)
[2019-06-29 16:56] LABS: ERYTHROCYTE SEDIMENTATION RATE 82 mm/hr (0-20)
--- NOTE | 2019-06-29 23:53 | RADIOLOGY REPORT (SQ) ---
EXAM DESCRIPTION: MR LOWER EXTREMITY WITHOUT THEN WITH IV CONTRAST COMPLETED DATE/TME: 06/29/2019 18:20 CLINICAL HISTORY: 64 years, Male, L02.415 CUTANEOUS ABSCESS OF RIGHT LOWER LIMB COMPARISON: None. TECHNIQUE: Multiplanar MR sequences were obtained from the right knee to the lower leg before and after the administration of 15 mL of IV Dotarem. 432 images stored on PACS. FINDINGS: Evaluation of the right knee is limited by the large field of view utilized. There is moderate narrowing of the anterior medial aspect of the medial femorotibial compartment with partial subluxation of the anterior horn and body of the meniscus out of the joint. There is a radial tear of the body of the medial meniscus and a tear of the outer to mid zone of the posterior horn. The medial and lateral collateral ligaments and anterior and posterior cruciate ligaments are intact. No fracture or subluxation is noted. There is nonspecific subcutaneous edema of the visualized portions of the right leg diffusely suggestive of a cellulitis. No focal abscess is identified. No changes of osteomyelitis are seen. IMPRESSION: Probable diffuse cellulitis of the right leg. No abscess or changes of osteomyelitis are identified. DJD of the medial femorotibial compartment. Tear of the body and posterior horn of the medial meniscus.
--- NOTE | 2019-06-30 01:26 | RADIOLOGY REPORT (SQ) ---
EXAM DESCRIPTION: MRI OF THE RIGHT ANKLE/HINDFOOT WITHOUT AND WITH IV CONTRAST CLINICAL HISTORY: 64 years Male L02.415 CUTANEOUS ABSCESS OF RIGHT LOWER LIMB COMPARISON: None TECHNIQUE: Multiplanar MR sequences of the right ankle, hindfoot and midfoot were obtained before and after the administration of 15 mL of IV Dotarem. FINDINGS: There is a small osteochondral lesion along the distal anterolateral weightbearing tibia and marrow edema along the lateral to posterolateral talar body probably sparing the tibiotalar articulating surface and located at the level of the talofibular articulation. There is nonspecific marrow edema of the lower leg, ankle and foot. No changes of osteomyelitis of the distal tibia or fibula are seen. No discrete abscess or draining sinus tracts are noted. There is diffuse marrow edema in the distal half of the talus including a prominent distal dorsal spur and most of the navicular sparing the plantar medial third. There is patchy marrow edema in the distal one third to one half of the calcaneus and proximal two thirds of the cuboid. There is much adjacent soft tissue edema but no cortical erosive change that would suggest osteomyelitis. There are prominent degenerative changes of the talonavicular joint and at least moderate degenerative changes of the calcaneocuboid joint. There are moderate degenerative changes of the middle talocalcaneal joint. The cuneiforms are unremarkable. No abnormalities of the tarsometatarsal joints are noted. There is an old fracture deformity of the proximal to mid shaft of the second metatarsal. No abnormalities of the Achilles or other visualized tendons are noted. There is a small posterior calcaneal enthesophyte. No significant abnormalities of the plantar fascia are noted; although, the fascia is starting to slightly bulge caudally. No rocker-bottom foot deformity is yet seen. No ligamentous tears are seen. IMPRESSION: 1. The findings are consistent with Charcot arthropathy of the hindfoot and midfoot as detailed above. Suggest complete off loading to prevent collapse. 2. Probable cellulitis. No evidence of osteomyelitis. Note: The case was discussed with Ja LY at 0020 hours central time on 06/30/2019.
== END ==
LOC: RAD 18:12
PROVIDERS: ATTEND Orthopaedic Surgery
DX: L02.415 Cutaneous abscess of right lower limb (principal)
CPT/HCPCS: 36415; 82550; 85025; 85652; 86140; 80053; 73720; A9576

== ENCOUNTER → 2019-08-03 | Outpatient (CLI) | payer BC ==
[2019-08-03 11:36] LABS: HEMATOCRIT 32.8 % (37.9-51.0); HEMOGLOBIN 11.3 g/dL (13.5-17.0); MEAN CORPUSCULAR HEMOGLOBIN 32.8 pg (27.0-33.4); MEAN CORPUSCULAR HGB CONC 34.4 g/dL (32.0-36.0); MEAN CORPUSCULAR VOLUME 95 fl (80-97); PLATELET COUNT 212 10^3/uL (150-450); RED BLOOD COUNT 3.44 10^6/uL (4.35-5.55); RED CELL DISTRIBUTION WIDTH 15.4 % (11.5-14.0); WHITE BLOOD COUNT 7.3 10^3/uL (4.0-10.5)
[2019-08-03 12:09] LABS: ALBUMIN 3.5 g/dL (3.5-5.0); ALKALINE PHOSPHATASE 121 U/L (38-126); ANION GAP 8 (5-19); ASPARTATE AMINO TRANSFERASE 54 U/L (17-59); BILIRUBIN,DIRECT 0.1 mg/dL (0.0-0.4); BILIRUBIN,TOTAL 0.5 mg/dL (0.2-1.3); BLOOD UREA NITROGEN 17 mg/dL (7-20); CALCIUM 10.2 mg/dL (8.4-10.2); CARBON DIOXIDE 25 mmol/L (22-30); CHLORIDE 103 mmol/L (98-107); GLUCOSE 143 mg/dL (75-110); POTASSIUM 5.2 mmol/L (3.6-5.0); TOTAL PROTEIN 7.3 g/dL (6.3-8.2)
[2019-08-04 09:12] LABS: HEPATITIS C VIRUS AB >11.0 s/co ratio (0.0-0.9); HEPATITS B SURFACE ANTIGEN Negative (Negative)
[2019-08-05 06:37] LABS: HCV FIBROSURE ALT P5P 59 IU/L (0-55); HCV FIBROSURE HAPTOGLOBIN 132 mg/dL (32-363); NECROINFLAM ACTIVITY GRADE A1-A2 (.); NECROINFLAMM ACTIVITY SCORE 0.44 (0.00-0.17)
== END ==
LOC: OD 10:12
PROVIDERS: ATTEND Internal Medicine Gastroenterology
DX: B18.2 Chronic viral hepatitis C (principal); K74.69 Other cirrhosis of liver
CPT/HCPCS: 36415; 80048; 80076; 81270; 82172; 82247; 82977; 83010; 83883; 84460; 85027; 86803; 86804; 87340

== ENCOUNTER → 2019-08-16 | Outpatient (CLI) | payer BC ==
[2019-08-16 12:52] LABS: ABSOLUTE BASOPHILS # (AUTO) 0.2 10^3/uL (0.0-0.2); ABSOLUTE EOSINOPHILS # (AUTO) 0.5 10^3/uL (0.0-0.6); ABSOLUTE MONOCYTES (AUTO) 0.8 10^3/uL (0.1-1.4); ABSOLUTE NEUT (AUTO) 5.1 10^3/uL (1.7-8.2); BASOPHILS % (AUTO) 2.1 % (0-2); EOSINOPHILS % (AUTO) 5.4 % (0-6); HEMATOCRIT 34.9 % (37.9-51.0); HEMOGLOBIN 12.3 g/dL (13.5-17.0); LYMPHOCYTES % (AUTO) 22.9 % (13-45); MEAN CORPUSCULAR HEMOGLOBIN 32.7 pg (27.0-33.4); MEAN CORPUSCULAR HGB CONC 35.2 g/dL (32.0-36.0); MEAN CORPUSCULAR VOLUME 93 fl (80-97); MONOCYTES % (AUTO) 9.7 % (3-13); PLATELET COUNT 234 10^3/uL (150-450); RED BLOOD COUNT 3.77 10^6/uL (4.35-5.55); RED CELL DISTRIBUTION WIDTH 15.3 % (11.5-14.0); SEGMENTED NEUTROPHILS % (AUTO) 59.9 % (42-78); TOTAL CELLS COUNTED % (AUTO) 100 %; WHITE BLOOD COUNT 8.6 10^3/uL (4.0-10.5)
[2019-08-16 13:11] LABS: ANION GAP 13 (5-19); BLOOD UREA NITROGEN 28 mg/dL (7-20); CALCIUM 10.4 mg/dL (8.4-10.2); CARBON DIOXIDE 20 mmol/L (22-30); CHLORIDE 101 mmol/L (98-107); GLUCOSE 147 mg/dL (75-110); IRON(TIBC) 120.5 ug/dL (49-181); POTASSIUM 5.2 mmol/L (3.6-5.0)
== END ==
LOC: OD 11:54
PROVIDERS: ATTEND Family Medicine Geriatric Medicine
DX: R89.9 Unspecified abnormal finding in specimens from other organs, systems and tissues (principal); D64.9 Anemia, unspecified; E03.9 Hypothyroidism, unspecified; Z79.899 Other long term (current) drug therapy
CPT/HCPCS: 36415; 80048; 82728; 83020; 83540; 83550; 84443; 84466; 85025

== ENCOUNTER → 2019-08-19 | Outpatient (CLI) | payer BC ==
[2019-08-19 10:13] LABS: ABSOLUTE BASOPHILS # (AUTO) 0.1 10^3/uL (0.0-0.2); ABSOLUTE EOSINOPHILS # (AUTO) 0.5 10^3/uL (0.0-0.6); ABSOLUTE LYMPHOCYTES (AUTO) 1.8 10^3/uL (0.5-4.7); ABSOLUTE MONOCYTES (AUTO) 0.5 10^3/uL (0.1-1.4); ABSOLUTE NEUT (AUTO) 4.5 10^3/uL (1.7-8.2); BASOPHILS % (AUTO) 1.3 % (0-2); EOSINOPHILS % (AUTO) 7.1 % (0-6); HEMATOCRIT 32.7 % (37.9-51.0); HEMOGLOBIN 11.6 g/dL (13.5-17.0); LYMPHOCYTES % (AUTO) 24.2 % (13-45); MEAN CORPUSCULAR HEMOGLOBIN 32.7 pg (27.0-33.4); MEAN CORPUSCULAR HGB CONC 35.5 g/dL (32.0-36.0); MEAN CORPUSCULAR VOLUME 92 fl (80-97); MONOCYTES % (AUTO) 6.8 % (3-13); PLATELET COUNT 167 10^3/uL (150-450); RED BLOOD COUNT 3.55 10^6/uL (4.35-5.55); RED CELL DISTRIBUTION WIDTH 15.4 % (11.5-14.0); SEGMENTED NEUTROPHILS % (AUTO) 60.6 % (42-78); TOTAL CELLS COUNTED % (AUTO) 100 %; WHITE BLOOD COUNT 7.4 10^3/uL (4.0-10.5)
[2019-08-19 10:45] LABS: ANION GAP 9 (5-19); BLOOD UREA NITROGEN 19 mg/dL (7-20); CALCIUM 9.3 mg/dL (8.4-10.2); CARBON DIOXIDE 20 mmol/L (22-30); CHLORIDE 104 mmol/L (98-107); GLUCOSE 131 mg/dL (75-110); POTASSIUM 4.3 mmol/L (3.6-5.0)
[2019-08-19 10:52] LABS: C-REACTIVE PROTEIN < 5.0 mg/L (<10.0)
[2019-08-19 11:06] LABS: ERYTHROCYTE SEDIMENTATION RATE 37 mm/hr (0-20)
== END ==
LOC: OD 09:29
PROVIDERS: ATTEND Orthopaedic Surgery
DX: M86.9 Osteomyelitis, unspecified (principal)
CPT/HCPCS: 36415; 80048; 85025; 85652; 86140

== ENCOUNTER → 2019-08-25 | Outpatient (CLI) | payer BC ==
[2019-08-25 15:09] LABS: ALBUMIN 3.7 g/dL (3.5-5.0); ALKALINE PHOSPHATASE 109 U/L (38-126); ANION GAP 11 (5-19); ASPARTATE AMINO TRANSFERASE 40 U/L (17-59); BILIRUBIN,TOTAL 0.9 mg/dL (0.2-1.3); BLOOD UREA NITROGEN 22 mg/dL (7-20); CALCIUM 9.9 mg/dL (8.4-10.2); CARBON DIOXIDE 19 mmol/L (22-30); CHLORIDE 102 mmol/L (98-107); GLUCOSE 113 mg/dL (75-110); POTASSIUM 4.5 mmol/L (3.6-5.0); TOTAL PROTEIN 7.7 g/dL (6.3-8.2)
== END ==
LOC: OD 14:13
PROVIDERS: ATTEND Family Medicine Geriatric Medicine
DX: E83.52 Hypercalcemia (principal); E87.5 Hyperkalemia; R79.89 Other specified abnormal findings of blood chemistry; E03.9 Hypothyroidism, unspecified; D64.9 Anemia, unspecified; R89.9 Unspecified abnormal finding in specimens from other organs, systems and tissues; Z79.899 Other long term (current) drug therapy
CPT/HCPCS: 36415; 80053; 82272; 84443

== ENCOUNTER → 2019-09-27 | Outpatient (CLI) | payer BC ==
[2019-09-27 10:22] LABS: ANION GAP 7 (5-19); BLOOD UREA NITROGEN 15 mg/dL (7-20); CALCIUM 9.1 mg/dL (8.4-10.2); CARBON DIOXIDE 23 mmol/L (22-30); CHLORIDE 105 mmol/L (98-107); GLUCOSE 119 mg/dL (75-110); POTASSIUM 4.6 mmol/L (3.6-5.0)
== END ==
LOC: OD 08:52
PROVIDERS: ATTEND Family Medicine Geriatric Medicine
DX: E87.1 Hypo-osmolality and hyponatremia (principal); R94.6 Abnormal results of thyroid function studies; Z79.899 Other long term (current) drug therapy
CPT/HCPCS: 36415; 80048; 84443

== ENCOUNTER → 2019-11-07 | Outpatient (CLI) | payer BC ==
[2019-11-07 11:59] LABS: HEMATOCRIT 34.2 % (37.9-51.0); HEMOGLOBIN 11.8 g/dL (13.5-17.0); MEAN CORPUSCULAR HEMOGLOBIN 31.6 pg (27.0-33.4); MEAN CORPUSCULAR HGB CONC 34.4 g/dL (32.0-36.0); MEAN CORPUSCULAR VOLUME 92 fl (80-97); RED BLOOD COUNT 3.72 10^6/uL (4.35-5.55); RED CELL DISTRIBUTION WIDTH 15.1 % (11.5-14.0); WHITE BLOOD COUNT 5.2 10^3/uL (4.0-10.5)
[2019-11-07 12:19] LABS: ANION GAP 5 (5-19); BLOOD UREA NITROGEN 14 mg/dL (7-20); CALCIUM 9.1 mg/dL (8.4-10.2); CARBON DIOXIDE 24 mmol/L (22-30); CHLORIDE 106 mmol/L (98-107); GLUCOSE 182 mg/dL (75-110); POTASSIUM 4.2 mmol/L (3.6-5.0)
[2019-11-07 12:28] LABS: PLATELET COUNT 85 10^3/uL (150-450)
== END ==
LOC: OD 10:48
PROVIDERS: ATTEND Family Medicine Geriatric Medicine
DX: I10 Essential (primary) hypertension (principal); E87.1 Hypo-osmolality and hyponatremia; R94.6 Abnormal results of thyroid function studies; D53.9 Nutritional anemia, unspecified; Z79.899 Other long term (current) drug therapy
CPT/HCPCS: 36415; 80048; 82607; 82728; 82746; 84443; 85027

== ENCOUNTER → 2019-12-30 | Outpatient (CLI) | payer BC ==
[2019-12-30 10:37] LABS: ABSOLUTE BASOPHILS # (AUTO) 0.1 10^3/uL (0.0-0.2); ABSOLUTE EOSINOPHILS # (AUTO) 0.7 10^3/uL (0.0-0.6); ABSOLUTE LYMPHOCYTES (AUTO) 1.6 10^3/uL (0.5-4.7); ABSOLUTE MONOCYTES (AUTO) 0.6 10^3/uL (0.1-1.4); ABSOLUTE NEUT (AUTO) 3.8 10^3/uL (1.7-8.2); BASOPHILS % (AUTO) 0.8 % (0-2); EOSINOPHILS % (AUTO) 10.6 % (0-6); HEMATOCRIT 36.3 % (37.9-51.0); HEMOGLOBIN 12.3 g/dL (13.5-17.0); LYMPHOCYTES % (AUTO) 22.9 % (13-45); MEAN CORPUSCULAR HEMOGLOBIN 31.7 pg (27.0-33.4); MEAN CORPUSCULAR HGB CONC 33.9 g/dL (32.0-36.0); MEAN CORPUSCULAR VOLUME 94 fl (80-97); MONOCYTES % (AUTO) 9.3 % (3-13); RED BLOOD COUNT 3.88 10^6/uL (4.35-5.55); RED CELL DISTRIBUTION WIDTH 15.9 % (11.5-14.0); SEGMENTED NEUTROPHILS % (AUTO) 56.4 % (42-78); TOTAL CELLS COUNTED % (AUTO) 100 %; WHITE BLOOD COUNT 6.8 10^3/uL (4.0-10.5)
[2019-12-30 10:58] LABS: ANION GAP 9 (5-19); BLOOD UREA NITROGEN 15 mg/dL (7-20); CALCIUM 9.4 mg/dL (8.4-10.2); CARBON DIOXIDE 22 mmol/L (22-30); CHLORIDE 107 mmol/L (98-107); GLUCOSE 149 mg/dL (75-110); POTASSIUM 4.7 mmol/L (3.6-5.0)
[2019-12-30 11:04] LABS: C-REACTIVE PROTEIN < 5.0 mg/L (<10.0)
[2019-12-30 11:14] LABS: ERYTHROCYTE SEDIMENTATION RATE 44 mm/hr (0-20)
[2019-12-30 11:45] LABS: PLATELET COUNT 90 10^3/uL (150-450)
== END ==
LOC: OD 09:19
PROVIDERS: ATTEND Podiatrist Foot & Ankle Surgery
DX: M14.671 Charcot's joint, right ankle and foot (principal)
CPT/HCPCS: 36415; 80048; 85025; 85652; 86140

== ENCOUNTER 2020-01-02 09:43 | Inpatient (IN) | payer BC ==
--- NOTE | 2020-01-02 10:03 | ER Document Report ---
ED Medical Screen (RME) - General Chief Complaint: Chest Pain Stated Complaint: FALL/NECK PAIN Time Seen by Provider: 01/02/20 09:57 Primary Care Provider: KRUPA ABERNATHY MD [Primary Care Provider] - Follow up as needed Mode of Arrival: Wheelchair Information source: Patient Notes: 64-year-old male presents to ED for chest pain radiating around to his neck and jaw. States he fell on Thursday and has had pain to his chest going around to his neck up to his jaw since Thursday. He states he was recently in hospital for septic cellulitis arthritis. He does have a history of diabetes and hepatitis. Patient is alert oriented respirations regular nonlabored speaking in full sentences. He states he has been in the bed since Thursday. I have greeted and performed a rapid initial assessment of this patient. A comprehensive ED assessment and evaluation of the patient, analysis of test results and completion of medical decision making process will be conducted by an additional ED providers. TRAVEL OUTSIDE OF THE [place] IN LAST 30 DAYS: No - HPI Onset: Other - Thursday - Related Data Allergies/Adverse Reactions: oxycodone Adverse Reaction (Verified 05/19/19 17:16) Confusion Past Medical History Past Surgical History: Reports: Hx Tonsillectomy - Immunizations Hx Diphtheria, Pertussis, Tetanus Vaccination: - unknown Physical Exam - Vital signs Vitals: Temp Pulse Resp BP Pulse Ox 99.8 F 85 16 125/70 98 01/02/20 09:47 01/02/20 09:47 01/02/20 09:47 01/02/20 09:47 01/02/20 09:47 Course - Vital Signs Vital signs: Temp Pulse Resp BP Pulse Ox 99.8 F 85 16 125/70 98 01/02/20 09:47 01/02/20 09:47 01/02/20 09:47 01/02/20 09:47 01/02/20 09:47 Doctor's Discharge - Discharge Referrals: KRUPA ABERNATHY MD [Primary Care Provider] - Follow up as needed
--- NOTE | 2020-01-02 10:44 | RADIOLOGY REPORT (SQ) ---
EXAM DESCRIPTION: CHEST 2 VIEWS IMAGES COMPLETED DATE/TIME: 01/02/2020 10:30 am REASON FOR STUDY: Chest pain radiates to neck and jaw COMPARISON: 05/09/2019 EXAM PARAMETERS: NUMBER OF VIEWS: two views TECHNIQUE: Digital Frontal and Lateral radiographic views of the chest acquired. RADIATION DOSE: NA LIMITATIONS: none FINDINGS: LUNGS AND PLEURA: No opacities, masses or pneumothorax. No pleural effusion. MEDIASTINUM AND HILAR STRUCTURES: No masses or contour abnormalities. HEART AND VASCULAR STRUCTURES: Heart normal size. No evidence for failure. BONES: No acute findings. HARDWARE: None in the chest. OTHER: No other significant finding. IMPRESSION: No evidence of acute cardiopulmonary process. TECHNICAL DOCUMENTATION: JOB ID: [id number] [employer]- All Rights Reserved Reading location - IP/workstation name: [email or web address]
[2020-01-02 11:19] LABS: ABSOLUTE LYMPHOCYTES (AUTO) 0.2 10^3/uL (0.5-4.7); ABSOLUTE MONOCYTES (AUTO) 0.4 10^3/uL (0.1-1.4); ABSOLUTE NEUT (AUTO) 3.3 10^3/uL (1.7-8.2); BASOPHILS % (AUTO) 0.2 % (0-2); HEMATOCRIT 33.6 % (37.9-51.0); HEMOGLOBIN 11.8 g/dL (13.5-17.0); LYMPHOCYTES % (AUTO) 5.1 % (13-45); MEAN CORPUSCULAR HGB CONC 35.1 g/dL (32.0-36.0); MEAN CORPUSCULAR VOLUME 91 fl (80-97); MONOCYTES % (AUTO) 10.3 % (3-13); RED BLOOD COUNT 3.68 10^6/uL (4.35-5.55); RED CELL DISTRIBUTION WIDTH 15.7 % (11.5-14.0); SEGMENTED NEUTROPHILS % (AUTO) 84.4 % (42-78); TOTAL CELLS COUNTED % (AUTO) 100 %; WHITE BLOOD COUNT 3.9 10^3/uL (4.0-10.5)
--- NOTE | 2020-01-02 11:28 | ER Document Report ---
Entered by ARBEN OTERO SCRIBE 01/02/20 1104 Acting as scribe for:MARJORIE NINA MD ED Fall - General Chief Complaint: Chest Pain Stated Complaint: FALL/NECK PAIN Time Seen by Provider: 01/02/20 09:57 Primary Care Provider: KRUPA BOGGS MD [Primary Care Provider] - 01/05/20 Mode of Arrival: Wheelchair Information source: Patient Notes: This 64 year old male patient presents to the emergency department today with complaints of left clavicular pain resulting from a fall three nights ago. Patient uses crutches because of chronic right ankle pain and he states he fell off the crutches. at bedside states that she noticed that he has had "brown urine" since Thursday. The patient's past history is significant for chronic hepatitis C. He was admitted to the hospital in mid April 2019 with a deep abscess in the right lower leg behind the intraosseous membrane that was drained and surgery, and found to grow MRSA. He was in the hospital for nearly 4 weeks. At that time he had severe hypocalcemia, hyponatremia, and did have paracentesis for ascites at least twice. He went home on IV daptomycin and states she was then switched to an antibiotic pill. He has been off antibiotics since the first part of June 2019. He is continued to have problems including developing what appears to be a Charcot joint in the right ankle and proximal foot area. He does report he has pain to her ankle all the time, and uses crutches. He states at this time it is better than usual and he is able to walk on it. He states 4 to 5 days ago he was unable to walk on it, but that the pain in the ankle is something that will come and go for the last few months. He also reports that he feels like he may be starting to develop ascites again. TRAVEL OUTSIDE OF THE [place] IN LAST 30 DAYS: No - Related data Allergies/Adverse Reactions: oxycodone Adverse Reaction (Verified 05/19/19 17:16) Confusion Past Medical History - General Information source: Patient - Social History Smoking Status: Current Every Day Smoker Cigarette use (# per day): Yes Frequency of alcohol use: Rare Drug Abuse: None Lives with: Family Family History: Reviewed & Not Pertinent - Past Medical History Cardiac Medical History: Reports: Other - Diastolic heart failure Endocrine Medical History: Reports: Hx Diabetes Mellitus Type 2 GI Medical History: Reports: Hx Hepatitis - Active Hep C Infectious Medical History: Reports: Hx Hepatitis - Active Hep C Past Surgical History: Reports: Hx Tonsillectomy - Immunizations Hx Diphtheria, Pertussis, Tetanus Vaccination: - unknown Review of Systems - Review of Systems Constitutional: No symptoms reported EENT: No symptoms reported Cardiovascular: No symptoms reported Respiratory: No symptoms reported Gastrointestinal: No symptoms reported Genitourinary: See HPI, Other - dark colored urine Male Genitourinary: No symptoms reported Musculoskeletal: See HPI, Joint pain - Chronic right ankle pain and swelling. Skin: No symptoms reported Hematologic/Lymphatic: No symptoms reported Neurological/Psychological: No symptoms reported -: Yes All other systems reviewed and negative Physical Exam - Vital signs Vitals: Temp Pulse Resp BP Pulse Ox 99.8 F 85 16 125/70 98 01/02/20 09:47 01/02/20 09:47 01/02/20 09:47 01/02/20 09:47 01/02/20 09:47 - Notes Notes: Physical Exam: General: Alert. HEENT: Normocephalic. Atraumatic. PERRL. Extraocular movements intact. Oropharynx clear. Neck: Supple. There is tenderness with palpation superior to the ster noclavicular joint which decreases as you get up to the jaw. There is no tenderness over the carotid artery. No carotid bruit. Respiratory: Clear and equal breath sounds bilaterally. Patient does have an increased respiratory rate, but he states he does not feel short of breath. Cardiovascular: Regular rate and rhythm. Abdominal: Soft, positive bowel sounds. Not tender. Some obesity. Patient feels that he has ascites developing. Back: No gross abnormalities. Extremities: Moves all four extremities. Upper extremities: There is tenderness to palpation over the sternoclavicular joint with overlying swelling. There is tenderness with palpation superior to the sternoclavicular joint which decreases as you get up to the jaw. There is no tenderness over the carotid artery. No carotid bruit. Lower extremities: The right ankle has the appearance of a Charcot ankle. It is swollen and appears to be a bony enlargement. It is warm compared to the leg above and the ankle and leg on the opposite side. There is some tenderness to palpate. There is no significant erythema noted. There is no edema. Neurological: Normal cognition. AAOx4. Normal speech. Psychological: Normal affect. Normal Mood. Skin: Warm. Dry. Normal color. Course - Re-evaluation Re-evalutation: 01/02/20 14:50 The patient urine was very concentrated with too numerous to count RBCs. There was 3+ bacteria, budding yeast, and 10 WBCs. There was 1 epithelial cell. We will provide the patient with a dose of Diflucan, and treat him for urinary tract infection, culture the urine. He is to increase fluid intake, but also d rink fluids with electrolytes and increase sodium intake due to his hyponatremia. He should follow-up with his primary care provider this week to recheck his urine and his serum sodium. CT scans of the head and neck and a chest x-ray were ordered from triage and completed prior to me seeing the patient. These were all unremarkable. They did not image the area of concern so after discussion with the radiologist, a contrasted CT scan of the chest was done. It does not show any abnormalities o ther than splenomegaly. - Vital Signs Vital signs: Temp Pulse Resp BP Pulse Ox 102.1 F H 85 19 133/73 H 95 01/02/20 17:05 01/02/20 09:47 01/02/20 19:00 01/02/20 16:00 01/02/20 19:00 - Laboratory Result Diagrams: 01/02/20 10:54 01/02/20 10:54 Laboratory results interpreted by me: 01/02/20 01/02/20 01/02/20 10:54 10:54 10:54 WBC 3.9 L RBC 3.68 L Hgb 11.8 L Hct 33.6 L RDW 15.7 H Plt Count 42 L Lymph % (Auto) 5.1 L Absolute Lymphs (auto) 0.2 L Seg Neutrophils % 84.4 H ESR D-Dimer 8.93 H Sodium 125.6 L Carbon Dioxide 18 L BUN 26 H Glucose 193 H Calcium 8.1 L C-Reactive Protein Albumin 3.1 L Urine Protein Urine Blood 01/02/20 01/02/20 01/02/20 10:54 10:54 13:36 WBC RBC Hgb Hct RDW Plt Count Lymph % (Auto) Absolute Lymphs (auto) Seg Neutrophils % ESR 71 H D-Dimer Sodium Carbon Dioxide BUN Glucose Calcium C-Reactive Protein 162.6 H Albumin Urine Protein 100 H Urine Blood LARGE H - Diagnostic Test Radiology reviewed: Image reviewed, Reports reviewed - Consults Dr. Ceron Time consulted: 20:01 Consulted provider: will come to ER Discharge - Discharge Clinical Impression: Yeast detected, Hyponatremia, Hypocalcemia, Lymphopenia, Thrombocytopenia Hematuria Qualifiers: Hematuria type: gross Qualified Code(s): R31.0 - Gross hematuria Fever Qualifiers: Fever type: unspecified Qualified Code(s): R50.9 - Fever, unspecified Condition: Stable Disposition: ADMITTED INPATIENT Admitting Provider: Jie (Hospitalist) Unit Admitted: Medical Floor Additional Instructions: Your evaluation today suggests either a severe sprain or contusion of the left sternoclavicular joint. You should use ice packs and take ibuprofen for this injury. Using a sling may limit motion at that joint and help. Get better quicker. The dark urine you noticed 2 days ago is due to blood in your urine. There was also yeast seen and bacteria with white blood cells suggesting a urinary tract infection. You will be prescribed an antibiotic to take for the suspected urinary tract infection. Your serum sodium level was low today, you need to increase sodium in your diet. A good way to do this is high sodium foods and fluids. You also need to drink plenty of fluids to help flush out your urinary tract system, but you need to be careful about drinking plain water without additional sources of sodium so that your serum sodium levels do not drop further. Call Dr. Boggs office today to schedule a follow-up appointment in the next 2 to 3 days to recheck your urine and your serum sodium levels. RETURN TO THE EMERGENCY ROOM IF ANY NEW OR WORSENING SYMPTOMS. Prescriptions: Cephalexin Monohydrate [Keflex 500 mg Capsule] 500 mg PO TID #15 capsule Referrals: KRUPA BOGGS MD [Primary Care Provider] - 01/05/20 I personally performed the services described in the documentation, reviewed and edited the documentation which was dictated to the scribe in my presence, and it accurately records my words and actions.
[2020-01-02 11:36] LABS: ALBUMIN 3.1 g/dL (3.5-5.0); ALKALINE PHOSPHATASE 75 U/L (38-126); ANION GAP 10 (5-19); ASPARTATE AMINO TRANSFERASE 28 U/L (17-59); BILIRUBIN,DIRECT 0.1 mg/dL (0.0-0.4); BILIRUBIN,TOTAL 1.1 mg/dL (0.2-1.3); BLOOD UREA NITROGEN 26 mg/dL (7-20); CALCIUM 8.1 mg/dL (8.4-10.2); CARBON DIOXIDE 18 mmol/L (22-30); CHLORIDE 98 mmol/L (98-107); CREATINE KINASE 86 U/L (55-170); GLUCOSE 193 mg/dL (75-110); POTASSIUM 4.4 mmol/L (3.6-5.0); TOTAL PROTEIN 6.4 g/dL (6.3-8.2)
--- NOTE | 2020-01-02 11:39 | RADIOLOGY REPORT (SQ) ---
EXAM DESCRIPTION: CT HEAD WITHOUT IMAGES COMPLETED DATE/TIME: 01/02/2020 10:41 am REASON FOR STUDY: Fell Thursday cervical spine tenderness ear ringing COMPARISON: None. TECHNIQUE: Axial images acquired through the brain without intravenous contrast. Images reviewed wi th bone, brain and subdural windows. Additional sagittal and coronal reconstructions were generated. Images stored on PACS. All CT scanners at this facility use dose modulation, iterative reconstruction, and/or weight based d osing when appropriate to reduce radiation dose to as low as reasonably achievable (ALARA). [facility]: Dose Right [facility]: CareDose [facility]: Dose Right [facility]: Teradose 4D [facility]: Pure Eleg[employer] TV RADIATION DOSE: CT Rad equipment meets quality standard of care and radiation dose reduction techniq ues were employed. CTDIvol: 53.2 mGy. DLP: 1017 mGy-cm. mGy. LIMITATIONS: None. FINDINGS: VENTRICLES: Normal size and contour. CEREBRUM: No masses. No hemorrhage. No midline shift. No evidence for acute infarction. Normal gra y/white matter differentiation. No areas of low density in the white matter. CEREBELLUM: No masses. No hemorrhage. No alteration of density. No evidence for acute infarction. EXTRAAXIAL SPACES: No fluid collections. No masses. ORBITS AND GLOBE: No intra- or extraconal masses. Normal contour of globe without masses. CALVARIUM: No fracture. PARANASAL SINUSES: Minimal mucosal thickening within the inferior right maxillary sinus. Remaining s inuses are clear. SOFT TISSUES: No mass or hematoma. OTHER: No other significant finding. IMPRESSION: NO ACUTE INTRACRANIAL IMAGING FINDINGS. EVIDENCE OF ACUTE STROKE: NO. COMMENT: Quality ID # [id number]: Final reports with documentation of one or more dose reduction techniques (e.g., Automated exposure control, adjustment of the mA and/or kV according to patient size, use of iterative reconstruction technique) TECHNICAL DOCUMENTATION: JOB ID: [id number] 2010 [employer]- All Rights Reserved Reading location - IP/workstation name: [email or web address]
[2020-01-02 11:43] LABS: PLATELET COUNT 42 10^3/uL (150-450)
--- NOTE | 2020-01-02 11:50 | RADIOLOGY REPORT (SQ) ---
EXAM DESCRIPTION: CT CERVICAL SPINE WITHOUT IMAGES COMPLETED DATE/TIME: 01/02/2020 10:41 am REASON FOR STUDY: Fell Thursday cervical spine tenderness ear ringing COMPARISON: None. TECHNIQUE: Axial images acquired through the cervical spine without intravenous contrast. Images re viewed with lung, soft tissue and bone windows. Reconstructed coronal and sagittal MPR images review ed. Images stored on PACS. All CT scanners at this facility use dose modulation, iterative reconstruction, and/or weight based d osing when appropriate to reduce radiation dose to as low as reasonably achievable (ALARA). [facility]: Dose Right [facility]: CareDose [facility]: Dose Right [facility]: Teradose 4D [facility]: Cytonics RADIATION DOSE: CT Rad equipment meets quality standard of care and radiation dose reduction techniq ues were employed. CTDIvol: 16.6 mGy. DLP: 336 mGy-cm. mGy. LIMITATIONS: None. FINDINGS: ALIGNMENT: Straightening of the normal cervical lordosis. MINERALIZATION: Normal. VERTEBRAL BODIES: No fracture. Multilevel endplate change with bulky osteophytes at C5-6 and C6-7. DISCS: Multilevel disc height loss greatest at C6-7 with associated endplate change. No high-grade o sseous spinal canal stenosis. FACETS, LATERAL MASSES, POSTERIOR ELEMENTS: No fracture or facet dislocation. T1 spinous process cor ticated defect, possibly related to remote trauma. Facet arthropathy greatest at C7-T1 on the left. HARDWARE: None in the spine. VISUALIZED RIBS: No fractures. LUNG APICES AND SOFT TISSUES: No significant or acute findings. OTHER: No other significant finding. IMPRESSION: 1. No evidence of acute bony abnormality cervical spine. 2. Multilevel degenerative changes above. TECHNICAL DOCUMENTATION: JOB ID: [id number] Quality ID # [id number]: Final reports with documentation of one or more dose reduction techniques (e.g., Au tomated exposure control, adjustment of the mA and/or kV according to patient size, use of iterative reconstruction technique) 2010 [employer]- All Rights Reserved Reading location - IP/workstation name: [email or web address]
[2020-01-02] MEDS ORDERED: NORMAL SALINE 1000 ML 1,000 ML IV ONE ×2 (12:12→15:22)
--- NOTE | 2020-01-02 12:37 | RADIOLOGY REPORT (SQ) ---
EXAM DESCRIPTION: CT CHEST WITH IMAGES COMPLETED DATE/TIME: 01/02/2020 12:22 pm REASON FOR STUDY: L SCJ injury COMPARISON: None. TECHNIQUE: CT scan of the chest performed using helical scanning technique with dynamic intravenous contrast injection. Images reviewed with lung, soft tissue and bone windows. Reconstructed coronal and sagittal MPR and MIP images reviewed. All images stored on PACS. All CT scanners at this facility use dose modulation, iterative reconstruction, and/or weight based d osing when appropriate to reduce radiation dose to as low as reasonably achievable (ALARA). [facility]: Dose Right [facility]: CareDose [facility]: Dose Right [facility]: Teradose 4D [facility]: Icera CONTRAST TYPE AND DOSE: contrast/concentration: Isovue 350.00 mmol/ml; Total Contrast Delivered: 80. 0 ml; Total Saline Delivered: 48.0 ml RENAL FUNCTION: BUN 26 creatinine 1.17 RADIATION DOSE: CT Rad equipment meets quality standard of care and radiation dose reduction techniq ues were employed. CTDIvol: 8.5 mGy. DLP: 369 mGy-cm. . LIMITATIONS: None. FINDINGS: LUNGS AND PLEURA: Mild dependent atelectasis in the lower lobes. No infiltrate or effusio n. No mass. HILAR AND MEDIASTINAL STRUCTURES: No identified masses or abnormal nodes. HEART AND VASCULAR STRUCTURES: No aneurysm or dissection. No central pulmonary emboli. No pericardi al effusion. HARDWARE: None in the chest. UPPER ABDOMEN: Splenomegaly. THYROID AND OTHER SOFT TISSUES: No masses. No adenopathy. BONES: No significant finding. OTHER: No other significant finding. IMPRESSION: 1. No osseous abnormality is seen in the left sternoclavicular joint or elsewhere in th e chest. 2. Splenomegaly. TECHNICAL DOCUMENTATION: JOB ID: [id number] Quality ID # [id number]: Final reports with documentation of one or more dose reduction techniques (e.g., Au tomated exposure control, adjustment of the mA and/or kV according to patient size, use of iterative reconstruction technique) 2010 [employer]- All Rights Reserved Reading location - IP/workstation name: [email or web address]
[2020-01-02 14:22] LABS: APPEARANCE,URINE CLOUDY; BILIRUBIN,URINE NEGATIVE (NEGATIVE); COLOR,URINE AMBER; GLUCOSE, URINE NEGATIVE (NEGATIVE); KETONES,URINE NEGATIVE (NEGATIVE); LEUKOCYTE ESTERASE,URINE NEGATIVE (NEGATIVE); NITRITE,URINE NEGATIVE (NEGATIVE); PROTEIN,URINE 100 mg/dL (NEGATIVE); URINE SPECIFIC GRAVITY 1.036; UROBILINOGEN,URINE NEGATIVE mg/dL (<2.0)
[2020-01-02] MEDS ORDERED: FLUCONAZOLE 100 MG TABLET PO ONE (15:08)
[2020-01-02] MEDS ORDERED: CEPHALEXIN 500 MG CAPSULE PO ONE (15:22)
[2020-01-02] MEDS ORDERED: ACETAMINOPHEN 325 MG TABLET PO ONE (15:22)
--- NOTE | 2020-01-02 19:10 | EKG REPORT ---
SEVERITY:- ABNORMAL ECG - SINUS RHYTHM INCOMPLETE RIGHT BUNDLE BRANCH BLOCK : Confirmed by: Keyla Harden 02-Jan-2020 19:09:31
--- NOTE | 2020-01-02 21:23 | PDOC H&P ---
History of Present Illness Admission Date/PCP: 01/02/20 20:44 KRUPA ABERNATHY MD Patient complains of: Chest pain History of Present Illness: RENATA SOLIMAN is a 64 year old male who presented to the emergency room with a 3- day history of left sternal clavicular pain. He admits falling while using his crutches 3 days ago and immediately developed severe sharp pain in his left clavicle and manubrium area which has persisted since the injury and is made worse by movements of the chest or left shoulder. He denies other associated or accompanying signs and symptoms. He denied prior similar injuries. He has not identified any additional aggravating or ameliorating factors for his left s ternal clavicular pain. In the emergency room he was found to have several laboratory abnormalities, but the evaluation of his sternoclavicular pain showed no evidence of fracture or dislocation. Because of his laboratory abnormalities additional testing was performed and during the course of his emergency room stay his temperature meagan to 102.7 F. His laboratory abnormalities included leukopenia, hyponatremia, and increased CRP, and increased ESR and hypocalcemia. Emergency room provider discussed the patient with Dr. Childress who advised that the patient would be admitted by the lead person service. Past Medical History Cardiac Medical History: Reports: Congestive Heart Failure - Chronic diastolic congestive heart failure, Hypertension Denies: Atrial Fibrillation, Coronary Artery Disease, DVT, Hyperlipidema, Pulmonary Embolism Pulmonary Medical History: Denies: Asthma, Chronic Obstructive Pulmonary Disease (COPD) EENT Medical History: Denies: Cataracts, Ears - Hearing aids Neurological Medical History: Denies: Hemorrhagic CVA, Ischemic CVA, Seizures Endocrine Medical History: Reports: Diabetes Mellitus Type 2 Denies: Diabetes Mellitus Type 1, Hyperthyroidism, Hypothyroidism, Obesity Renal/ Medical History: Denies: Chronic Kidney Disease, Nephrolithiasis Malignancy Medical History: Reports: None GI Medical History: Reports: Hepatitis - Active Hep C Denies: Cirrhosis, Crohn's Disease, Ulcerative Colitis Musculoskeltal Medical History: Reports: Arthritis - Abscess of the right lower leg and septic ankle resulting in Charcot joint Denies: Gout Skin Medical History: Denies: Eczema, Psoriasis Psychiatric Medical History: Reports: Tobacco Dependency Denies: Alcohol Dependency, Substance Abuse Traumatic Medical History: Reports: None Hematology: Reports: Anemia Denies: Bleeding Tendencies Infectious Medical History: Reports: Hepatitis C Past Surgical History Past Surgical History: Reports: Tonsillectomy, Other - Incision and drainage of right lower leg abscess and septic right ankle Social History Information Source: Patient Lives with: Spouse/Significant other Smoking Status: Current Every Day Smoker Electronic Cigarette use?: No Frequency of Alcohol Use: None Hx Recreational Drug Use: No Drugs: None Hx Prescription Drug Abuse: No - Advance Directive Resuscitation Status: Full Code Surrogate healthcare decision maker:: Nevin Soliman Family History Family History: DM, Hypertension. denies: CAD, Malignancy Parental Family History Reviewed: Yes Children Family History Reviewed: No Sibling(s) Family History Reviewed.: Yes Medication/Allergy Home Medications: Amlodipine Besylate [Norvasc 5 mg Tablet] 5 mg PO DAILY 15 Days #15 tablet 06/01/19 Calcium Carbonate/Vitamin D3 [Os-Angel 250 mg with Vitamin D 125 Units] 1 tab PO DAILY tablet 06/01/19 Carvedilol [Coreg 3.125 mg Tablet] 3.125 mg PO Q12 15 Days #30 tablet 06/01/19 Daptomycin [Cubicin Inj 500 mg Vial] 600 mg IV DAILY vial 06/01/19 Docusate Sodium [Colace 100 mg Capsule] 100 mg PO BID capsule 06/01/19 Furosemide [Lasix 40 mg Tablet] 40 mg PO DAILY 15 Days #15 tablet 06/01/19 Glipizide [Glucotrol 5 mg Tablet] 5 mg PO QAM 15 Days #15 tablet 06/01/19 Nicotine [Nicoderm 14 mg/24 Hr Transdermal Patch] 1 each TD DAILYP PRN patch.t d24 06/01/19 Pantoprazole Sodium [Protonix [address] Tablet] 40 mg PO BID@0600,1700 15 Days #15 tablet.dr 06/01/19 Spironolactone [Aldactone 25 mg Tablet] 100 mg PO DAILY 15 Days #15 tablet 06/01/19 Cephalexin Monohydrate [Keflex 500 mg Capsule] 500 mg PO TID #15 capsule 01/02/20 Allergies/Adverse Reactions: oxycodone Adverse Reaction (Verified 05/19/19 17:16) Confusion Review of Systems Constitutional: ABSENT: chills, fever(s) Eyes: ABSENT: visual disturbances, other - Eye pain Ears: ABSENT: hearing changes, other - Ear pain Nose, Mouth, and Throat: ABSENT: headache(s), sore throat Cardiovascular: PRESENT: as per HPI, chest pain. ABSENT: palpitations Respiratory: ABSENT: cough, dyspnea Gastrointestinal: PRESENT: bloating - Feels like ascites is returning. ABSENT: abdominal pain, constipation, diarrhea, nausea, vomiting Genitourinary: PRESENT: hematuria - Very dark brown urine. ABSENT: dysuria Musculoskeletal: ABSENT: joint swelling, muscle weakness Integumentary: ABSENT: pruritus, rash Neurological: ABSENT: confusion, convulsions, focal weakness, memory loss, syncope Psychiatric: ABSENT: anxiety, depression Endocrine: ABSENT: cold intolerance, heat intolerance Hematologic/Lymphatic: ABSENT: easy bleeding, easy bruising Allergic/Immunologic: ABSENT: seasonal rhinorrhea Physical Exam Vital Signs: Temp Pulse Resp BP Pulse Ox 102.1 F H 85 19 133/73 H 95 01/02/20 17:05 01/02/20 09:47 01/02/20 19:00 01/02/20 16:00 01/02/20 19:00 Intake & Output 12/31/19 01/01/20 01/02/20 23:59 23:59 23:59 Intake Total 1999 Balance 1999 Weight 90.718 kg General appearance: PRESENT: no acute distress, cooperative Head exam: PRESENT: atraumatic, normocephalic Eye exam: PRESENT: conjunctiva pink. ABSENT: conjunctival injection, scleral icterus Ear exam: PRESENT: normal external ear exam. ABSENT: bleeding, drainage Mouth exam: PRESENT: dry mucosa, neck supple Neck exam: ABSENT: thyromegaly, tracheal deviation Respiratory exam: PRESENT: chest wall tenderness - Left sternoclavicular joint tender to palpation, symmetrical, unlabored Cardiovascular exam: PRESENT: RRR. ABSENT: clicks, gallop, rubs Pulses: PRESENT: normal radial pulses, normal dorsalis pedis pul Vascular exam: PRESENT: normal capillary refill. ABSENT: pallor GI/Abdominal exam: PRESENT: normal bowel sounds, soft Rectal exam: PRESENT: deferred Extremities exam: PRESENT: other - Right ankle reduced range of motion. ABSENT: joint swelling, pedal edema Musculoskeletal exam: PRESENT: deformity - Early Charcot joint changes right a nkle. ABSENT: dislocation Neurological exam: PRESENT: alert, oriented to person, oriented to place, oriented to time, oriented to situation, CN II-XII grossly intact. ABSENT: motor sensory deficit Psychiatric exam: PRESENT: appropriate affect, normal mood Skin exam: PRESENT: dry, intact, warm. ABSENT: jaundice, rash, urticaria Results Laboratory Results: 01/02/20 10:54 01/02/20 10:54 01/02/20 01/02/20 01/02/20 10:54 10:54 10:54 WBC 3.9 L RBC 3.68 L Hgb 11.8 L Hct 33.6 L MCV 91 MCH 32.0 MCHC 35.1 RDW 15.7 H Plt Count 42 L Seg Neutrophils % 84.4 H Sodium 125.6 L Potassium 4.4 Chloride 98 Carbon Dioxide 18 L Anion Gap 10 BUN 26 H Creatinine 1.17 Est GFR ( Amer) > 60 Glucose 193 H Calcium 8.1 L Magnesium 1.8 Ferritin Total Bilirubin 1.1 AST 28 Alkaline Phosphatase 75 C-Reactive Protein 162.6 H Total Protein 6.4 Albumin 3.1 L Urine Color Urine Appearance Urine pH Ur Specific Uledi Urine Protein Urine Glucose (UA) Urine Ketones Urine Blood Urine Nitrite Ur Leukocyte Esterase Urine WBC (Auto) Urine RBC (Auto) 01/02/20 01/02/20 13:36 18:41 WBC RBC Hgb Hct MCV MCH MCHC RDW Plt Count Seg Neutrophils % Sodium Potassium Chloride Carbon Dioxide Anion Gap BUN Creatinine Est GFR ( Amer) Glucose Calcium Magnesium Ferritin 130.00 Total Bilirubin AST Alkaline Phosphatase C-Reactive Protein Total Protein Albumin Urine Color ANUPAM Urine Appearance CLOUDY Urine pH 6.0 Ur Specific U[place]i 1.036 Urine Protein 100 H Urine Glucose (UA) NEGATIVE Urine Ketones NEGATIVE Urine Blood LARGE H Urine Nitrite NEGATIVE Ur Leukocyte Esterase NEGATIVE Urine WBC (Auto) 10 Urine RBC (Auto) >182 01/02/20 01/02/20 10:54 10:54 Creatine Kinase 86 Troponin I < 0.012 Impressions: Cervical Spine CT 01/02/20 10:04 IMPRESSION: 1. No evidence of acute bony abnormality cervical spine. 2. Multilevel degenerative changes above. Chest X-Ray 01/02/20 10:04 IMPRESSION: No evidence of acute cardiopulmonary process. Head CT 01/02/20 10:04 IMPRESSION: NO ACUTE INTRACRANIAL IMAGING FINDINGS. EVIDENCE OF ACUTE STROKE: NO. Chest CT 01/02/20 11:26 IMPRESSION: 1. No osseous abnormality is seen in the left sternoclavicular joint or elsewhere in the chest. 2. Splenomegaly. Assessment and Plan - Diagnosis (1) Fever Qualifiers: Fever type: unspecified Qualified Code(s): R50.9 - Fever, unspecified Is this a current diagnosis for this admission?: Yes (2) Sternoclavicular joint pain Qualifiers: Laterality: left Qualified Code(s): M25.512 - Pain in left shoulder Is this a current diagnosis for this admission?: Yes (3) Hematuria Qualifiers: Hematuria type: gross Qualified Code(s): R31.0 - Gross hematuria Is this a current diagnosis for this admission?: Yes (4) Hypocalcemia Is this a current diagnosis for this admission?: Yes (5) Hyponatremia Is this a current diagnosis for this admission?: Yes (6) Lymphopenia Is this a current diagnosis for this admission?: Yes (7) Thrombocytopenia Is this a current diagnosis for this admission?: Yes (8) Chronic diastolic heart failure Is this a current diagnosis for this admission?: Yes (9) Diabetes mellitus type 2 in nonobese Is this a current diagnosis for this admission?: Yes (10) Tobacco abuse Is this a current diagnosis for this admission?: Yes - Plan Summary Summary: Patient will be admitted to the medical floor where he will see routine supportive and symptomatic cares. He will use morphine sulfate 2 to 4 mg IV every 2 hours as needed for pain. He will use Ativan 1 mg IV every 4 hours as needed for anxiety or restlessness. He will receive IV fluids utilizing lactated Ringer solution at 167 mL/h x 3 L. CBCs, metabolic profiles and additional laboratory and/or radiographic evaluations will be obtained as appropriate. Smoking cessation is advised and counseled briefly at the bedside. A nicotine replacement patch is available for the patient's use, if desired. Before meals and at bedtime Accu-Cheks will be obtained with sliding scale insulin for hyperglycemia and a hypoglycemic protocol in place. Patient will be on a cardiac and diabetic diet. Patient's home medications will be resumed, as appropriate, when his medication list has been verified and reconciled. - Time Time Spent with patient: 15-24 minutes Smoking Cessation Education: 3 to 10 minutes Medications reviewed and adjusted accordingly: Yes Anticipated Discharge Disposition: Home with Home Health Anticipated Discharge Timeframe: Undetermined - Inpatient Certification Based on my medical assessment, after consideration of the patient's comorbidities, presenting symptoms, or acuity I expect that the services needed warrant INPATIENT care.: Yes I certify that my determination is in accordance with my understanding of Medicare's requirements for reasonable and necessary INPATIENT services [42 CFR 412.3e].: Yes Medical Necessity: Significant Comorbidiites Make Outpatient Treatment Too Risky, Need Close Monitoring Due to Risk of Patient Decompensation, Need for Pain Control, Risk of Complication if Not Cared For in Hospital
[2020-01-02] MEDS ORDERED: MAG HYDROX/AL HYDROX/SIMETH SUSP 30 ML UDCUP PO PRN (21:49)
[2020-01-02] MEDS ORDERED: ONDANSETRON HCL INJ/PF 4 MG/2 ML SDV IV PRN (21:49)
[2020-01-02] MEDS ORDERED: MAGNESIUM HYDROXIDE SUSP 30 ML UDCUP PO PRN (21:49)
[2020-01-02] MEDS ORDERED: LORAZEPAM INJ 2 MG/1 ML VIAL IV PRN (21:55)
[2020-01-02] MEDS ORDERED: MORPHINE SULFATE 10 MG/ML INJ IV PRN (21:55)
[2020-01-02] MEDS ORDERED: PROMETHAZINE HCL INJ 25 MG/1 ML VIAL IV PRN (21:55)
[2020-01-02] MEDS ORDERED: NICOTINE 21 MG/24 HR PATCH.TD24 TD PRN (21:55)
[2020-01-02] MEDS ORDERED: DEXTROSE 50%-WATER 25 GM/50 ML DISP.SYRIN IV PRN ×2 (21:56)
[2020-01-02] MEDS ORDERED: GLUCAGON,HUMAN RECOMB 1 MG INJ IM PRN (21:56)
[2020-01-02] MEDS ORDERED: DEXTROSE 40% GEL 15 GM TUBE PO PRN ×2 (21:56)
[2020-01-03] MEDS: ACETAMINOPHEN 325 MG TABLET PO PRN ×3 (00:18→18:47)
[2020-01-03] MEDS: FAMOTIDINE 20 MG TABLET PO SCH ×3 (00:19→21:13)
[2020-01-03] MEDS: RINGERS SOLUTION,LACTATED 1,000 ML IV PRN ×2 (00:21→08:27)
[2020-01-03] MEDS: MELATONIN 5 MG TABLET PO PRN (00:51)
[2020-01-03 07:23] LABS: HEMATOCRIT 28.6 % (37.9-51.0); HEMOGLOBIN 10.4 g/dL (13.5-17.0); MEAN CORPUSCULAR HEMOGLOBIN 32.4 pg (27.0-33.4); MEAN CORPUSCULAR HGB CONC 36.1 g/dL (32.0-36.0); MEAN CORPUSCULAR VOLUME 90 fl (80-97); RED BLOOD COUNT 3.19 10^6/uL (4.35-5.55); RED CELL DISTRIBUTION WIDTH 16.1 % (11.5-14.0)
[2020-01-03 07:39] LABS: ALBUMIN 2.6 g/dL (3.5-5.0); ALKALINE PHOSPHATASE 58 U/L (38-126); ANION GAP 5 (5-19); ASPARTATE AMINO TRANSFERASE 28 U/L (17-59); BILIRUBIN,DIRECT 0.1 mg/dL (0.0-0.4); BILIRUBIN,TOTAL 0.8 mg/dL (0.2-1.3); BLOOD UREA NITROGEN 23 mg/dL (7-20); CALCIUM 7.6 mg/dL (8.4-10.2); CARBON DIOXIDE 20 mmol/L (22-30); CHLORIDE 100 mmol/L (98-107); GLUCOSE 170 mg/dL (75-110); POTASSIUM 4.3 mmol/L (3.6-5.0); TOTAL PROTEIN 5.6 g/dL (6.3-8.2)
[2020-01-03 08:06] LABS: PLATELET COUNT 37 10^3/uL (150-450); WHITE BLOOD COUNT 2.3 10^3/uL (4.0-10.5)
[2020-01-03] MEDS: INSULIN REG, HUMAN 100 UNIT/ML 3 ML VIAL (PYX) SUBCUT SCH ×4 (08:32→21:12)
[2020-01-03] MEDS ORDERED: RINGERS SOLUTION,LACTATED 1,000 ML IV PRN (11:23)
[2020-01-03] MEDS ORDERED: VANCOMYCIN HCL 0 MG in DEXTROSE 5%-WATER 250 ML IV NR (11:30)
[2020-01-03] MEDS: DOCUSATE SODIUM 100 MG CAPSULE PO SCH ×2 (12:13→18:05)
[2020-01-03] MEDS: PIPERACILLIN SODIUM/TAZOBACTAM 3.375 GM in NORMAL SALINE 100 ML IV SCH ×2 (14:14→18:06)
[2020-01-03] MEDS: HEPARIN SOD (PORCINE) 5,000 UNIT/ML 1 ML VIAL SUBCUT SCH ×2 (14:14→21:11)
[2020-01-03] MEDS: VANCOMYCIN HCL 1,250 MG in DEXTROSE 5%-WATER 250 ML IV SCH ×2 (15:27→21:12)
[2020-01-03] MEDS: SOFOSBUVIR VELPATASVIR PO SCH (18:05)
--- NOTE | 2020-01-03 18:33 | PDOC PROGRESS REPORT ---
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 Patient was seen on morning rounds. He is found resting in bed, comfortably, on room air. Patient reports a generalized sense of feeling unwell, but unable to specify further. He does continue to be febrile; T-max 102.7/24 hours. He denies specific complaints other than discomfort to his left sternoclavicular joint. He specifically denies [typical/cardiac] chest pain, palpitations, dyspnea, orthopnea, cough, abdominal pain, nausea, vomiting, diarrhea. He has no other questions or concerns. No concerns per nursing. Reason For Visit: FEVER,LEFT STERNOCLAVICULAR CONTUSION Physical Exam Vital Signs: Temp Pulse Resp BP Pulse Ox 100.0 F 79 20 126/59 H 95 01/03/20 15:38 01/03/20 15:38 01/03/20 15:38 01/03/20 11:45 01/03/20 15:38 Intake & Output 01/02/20 01/03/20 01/04/20 06:59 06:59 06:59 Intake Total 3000 118 Balance 3000 118 Weight 90.7 kg General appearance: PRESENT: well-developed, well-nourished, other - Acutely ill-appearing Head exam: PRESENT: atraumatic, normocephalic Eye exam: PRESENT: conjunctiva pink, EOMI, PERRLA. ABSENT: scleral icterus Mouth exam: PRESENT: dry mucosa, tongue midline Neck exam: ABSENT: carotid bruit, JVD, lymphadenopathy, thyromegaly Respiratory exam: PRESENT: chest wall tenderness - Left SCJ tenderness; erythema and edema noted., clear to auscultation brenda, symmetrical, unlabored, other - Room air. ABSENT: rales, rhonchi, wheezes Cardiovascular exam: PRESENT: RRR, +S1, +S2. ABSENT: diastolic murmur, rubs, systolic murmur Pulses: PRESENT: normal dorsalis pedis pul Vascular exam: PRESENT: normal capillary refill GI/Abdominal exam: PRESENT: normal bowel sounds, soft. ABSENT: distended, guarding, mass, organolmegaly, rebound, tenderness Rectal exam: PRESENT: deferred Extremities exam: PRESENT: full ROM, other - Early Charcot joint changes right ankle. ABSENT: calf tenderness, clubbing, pedal edema Neurological exam: PRESENT: alert, awake, oriented to person, oriented to place, oriented to time, oriented to situation, CN II-XII grossly intact. ABSENT: motor sensory deficit Psychiatric exam: PRESENT: appropriate affect, normal mood. ABSENT: homicidal ideation, suicidal ideation Skin exam: PRESENT: dry, intact, warm. ABSENT: cyanosis, rash Results Laboratory Results: 01/03/20 06:37 01/03/20 06:37 01/02/20 01/02/20 01/03/20 10:54 18:41 06:37 WBC 2.3 L D RBC 3.19 L Hgb 10.4 L Hct 28.6 L MCV 90 MCH 32.4 MCHC 36.1 H RDW 16.1 H Plt Count 37 L Sodium Potassium Chloride Carbon Dioxide Anion Gap BUN Creatinine Est GFR ( Amer) Glucose Lactic Acid Calcium Magnesium Ferritin 130.00 Total Bilirubin AST Alkaline Phosphatase C-Reactive Protein 162.6 H Total Protein Albumin TSH 01/03/20 01/03/20 01/03/20 06:37 06:37 09:39 WBC RBC Hgb Hct MCV MCH MCHC RDW Plt Count Sodium 124.6 L Potassium 4.3 Chloride 100 Carbon Dioxide 20 L Anion Gap 5 BUN 23 H Creatinine 1.01 Est GFR ( Amer) > 60 Glucose 170 H Lactic Acid 1.9 Calcium 7.6 L Magnesium 1.9 Ferritin Total Bilirubin 0.8 AST 28 Alkaline Phosphatase 58 C-Reactive Protein Total Protein 5.6 L Albumin 2.6 L TSH 5.22 H 01/02/20 13:36 Clean Catch Midstream Urine Culture - Final 2,000 col/ml 01/02/20 01/02/20 01/03/20 10:54 10:54 06:37 Creatine Kinase 86 Troponin I < 0.012 NT-Pro-B Natriuret Pep 1190 H Impressions: Cervical Spine CT 01/02/20 10:04 IMPRESSION: 1. No evidence of acute bony abnormality cervical spine. 2. Multilevel degenerative changes above. Chest X-Ray 01/02/20 10:04 IMPRESSION: No evidence of acute cardiopulmonary process. Head CT 01/02/20 10:04 IMPRESSION: NO ACUTE INTRACRANIAL IMAGING FINDINGS. EVIDENCE OF ACUTE STROKE: NO. Chest CT 01/02/20 11:26 IMPRESSION: 1. No osseous abnormality is seen in the left sternoclavicular joint or elsewhere in the chest. 2. Splenomegaly. Assessment and Plan - Diagnosis (1) SIRS (systemic inflammatory response syndrome) Is this a current diagnosis for this admission?: Yes Plan: Blood cultures pending. Strong suspicion for SCJ septic arthritis at this point. Considering coronavirus, however, did have a rapid test come back negative. Patient does have a history of recent MRSA bacteremia; treated with daptomycin at home (July 2019). CT imagining is benign. Will obtain MRI to eval more definitively for a septic joint. Start IV Vancomycin/Zosyn. Analgesics as needed. Pending MRI results, may need Infectious Disease and/or cardiothorcaic surgical opinion. (2) Sternoclavicular joint pain Qualifiers: Laterality: left Qualified Code(s): M25.512 - Pain in left shoulder Is this a current diagnosis for this admission?: Yes Plan: Evaluation and management as in #1 (3) Pancytopenia Is this a current diagnosis for this admission?: Yes Plan: Unclear etiology. Patient does have cirrhosis/chronic hepatitis C. Review of lab work shows intermittent thrombocytopenia and chronic mild anemia (baseline hemoglobin 11). However, leukocytosis is a new development as of the last week. He is running a fever; 102.7/24 hours. Possibly related to #1. Antibiotics as above. Follow-up CBC; if not improved, and certainly if worsened, will consult hematology for assistance. (4) Chronic diastolic heart failure Is this a current diagnosis for this admission?: Yes Plan: Continue home dose carvediolol, spironolactone and furosemide. Cardiac diet; fluid restrict 2L daily Daily weights and Strict I&Os (5) Diabetes mellitus type 2 in nonobese Is this a current diagnosis for this admission?: Yes Plan: A1C 5.8% (01/03/20) Not on home medications; diet controlled. Cardiac/Consistent Carb diet. Accu-cheks ACHS with SSI. Hypoglycemia protocol in place. (6) Fever Qualifiers: Fever type: unspecified Qualified Code(s): R50.9 - Fever, unspecified Is this a current diagnosis for this admission?: Yes Plan: Evaluation as in #1 (7) Hematuria Qualifiers: Hematuria type: gross Qualified Code(s): R31.0 - Gross hematuria Is this a current diagnosis for this admission?: Yes Plan: No evidence of infection. Culture <2k colonies. Monitor for worsening hematuria/acute urinary obstruction. (8) Hypocalcemia Is this a current diagnosis for this admission?: Yes Plan: Nml calcium when corrected for albumin; 8.7 Routine monitoring. (9) Hyponatremia Is this a current diagnosis for this admission?: Yes Plan: Chronic hyponatremia, though worsened from baseline. Likely related to cirrhosis, furosemide/spironolactone. Fluid restrict to 2L daily Stop IVF (received NS boluses followed by generous LR). Daily chemistries. If worsens, will need to hold diuretics. (10) Tobacco abuse Is this a current diagnosis for this admission?: Yes Plan: Cessation counseled. Nicotine replacement therapy provided. - Time Time Spent with patient: 35 or more minutes Smoking Cessation Education: 3 to 10 minutes Medications reviewed and adjusted accordingly: Yes Anticipated Discharge Disposition: Home with Home Health Anticipated Discharge Timeframe: >72 hrs
[2020-01-03 19:26] LABS: FREE T3 1.51 pg/mL (2.77-5.27); FREE T4 (FREE THYROXINE) 0.9 ng/dL (0.78-2.19)
[2020-01-03] MEDS: ALBUTEROL SULFATE 0.083% NEB 2.5 MG/3 ML AMPUL NEB PRN (20:43)
[2020-01-03] MEDS: CARVEDILOL 3.125 MG TABLET PO SCH (21:13)
[2020-01-04] MEDS: PIPERACILLIN SODIUM/TAZOBACTAM 3.375 GM in NORMAL SALINE 100 ML IV SCH ×4 (00:34→17:41)
[2020-01-04] MEDS: HEPARIN SOD (PORCINE) 5,000 UNIT/ML 1 ML VIAL SUBCUT SCH ×3 (05:34→21:29)
[2020-01-04 05:39] LABS: HEMATOCRIT 26.8 % (37.9-51.0); HEMOGLOBIN 9.5 g/dL (13.5-17.0); MEAN CORPUSCULAR HEMOGLOBIN 32.1 pg (27.0-33.4); MEAN CORPUSCULAR HGB CONC 35.2 g/dL (32.0-36.0); MEAN CORPUSCULAR VOLUME 91 fl (80-97); RED BLOOD COUNT 2.95 10^6/uL (4.35-5.55); RED CELL DISTRIBUTION WIDTH 16.1 % (11.5-14.0); WHITE BLOOD COUNT 2.8 10^3/uL (4.0-10.5)
[2020-01-04] MEDS: ACETAMINOPHEN 325 MG TABLET PO PRN (05:40)
[2020-01-04 05:57] LABS: ANION GAP 6 (5-19); BLOOD UREA NITROGEN 20 mg/dL (7-20); CALCIUM 7.4 mg/dL (8.4-10.2); CARBON DIOXIDE 19 mmol/L (22-30); CHLORIDE 102 mmol/L (98-107); GLUCOSE 135 mg/dL (75-110); POTASSIUM 3.7 mmol/L (3.6-5.0)
[2020-01-04 05:58] LABS: PLATELET COUNT 38 10^3/uL (150-450)
[2020-01-04] MEDS: INSULIN REG, HUMAN 100 UNIT/ML 3 ML VIAL (PYX) SUBCUT SCH ×4 (07:49→21:28)
--- NOTE | 2020-01-04 09:17 | RADIOLOGY REPORT (SQ) ---
EXAM DESCRIPTION: MRI CHEST WITHOUT IMAGES COMPLETED DATE/TIME: 01/03/2020 7:46 pm REASON FOR STUDY: left SCJ trauma; receb hx MRSA. ?septic arthritis COMPARISON: None. TECHNIQUE: T1, T2 fat sat, FLAIR weighted sequences through the sternoclavicular joints without cont rast. LIMITATIONS: Excessive motion. FINDINGS: No evidence of joint effusion or aggressive bone lesion. No fracture or dislocation. No fluid collection. IMPRESSION: No evidence of septic arthritis. TECHNICAL DOCUMENTATION: JOB ID: [id number] 2010 [employer]- All Rights Reserved Reading location - IP/workstation name: [email or web address]
[2020-01-04] MEDS ORDERED: SOFOSBUVIR PO SCH (10:00)
[2020-01-04] MEDS ORDERED: VELPATASVIR PO SCH (10:00)
[2020-01-04] MEDS: FUROSEMIDE 40 MG TABLET PO SCH (11:06)
[2020-01-04] MEDS: SPIRONOLACTONE 25 MG TABLET PO SCH (11:06)
[2020-01-04] MEDS: FAMOTIDINE 20 MG TABLET PO SCH ×2 (11:07→21:28)
[2020-01-04] MEDS: CARVEDILOL 3.125 MG TABLET PO SCH ×2 (11:07→21:27)
[2020-01-04] MEDS: SOFOSBUVIR VELPATASVIR PO SCH (11:08)
[2020-01-04] MEDS: FLUTICASONE/VILANTEROL 200-25 MCG/DOSE IH SCH (11:10)
[2020-01-04] MEDS: VANCOMYCIN HCL 1,250 MG in DEXTROSE 5%-WATER 250 ML IV SCH ×2 (11:11→21:28)
[2020-01-04] MEDS: DOCUSATE SODIUM 100 MG CAPSULE PO SCH ×2 (11:20→17:43)
[2020-01-04] MEDS: OXYCODONE-ACETAMINOPHEN 5-325 MG TABLET PO PRN ×2 (12:02→21:26)
--- NOTE | 2020-01-04 14:09 | PDOC PROGRESS REPORT ---
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 Patient was seen on morning rounds. He is found resting in bed, comfortably, on room air. Patient reports right shoulder, neck, and upper back pain. He does continue to be febrile; T-max 100.4/24 hrs, 102.7/48 hours. He specifically denies [typical/cardiac] chest pain, palpitations, dyspnea, orthopnea, cough, abdominal pain, nausea, vomiting, diarrhea. He has no other questions or concerns. No concerns per nursing. Reason For Visit: FEVER,LEFT STERNOCLAVICULAR CONTUSION Physical Exam Vital Signs: Temp Pulse Resp BP Pulse Ox 98.2 F 71 20 115/62 94 01/04/20 11:52 01/04/20 11:52 01/04/20 11:52 01/04/20 11:52 01/04/20 11:52 Intake & Output 01/03/20 01/04/20 01/05/20 06:59 06:59 06:59 Intake Total 3000 3378 250 Output Total 750 Balance 3000 2628 250 Weight 90.7 kg 90.5 kg General appearance: PRESENT: no acute distress, cooperative, well-developed, well-nourished Head exam: PRESENT: atraumatic, normocephalic Eye exam: PRESENT: conjunctiva pink, EOMI, PERRLA. ABSENT: scleral icterus Mouth exam: PRESENT: moist, tongue midline Respiratory exam: PRESENT: chest wall tenderness - Left SCJ tenderness, symmetri pavan, unlabored, wheezes, other - room air. ABSENT: rales, rhonchi Cardiovascular exam: PRESENT: RRR, +S1, +S2. ABSENT: diastolic murmur, rubs, systolic murmur Pulses: PRESENT: normal dorsalis pedis pul Vascular exam: PRESENT: normal capillary refill GI/Abdominal exam: PRESENT: normal bowel sounds, soft. ABSENT: distended, guarding, mass, organolmegaly, rebound, tenderness Rectal exam: PRESENT: deferred Extremities exam: PRESENT: full ROM. ABSENT: calf tenderness, clubbing, pedal edema Musculoskeletal exam: PRESENT: tenderness - LT SCJ; erythema and edema to join. TTP Neurological exam: PRESENT: alert, awake, oriented to person, oriented to place, oriented to time, oriented to situation, CN II-XII grossly intact. ABSENT: motor sensory deficit Psychiatric exam: PRESENT: appropriate affect, normal mood. ABSENT: homicidal ideation, suicidal ideation Skin exam: PRESENT: dry, intact, warm. ABSENT: cyanosis, rash Results Laboratory Results: 01/04/20 05:00 01/04/20 05:00 01/03/20 01/04/20 01/04/20 06:37 05:00 05:00 WBC 2.8 L RBC 2.95 L Hgb 9.5 L Hct 26.8 L MCV 91 MCH 32.1 MCHC 35.2 RDW 16.1 H Plt Count 38 L Sodium 127.2 L Potassium 3.7 Chloride 102 Carbon Dioxide 19 L Anion Gap 6 BUN 20 Creatinine 0.99 Est GFR ( Amer) > 60 Glucose 135 H Calcium 7.4 L Free T4 0.90 Free T3 pg/mL 1.51 L 01/03/20 10:45 Blood Blood Culture (PCR) - Final Staphylococcus Aureus 01/03/20 11:06 Blood Blood Culture (PCR) - Final Staphylococcus Aureus 01/02/20 13:36 Clean Catch Midstream Urine Culture - Final 2,000 col/ml 01/02/20 01/02/20 01/03/20 10:54 10:54 06:37 Creatine Kinase 86 Troponin I < 0.012 NT-Pro-B Natriuret Pep 1190 H 01/03/20 06:37 Creatine Kinase 95 Troponin I NT-Pro-B Natriuret Pep Impressions: Cervical Spine CT 01/02/20 10:04 IMPRESSION: 1. No evidence of acute bony abnormality cervical spine. 2. Multilevel degenerative changes above. Chest X-Ray 01/02/20 10:04 IMPRESSION: No evidence of acute cardiopulmonary process. Head CT 01/02/20 10:04 IMPRESSION: NO ACUTE INTRACRANIAL IMAGING FINDINGS. EVIDENCE OF ACUTE STROKE: NO. Chest CT 01/02/20 11:26 IMPRESSION: 1. No osseous abnormality is seen in the left sternoclavicular joint or elsewhere in the chest. 2. Splenomegaly. Chest MRI 01/03/20 00:00 IMPRESSION: No evidence of septic arthritis. Assessment and Plan - Diagnosis (1) Bacteremia Is this a current diagnosis for this admission?: Yes Plan: Unclear source. Blood cultures (4/4 bottles) show MRSA bacteremia Repeat cultures tomorrow (following 48 hrs IV Vancomycin). Continue Vanc/Zosyn pending sensitivities. Infectious disease is consulted. Echocardiogram pending. (2) Sternoclavicular joint pain Qualifiers: Laterality: left Qualified Code(s): M25.512 - Pain in left shoulder Is this a current diagnosis for this admission?: Yes Plan: CT and MRI imagining is benign. Remain concerned for septic joint based on exam; erythema, edema, warmth, TTP. BCX MRSA (+) Continue IV Vancomycin/Zosyn. Analgesics as needed; lidoderm patches and as needed percocet. (3) Pancytopenia Is this a current diagnosis for this admission?: Yes Plan: Unclear etiology; possibly related to MRSA bacteremia. Patient does have cirrhosis/chronic hepatitis C. Review of lab work shows intermittent thrombocytopenia and chronic mild anemia (baseline hemoglobin 11). However, leukocytosis is a new development as of the last week. TMax 102.7/48 hours.; 100.4/24 hrs Possibly related to #1. Antibiotics as above. Follow-up CBC; if not improved, and certainly if worsened, will consult hematology for assistance. (4) Chronic diastolic heart failure Is this a current diagnosis for this admission?: Yes Plan: Stable and without exacerbation at this time. Continue home dose carvediolol, spironolactone and furosemide. Cardiac diet; fluid restrict 2L daily Daily weights and Strict I&Os (5) Diabetes mellitus type 2 in nonobese Is this a current diagnosis for this admission?: Yes Plan: A1C 5.8% (01/03/20) Not on home medications; diet controlled. Cardiac/Consistent Carb diet. Accu-cheks ACHS with SSI. Hypoglycemia protocol in place. (6) Fever Qualifiers: Fever type: unspecified Qualified Code(s): R50.9 - Fever, unspecified Is this a current diagnosis for this admission?: Yes Plan: Evaluation as in #1 (7) Hematuria Qualifiers: Hematuria type: gross Qualified Code(s): R31.0 - Gross hematuria Is this a current diagnosis for this admission?: Yes Plan: No evidence of infection. Culture <2k colonies. Monitor for worsening hematuria/acute urinary obstruction. (8) Hypocalcemia Is this a current diagnosis for this admission?: Yes Plan: Nml calcium when corrected for albumin; 8.7 Routine monitoring. (9) Hyponatremia Is this a current diagnosis for this admission?: Yes Plan: Rending up; 125.6-> 124.6-> 127.2 Chronic hyponatremia, though worsened from baseline. Likely related to cirrhosis, furosemide/spironolactone. Fluid restrict to 2L daily Stop IVF (received NS boluses followed by generous LR). Daily chemistries. If worsens, will need to hold diuretics. (10) Tobacco abuse Is this a current diagnosis for this admission?: Yes Plan: Cessation counseled. Nicotine replacement therapy provided. (11) SIRS (systemic inflammatory response syndrome) Is this a current diagnosis for this admission?: Yes Plan: Secondary to MRSA bacteremia. Unclear source. Management as above. - Time Time Spent with patient: 35 or more minutes Medications reviewed and adjusted accordingly: Yes Anticipated Discharge Disposition: Home with Home Health Anticipated Discharge Timeframe: > 72 hrs
[2020-01-04] MEDS: LIDOCAINE 5% (700 MG) TRANSDERMAL ADH..PATCH TP SCH (14:39)
--- NOTE | 2020-01-04 15:31 | XCELERA REPORT ---
[address] [address] Transthoracic Echocardiogram Report Name: RENATA STRICKLAND Age: 64 yrs Gender: Male : 1955 Patient Status: Inpatient Patient Location: [address] [place] [address] Study Date: 01/04/2020 10:17 AM History: Bacteremia Height: 72 in Weight: 199 lb BSA: 2.1 m2 Procedure: A complete two-dimensional transthoracic echocardiogram was performed (2D, M-mode, spectral and color flow Doppler). The study was technically difficult with many images being suboptimal in quality. Study Quality: Technically suboptimal. Reason For Study: MRSA bacteremia Previous Evaluation: A previous study was performed on 05/17/2019 LVEF was normal. History: Bacteremia. Ordering Physician: KYM LARA Performed By: Muriel Hickey Interpretation Summary Left ventricular systolic function is low normal. The Ejection Fraction estimate is 50-55% The right ventricle is normal in size and function. There is a trace amount of mitral regurgitation There is no aortic valve stenosis There is a trace amount of tricuspid regurgitation Doppler findings do not suggest pulmonary hypertension. There is no pericardial effusion. MMode/2D Measurements & Calculations RVDd: 2.6 cm LVIDd: 6.0 cm FS: 27.9 % Ao root diam: 3.1 cm IVSd: 1.1 cm LVIDs: 4.4 cm EDV(Teich): 183.4 ml Ao root area: 7.5 cm2 LVPWd: 1.0 cm ESV(Teich): 85.8 ml EF(Teich): 53.2 % Doppler Measurements & Calculations MV E max adnrews: MV dec slope: Ao V2 max: LV V1 max P.8 cm/sec 339.7 cm/sec2 156.6 cm/sec 7.9 mmHg MV A max andrews: MV dec time: 0.30 secAo max PG: LV V1 max: 80.5 cm/sec 9.8 mmHg 140.8 cm/sec MV E/A: 1.3 PA V2 max: TR max andrews: 86.8 cm/sec 222.6 cm/sec PA max P.0 mmHg TR max P.8 mmHg Left Ventricle The left ventricle is borderline dilated. There is borderline concentric left ventricular hypertrophy. The Ejection Fraction estimate is 50-55%. Left ventricular systolic function is low normal. LV diastolic function not assessed. Regional wall motion abnormalities cannot be excluded due to limited visualization. Right Ventricle The right ventricle is normal in size and function. Atria The right atrium is normal. The left atrial size is normal. The interatrial septum is intact with no evidence for an atrial septal defect. There is no Doppler evidence for an interatrial shunt. Mitral Valve The mitral valve is grossly normal. There is a trace amount of mitral regurgitation. Aortic Valve The aortic valve is not well visualized secondary to technical limitations. The aortic valve opens well. There is no aortic valve stenosis. No aortic regurgitation is present. Tricuspid Valve The tricuspid valve is not well visualized, but is grossly normal. There is a trace amount of tricuspid regurgitation. Doppler findings do not suggest pulmonary hypertension. Pulmonic Valve The pulmonic valve is not well visualized. Great Vessels The aortic root is normal size. The inferior vena cava appeared small and collapsed with respiration (RAP 0-5 mmHg). Effusions There is no pericardial effusion. : KYM LARA Anil
--- NOTE | 2020-01-04 16:30 | Progress Note ---
Provider Note Provider Note: [facility] Telephone Advice Consultation Chart reviewed. This is a 64-year-old man who is known to our service due to previous MRSA infection of the right ankle s/p 6 weeks of therapy. He had multiple I&Ds, was initially on vancomycin and then transitioned to daptomycin due to UNIQUE. He completed 6 weeks of antibiotics with resolution of the infection. This time, he was admitted due to a fall where he injured his left SC joint. He was using crutches and fell 3 days prior to admission. He was hav ing severe pain on the left SC joint, redness and swelling. He had fever on admission, he was pancytopenic. He had multiple imaging studies including CT head, CXR, CT chest, MRI chest, CT C spine. No evidence of SCJ septic arthritis or osteomyelitis. Blood culture on 01/02 positive for MRSA. CRP 162. Renal function is adequate. He was started on vancomycin and zosyn. He has HCV and is currently receiving therapy with Epclusa. ID consulted for recommendations. Allergies oxycodone Adverse Reaction (Verified 05/19/19 17:16) Confusion Current Home Medications Sofosbuvir/Velpatasvir [Sofosbuvir-Velpatasvir 400-100] 1 tab PO DAILY 01/03/20 Spironolactone [Aldactone 25 mg Tablet] 75 mg PO DAILY 01/03/20 Vital Signs: Temp Pulse Resp BP Pulse Ox 98.0 F 66 20 119/56 L 94 01/04/20 15:02 01/04/20 15:02 01/04/20 15:02 01/04/20 15:02 01/04/20 15:02 Intake & Output 01/03/20 01/04/20 01/05/20 06:59 06:59 06:59 Intake Total 3000 3378 350 Output Total 750 Balance 3000 2628 350 Weight 90.7 kg 90.5 kg Weight/Height Weight 90.5 kg Height 6 ft Laboratories: 01/04/20 05:00 01/04/20 05:00 MCV 91 fl (80-97) 01/04/20 05:00 MCH 32.1 pg (27.0-33.4) 01/04/20 05:00 MCHC 35.2 g/dL (32.0-36.0) 01/04/20 05:00 RDW 16.1 % (11.5-14.0) H 01/04/20 05:00 Seg Neutrophils % 84.4 % (42-78) H 01/02/20 10:54 Chloride 102 mmol/L (98-107) 01/04/20 05:00 Carbon Dioxide 19 mmol/L (22-30) L 01/04/20 05:00 Anion Gap 6 (5-19) 01/04/20 05:00 Est GFR ( Amer) > 60 (>60) 01/04/20 05:00 Glucose 135 mg/dL (75-110) H 01/04/20 05:00 Lactic Acid 1.9 mmol/L (0.7-2.1) 01/03/20 09:39 Calcium 7.4 mg/dL (8.4-10.2) L 01/04/20 05:00 Magnesium 1.9 mg/dL (1.6-2.3) 01/03/20 06:37 Ferritin 130.00 ng/mL (17.9-464.0) 01/02/20 18:41 Total Bilirubin 0.8 mg/dL (0.2-1.3) 01/03/20 06:37 AST 28 U/L (17-59) 01/03/20 06:37 Alkaline Phosphatase 58 U/L (38-126) 01/03/20 06:37 C-Reactive Protein 162.6 mg/L (<10.0) H 01/02/20 10:54 Total Protein 5.6 g/dL (6.3-8.2) L 01/03/20 06:37 Albumin 2.6 g/dL (3.5-5.0) L 01/03/20 06:37 TSH 5.22 uIU/mL (0.47-4.68) H 01/03/20 06:37 Free T4 0.90 ng/dL (0.78-2.19) 01/03/20 06:37 Free T3 pg/mL 1.51 pg/mL (2.77-5.27) L 01/03/20 06:37 Urine Color ANUPAM 01/02/20 13:36 Urine Appearance CLOUDY 01/02/20 13:36 Urine pH 6.0 (5.0-9.0) 01/02/20 13:36 Ur Specific Benson 1.036 01/02/20 13:36 Urine Protein 100 mg/dL (NEGATIVE) H 01/02/20 13:36 Urine Glucose (UA) NEGATIVE mg/dL (NEGATIVE) 01/02/20 13:36 Urine Ketones NEGATIVE mg/dL (NEGATIVE) 01/02/20 13:36 Urine Blood LARGE (NEGATIVE) H 01/02/20 13:36 Urine Nitrite NEGATIVE (NEGATIVE) 01/02/20 13:36 Ur Leukocyte Esterase NEGATIVE (NEGATIVE) 01/02/20 13:36 Urine WBC (Auto) 10 /HPF 01/02/20 13:36 Urine RBC (Auto) >182 /HPF 01/02/20 13:36 01/03/20 10:45 Blood Blood Culture (PCR) - Final Staphylococcus Aureus 01/03/20 11:06 Blood Blood Culture (PCR) - Final Staphylococcus Aureus 01/02/20 01/02/20 01/03/20 10:54 10:54 06:37 Creatine Kinase 86 Troponin I < 0.012 NT-Pro-B Natriuret Pep 1190 H 01/03/20 06:37 Creatine Kinase 95 Troponin I NT-Pro-B Natriuret Pep Microbiology: Blood cultures: 01/02 MRSA Urine culture 01/02 2,000 col Radiology: Cervical Spine CT 01/02/20 10:04 IMPRESSION: 1. No evidence of acute bony abnormality cervical spine. 2. Multilevel degenerative changes above. Chest X-Ray 01/02/20 10:04 IMPRESSION: No evidence of acute cardiopulmonary process. Head CT 01/02/20 10:04 IMPRESSION: NO ACUTE INTRACRANIAL IMAGING FINDINGS. EVIDENCE OF ACUTE STROKE: NO. Chest CT 01/02/20 11:26 IMPRESSION: 1. No osseous abnormality is seen in the left sternoclavicular joint or elsewhere in the chest. 2. Splenomegaly. Chest MRI 01/03/20 00:00 IMPRESSION: No evidence of septic arthritis. 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 Source of bacteremia is unknown. He fell, would assume that portal of entry was the skin and that it seeded the left SCJ. Even though imaging is not supportive of this, clinically there is inflammation of the joint. Will recommend an US to better assess for fluid in the joint. A TTE was negative for valvular vegetations, but it was suboptimal in quality. Will recommend to repeat blood cultures and if still positive, will recommend a WILFRED to rule out any endovascular complication like infective endocarditis. Should also assess for any other potential site of metastatic infection. Can image his ankle to make sure there isn't any residual infection as potential source. In terms of antibiotic therapy, continue vancomycin to reach a trough 15-20 monitoring GFR as last time he had UNIQUE. He will need a minimum of 4 weeks of antibiotic therapy from negative blood cultures if no endocarditis or osteomyelitis. Please call if questions. Evelyn Ricardo MD [facility] [phone]
[2020-01-04] MEDS: ALBUTEROL SULFATE 0.083% NEB 2.5 MG/3 ML AMPUL NEB PRN (20:44)
[2020-01-04] MEDS: MELATONIN 5 MG TABLET PO PRN (21:30)
[2020-01-05] MEDS: PIPERACILLIN SODIUM/TAZOBACTAM 3.375 GM in NORMAL SALINE 100 ML IV SCH ×3 (00:23→12:17)
[2020-01-05] MEDS: HEPARIN SOD (PORCINE) 5,000 UNIT/ML 1 ML VIAL SUBCUT SCH ×3 (05:08→22:49)
[2020-01-05 07:03] LABS: HEMATOCRIT 27.3 % (37.9-51.0); HEMOGLOBIN 9.5 g/dL (13.5-17.0); MEAN CORPUSCULAR HEMOGLOBIN 31.8 pg (27.0-33.4); MEAN CORPUSCULAR HGB CONC 34.8 g/dL (32.0-36.0); MEAN CORPUSCULAR VOLUME 91 fl (80-97); RED BLOOD COUNT 2.99 10^6/uL (4.35-5.55); RED CELL DISTRIBUTION WIDTH 16.1 % (11.5-14.0); WHITE BLOOD COUNT 3.6 10^3/uL (4.0-10.5)
[2020-01-05 07:13] LABS: ANION GAP 6 (5-19); BLOOD UREA NITROGEN 21 mg/dL (7-20); CALCIUM 7.4 mg/dL (8.4-10.2); CARBON DIOXIDE 20 mmol/L (22-30); CHLORIDE 102 mmol/L (98-107); GLUCOSE 148 mg/dL (75-110); POTASSIUM 3.5 mmol/L (3.6-5.0)
[2020-01-05 07:35] LABS: PLATELET COUNT 43 10^3/uL (150-450)
[2020-01-05] MEDS: INSULIN REG, HUMAN 100 UNIT/ML 3 ML VIAL (PYX) SUBCUT SCH ×4 (08:01→22:56)
[2020-01-05] MEDS: FAMOTIDINE 20 MG TABLET PO SCH ×2 (10:21→22:55)
[2020-01-05] MEDS: SPIRONOLACTONE 25 MG TABLET PO SCH (10:21)
[2020-01-05] MEDS: CARVEDILOL 3.125 MG TABLET PO SCH ×2 (10:21→22:55)
[2020-01-05] MEDS: SOFOSBUVIR VELPATASVIR PO SCH (10:22)
[2020-01-05] MEDS: LIDOCAINE 5% (700 MG) TRANSDERMAL ADH..PATCH TP SCH (10:22)
[2020-01-05] MEDS: VANCOMYCIN HCL 1,250 MG in DEXTROSE 5%-WATER 250 ML IV SCH (10:22)
[2020-01-05] MEDS: FUROSEMIDE 40 MG TABLET PO SCH (10:22)
[2020-01-05] MEDS: DOCUSATE SODIUM 100 MG CAPSULE PO SCH ×2 (10:22→17:43)
[2020-01-05] MEDS: FLUTICASONE/VILANTEROL 200-25 MCG/DOSE IH SCH (10:23)
[2020-01-05] MEDS: OXYCODONE-ACETAMINOPHEN 5-325 MG TABLET PO PRN ×2 (10:31→20:31)
--- NOTE | 2020-01-05 10:40 | RADIOLOGY REPORT (SQ) ---
EXAM DESCRIPTION: MRI RT LOWER EXTREMITY WITHOUT IMAGES COMPLETED DATE/TIME: 01/05/2020 10:06 am REASON FOR STUDY: bacteremia; recent septic right ankle COMPARISON: None. TECHNIQUE: Multiplanar imaging of the right ankle to include fat and fluid sensitive sequences. LIMITATIONS: None. FINDINGS: BONE MARROW: Decreased T1 and increased T2 signal with cortical breakthrough anterior hood in of the dorsal talus. More subtle patchy signal alteration in calcaneus, navicular and medial cune iforms. Erosions along the talar articular surface with the navicular. Loose bodies in the dorsal r ecess. SOFT TISSUES: No abscess. OTHER: No other significant finding. IMPRESSION: Cortical breakthrough anterior talus consistent with osteomyelitis. TECHNICAL DOCUMENTATION: JOB ID: [id number] 2010 [employer]- All Rights Reserved Reading location - IP/workstation name: [email or web address]
[2020-01-05 11:09] LABS: VANCOMYCIN,TROUGH 10.9 ug/mL (5.0-20.0)
--- NOTE | 2020-01-05 13:02 | RADIOLOGY REPORT (SQ) ---
EXAM DESCRIPTION: U/S CHEST IMAGES COMPLETED DATE/TIME: 01/05/2020 11:50 am REASON FOR STUDY: left SCJ edema; ?abscess vs effusion COMPARISON: None. TECHNIQUE: Dynamic and static grayscale images acquired of the localized site of clinical concern an d recorded on PACS. Additional selected color Doppler and spectral images recorded. SITE OF CONCERN: Left sternoclavicular joint. LIMITATIONS: None. FINDINGS: There is a 4.9 x 1.8 x 3.7 cm heterogeneous hypoechoic lesion with surrounding hyperemia. No through transmission. IMPRESSION: Contusion/hematoma. No definite abscess. TECHNICAL DOCUMENTATION: JOB ID: [id number] 2010 [employer]- All Rights Reserved Reading location - IP/workstation name: [email or web address]
--- NOTE | 2020-01-05 17:30 | PDOC PROGRESS REPORT ---
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 Patient was seen on morning rounds. He is found resting in bed, comfortably, on room air. Patient reports right shoulder, neck, and upper back pain; somewhat improved today. He does continue to be febrile; T-max 99.5/24 hrs, 100.4/48 hours. Otherwise reports fatigue. He specifically denies [typical/cardiac] chest pain, palpitations, dyspnea, orthopnea, cough, abdominal pain, nausea, vomiting, diarrhea. He has no other questions or concerns. No concerns per nursing. Reason For Visit: FEVER,LEFT STERNOCLAVICULAR CONTUSION Physical Exam Vital Signs: Temp Pulse Resp BP Pulse Ox 98.3 F 66 20 101/57 L 93 01/05/20 15:16 01/05/20 15:16 01/05/20 15:16 01/05/20 15:16 01/05/20 15:16 Intake & Output 01/04/20 01/05/20 01/06/20 06:59 06:59 06:59 Intake Total 3378 1550 350 Output Total 750 1000 Balance 2628 550 350 Weight 90.5 kg 92.7 kg General appearance: PRESENT: no acute distress, cooperative, well-developed, well-nourished Head exam: PRESENT: atraumatic, normocephalic Eye exam: PRESENT: conjunctiva pink, EOMI, PERRLA. ABSENT: scleral icterus Mouth exam: PRESENT: moist, tongue midline Respiratory exam: PRESENT: chest wall tenderness - lt SCJ, clear to auscultation brenda, symmetrical, unlabored, other - room air. ABSENT: rales, rhonchi, wheezes Cardiovascular exam: PRESENT: RRR, +S1, +S2. ABSENT: diastolic murmur, rubs, systolic murmur Pulses: PRESENT: normal dorsalis pedis pul Vascular exam: PRESENT: normal capillary refill GI/Abdominal exam: PRESENT: normal bowel sounds, soft. ABSENT: distended, gua rding, mass, organolmegaly, rebound, tenderness Rectal exam: PRESENT: deferred Extremities exam: PRESENT: full ROM. ABSENT: calf tenderness, clubbing, pedal edema Neurological exam: PRESENT: alert, awake, oriented to person, oriented to place, oriented to time, oriented to situation, CN II-XII grossly intact, other - fatigue. ABSENT: motor sensory deficit Psychiatric exam: PRESENT: appropriate affect, normal mood. ABSENT: homicidal ideation, suicidal ideation Skin exam: PRESENT: dry, intact, warm. ABSENT: cyanosis, rash Results Laboratory Results: 01/05/20 06:38 01/05/20 06:00 01/05/20 01/05/20 06:00 06:38 WBC 3.6 L RBC 2.99 L Hgb 9.5 L Hct 27.3 L MCV 91 MCH 31.8 MCHC 34.8 RDW 16.1 H Plt Count 43 L Sodium 127.7 L Potassium 3.5 L Chloride 102 Carbon Dioxide 20 L Anion Gap 6 BUN 21 H Creatinine 1.07 Est GFR ( Amer) > 60 Glucose 148 H Calcium 7.4 L 01/03/20 11:06 Blood Blood Culture (PCR) - Final Staphylococcus Aureus 01/03/20 11:06 Blood Blood Culture - Final Mrsa (Meth Resis Staph Aureus) 01/03/20 10:45 Blood Blood Culture (PCR) - Final Staphylococcus Aureus 01/03/20 10:45 Blood Blood Culture - Final Mrsa (Meth Resis Staph Aureus) 01/02/20 01/02/20 01/03/20 10:54 10:54 06:37 Creatine Kinase 86 Troponin I < 0.012 NT-Pro-B Natriuret Pep 1190 H 01/03/20 06:37 Creatine Kinase 95 Troponin I NT-Pro-B Natriuret Pep Impressions: Cervical Spine CT 01/02/20 10:04 IMPRESSION: 1. No evidence of acute bony abnormality cervical spine. 2. Multilevel degenerative changes above. Chest X-Ray 01/02/20 10:04 IMPRESSION: No evidence of acute cardiopulmonary process. Head CT 01/02/20 10:04 IMPRESSION: NO ACUTE INTRACRANIAL IMAGING FINDINGS. EVIDENCE OF ACUTE STROKE: NO. Chest CT 01/02/20 11:26 IMPRESSION: 1. No osseous abnormality is seen in the left sternoclavicular joint or elsewhere in the chest. 2. Splenomegaly. Chest MRI 01/03/20 00:00 IMPRESSION: No evidence of septic arthritis. Chest Ultrasound 01/05/20 00:00 IMPRESSION: Contusion/hematoma. No definite abscess. Lower Extremity MRI 01/05/20 00:00 IMPRESSION: Cortical breakthrough anterior talus consistent with osteomyelitis. 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 Echocardiogram pooir quality study; no obvious vegetation Continue Vanc; anticipate minimum 6 weeks r/t osteo. Discontinue Zosyn Infectious disease is consulted. (2) Sternoclavicular joint pain Qualifiers: Laterality: left Qualified Code(s): M25.512 - Pain in left shoulder Is this a current diagnosis for this admission?: Yes Plan: CT and MRI imagining is benign. U/S confirms hematoma; no fluid/abscess noted Continued erythema, edema, warmth, TTP. Analgesics as needed; lidoderm patches and as needed percocet. (3) Pancytopenia Is this a current diagnosis for this admission?: Yes Plan: Slight improvement Unclear etiology; likely related to MRSA bacteremia. Patient does have cirrhosis/chronic hepatitis C. Review of lab work shows intermittent thrombocytopenia and chronic mild anemia (baseline hemoglobin 11). However, leukocytosis is a new development as of the last week. Possibly related to #1. Antibiotics as above. Follow-up CBC; if not improved, and certainly if worsened, will consult hematology for assistance. (4) Chronic diastolic heart failure Is this a current diagnosis for this admission?: Yes Plan: Stable and without exacerbation at this time. Continue home dose carvediolol, spironolactone and furosemide. Cardiac diet; fluid restrict 2L daily Daily weights and Strict I&Os (5) Diabetes mellitus type 2 in nonobese Is this a current diagnosis for this admission?: Yes Plan: A1C 5.8% (01/03/20) Not on home medications; diet controlled. Cardiac/Consistent Carb diet. Accu-cheks ACHS with SSI. Hypoglycemia protocol in place. (6) Fever Qualifiers: Fever type: unspecified Qualified Code(s): R50.9 - Fever, unspecified Is this a current diagnosis for this admission?: Yes Plan: Trending down Evaluation as in #1 (7) Hematuria Qualifiers: Hematuria type: gross Qualified Code(s): R31.0 - Gross hematuria Is this a current diagnosis for this admission?: Yes Plan: No evidence of infection. Culture <2k colonies. Monitor for worsening hematuria/acute urinary obstruction. (8) Hypocalcemia Is this a current diagnosis for this admission?: Yes Plan: Nml calcium when corrected for albumin; 8.7 Routine monitoring. (9) Hyponatremia Is this a current diagnosis for this admission?: Yes Plan: Rending up; 125.6-> 124.6-> 127.2-> 127.7 Chronic hyponatremia, though worsened from baseline. Likely related to cirrhosis, furosemide/spironolactone. Fluid restrict to 2L daily Stop IVF (received NS boluses followed by generous LR). Daily chemistries. If worsens, will need to hold diuretics. (10) Tobacco abuse Is this a current diagnosis for this admission?: Yes Plan: Cessation counseled. Nicotine replacement therapy provided. (11) SIRS (systemic inflammatory response syndrome) Is this a current diagnosis for this admission?: Yes Plan: Improved. Vital signs stable, fever trending down, pancytopenia is improved Secondary to MRSA bacteremia. Management as above. - Time Time Spent with patient: 35 or more minutes Medications reviewed and adjusted accordingly: Yes Anticipated Discharge Disposition: Home with Home Health Anticipated Discharge Timeframe: >72 hrs
[2020-01-05] MEDS: MELATONIN 5 MG TABLET PO PRN (22:53)
[2020-01-05] MEDS: VANCOMYCIN HCL 1,500 MG in DEXTROSE 5%-WATER 250 ML IV SCH (22:56)
[2020-01-06 04:49] LABS: HEMATOCRIT 26.7 % (37.9-51.0); HEMOGLOBIN 9.3 g/dL (13.5-17.0); MEAN CORPUSCULAR HEMOGLOBIN 32.2 pg (27.0-33.4); MEAN CORPUSCULAR HGB CONC 34.9 g/dL (32.0-36.0); MEAN CORPUSCULAR VOLUME 92 fl (80-97); WHITE BLOOD COUNT 3.8 10^3/uL (4.0-10.5)
[2020-01-06 05:03] LABS: ANION GAP 8 (5-19); BLOOD UREA NITROGEN 20 mg/dL (7-20); C-REACTIVE PROTEIN 80.6 mg/L (<10.0); CALCIUM 7.3 mg/dL (8.4-10.2); CARBON DIOXIDE 19 mmol/L (22-30); CHLORIDE 104 mmol/L (98-107); GLUCOSE 159 mg/dL (75-110); POTASSIUM 3.3 mmol/L (3.6-5.0)
[2020-01-06] MEDS: HEPARIN SOD (PORCINE) 5,000 UNIT/ML 1 ML VIAL SUBCUT SCH ×3 (05:10→21:46)
[2020-01-06 05:12] LABS: PLATELET COUNT 57 10^3/uL (150-450)
[2020-01-06] MEDS: INSULIN REG, HUMAN 100 UNIT/ML 3 ML VIAL (PYX) SUBCUT SCH ×4 (08:36→21:38)
[2020-01-06] MEDS: OXYCODONE-ACETAMINOPHEN 5-325 MG TABLET PO PRN ×3 (08:37→20:13)
[2020-01-06] MEDS: CARVEDILOL 3.125 MG TABLET PO SCH ×2 (10:37→21:43)
[2020-01-06] MEDS: FAMOTIDINE 20 MG TABLET PO SCH ×2 (10:38→21:43)
[2020-01-06] MEDS: LIDOCAINE 5% (700 MG) TRANSDERMAL ADH..PATCH TP SCH (10:38)
[2020-01-06] MEDS: SPIRONOLACTONE 25 MG TABLET PO SCH (10:38)
[2020-01-06] MEDS: FUROSEMIDE 40 MG TABLET PO SCH (10:38)
[2020-01-06] MEDS: POTASSIUM CHLORIDE 10 MEQ TABLET.ER PO SCH ×2 (10:38→21:44)
[2020-01-06] MEDS: DOCUSATE SODIUM 100 MG CAPSULE PO SCH ×2 (10:39→17:20)
[2020-01-06] MEDS: FLUTICASONE/VILANTEROL 200-25 MCG/DOSE IH SCH (10:39)
[2020-01-06] MEDS: VANCOMYCIN HCL 1,500 MG in DEXTROSE 5%-WATER 250 ML IV SCH ×2 (10:40→21:44)
[2020-01-06] MEDS: SOFOSBUVIR VELPATASVIR PO SCH (10:40)
--- NOTE | 2020-01-06 14:53 | PDOC PROGRESS REPORT ---
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 Patient was seen on morning rounds. He is found resting in bed, comfortably, on room air. Patient reports right shoulder, neck, and upper back pain; somewhat improved today. States that the pain is adequately controlled w/ medication. He does continue to be febrile; T-max 99.4/24 hrs, 99.5/48 hours. Otherwise reports fatigue. He specifically denies [typical/cardiac] chest pain, palpitations, dyspnea, orthopnea, cough, abdominal pain, nausea, vomiting, diarrhea. He has no other questions or concerns. No concerns per nursing. Reason For Visit: FEVER,LEFT STERNOCLAVICULAR CONTUSION Physical Exam Vital Signs: Temp Pulse Resp BP Pulse Ox 98.1 F 65 19 114/58 L 92 01/06/20 10:54 01/06/20 10:54 01/06/20 10:54 01/06/20 10:54 01/06/20 10:54 Intake & Output 01/05/20 01/06/20 01/07/20 06:59 06:59 06:59 Intake Total 1550 1400 630 Output Total 1000 695 Balance 550 705 630 Weight 92.7 kg 92.7 kg General appearance: PRESENT: no acute distress, cooperative, well-developed, well-nourished Head exam: PRESENT: atraumatic, normocephalic Eye exam: PRESENT: conjunctiva pink, EOMI, PERRLA. ABSENT: scleral icterus Mouth exam: PRESENT: moist, tongue midline Respiratory exam: PRESENT: chest wall tenderness - improved; decreased errythema today, clear to auscultation brenda, symmetrical, unlabored. ABSENT: rales, rhonchi, wheezes Cardiovascular exam: PRESENT: RRR. ABSENT: diastolic murmur, rubs, systolic murmur Pulses: PRESENT: normal dorsalis pedis pul Vascular exam: PRESENT: normal capillary refill GI/Abdominal exam: PRESENT: normal bowel sounds, soft. ABSENT: distended, guarding, mass, organolmegaly, rebound, tenderness Rectal exam: PRESENT: deferred Extremities exam: PRESENT: full ROM. ABSENT: calf tenderness, clubbing, pedal edema Musculoskeletal exam: PRESENT: tenderness - LT SCJ; improved TTP, erythema and edema Neurological exam: PRESENT: alert, awake, oriented to person, oriented to place, oriented to time, oriented to situation, CN II-XII grossly intact. ABSENT: motor sensory deficit Psychiatric exam: PRESENT: appropriate affect, normal mood. ABSENT: homicidal ideation, suicidal ideation Skin exam: PRESENT: dry, intact, warm. ABSENT: cyanosis, rash Results Laboratory Results: 01/06/20 04:03 01/06/20 04:03 01/06/20 01/06/20 04:03 04:03 WBC 3.8 L RBC 2.90 L Hgb 9.3 L Hct 26.7 L MCV 92 MCH 32.2 MCHC 34.9 RDW 16.0 H Plt Count 57 L Sodium 130.5 L Potassium 3.3 L Chloride 104 Carbon Dioxide 19 L Anion Gap 8 BUN 20 Creatinine 0.95 Est GFR ( Amer) > 60 Glucose 159 H Calcium 7.3 L C-Reactive Protein 80.6 H 01/05/20 06:38 Blood Blood Culture (PCR) - Final Staphylococcus Aureus 01/02/20 01/02/20 01/03/20 10:54 10:54 06:37 Creatine Kinase 86 Troponin I < 0.012 NT-Pro-B Natriuret Pep 1190 H 01/03/20 06:37 Creatine Kinase 95 Troponin I NT-Pro-B Natriuret Pep Impressions: Cervical Spine CT 01/02/20 10:04 IMPRESSION: 1. No evidence of acute bony abnormality cervical spine. 2. Multilevel degenerative changes above. Chest X-Ray 01/02/20 10:04 IMPRESSION: No evidence of acute cardiopulmonary process. Head CT 01/02/20 10:04 IMPRESSION: NO ACUTE INTRACRANIAL IMAGING FINDINGS. EVIDENCE OF ACUTE STROKE: NO. Chest CT 01/02/20 11:26 IMPRESSION: 1. No osseous abnormality is seen in the left sternoclavicular joint or elsewhere in the chest. 2. Splenomegaly. Chest MRI 01/03/20 00:00 IMPRESSION: No evidence of septic arthritis. Chest Ultrasound 01/05/20 00:00 IMPRESSION: Contusion/hematoma. No definite abscess. Lower Extremity MRI 01/05/20 00:00 IMPRESSION: Cortical breakthrough anterior talus consistent with osteomyelitis. 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 Discontinue Zosyn Infectious disease is consulted. (2) Osteomyelitis Qualifiers: Osteomyelitis type: other Osteomyelitis location: foot Laterality: right Qualified Code(s): M86.8X7 - Other osteomyelitis, ankle and foot Is this a current diagnosis for this admission?: Yes Plan: MRI revealed osteomyelitis of the Rt talus (+) MRSA blood cultures Continue IV Vancomycin. Infectious disease consulted. Spoke w/ clinical pharmacist; requesting Dr. Ricardo's opinion on osteo. Specifically; would she consider this to be osteo w/ treatment failure (potentially necessitating surgical source control; i.e. BKA) as the patient was treated from MRSA septic ankle joint in this year., or does there remain the option for conservative treatment with IV antibiotics. (3) Sternoclavicular joint pain Qualifiers: Laterality: left Qualified Code(s): M25.512 - Pain in left shoulder Is this a current diagnosis for this admission?: Yes Plan: Improved appearance today. CT and MRI imagining is benign. U/S confirms hematoma; no fluid/abscess noted Continued erythema, edema, warmth, TTP. Analgesics as needed; lidoderm patches and as needed percocet. (4) Pancytopenia Is this a current diagnosis for this admission?: Yes Plan: Continues to show improvement Unclear etiology; likely related to MRSA bacteremia. Patient does have cirrhosis/chronic hepatitis C. Review of lab work shows intermittent thrombocytopenia and chronic mild anemia (baseline hemoglobin 11). However, leukocytosis is a new development as of the last week. Possibly related to #1. Antibiotics as above. Follow-up CBC (5) Chronic diastolic heart failure Is this a current diagnosis for this admission?: Yes Plan: Stable and without exacerbation at this time. Continue home dose carvediolol, spironolactone and furosemide. Cardiac diet; fluid restrict 2L daily Daily weights and Strict I&Os (6) Diabetes mellitus type 2 in nonobese Is this a current diagnosis for this admission?: Yes Plan: A1C 5.8% (01/03/20) Not on home medications; diet controlled. Cardiac/Consistent Carb diet. Accu-cheks ACHS with SSI. Hypoglycemia protocol in place. (7) Fever Qualifiers: Fever type: unspecified Qualified Code(s): R50.9 - Fever, unspecified Is this a current diagnosis for this admission?: Yes Plan: Trending down Evaluation as in #1 (8) Hematuria Qualifiers: Hematuria type: gross Qualified Code(s): R31.0 - Gross hematuria Is this a current diagnosis for this admission?: Yes Plan: No evidence of infection. Culture <2k colonies. Monitor for worsening hematuria/acute urinary obstruction. (9) Hypocalcemia Is this a current diagnosis for this admission?: Yes Plan: Nml calcium when corrected for albumin Routine monitoring. (10) Hyponatremia Is this a current diagnosis for this admission?: Yes Plan: Rending up; 125.6-> 124.6-> 127.2-> 127.7-> 130.5 Chronic hyponatremia, though worsened from baseline. Likely related to cirrhosis, furosemide/spironolactone. Fluid restrict to 2L daily Stop IVF (received NS boluses followed by generous LR). Daily chemistries. If worsens, will need to hold diuretics. (11) Tobacco abuse Is this a current diagnosis for this admission?: Yes Plan: Cessation counseled. Nicotine replacement therapy provided. (12) SIRS (systemic inflammatory response syndrome) Is this a current diagnosis for this admission?: Yes Plan: Improved. Vital signs stable, fever trending down, pancytopenia is improved Secondary to MRSA bacteremia. Management as above. - Time Time Spent with patient: 35 or more minutes Medications reviewed and adjusted accordingly: Yes Anticipated Discharge Disposition: UTD Anticipated Discharge Timeframe: >72 hrs
[2020-01-07 06:12] LABS: HEMATOCRIT 26.8 % (37.9-51.0); HEMOGLOBIN 9.5 g/dL (13.5-17.0); MEAN CORPUSCULAR HEMOGLOBIN 32.2 pg (27.0-33.4); MEAN CORPUSCULAR HGB CONC 35.4 g/dL (32.0-36.0); MEAN CORPUSCULAR VOLUME 91 fl (80-97); RED BLOOD COUNT 2.95 10^6/uL (4.35-5.55); RED CELL DISTRIBUTION WIDTH 15.7 % (11.5-14.0)
[2020-01-07 06:37] LABS: ANION GAP 8 (5-19); BLOOD UREA NITROGEN 17 mg/dL (7-20); CALCIUM 7.4 mg/dL (8.4-10.2); CARBON DIOXIDE 18 mmol/L (22-30); CHLORIDE 104 mmol/L (98-107); GLUCOSE 150 mg/dL (75-110); POTASSIUM 3.7 mmol/L (3.6-5.0)
[2020-01-07 06:40] LABS: PLATELET COUNT 72 10^3/uL (150-450)
[2020-01-07] MEDS: HEPARIN SOD (PORCINE) 5,000 UNIT/ML 1 ML VIAL SUBCUT SCH ×3 (06:49→22:06)
[2020-01-07] MEDS: INSULIN REG, HUMAN 100 UNIT/ML 3 ML VIAL (PYX) SUBCUT SCH ×4 (08:00→22:06)
[2020-01-07] MEDS: OXYCODONE-ACETAMINOPHEN 5-325 MG TABLET PO PRN (08:02)
[2020-01-07] MEDS: SPIRONOLACTONE 25 MG TABLET PO SCH (10:03)
[2020-01-07] MEDS: CARVEDILOL 3.125 MG TABLET PO SCH ×2 (10:03→22:06)
[2020-01-07] MEDS: VANCOMYCIN HCL 1,500 MG in DEXTROSE 5%-WATER 250 ML IV SCH ×2 (10:03→22:06)
[2020-01-07] MEDS: FUROSEMIDE 40 MG TABLET PO SCH (10:04)
[2020-01-07] MEDS: LIDOCAINE 5% (700 MG) TRANSDERMAL ADH..PATCH TP SCH (10:04)
[2020-01-07] MEDS: FAMOTIDINE 20 MG TABLET PO SCH ×2 (10:04→22:06)
[2020-01-07] MEDS: FLUTICASONE/VILANTEROL 200-25 MCG/DOSE IH SCH (10:04)
[2020-01-07] MEDS: DOCUSATE SODIUM 100 MG CAPSULE PO SCH ×2 (10:05→17:07)
[2020-01-07] MEDS: SOFOSBUVIR VELPATASVIR PO SCH (10:05)
[2020-01-07 10:42] LABS: VANCOMYCIN,TROUGH 14.1 ug/mL (5.0-20.0)
--- NOTE | 2020-01-07 16:30 | PDOC PROGRESS REPORT ---
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 Patient was seen on morning rounds. He is found resting in bed, comfortably, on room air. Patient reports right shoulder, neck, and upper back pain are greatly improved today; adequately controlled w/ medication. Afebrile x24 hours. He specifically denies [typical/cardiac] chest pain, palpitations, dyspnea, orthopnea, cough, abdominal pain, nausea, vomiting, diarrhea. He has no questions or concerns today. No concerns per nursing. Reason For Visit: FEVER,LEFT STERNOCLAVICULAR CONTUSION Physical Exam Vital Signs: Temp Pulse Resp BP Pulse Ox 98.4 F 72 18 129/68 H 94 01/07/20 12:00 01/07/20 12:00 01/07/20 12:00 01/07/20 12:00 01/07/20 12:00 Intake & Output 01/06/20 01/07/20 01/08/20 06:59 06:59 06:59 Intake Total 1400 1180 750 Output Total 695 1475 800 Balance 705 -295 -50 Weight 92.7 kg 91.7 kg General appearance: PRESENT: no acute distress, well-developed, well-nourished Head exam: PRESENT: atraumatic, normocephalic Eye exam: PRESENT: conjunctiva pink, EOMI, PERRLA. ABSENT: scleral icterus Mouth exam: PRESENT: moist, tongue midline Respiratory exam: PRESENT: chest wall tenderness - Lt SCJ erythema and edema; improved, clear to auscultation brenda, symmetrical, unlabored. ABSENT: rales, rhonchi, wheezes Cardiovascular exam: PRESENT: RRR, +S1, +S2. ABSENT: diastolic murmur, rubs, systolic murmur Pulses: PRESENT: normal dorsalis pedis pul Vascular exam: PRESENT: normal capillary refill Rectal exam: PRESENT: deferred Extremities exam: PRESENT: full ROM. ABSENT: calf tenderness, clubbing, pedal edema Neurological exam: PRESENT: alert, awake, oriented to person, oriented to place, oriented to time, oriented to situation, CN II-XII grossly intact, other - forgetful. ABSENT: motor sensory deficit Psychiatric exam: PRESENT: appropriate affect, normal mood. ABSENT: homicidal ideation, suicidal ideation Skin exam: PRESENT: dry, intact, jaundice - slight, warm. ABSENT: cyanosis, rash Results Laboratory Results: 01/07/20 05:49 01/07/20 05:49 01/07/20 01/07/20 05:49 05:49 WBC 4.0 RBC 2.95 L Hgb 9.5 L Hct 26.8 L MCV 91 MCH 32.2 MCHC 35.4 RDW 15.7 H Plt Count 72 L Sodium 130.4 L Potassium 3.7 Chloride 104 Carbon Dioxide 18 L Anion Gap 8 BUN 17 Creatinine 0.93 Est GFR ( Amer) > 60 Glucose 150 H Calcium 7.4 L 01/05/20 06:38 Blood Blood Culture (PCR) - Final Staphylococcus Aureus 01/05/20 06:38 Blood Blood Culture - Final Mrsa (Meth Resis Staph Aureus) 01/02/20 01/02/20 01/03/20 10:54 10:54 06:37 Creatine Kinase 86 Troponin I < 0.012 NT-Pro-B Natriuret Pep 1190 H 01/03/20 06:37 Creatine Kinase 95 Troponin I NT-Pro-B Natriuret Pep Impressions: Cervical Spine CT 01/02/20 10:04 IMPRESSION: 1. No evidence of acute bony abnormality cervical spine. 2. Multilevel degenerative changes above. Chest X-Ray 01/02/20 10:04 IMPRESSION: No evidence of acute cardiopulmonary process. Head CT 01/02/20 10:04 IMPRESSION: NO ACUTE INTRACRANIAL IMAGING FINDINGS. EVIDENCE OF ACUTE STROKE: NO. Chest CT 01/02/20 11:26 IMPRESSION: 1. No osseous abnormality is seen in the left sternoclavicular joint or elsewhere in the chest. 2. Splenomegaly. Chest MRI 01/03/20 00:00 IMPRESSION: No evidence of septic arthritis. Chest Ultrasound 01/05/20 00:00 IMPRESSION: Contusion/hematoma. No definite abscess. Lower Extremity MRI 01/05/20 00:00 IMPRESSION: Cortical breakthrough anterior talus consistent with osteomyelitis. 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 Discontinue Zosyn Infectious disease is consulted. (2) Osteomyelitis Qualifiers: Osteomyelitis type: other Osteomyelitis location: foot Laterality: right Qualified Code(s): M86.8X7 - Other osteomyelitis, ankle and foot Is this a current diagnosis for this admission?: Yes Plan: MRI revealed osteomyelitis of the Rt talus (+) MRSA blood cultures Continue IV Vancomycin. Infectious disease consulted. Spoke w/ clinical pharmacist; requesting Dr. Ricardo's opinion on osteo. Specifically; would she consider this to be osteo w/ treatment failure (potentially necessitating surgical source control/BKA) as the patient was treated from MRSA septic ankle joint in this year., or does there remain the option for conservative treatment with IV antibiotics. (3) Sternoclavicular joint pain Qualifiers: Laterality: left Qualified Code(s): M25.512 - Pain in left shoulder Is this a current diagnosis for this admission?: Yes Plan: Improved appearance today. CT and MRI imagining is benign. U/S confirms hematoma; no fluid/abscess noted Continued erythema, edema, warmth, TTP. Analgesics as needed; lidoderm patches and as needed percocet. (4) Pancytopenia Is this a current diagnosis for this admission?: Yes Plan: Continues to show improvement Unclear etiology; likely related to MRSA bacteremia. Patient does have cirrhosis/chronic hepatitis C. Review of lab work shows intermittent thrombocytopenia and chronic mild anemia (baseline hemoglobin 11). However, leukocytosis is a new development as of the last week. Possibly related to #1. Antibiotics as above. Follow-up CBC (5) Chronic diastolic heart failure Is this a current diagnosis for this admission?: Yes Plan: Stable and without exacerbation at this time. Continue home dose carvediolol, spironolactone and furosemide. Cardiac diet; fluid restrict 2L daily Daily weights and Strict I&Os (6) Diabetes mellitus type 2 in nonobese Is this a current diagnosis for this admission?: Yes Plan: A1C 5.8% (01/03/20) Not on home medications; diet controlled. Cardiac/Consistent Carb diet. Accu-cheks ACHS with SSI. Hypoglycemia protocol in place. (7) Fever Qualifiers: Fever type: unspecified Qualified Code(s): R50.9 - Fever, unspecified Is this a current diagnosis for this admission?: Yes Plan: Afebrile x24 hrs Evaluation as in #1 (8) Hematuria Qualifiers: Hematuria type: gross Qualified Code(s): R31.0 - Gross hematuria Is this a current diagnosis for this admission?: Yes Plan: No evidence of infection. Culture <2k colonies. Monitor for worsening hematuria/acute urinary obstruction. (9) Hypocalcemia Is this a current diagnosis for this admission?: Yes Plan: Nml calcium when corrected for albumin Routine monitoring. (10) Hyponatremia Is this a current diagnosis for this admission?: Yes Plan: Rending up; 125.6-> 124.6-> 127.2-> 127.7-> 130.5 Chronic hyponatremia, though worsened from baseline. Likely related to cirrhosis, furosemide/spironolactone. Fluid restrict to 2L daily Stop IVF (received NS boluses followed by generous LR). Daily chemistries. If worsens, will need to hold diuretics. (11) Tobacco abuse Is this a current diagnosis for this admission?: Yes Plan: Cessation counseled. Nicotine replacement therapy provided. (12) SIRS (systemic inflammatory response syndrome) Is this a current diagnosis for this admission?: Yes Plan: Improved. Vital signs stable, fever trending down, pancytopenia is improved Secondary to MRSA bacteremia. Management as above. - Time Time Spent with patient: 25-34 minutes Medications reviewed and adjusted accordingly: Yes Anticipated Discharge Disposition: Home with Home Health - vs SNF Anticipated Discharge Timeframe: >72 hrs
[2020-01-08] MEDS: HEPARIN SOD (PORCINE) 5,000 UNIT/ML 1 ML VIAL SUBCUT SCH ×2 (05:19→13:20)
[2020-01-08 05:24] LABS: HEMATOCRIT 25.8 % (37.9-51.0); HEMOGLOBIN 9.3 g/dL (13.5-17.0); MEAN CORPUSCULAR HEMOGLOBIN 32.6 pg (27.0-33.4); MEAN CORPUSCULAR VOLUME 91 fl (80-97); RED BLOOD COUNT 2.84 10^6/uL (4.35-5.55); RED CELL DISTRIBUTION WIDTH 15.8 % (11.5-14.0); WHITE BLOOD COUNT 3.9 10^3/uL (4.0-10.5)
[2020-01-08 05:35] LABS: ALBUMIN 2.5 g/dL (3.5-5.0); ALKALINE PHOSPHATASE 68 U/L (38-126); ANION GAP 7 (5-19); ASPARTATE AMINO TRANSFERASE 36 U/L (17-59); BLOOD UREA NITROGEN 14 mg/dL (7-20); CALCIUM 7.6 mg/dL (8.4-10.2); CARBON DIOXIDE 20 mmol/L (22-30); CHLORIDE 105 mmol/L (98-107); GLUCOSE 159 mg/dL (75-110); POTASSIUM 3.3 mmol/L (3.6-5.0); TOTAL PROTEIN 5.6 g/dL (6.3-8.2)
[2020-01-08 05:55] LABS: PLATELET COUNT 95 10^3/uL (150-450)
[2020-01-08] MEDS: ACETAMINOPHEN 325 MG TABLET PO PRN (07:37)
[2020-01-08] MEDS: INSULIN REG, HUMAN 100 UNIT/ML 3 ML VIAL (PYX) SUBCUT SCH ×3 (07:37→16:33)
[2020-01-08] MEDS ORDERED: POTASSIUM CHLORIDE 10 MEQ TABLET.ER PO ONE (08:44)
[2020-01-08] MEDS: SPIRONOLACTONE 25 MG TABLET PO SCH (09:17)
[2020-01-08] MEDS: FUROSEMIDE 40 MG TABLET PO SCH (09:17)
[2020-01-08] MEDS: CARVEDILOL 3.125 MG TABLET PO SCH (09:18)
[2020-01-08] MEDS: DOCUSATE SODIUM 100 MG CAPSULE PO SCH ×2 (09:18→17:07)
[2020-01-08] MEDS: FAMOTIDINE 20 MG TABLET PO SCH ×2 (09:18→21:40)
[2020-01-08] MEDS: SOFOSBUVIR VELPATASVIR PO SCH (09:18)
[2020-01-08] MEDS: FLUTICASONE/VILANTEROL 200-25 MCG/DOSE IH SCH (09:21)
[2020-01-08] MEDS: LIDOCAINE 5% (700 MG) TRANSDERMAL ADH..PATCH TP SCH (09:22)
[2020-01-08] MEDS: VANCOMYCIN HCL 1,500 MG in DEXTROSE 5%-WATER 250 ML IV SCH ×2 (09:23→21:41)
--- NOTE | 2020-01-08 12:00 | RADIOLOGY REPORT (SQ) ---
EXAM DESCRIPTION: CT CHEST WITHOUT IMAGES COMPLETED DATE/TIME: 01/08/2020 10:27 am REASON FOR STUDY: Lt SCJ injury; increased edema COMPARISON: 01/03/2020 and 01/02/2020 TECHNIQUE: CT scan performed of the chest without intravenous contrast. Images reviewed with lung, soft tissue and bone windows. Reconstructed coronal and sagittal MPR images reviewed. All images st ored on PACS. All CT scanners at this facility use dose modulation, iterative reconstruction, and/or weight based d osing when appropriate to reduce radiation dose to as low as reasonably achievable (ALARA). [facility]: Dose Right [facility]: CareDose [facility]: Dose Right [facility]: Teradose 4D [facility]: Smart [employer] RADIATION DOSE: CT Rad equipment meets quality standard of care and radiation dose reduction techniq ues were employed. CTDIvol: 8.9 mGy. DLP: 346 mGy-cm. mGy. LIMITATIONS: No technical limitations. FINDINGS: LUNGS AND PLEURA: Interval development of a small left-sided pleural effusion. Bibasilar atelectasis. Mild biapical paraseptal emphysematous changes. No pneumothorax. HILAR AND MEDIASTINAL STRUCTURES: No identified masses or abnormal nodes. No obvious aneurysm. HEART AND VASCULAR STRUCTURES: No aneurysm. No pericardial effusion. UPPER ABDOMEN: Limited exam. Re- demonstration of splenomegaly. THYROID AND OTHER SOFT TISSUES: Marked bilateral gynecomastia. No lymphadenopathy. BONES: No significant finding. HARDWARE: None in the chest. OTHER: In the region of the left sternoclavicular joint, a previously demonstrated/characterized truman delicia appears to be increased in size. CT imaging suggests this to be on the basis of an intramuscula r left sternocleidomastoid hematoma. No focal fluid collection or abscess. IMPRESSION: 1. Interval increase in size of a left sternocleidomastoid intramuscular hematoma. Int erval development of a small left-sided pleural effusion. 2. Splenomegaly. 3. Marked bilateral gynecomastia. TECHNICAL DOCUMENTATION: JOB ID: [id number] Quality ID # [id number]: Final reports with documentation of one or more dose reduction techniques (e.g., Au tomated exposure control, adjustment of the mA and/or kV according to patient size, use of iterative reconstruction technique) 2010 [employer]- All Rights Reserved Reading location - IP/workstation name: [email or web address]
[2020-01-08] MEDS ORDERED: HYDRALAZINE HCL 25 MG TABLET PO PRN (16:32)
--- NOTE | 2020-01-08 16:55 | PDOC PROGRESS REPORT ---
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 Patient was seen on morning rounds. He is found resting in bed, comfortably, on room air. Patient reports right shoulder, neck, and upper back pain are greatly improved today; adequately controlled w/ medication. Afebrile x48 hours. He specifically denies [typical/cardiac] chest pain, palpitations, dyspnea, orthopnea, cough, abdominal pain, nausea, vomiting, diarrhea. He has no questions or concerns today. Nursing reports HTN this afternoon. Reason For Visit: FEVER,LEFT STERNOCLAVICULAR CONTUSION Physical Exam Vital Signs: Temp Pulse Resp BP Pulse Ox 98.2 F 70 19 188/74 H 98 01/08/20 15:53 01/08/20 15:53 01/08/20 15:53 01/08/20 15:53 01/08/20 15:53 Intake & Output 01/07/20 01/08/20 01/09/20 06:59 06:59 06:59 Intake Total 1180 1000 370 Output Total 1475 2300 1200 Balance -295 -1300 -830 Weight 91.7 kg 88.8 kg General appearance: PRESENT: no acute distress, well-developed, well-nourished Head exam: PRESENT: atraumatic, normocephalic Eye exam: PRESENT: conjunctiva pink, EOMI, PERRLA. ABSENT: scleral icterus Mouth exam: PRESENT: moist, tongue midline Respiratory exam: PRESENT: chest wall tenderness - increased edema to Lt SCJ; erythema and echymosis resolved, clear to auscultation brenda, symmetrical, unl abored, other - room air. ABSENT: rales, rhonchi, wheezes Cardiovascular exam: PRESENT: RRR. ABSENT: diastolic murmur, rubs, systolic murmur Pulses: PRESENT: normal dorsalis pedis pul Vascular exam: PRESENT: normal capillary refill Extremities exam: PRESENT: full ROM. ABSENT: calf tenderness, clubbing, pedal edema Neurological exam: PRESENT: alert, awake, oriented to person, oriented to place, oriented to time, oriented to situation, CN II-XII grossly intact. ABSENT: motor sensory deficit Psychiatric exam: PRESENT: appropriate affect, normal mood. ABSENT: homicidal ideation, suicidal ideation Skin exam: PRESENT: dry, intact, warm. ABSENT: cyanosis, rash Results Laboratory Results: 01/08/20 04:58 01/08/20 04:58 01/08/20 01/08/20 04:58 04:58 WBC 3.9 L RBC 2.84 L Hgb 9.3 L Hct 25.8 L MCV 91 MCH 32.6 MCHC 36.0 RDW 15.8 H Plt Count 95 L Sodium 131.6 L Potassium 3.3 L Chloride 105 Carbon Dioxide 20 L Anion Gap 7 BUN 14 Creatinine 0.78 Est GFR ( Amer) > 60 Glucose 159 H Calcium 7.6 L Total Bilirubin 1.0 AST 36 Alkaline Phosphatase 68 Total Protein 5.6 L Albumin 2.5 L 01/05/20 06:00 Blood Blood Culture (PCR) - Final Staphylococcus Aureus 01/05/20 06:38 Blood Blood Culture (PCR) - Final Staphylococcus Aureus 01/05/20 06:38 Blood Blood Culture - Final Mrsa (Meth Resis Staph Aureus) 01/02/20 01/02/20 01/03/20 10:54 10:54 06:37 Creatine Kinase 86 Troponin I < 0.012 NT-Pro-B Natriuret Pep 1190 H 01/03/20 06:37 Creatine Kinase 95 Troponin I NT-Pro-B Natriuret Pep Impressions: Cervical Spine CT 01/02/20 10:04 IMPRESSION: 1. No evidence of acute bony abnormality cervical spine. 2. Multilevel degenerative changes above. Chest X-Ray 01/02/20 10:04 IMPRESSION: No evidence of acute cardiopulmonary process. Head CT 01/02/20 10:04 IMPRESSION: NO ACUTE INTRACRANIAL IMAGING FINDINGS. EVIDENCE OF ACUTE STROKE: NO. Chest MRI 01/03/20 00:00 IMPRESSION: No evidence of septic arthritis. Chest Ultrasound 01/05/20 00:00 IMPRESSION: Contusion/hematoma. No definite abscess. Lower Extremity MRI 01/05/20 00:00 IMPRESSION: Cortical breakthrough anterior talus consistent with osteomyelitis. Chest CT 01/08/20 00:00 IMPRESSION: 1. Interval increase in size of a left sternocleidomastoid intramuscular hematoma. Interval development of a small left-sided pleural effusion. 2. Splenomegaly. 3. Marked bilateral gynecomastia. Assessment and Plan - Diagnosis (1) Bacteremia Is this a current diagnosis for this admission?: Yes Plan: Rt talus osteomyelitis as likely source (previous septic arthritis to Rt ankle) Blood cultures (4/4 bottles) show MRSA bacteremia Repeat cultures (2/4 bottles; following 48 hrs IV Vancomycin) w/ MRSA Repeat blood cultures (following 96 hrs IV Vanc) negative at 24 hrs. Echocardiogram poor quality study; no obvious vegetation Continue Vanc; anticipate minimum 6 weeks r/t osteo. Discontinue Zosyn Infectious disease is consulted. (2) Osteomyelitis Qualifiers: Osteomyelitis type: other Osteomyelitis location: foot Laterality: right Qualified Code(s): M86.8X7 - Other osteomyelitis, ankle and foot Is this a current diagnosis for this admission?: Yes Plan: MRI revealed osteomyelitis of the Rt talus (+) MRSA blood cultures Continue IV Vancomycin. Infectious disease consulted. Spoke w/ clinical pharmacist; requesting Dr. Ricardo's opinion on osteo. Specifically; would she consider this to be osteo w/ treatment failure (potentially necessitating surgical source control/BKA) as the patient was treated from MRSA septic ankle joint in this year., or does there remain the option for conservative treatment with IV antibiotics. (3) Sternoclavicular joint pain Qualifiers: Laterality: left Qualified Code(s): M25.512 - Pain in left shoulder Is this a current diagnosis for this admission?: Yes Plan: Improved appearance today. CT and MRI imagining is benign. U/S confirms hematoma; no fluid/abscess noted Repeat CT today shows increased hematoma. Analgesics as needed; lidoderm patches and as needed percocet. (4) Pancytopenia Is this a current diagnosis for this admission?: Yes Plan: Continues to show improvement Unclear etiology; likely related to MRSA bacteremia. Patient does have cirrhosis/chronic hepatitis C. Review of lab work shows intermittent thrombocytopenia and chronic mild anemia (baseline hemoglobin 11). However, leukocytosis is a new development as of the last week. Possibly related to #1. Antibiotics as above. Follow-up CBC (5) Chronic diastolic heart failure Is this a current diagnosis for this admission?: Yes Plan: Stable and without exacerbation at this time. Continue home dose carvediolol, spironolactone and furosemide. Cardiac diet; fluid restrict 2L daily Daily weights and Strict I&Os (6) Diabetes mellitus type 2 in nonobese Is this a current diagnosis for this admission?: Yes Plan: A1C 5.8% (01/03/20) Not on home medications; diet controlled. Cardiac/Consistent Carb diet. Accu-cheks ACHS with SSI. Hypoglycemia protocol in place. (7) Fever Qualifiers: Fever type: unspecified Qualified Code(s): R50.9 - Fever, unspecified Is this a current diagnosis for this admission?: Yes Plan: Afebrile x24 hrs Evaluation as in #1 (8) Hematuria Qualifiers: Hematuria type: gross Qualified Code(s): R31.0 - Gross hematuria Is this a current diagnosis for this admission?: Yes Plan: No evidence of infection. Culture <2k colonies. Monitor for worsening hematuria/acute urinary obstruction. (9) Hypocalcemia Is this a current diagnosis for this admission?: Yes Plan: Nml calcium when corrected for albumin Routine monitoring. (10) Hyponatremia Is this a current diagnosis for this admission?: Yes Plan: Rending up; 125.6-> 124.6-> 127.2-> 127.7-> 130.5-> 131.6 Chronic hyponatremia, though worsened from baseline. Likely related to cirrhosis, furosemide/spironolactone. Fluid restrict to 2L daily Stop IVF (received NS boluses followed by generous LR). Daily chemistries. If worsens, will need to hold diuretics. (11) Tobacco abuse Is this a current diagnosis for this admission?: Yes Plan: Cessation counseled. Nicotine replacement therapy provided. (12) SIRS (systemic inflammatory response syndrome) Is this a current diagnosis for this admission?: Yes Plan: Improved. Vital signs stable, fever trending down, pancytopenia is improved Secondary to MRSA bacteremia. Management as above. (13) HTN (hypertension) Is this a current diagnosis for this admission?: Yes Plan: Continue home dose furosemide. Increase spironolactone to 100 mg daily. Increase carvedilol to 6. 2 5 mg twice daily. Start lisinopril 10 mg daily. PRN p.o. hydralazine. (14) Hypokalemia Is this a current diagnosis for this admission?: Yes Plan: Additional p.o. potassium today. Increase spironolactone to 100 mg daily. Follow-up chemistry. - Time Time Spent with patient: 25-34 minutes Anticipated Discharge Disposition: Home with Home Health Anticipated Discharge Timeframe: >72 hrs
[2020-01-08] MEDS: LISINOPRIL 10 MG TABLET PO SCH (17:07)
[2020-01-08] MEDS: OXYCODONE-ACETAMINOPHEN 5-325 MG TABLET PO PRN (21:40)
[2020-01-08] MEDS: CARVEDILOL 6.25 MG TABLET PO SCH (21:41)
[2020-01-09] MEDS: INSULIN REG, HUMAN 100 UNIT/ML 3 ML VIAL (PYX) SUBCUT SCH ×5 (00:20→22:24)
[2020-01-09] MEDS: HEPARIN SOD (PORCINE) 5,000 UNIT/ML 1 ML VIAL SUBCUT SCH ×4 (00:20→22:06)
[2020-01-09 07:05] LABS: HEMATOCRIT 26.6 % (37.9-51.0); HEMOGLOBIN 9.2 g/dL (13.5-17.0); MEAN CORPUSCULAR HEMOGLOBIN 32.1 pg (27.0-33.4); MEAN CORPUSCULAR HGB CONC 34.8 g/dL (32.0-36.0); MEAN CORPUSCULAR VOLUME 92 fl (80-97); PLATELET COUNT 112 10^3/uL (150-450); RED BLOOD COUNT 2.88 10^6/uL (4.35-5.55); RED CELL DISTRIBUTION WIDTH 15.5 % (11.5-14.0); WHITE BLOOD COUNT 2.9 10^3/uL (4.0-10.5)
[2020-01-09 07:31] LABS: ANION GAP 6 (5-19); BLOOD UREA NITROGEN 13 mg/dL (7-20); CALCIUM 7.7 mg/dL (8.4-10.2); CARBON DIOXIDE 22 mmol/L (22-30); CHLORIDE 103 mmol/L (98-107); GLUCOSE 149 mg/dL (75-110); POTASSIUM 3.7 mmol/L (3.6-5.0)
[2020-01-09] MEDS: SOFOSBUVIR VELPATASVIR PO SCH (10:25)
[2020-01-09] MEDS: CARVEDILOL 6.25 MG TABLET PO SCH ×2 (10:26→22:26)
[2020-01-09] MEDS: FUROSEMIDE 40 MG TABLET PO SCH (10:26)
[2020-01-09] MEDS: FAMOTIDINE 20 MG TABLET PO SCH ×2 (10:26→22:26)
[2020-01-09] MEDS: DOCUSATE SODIUM 100 MG CAPSULE PO SCH ×2 (10:26→17:10)
[2020-01-09] MEDS: LISINOPRIL 10 MG TABLET PO SCH (10:26)
[2020-01-09] MEDS: SPIRONOLACTONE 25 MG TABLET PO SCH (10:26)
[2020-01-09] MEDS: FLUTICASONE/VILANTEROL 200-25 MCG/DOSE IH SCH (10:28)
[2020-01-09] MEDS: LIDOCAINE 5% (700 MG) TRANSDERMAL ADH..PATCH TP SCH (10:29)
[2020-01-09] MEDS: VANCOMYCIN HCL 1,500 MG in DEXTROSE 5%-WATER 250 ML IV SCH ×2 (10:31→22:26)
[2020-01-09] MEDS ORDERED: OXYCODONE-ACETAMINOPHEN 5-325 MG TABLET PO PRN (12:19)
--- NOTE | 2020-01-09 12:21 | PDOC PROGRESS REPORT ---
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 Patient was seen on morning rounds. He is found resting in bed, comfortably, on room air. Patient reports right shoulder, neck, and upper back pain are resolved. Afebrile >48 hours. Wants to go home. He specifically denies [typical/cardiac] chest pain, palpitations, dyspnea, ort hopnea, cough, abdominal pain, nausea, vomiting, diarrhea. He has no other questions or concerns today. Nursing recommends PT consult. Reason For Visit: FEVER,LEFT STERNOCLAVICULAR CONTUSION Physical Exam Vital Signs: Temp Pulse Resp BP Pulse Ox 98.8 F 74 17 126/59 H 97 01/09/20 08:17 01/09/20 08:17 01/09/20 08:17 01/09/20 08:17 01/09/20 08:17 Intake & Output 01/08/20 01/09/20 01/10/20 06:59 06:59 06:59 Intake Total 1000 1550 Output Total 2300 3125 Balance -1300 -1575 Weight 88.8 kg 87.9 kg General appearance: PRESENT: no acute distress, cooperative, well-developed, well-nourished Head exam: PRESENT: atraumatic, normocephalic Eye exam: PRESENT: conjunctiva pink, EOMI, PERRLA. ABSENT: scleral icterus Mouth exam: PRESENT: moist, tongue midline Respiratory exam: PRESENT: clear to auscultation brenda, symmetrical, unlabored, other - Decreased edema to Lt SCJ; erythema and echymosis resolved. ABSENT: rales, rhonchi, wheezes Cardiovascular exam: PRESENT: RRR, +S1, +S2. ABSENT: diastolic murmur, rubs, systolic murmur Pulses: PRESENT: normal dorsalis pedis pul Vascular exam: PRESENT: normal capillary refill Extremities exam: PRESENT: full ROM. ABSENT: calf tenderness, clubbing, pedal edema Neurological exam: PRESENT: alert, awake, oriented to person, oriented to place, oriented to time, oriented to situation, CN II-XII grossly intact, other - intermittent forgetfullness/confusion (baseline). ABSENT: motor sensory deficit Psychiatric exam: PRESENT: normal mood, unusual affect. ABSENT: homicidal ideation, suicidal ideation Skin exam: PRESENT: dry, intact, warm. ABSENT: cyanosis, rash Results Laboratory Results: 01/09/20 06:44 01/09/20 06:44 01/09/20 01/09/20 06:44 06:44 WBC 2.9 L RBC 2.88 L Hgb 9.2 L Hct 26.6 L MCV 92 MCH 32.1 MCHC 34.8 RDW 15.5 H Plt Count 112 L Sodium 130.5 L Potassium 3.7 Chloride 103 Carbon Dioxide 22 Anion Gap 6 BUN 13 Creatinine 0.83 Est GFR ( Amer) > 60 Glucose 149 H Calcium 7.7 L 01/05/20 06:00 Blood Blood Culture (PCR) - Final Staphylococcus Aureus 01/02/20 01/02/20 01/03/20 10:54 10:54 06:37 Creatine Kinase 86 Troponin I < 0.012 NT-Pro-B Natriuret Pep 1190 H 01/03/20 06:37 Creatine Kinase 95 Troponin I NT-Pro-B Natriuret Pep Impressions: Cervical Spine CT 01/02/20 10:04 IMPRESSION: 1. No evidence of acute bony abnormality cervical spine. 2. Multilevel degenerative changes above. Chest X-Ray 01/02/20 10:04 IMPRESSION: No evidence of acute cardiopulmonary process. Head CT 01/02/20 10:04 IMPRESSION: NO ACUTE INTRACRANIAL IMAGING FINDINGS. EVIDENCE OF ACUTE STROKE: NO. Chest MRI 01/03/20 00:00 IMPRESSION: No evidence of septic arthritis. Chest Ultrasound 01/05/20 00:00 IMPRESSION: Contusion/hematoma. No definite abscess. Lower Extremity MRI 01/05/20 00:00 IMPRESSION: Cortical breakthrough anterior talus consistent with osteomyelitis. Chest CT 01/08/20 00:00 IMPRESSION: 1. Interval increase in size of a left sternocleidomastoid intramuscular hematoma. Interval development of a small left-sided pleural effusion. 2. Splenomegaly. 3. Marked bilateral gynecomastia. Assessment and Plan - Diagnosis (1) Bacteremia Is this a current diagnosis for this admission?: Yes Plan: Rt talus osteomyelitis as likely source (previous septic arthritis to Rt ankle) Blood cultures (4/4 bottles) show MRSA bacteremia Repeat cultures (2/4 bottles; following 48 hrs IV Vancomycin) w/ MRSA Repeat blood cultures (following 96 hrs IV Vanc) negative at 48 hrs. Echocardiogram poor quality study; no obvious vegetation Continue Vanc; anticipate minimum 6 weeks r/t osteo. Discontinue Zosyn Infectious disease is consulted. Possible PICC line placement tomorrow id BCx remain negative. (2) Osteomyelitis Qualifiers: Osteomyelitis type: other Osteomyelitis location: foot Laterality: right Qualified Code(s): M86.8X7 - Other osteomyelitis, ankle and foot Is this a current diagnosis for this admission?: Yes Plan: MRI revealed osteomyelitis of the Rt talus (+) MRSA blood cultures Continue IV Vancomycin. Infectious disease consulted. Spoke w/ clinical pharmacist; requesting Dr. Ricardo's opinion on osteo. Specifically; would she consider this to be osteo w/ treatment failure (potentially necessitating surgical source control/BKA) as the patient was treated from MRSA septic ankle joint in this year, or does there remain the option for conservative treatment with IV antibiotics. (3) Sternoclavicular joint pain Qualifiers: Laterality: left Qualified Code(s): M25.512 - Pain in left shoulder Is this a current diagnosis for this admission?: Yes Plan: Continues to improve. CT and MRI imagining is benign. U/S confirms hematoma; no fluid/abscess noted Repeat CT showed increased hematoma. Analgesics as needed; lidoderm patches and as needed percocet. Due to increased confusion; will decrease percocet dose today. (4) Pancytopenia Is this a current diagnosis for this admission?: Yes Plan: Continues to show improvement Unclear etiology; likely related to MRSA bacteremia. Patient does have cirrhosis/chronic hepatitis C. Review of lab work shows intermittent thrombocytopenia and chronic mild anemia (baseline hemoglobin 11). However, leukocytosis is a new development as of the last week. Possibly related to #1. Antibiotics as above. Follow-up CBC (5) Chronic diastolic heart failure Is this a current diagnosis for this admission?: Yes Plan: Stable and without exacerbation at this time. Continue home dose carvediolol, spironolactone and furosemide. Cardiac diet; fluid restrict 2L daily Daily weights and Strict I&Os (6) Diabetes mellitus type 2 in nonobese Is this a current diagnosis for this admission?: Yes Plan: A1C 5.8% (01/03/20) Not on home medications; diet controlled. Cardiac/Consistent Carb diet. Accu-cheks ACHS with SSI. Hypoglycemia protocol in place. (7) Fever Qualifiers: Fever type: unspecified Qualified Code(s): R50.9 - Fever, unspecified Is this a current diagnosis for this admission?: Yes Plan: Afebrile >48 hrs Evaluation as in #1 (8) Hematuria Qualifiers: Hematuria type: gross Qualified Code(s): R31.0 - Gross hematuria Is this a current diagnosis for this admission?: Yes Plan: No evidence of infection. Culture <2k colonies. Monitor for worsening hematuria/acute urinary obstruction. (9) Hypocalcemia Is this a current diagnosis for this admission?: Yes Plan: Nml calcium when corrected for albumin Routine monitoring. (10) Hyponatremia Is this a current diagnosis for this admission?: Yes Plan: Trending up; 125.6-> 124.6-> 127.2-> 127.7-> 130.5-> 131.6-> 130.5 Chronic hyponatremia, nearing baseline. Likely related to cirrhosis, furosemide/spironolactone. Fluid restrict to 2L daily Stop IVF (received NS boluses followed by generous LR). Daily chemistries. If worsens, will need to hold diuretics. (11) Tobacco abuse Is this a current diagnosis for this admission?: Yes Plan: Cessation counseled. Nicotine replacement therapy provided. (12) SIRS (systemic inflammatory response syndrome) Is this a current diagnosis for this admission?: Yes Plan: Improved. Vital signs stable, fever trending down, pancytopenia is improved Secondary to MRSA bacteremia. Management as above. (13) HTN (hypertension) Is this a current diagnosis for this admission?: Yes Plan: Continue home dose furosemide. Increase spironolactone to 100 mg daily. Increase carvedilol to 6. 2 5 mg twice daily. Start lisinopril 10 mg daily. PRN p.o. hydralazine. (14) Hypokalemia Is this a current diagnosis for this admission?: Yes Plan: replete Have increased spironolactone to 100 mg daily. Follow-up chemistry. - Time Time Spent with patient: 35 or more minutes Medications reviewed and adjusted accordingly: Yes Anticipated Discharge Disposition: Home with Home Health Anticipated Discharge Timeframe: within 72 hours
--- NOTE | 2020-01-09 16:26 | Progress Note ---
Provider Note Provider Note: [facility] Telephone Advice Consultation Chart reviewed. This is a 64-year-old man who is known to our service due to previous MRSA infection of the right ankle s/p 6 weeks of therapy. He had multiple I&Ds, was initially on vancomycin and then transitioned to daptomycin due to UNIQUE. He completed 6 weeks of antibiotics for osteomyelitis. This time, he was admitted due to a fall where he injured his left SC joint. He was using crutches and fell 3 days prior to admission. He was having severe pain on the left SC joint, redness and swelling. He had fever on admission, he was pancytopenic. He had multiple imaging studies including CT head, CXR, CT chest, MRI chest, CT C spine. No evidence of SCJ septic arthritis or osteomyelitis. We recommended an US and it showed a 4.9 x 1.8 x 3.7 fluid collection with hyperemia concerning for hematoma. A CT scan of the chest showed increased size of the left SCM intramuscular hematoma. Blood cultures on 01/02 and 01/04 positive for MRSA. New blood cultures from 01/06 are negative to date. CRP 162. Renal function is adequate. He was started on vancomycin and zosyn. He has HCV and is currently receiving therapy with Epclusa. Allergies oxycodone Adverse Reaction (Verified 05/19/19 17:16) Confusion Current Home Medications Sofosbuvir/Velpatasvir [Sofosbuvir-Velpatasvir 400-100] 1 tab PO DAILY 01/03/20 Spironolactone [Aldactone 25 mg Tablet] 75 mg PO DAILY 01/03/20 Vital Signs: Temp Pulse Resp BP Pulse Ox 99.6 F 71 17 125/63 93 01/09/20 11:53 01/09/20 11:53 01/09/20 11:53 01/09/20 11:53 01/09/20 11:53 Intake & Output 01/08/20 01/09/20 01/10/20 06:59 06:59 06:59 Intake Total 1000 1550 250 Output Total 2300 3125 Balance -1300 -1575 250 Weight 88.8 kg 87.9 kg Weight/Height Weight 87.9 kg Height 6 ft Laboratories: 01/09/20 06:44 01/09/20 06:44 MCV 92 fl (80-97) 01/09/20 06:44 MCH 32.1 pg (27.0-33.4) 01/09/20 06:44 MCHC 34.8 g/dL (32.0-36.0) 01/09/20 06:44 RDW 15.5 % (11.5-14.0) H 01/09/20 06:44 Seg Neutrophils % 84.4 % (42-78) H 01/02/20 10:54 Chloride 103 mmol/L (98-107) 01/09/20 06:44 Carbon Dioxide 22 mmol/L (22-30) 01/09/20 06:44 Anion Gap 6 (5-19) 01/09/20 06:44 Est GFR ( Amer) > 60 (>60) 01/09/20 06:44 Glucose 149 mg/dL (75-110) H 01/09/20 06:44 Lactic Acid 1.9 mmol/L (0.7-2.1) 01/03/20 09:39 Calcium 7.7 mg/dL (8.4-10.2) L 01/09/20 06:44 Magnesium 1.9 mg/dL (1.6-2.3) 01/03/20 06:37 Ferritin 130.00 ng/mL (17.9-464.0) 01/02/20 18:41 Total Bilirubin 1.0 mg/dL (0.2-1.3) 01/08/20 04:58 AST 36 U/L (17-59) 01/08/20 04:58 Alkaline Phosphatase 68 U/L (38-126) 01/08/20 04:58 C-Reactive Protein 80.6 mg/L (<10.0) H 01/06/20 04:03 Total Protein 5.6 g/dL (6.3-8.2) L 01/08/20 04:58 Albumin 2.5 g/dL (3.5-5.0) L 01/08/20 04:58 TSH 5.22 uIU/mL (0.47-4.68) H 01/03/20 06:37 Free T4 0.90 ng/dL (0.78-2.19) 01/03/20 06:37 Free T3 pg/mL 1.51 pg/mL (2.77-5.27) L 01/03/20 06:37 Urine Color ANUPAM 01/02/20 13:36 Urine Appearance CLOUDY 01/02/20 13:36 Urine pH 6.0 (5.0-9.0) 01/02/20 13:36 Ur Specific [place] 1.036 01/02/20 13:36 Urine Protein 100 mg/dL (NEGATIVE) H 01/02/20 13:36 Urine Glucose (UA) NEGATIVE mg/dL (NEGATIVE) 01/02/20 13:36 Urine Ketones NEGATIVE mg/dL (NEGATIVE) 01/02/20 13:36 Urine Blood LARGE (NEGATIVE) H 01/02/20 13:36 Urine Nitrite NEGATIVE (NEGATIVE) 01/02/20 13:36 Ur Leukocyte Esterase NEGATIVE (NEGATIVE) 01/02/20 13:36 Urine WBC (Auto) 10 /HPF 01/02/20 13:36 Urine RBC (Auto) >182 /HPF 01/02/20 13:36 01/05/20 06:00 Blood Blood Culture (PCR) - Final Staphylococcus Aureus 01/02/20 01/02/20 01/03/20 10:54 10:54 06:37 Creatine Kinase 86 Troponin I < 0.012 NT-Pro-B Natriuret Pep 1190 H 01/03/20 06:37 Creatine Kinase 95 Troponin I NT-Pro-B Natriuret Pep Microbiology: Blood cultures 01/02 MRSA 01/04 MRSA 01/06 NGTD Radiology: Cervical Spine CT 01/02/20 10:04 IMPRESSION: 1. No evidence of acute bony abnormality cervical spine. 2. Multilevel degenerative changes above. Chest X-Ray 01/02/20 10:04 IMPRESSION: No evidence of acute cardiopulmonary process. Head CT 01/02/20 10:04 IMPRESSION: NO ACUTE INTRACRANIAL IMAGING FINDINGS. EVIDENCE OF ACUTE STROKE: NO. Chest MRI 01/03/20 00:00 IMPRESSION: No evidence of septic arthritis. Chest Ultrasound 01/05/20 00:00 IMPRESSION: Contusion/hematoma. No definite abscess. Lower Extremity MRI 01/05/20 00:00 IMPRESSION: Cortical breakthrough anterior talus consistent with osteomyelitis. Chest CT 01/08/20 00:00 IMPRESSION: 1. Interval increase in size of a left sternocleidomastoid intramuscular hematoma. Interval development of a small left-sided pleural effusion. 2. Splenomegaly. 3. Marked bilateral gynecomastia. Assessment and Recommendations: Patient evaluated due to recurrent MRSA bacteremia in the setting of left ankle osteomyelitis s/p 6 weeks of antibiotic therapy (vancomycin -> daptomycin). He fell and developed a hematoma on his left SCM. Most recent imaging showed an increase in the size of the hematoma. MRI of the left ankle consistent with osteomyelitis, for which he was already treated. This is probably chronic osteomyelitis now. My concern is that he developed this hematoma while being bacteremic and there is a possibility of him having an infected hematoma. It is unclear if this can be drained, it may have to be discussed with VIR to explore that possibility if he is persistently bacteremic. It would be worth also discussing his LE imaging with orthopedics to see if there is anything that needs to be done surgically, but I believe that he has now developed chronic OM due to his underlying arthropathy. Continue vancomycin with trough 15-20. Duration of therapy will likely be 6 weeks from negative blood cultures, but will have to make sure that source control is not needed for either of these 2 processes. Evelyn Ricardo MD [facility] ID [phone]
[2020-01-10] MEDS: HEPARIN SOD (PORCINE) 5,000 UNIT/ML 1 ML VIAL SUBCUT SCH (05:56)
[2020-01-10 06:12] LABS: HEMATOCRIT 26.9 % (37.9-51.0); HEMOGLOBIN 9.5 g/dL (13.5-17.0); MEAN CORPUSCULAR HEMOGLOBIN 32.2 pg (27.0-33.4); MEAN CORPUSCULAR HGB CONC 35.3 g/dL (32.0-36.0); MEAN CORPUSCULAR VOLUME 91 fl (80-97); PLATELET COUNT 118 10^3/uL (150-450); RED BLOOD COUNT 2.95 10^6/uL (4.35-5.55); RED CELL DISTRIBUTION WIDTH 16.2 % (11.5-14.0); WHITE BLOOD COUNT 2.7 10^3/uL (4.0-10.5)
[2020-01-10 06:35] LABS: ANION GAP 8 (5-19); BLOOD UREA NITROGEN 15 mg/dL (7-20); CALCIUM 7.7 mg/dL (8.4-10.2); CARBON DIOXIDE 20 mmol/L (22-30); CHLORIDE 101 mmol/L (98-107); GLUCOSE 137 mg/dL (75-110); POTASSIUM 3.7 mmol/L (3.6-5.0)
[2020-01-10] MEDS: INSULIN REG, HUMAN 100 UNIT/ML 3 ML VIAL (PYX) SUBCUT SCH ×4 (11:00→21:55)
[2020-01-10] MEDS: VANCOMYCIN HCL 1,500 MG in DEXTROSE 5%-WATER 250 ML IV SCH (11:04)
[2020-01-10] MEDS: DOCUSATE SODIUM 100 MG CAPSULE PO SCH ×2 (11:05→17:53)
[2020-01-10] MEDS: SPIRONOLACTONE 25 MG TABLET PO SCH (11:06)
[2020-01-10] MEDS: FAMOTIDINE 20 MG TABLET PO SCH ×2 (11:06→21:55)
[2020-01-10] MEDS: FUROSEMIDE 40 MG TABLET PO SCH (11:06)
[2020-01-10] MEDS: LISINOPRIL 10 MG TABLET PO SCH (11:06)
[2020-01-10] MEDS: FLUTICASONE/VILANTEROL 200-25 MCG/DOSE IH SCH (11:07)
[2020-01-10] MEDS: CARVEDILOL 6.25 MG TABLET PO SCH ×2 (11:07→21:54)
[2020-01-10] MEDS: LIDOCAINE 5% (700 MG) TRANSDERMAL ADH..PATCH TP SCH (11:08)
[2020-01-10] MEDS: SOFOSBUVIR VELPATASVIR PO SCH (11:23)
--- NOTE | 2020-01-10 13:50 | PDOC CONSULTATION ---
Consultation Consult Date: 01/10/20 Provider Consulted: KRISTA COLLADO Consult reason:: Presumed osteomyelitis right talus History of Present Illness Admission Date/PCP: 01/02/20 20:44 KRUPA ABERNATHY MD History of Present Illness: RENATA STRICKLAND is a 64 year old male Patient is a 64-year-old white male who I became acquainted with when he presented in July to Dr. Vieira with an infectious process in the right lower extremity. Patient underwent an I&D at that point. He is now been readmitted and has positive blood cultures that is thought to be seeded from a right talar Charcot arthropathy/osteomyelitis Past Medical History Cardiac Medical History: Reports: Congestive Heart Failure - Chronic diastolic congestive heart failure, Hypertension, Other - Diastolic heart failure Denies: Atrial Fibrillation, Coronary Artery Disease, DVT, Hyperlipidema, Pul monary Embolism Pulmonary Medical History: Denies: Asthma, Chronic Obstructive Pulmonary Disease (COPD) EENT Medical History: Denies: Cataracts, Ears - Hearing aids Neurological Medical History: Denies: Hemorrhagic CVA, Ischemic CVA, Seizures Endocrine Medical History: Reports: Diabetes Mellitus Type 2 Denies: Diabetes Mellitus Type 1, Hyperthyroidism, Hypothyroidism, Obesity Renal/ Medical History: Denies: Chronic Kidney Disease, Nephrolithiasis Malignancy Medical History: Reports: None GI Medical History: Reports: Hepatitis - Active Hep C Denies: Cirrhosis, Crohn's Disease, Ulcerative Colitis Musculoskeltal Medical History: Reports: Arthritis - Abscess of the right lower leg and septic ankle resulting in Charcot joint, Other - Deep abscess of the right lower leg with subsequent Charcot ankle/foot Denies: Gout Skin Medical History: Denies: Eczema, Psoriasis Psychiatric Medical History: Reports: Tobacco Dependency Denies: Alcohol Dependency, Depression, Substance Abuse Traumatic Medical History: Reports: None Hematology: Reports: Anemia Denies: Bleeding Tendencies Infectious Medical History: Reports: Hepatitis C Past Surgical History Past Surgical History: Reports: Orthopedic Surgery - Status post irrigation debridement right lower extremity by Dr. Vieira, Tonsillectomy, Other - Incision and drainage of right lower leg abscess and septic right ankle Social History Information Source: Patient, Dr. Thomas, [facility] Records Lives with: Spouse/Significant other Smoking Status: Current Every Day Smoker Cigarettes Packs Per Day: 2 Electronic Cigarette use?: No Number of Years Smokin Last Time Smoked: 04/2020 Frequency of Alcohol Use: None Hx Recreational Drug Use: No Drugs: None Hx Prescription Drug Abuse: No - Advance Directive Resuscitation Status: Full Code Family History Family History: Reviewed & Not Pertinent, DM, Hypertension. denies: CAD, Malignancy Parental Family History Reviewed: No Children Family History Reviewed: No Sibling(s) Family History Reviewed.: No Medication/Allergy Home Medications: Carvedilol [Coreg 3.125 mg Tablet] 3.125 mg PO Q12 15 Days #30 tablet 06/01/19 Furosemide [Lasix 40 mg Tablet] 40 mg PO DAILY 15 Days #15 tablet 06/01/19 Sofosbuvir/Velpatasvir [Sofosbuvir-Velpatasvir 400-100] 1 tab PO DAILY 01/03/20 Spironolactone [Aldactone 25 mg Tablet] 75 mg PO DAILY 01/03/20 Allergies/Adverse Reactions: oxycodone Adverse Reaction (Verified 05/19/19 17:16) Confusion Review of Systems All systems: as per H Physical Exam Vital Signs: Temp Pulse Resp BP Pulse Ox 37.6 C 72 18 110/53 L 92 01/09/20 23:39 01/09/20 23:39 01/09/20 23:39 01/09/20 23:39 01/09/20 23:39 Intake & Output 01/09/20 01/10/20 01/11/20 06:59 06:59 06:59 Intake Total 1550 920 Output Total 3125 1600 Balance -1575 -680 Weight 87.9 kg 87.9 kg Physical Exam: Patient is a relatively thin lanky middle-aged white male lying comfortably in bed. Patient seems to be alert, oriented, and appropriate. Patient's comment to me is "I just want to go home" General appearance: PRESENT: no acute distress Head exam: PRESENT: normocephalic Respiratory exam: PRESENT: unlabored Cardiovascular exam: PRESENT: RRR Vascular exam: PRESENT: normal capillary refill GI/Abdominal exam: PRESENT: soft Rectal exam: PRESENT: deferred Extremities exam: PRESENT: other - Right foot ankle and lower extremity are notably without erythema, induration, or tenderness. There is no drainage. Results Laboratory Results: 01/10/20 05:47 01/10/20 05:47 01/10/20 01/10/20 05:47 05:47 WBC 2.7 L RBC 2.95 L Hgb 9.5 L Hct 26.9 L MCV 91 MCH 32.2 MCHC 35.3 RDW 16.2 H Plt Count 118 L Sodium 128.8 L Potassium 3.7 Chloride 101 Carbon Dioxide 20 L Anion Gap 8 BUN 15 Creatinine 0.85 Est GFR ( Amer) > 60 Glucose 137 H Calcium 7.7 L 01/05/20 06:00 Blood Blood Culture (PCR) - Final Staphylococcus Aureus 01/05/20 06:00 Blood Blood Culture - Final Mrsa (Meth Resis Staph Aureus) 01/02/20 01/02/20 01/03/20 10:54 10:54 06:37 Creatine Kinase 86 Troponin I < 0.012 NT-Pro-B Natriuret Pep 1190 H 01/03/20 06:37 Creatine Kinase 95 Troponin I NT-Pro-B Natriuret Pep Impressions: Cervical Spine CT 01/02/20 10:04 IMPRESSION: 1. No evidence of acute bony abnormality cervical spine. 2. Multilevel degenerative changes above. Chest X-Ray 01/02/20 10:04 IMPRESSION: No evidence of acute cardiopulmonary process. Head CT 01/02/20 10:04 IMPRESSION: NO ACUTE INTRACRANIAL IMAGING FINDINGS. EVIDENCE OF ACUTE STROKE: NO. Chest MRI 01/03/20 00:00 IMPRESSION: No evidence of septic arthritis. Chest Ultrasound 01/05/20 00:00 IMPRESSION: Contusion/hematoma. No definite abscess. Lower Extremity MRI 01/05/20 00:00 IMPRESSION: Cortical breakthrough anterior talus consistent with osteomyelitis. Chest CT 01/08/20 00:00 IMPRESSION: 1. Interval increase in size of a left sternocleidomastoid intramuscular hematoma. Interval development of a small left-sided pleural effusion. 2. Splenomegaly. 3. Marked bilateral gynecomastia. Status: Imported from PACS Assessment & Plan - Diagnosis (1) Osteomyelitis Qualifiers: Osteomyelitis type: other chronic Osteomyelitis location: foot Laterality: right Qualified Code(s): M86.671 - Other chronic osteomyelitis, right ankle and foot Is this a current diagnosis for this admission?: Yes Plan: 64-year-old male with a right foot and ankle Charcot arthropathy and a presumed osteomyelitis of the talar neck. I do not think that the situation is curable short of an amputation. Clearly there is no life or limb threatening condition at this point. The patient is not interested in pursuing any treatment at this point. I have discussed the situation with the patient in great detail as well as the rationale for the recommended amputation. I be glad to come back and discuss this with the patient and his as an inpatient where they can visit me as an outpatient. - Time Time Spent: 50 to 70 Minutes Anticipated discharge: Other Anticipated DC Timeframe: Other
--- NOTE | 2020-01-10 17:00 | PDOC PROGRESS REPORT ---
Subjective Progress Note for:: 01/10/20 Subjective:: Patient admitted for recurrent MRSA bacteremia, suspected source most likely right ankle osteomyelitis which is now chronic per ID. Patient was previously treated with 6 weeks of daptomycin IV outpatient. Patient also had a recent fall on his left clavicle and has an intramuscular hematoma of the left SCM which is enlarging per recent imaging. General surgery consulted for possible I&D. Orthopedic surgery consulted for possible right BKA given unresolving ost eomyelitis. Long discussion with the patient and his separately today going over all of the relevant results and the plan going forward. Patient has been following with an orthopedist in [place] and the is reaching out to him today to see if he wants the patient transferred up there for a BKA. We will attempt to get a bone biopsy either here or in [place] as soon as we can. This will tell us definitively if the patient has ongoing osteomyelitis in the right ankle. Very likely he has MRSA infected blood in his left SCM hematoma that will need to be drained for good source control. Patient is continued on vancomycin. He states his right ankle does not hurt although his l eft SCM is still quite tender. He has no other complaints. Reason For Visit: FEVER,LEFT STERNOCLAVICULAR CONTUSION Physical Exam Vital Signs: Temp Pulse Resp BP Pulse Ox 99 F 76 16 119/55 L 95 01/10/20 10:30 01/10/20 10:30 01/10/20 10:30 01/10/20 10:30 01/10/20 10:30 Intake & Output 01/09/20 01/10/20 01/11/20 06:59 06:59 06:59 Intake Total 1550 920 250 Output Total 3125 1600 Balance -1575 -680 250 Weight 87.9 kg 87.9 kg General appearance: PRESENT: no acute distress, well-developed, well-nourished Head exam: PRESENT: atraumatic, normocephalic Eye exam: PRESENT: conjunctiva pink Mouth exam: PRESENT: moist Neck exam: PRESENT: other - Approximately 2 to 3 cm lump along left SCM near clavicle, very tender Respiratory exam: PRESENT: clear to auscultation brenda. ABSENT: rales, rhonchi, wheezes Cardiovascular exam: PRESENT: RRR. ABSENT: diastolic murmur, rubs, systolic murmur GI/Abdominal exam: PRESENT: normal bowel sounds, soft. ABSENT: distended, guar ding, mass, organolmegaly, rebound, tenderness Extremities exam: PRESENT: other - Right foot a bit warm to the touch but otherwise normal-appearing Neurological exam: PRESENT: alert, awake Psychiatric exam: PRESENT: appropriate affect, normal mood Skin exam: PRESENT: dry, intact, warm Results Laboratory Results: 01/10/20 05:47 01/10/20 05:47 01/10/20 01/10/20 05:47 05:47 WBC 2.7 L RBC 2.95 L Hgb 9.5 L Hct 26.9 L MCV 91 MCH 32.2 MCHC 35.3 RDW 16.2 H Plt Count 118 L Sodium 128.8 L Potassium 3.7 Chloride 101 Carbon Dioxide 20 L Anion Gap 8 BUN 15 Creatinine 0.85 Est GFR ( Amer) > 60 Glucose 137 H Calcium 7.7 L 01/05/20 06:00 Blood Blood Culture (PCR) - Final Staphylococcus Aureus 01/05/20 06:00 Blood Blood Culture - Final Mrsa (Meth Resis Staph Aureus) 01/02/20 01/02/20 01/03/20 10:54 10:54 06:37 Creatine Kinase 86 Troponin I < 0.012 NT-Pro-B Natriuret Pep 1190 H 01/03/20 06:37 Creatine Kinase 95 Troponin I NT-Pro-B Natriuret Pep Impressions: Cervical Spine CT 01/02/20 10:04 IMPRESSION: 1. No evidence of acute bony abnormality cervical spine. 2. Multilevel degenerative changes above. Chest X-Ray 01/02/20 10:04 IMPRESSION: No evidence of acute cardiopulmonary process. Head CT 01/02/20 10:04 IMPRESSION: NO ACUTE INTRACRANIAL IMAGING FINDINGS. EVIDENCE OF ACUTE STROKE: NO. Chest MRI 01/03/20 00:00 IMPRESSION: No evidence of septic arthritis. Chest Ultrasound 01/05/20 00:00 IMPRESSION: Contusion/hematoma. No definite abscess. Lower Extremity MRI 01/05/20 00:00 IMPRESSION: Cortical breakthrough anterior talus consistent with osteomyelitis. Chest CT 01/08/20 00:00 IMPRESSION: 1. Interval increase in size of a left sternocleidomastoid intramuscular hematoma. Interval development of a small left-sided pleural effusion. 2. Splenomegaly. 3. Marked bilateral gynecomastia. Assessment and Plan - Diagnosis (1) Osteomyelitis Qualifiers: Osteomyelitis type: other chronic Osteomyelitis location: foot Laterality: right Qualified Code(s): M86.671 - Other chronic osteomyelitis, right ankle and foot Is this a current diagnosis for this admission?: Yes Plan: MRI revealed osteomyelitis of the Rt talus (+) MRSA blood cultures Continue IV Vancomycin. Infectious disease consulted. Spoke w/ clinical pharmacist; requesting Dr. Ricardo's opinion on osteo. Specifically; would she consider this to be osteo w/ treatment failure (potentially necessitating surgical source control/BKA) as the patient was treated from MRSA septic ankle joint in this year, or does there remain the option for conservative treatment with IV antibiotics. 01/10/2020 Chronic osteomyelitis of right ankle, no external wound visible ID consulted: Recommended right BKA as previous course of IV antibiotics was unsuccessful at clearing the bacteria IV vancomycin (2) Sternoclavicular joint pain Qualifiers: Laterality: left Qualified Code(s): M25.512 - Pain in left shoulder Is this a current diagnosis for this admission?: Yes Plan: Continues to improve. CT and MRI imagining is benign. U/S confirms hematoma; no fluid/abscess noted Repeat CT showed increased hematoma. 01/10/2020 Left SCM with large hematoma, likely infected with MRSA General surgery consulted for possible I&D and source control Analgesics as needed; lidoderm patches and as needed percocet. Half Percocet dose due to narcotic sensitivity, try to give nonnarcotic options as able (3) Chronic diastolic heart failure Is this a current diagnosis for this admission?: Yes Plan: Not in exacerbation Continue home medications (4) Diabetes mellitus type 2 in nonobese Is this a current diagnosis for this admission?: Yes Plan: A1C 5.8% (01/03/20) Diet controlled at home Sand[place]u-RUBI Castano CI - Time Time Spent with patient: 25-34 minutes Medications reviewed and adjusted accordingly: Yes Anticipated Discharge Disposition: Home, Self Care Anticipated Discharge Timeframe: within 72 hours - Inpatient Certification Based on my medical assessment, after consideration of the patient's comorbidities, presenting symptoms, or acuity I expect that the services needed warrant INPATIENT care.: Yes I certify that my determination is in accordance with my understanding of Medicare's requirements for reasonable and necessary INPATIENT services [42 CFR 412.3e].: Yes Medical Necessity: Significant Comorbidiites Make Outpatient Treatment Too Risky, Need Close Monitoring Due to Risk of Patient Decompensation, Need for IV Antibiotics, Need for Surgery, Risk of Complication if Not Cared For in Hospital, Risk of Diagnosis Which Will Require Inpatient Eval/Care/Monitoring
--- NOTE | 2020-01-10 19:44 | PDOC CONSULTATION ---
Consultation Consult Date: 01/10/20 Provider Consulted: ANU REESE Consult reason:: Hematoma left sternoclavicular area History of Present Illness Admission Date/PCP: 01/02/20 20:44 KRUPA ABERNATHY MD History of Present Illness: RENATA STRICKLAND is a 64 year old male with history of diabetes mellitus and infection of the right leg and foot had a fall about 3 days prior to admission and 01/02/2020. He said he lost his balance while using his cane and bumped his left side of the neck. He had a CT scan which showed 4 x 3 x 2 cm hematoma on the left sterno clavicular joint area. No abscess noted on ultrasound. Patient claims that the pains and swelling are actually getting better. He was t ransferred from the fourth floor because his test for COVID was positive. This was apparently negative on admission and 01/02/2020. Past Medical History Cardiac Medical History: Reports: Congestive Heart Failure - Chronic diastolic congestive heart failure, Hypertension, Other - Diastolic heart failure Denies: Atrial Fibrillation, Coronary Artery Disease, DVT, Hyperlipidema, Pulmonary Embolism Pulmonary Medical History: Denies: Asthma, Chronic Obstructive Pulmonary Disease (COPD) EENT Medical History: Denies: Cataracts, Ears - Hearing aids Neurological Medical History: Denies: Hemorrhagic CVA, Ischemic CVA, Seizures Endocrine Medical History: Reports: Diabetes Mellitus Type 2 Denies: Diabetes Mellitus Type 1, Hyperthyroidism, Hypothyroidism, Obesity Renal/ Medical History: Denies: Chronic Kidney Disease, Nephrolithiasis Malignancy Medical History: Reports: None GI Medical History: Reports: Hepatitis - Active Hep C Denies: Cirrhosis, Crohn's Disease, Ulcerative Colitis Musculoskeltal Medical History: Reports: Arthritis - Abscess of the right lower leg and septic ankle resulting in Charcot joint, Other - Deep abscess of the right lower leg with subsequent Charcot ankle/foot Denies: Gout Skin Medical History: Denies: Eczema, Psoriasis Psychiatric Medical History: Reports: Tobacco Dependency Denies: Alcohol Dependency, Depression, Substance Abuse Traumatic Medical History: Reports: None Hematology: Reports: Anemia Denies: Bleeding Tendencies Infectious Medical History: Reports: Hepatitis C Past Surgical History Past Surgical History: Reports: Orthopedic Surgery - Status post irrigation debridement right lower extremity by Dr. Vieira, Tonsillectomy, Other - Incision and drainage of right lower leg abscess and septic right ankle Social History Lives with: Spouse/Significant other Smoking Status: Current Every Day Smoker Cigarettes Packs Per Day: 2 Electronic Cigarette use?: No Number of Years Smokin Last Time Smoked: 04/2020 Frequency of Alcohol Use: None Hx Recreational Drug Use: No Drugs: None Hx Prescription Drug Abuse: No - Advance Directive Resuscitation Status: Full Code Family History Family History: Reviewed & Not Pertinent, DM, Hypertension. denies: CAD, Malignancy Parental Family History Reviewed: Yes Children Family History Reviewed: No Sibling(s) Family History Reviewed.: No Medication/Allergy Home Medications: Carvedilol [Coreg 3.125 mg Tablet] 3.125 mg PO Q12 15 Days #30 tablet 06/01/19 Furosemide [Lasix 40 mg Tablet] 40 mg PO DAILY 15 Days #15 tablet 06/01/19 Sofosbuvir/Velpatasvir [Sofosbuvir-Velpatasvir 400-100] 1 tab PO DAILY 01/03/20 Spironolactone [Aldactone 25 mg Tablet] 75 mg PO DAILY 01/03/20 Allergies/Adverse Reactions: oxycodone Adverse Reaction (Verified 05/19/19 17:16) Confusion Review of Systems Review of Systems: Denies any fever no chills. Just some mild pains on the left sternoclavicular area and its he claims is getting better. Physical Exam Vital Signs: Temp Pulse Resp BP Pulse Ox 99.4 F 70 20 124/62 93 01/10/20 18:33 01/10/20 18:33 01/10/20 18:33 01/10/20 18:33 01/10/20 18:33 Intake & Output 01/09/20 01/10/20 01/11/20 06:59 06:59 06:59 Intake Total 1550 920 250 Output Total 3125 1600 175 Balance -1575 -680 75 Weight 87.9 kg 87.9 kg Exam: There is swelling on the left sternal clavicular area roughly about 4 to 5 cm in diameter that is quite soft with minimal tenderness. No obvious inflammation noted Results Laboratory Results: 01/10/20 05:47 01/10/20 05:47 01/10/20 01/10/20 05:47 05:47 WBC 2.7 L RBC 2.95 L Hgb 9.5 L Hct 26.9 L MCV 91 MCH 32.2 MCHC 35.3 RDW 16.2 H Plt Count 118 L Sodium 128.8 L Potassium 3.7 Chloride 101 Carbon Dioxide 20 L Anion Gap 8 BUN 15 Creatinine 0.85 Est GFR ( Amer) > 60 Glucose 137 H Calcium 7.7 L 01/05/20 06:00 Blood Blood Culture (PCR) - Final Staphylococcus Aureus 01/05/20 06:00 Blood Blood Culture - Final Mrsa (Meth Resis Staph Aureus) 01/02/20 01/02/20 01/03/20 10:54 10:54 06:37 Creatine Kinase 86 Troponin I < 0.012 NT-Pro-B Natriuret Pep 1190 H 01/03/20 06:37 Creatine Kinase 95 Troponin I NT-Pro-B Natriuret Pep Impressions: Cervical Spine CT 01/02/20 10:04 IMPRESSION: 1. No evidence of acute bony abnormality cervical spine. 2. Multilevel degenerative changes above. Chest X-Ray 01/02/20 10:04 IMPRESSION: No evidence of acute cardiopulmonary process. Head CT 01/02/20 10:04 IMPRESSION: NO ACUTE INTRACRANIAL IMAGING FINDINGS. EVIDENCE OF ACUTE STROKE: NO. Chest MRI 01/03/20 00:00 IMPRESSION: No evidence of septic arthritis. Chest Ultrasound 01/05/20 00:00 IMPRESSION: Contusion/hematoma. No definite abscess. Lower Extremity MRI 01/05/20 00:00 IMPRESSION: Cortical breakthrough anterior talus consistent with osteomyelitis. Chest CT 01/08/20 00:00 IMPRESSION: 1. Interval increase in size of a left sternocleidomastoid intramuscular hematoma. Interval development of a small left-sided pleural effusion. 2. Splenomegaly. 3. Marked bilateral gynecomastia. Assessment & Plan - Diagnosis (1) Hematoma left sternoclavicular area Is this a current diagnosis for this admission?: Yes (2) Gcb-[id number] diabetes mellitus Is this a current diagnosis for this admission?: Yes - Time Time Spent: 30 to 50 Minutes - Plan Summary Plan Summary: 64-year-old male with [id number] diabetes mellitus with infection of the right foot and right lower leg had a fall and injured his left side of the neck about 10 days ago. Ultrasound on 01/05/20 showed a 4.8 x 4 x 2 cm hematoma on the left sternoclavicular area with no evidence of abscess. Subsequent CT scan 0n 01/08/20 showed slightly increase in size but still no abscess. He was just tested for COVID today and was positive and therefore transferred to third floor. Of note, patient had a negative COVID testing on admission 01/02/2020. Retesting was done because of the possibility of surgical drainage of the hematoma in the OR. Recommendations: There is no need to drain the hematoma at this time. Expect this to subside. However, patient being diabetic it needs to be watched closely. We will follow him with you.
[2020-01-10] MEDS: ACETAMINOPHEN 325 MG TABLET PO PRN (21:58)
[2020-01-11] MEDS: INSULIN REG, HUMAN 100 UNIT/ML 3 ML VIAL (PYX) SUBCUT SCH ×3 (08:00→21:47)
[2020-01-11 08:07] LABS: ABSOLUTE LYMPHOCYTES (AUTO) 0.6 10^3/uL (0.5-4.7); ABSOLUTE MONOCYTES (AUTO) 0.3 10^3/uL (0.1-1.4); ABSOLUTE NEUT (AUTO) 2.3 10^3/uL (1.7-8.2); BASOPHILS % (AUTO) 0.7 % (0-2); EOSINOPHILS % (AUTO) 0.6 % (0-6); HEMOGLOBIN 10.5 g/dL (13.5-17.0); LYMPHOCYTES % (AUTO) 17.4 % (13-45); MEAN CORPUSCULAR HEMOGLOBIN 32.3 pg (27.0-33.4); MEAN CORPUSCULAR HGB CONC 34.8 g/dL (32.0-36.0); MEAN CORPUSCULAR VOLUME 93 fl (80-97); MONOCYTES % (AUTO) 10.6 % (3-13); PLATELET COUNT 137 10^3/uL (150-450); RED BLOOD COUNT 3.24 10^6/uL (4.35-5.55); RED CELL DISTRIBUTION WIDTH 16.2 % (11.5-14.0); SEGMENTED NEUTROPHILS % (AUTO) 70.7 % (42-78); TOTAL CELLS COUNTED % (AUTO) 100 %; WHITE BLOOD COUNT 3.2 10^3/uL (4.0-10.5)
[2020-01-11 08:14] LABS: INTERNATIONAL RATION (INR) 1.13; PROTHROMBIN TIME 14.7 SEC (11.4-15.4)
[2020-01-11 08:25] LABS: ANION GAP 8 (5-19); BLOOD UREA NITROGEN 20 mg/dL (7-20); CALCIUM 7.8 mg/dL (8.4-10.2); CARBON DIOXIDE 22 mmol/L (22-30); CHLORIDE 101 mmol/L (98-107); GLUCOSE 115 mg/dL (75-110); POTASSIUM 4.1 mmol/L (3.6-5.0)
--- NOTE | 2020-01-11 08:39 | PDOC PROGRESS REPORT ---
Subjective Progress Note for:: 01/11/20 Subjective:: 64-year-old male status post fall. Patient has swelling of the left sternoclavicular joint. The swelling may be related to hematoma versus edema from trauma. The patient denies any significant pain in the area. Denies fevers, chills, redness, or drainage at the site. He denies any significant chest pain or shortness of breath. He does report pain in his foot, which is chronic. Reason For Visit: FEVER,LEFT STERNOCLAVICULAR CONTUSION Physical Exam Vital Signs: Temp Pulse Resp BP Pulse Ox 98.7 F 65 18 107/57 L 94 01/11/20 03:49 01/11/20 03:49 01/11/20 03:49 01/11/20 03:49 01/11/20 03:49 Intake & Output 01/10/20 01/11/20 01/12/20 06:59 06:59 06:59 Intake Total 920 487 Output Total 1600 975 Balance -680 -488 Weight 87.9 kg 87.9 kg General appearance: PRESENT: no acute distress, cooperative Head exam: PRESENT: atraumatic, normocephalic Eye exam: PRESENT: EOMI, PERRLA. ABSENT: scleral icterus Mouth exam: PRESENT: moist, neck supple Neck exam: PRESENT: other - Swelling at the left sternoclavicular joint. No tenderness to palpation. No erythema. There is ecchymosis in the area.. ABSE NT: meningismus, tenderness, thyromegaly, tracheal deviation Respiratory exam: PRESENT: unlabored. ABSENT: chest wall tenderness, tachypnea Cardiovascular exam: ABSENT: tachycardia GI/Abdominal exam: PRESENT: soft. ABSENT: distended, firm, tenderness Rectal exam: PRESENT: deferred Extremities exam: ABSENT: clubbing Musculoskeletal exam: PRESENT: other - See neck exam Neurological exam: PRESENT: alert, awake, oriented to person, oriented to place, oriented to time, oriented to situation Psychiatric exam: ABSENT: agitated, anxious, depressed Focused psych exam: ABSENT: delusional Skin exam: PRESENT: other - Ecchymoses at left sternoclavicular joint, see neck exam. ABSENT: erythema Results Laboratory Results: 01/11/20 07:30 01/11/20 07:30 01/11/20 01/11/20 07:30 07:30 WBC 3.2 L RBC 3.24 L Hgb 10.5 L Hct 30.0 L MCV 93 MCH 32.3 MCHC 34.8 RDW 16.2 H Plt Count 137 L Seg Neutrophils % 70.7 Sodium 131.4 L Potassium 4.1 Chloride 101 Carbon Dioxide 22 Anion Gap 8 BUN 20 Creatinine 0.92 Est GFR ( Amer) > 60 Glucose 115 H Calcium 7.8 L 01/05/20 06:00 Blood Blood Culture (PCR) - Final Staphylococcus Aureus 01/05/20 06:00 Blood Blood Culture - Final Mrsa (Meth Resis Staph Aureus) 01/02/20 01/02/20 01/03/20 10:54 10:54 06:37 Creatine Kinase 86 Troponin I < 0.012 NT-Pro-B Natriuret Pep 1190 H 01/03/20 06:37 Creatine Kinase 95 Troponin I NT-Pro-B Natriuret Pep Impressions: Cervical Spine CT 01/02/20 10:04 IMPRESSION: 1. No evidence of acute bony abnormality cervical spine. 2. Multilevel degenerative changes above. Chest X-Ray 01/02/20 10:04 IMPRESSION: No evidence of acute cardiopulmonary process. Head CT 01/02/20 10:04 IMPRESSION: NO ACUTE INTRACRANIAL IMAGING FINDINGS. EVIDENCE OF ACUTE STROKE: NO. Chest MRI 01/03/20 00:00 IMPRESSION: No evidence of septic arthritis. Chest Ultrasound 01/05/20 00:00 IMPRESSION: Contusion/hematoma. No definite abscess. Lower Extremity MRI 01/05/20 00:00 IMPRESSION: Cortical breakthrough anterior talus consistent with osteomyelitis. Chest CT 01/08/20 00:00 IMPRESSION: 1. Interval increase in size of a left sternocleidomastoid intramuscular hematoma. Interval development of a small left-sided pleural effu megan. 2. Splenomegaly. 3. Marked bilateral gynecomastia. Assessment & Plan - Diagnosis (1) Hematoma left sternoclavicular area Is this a current diagnosis for this admission?: Yes - Time Anticipated Discharge Disposition: Unknown Anticipated Discharge Timeframe: Unknown - Plan Summary Plan Summary: 64-year-old male status post fall. He has swelling and a likely hematoma at the sternoclavicular joint. There is no evidence of fracture or dislocation on CT scan. He has no tenderness. There is no evidence of active infection at this time. The patient does have positive blood cultures, which is likely related to his chronic foot infection. At this time I recommend against surgical intervention. The patient should use heat and anti-inflammatories as treatment. Surgery will sign off at this time. Please renotify with any questions or concerns.
[2020-01-11] MEDS: SOFOSBUVIR VELPATASVIR PO SCH (10:00)
[2020-01-11] MEDS: DOCUSATE SODIUM 100 MG CAPSULE PO SCH (10:00)
[2020-01-11] MEDS: FLUTICASONE/VILANTEROL 200-25 MCG/DOSE IH SCH (10:00)
[2020-01-11] MEDS: VANCOMYCIN HCL 1,500 MG in DEXTROSE 5%-WATER 250 ML IV SCH ×2 (11:00→21:47)
[2020-01-11] MEDS: FUROSEMIDE 40 MG TABLET PO SCH (11:00)
[2020-01-11] MEDS: FAMOTIDINE 20 MG TABLET PO SCH ×2 (11:01→21:41)
[2020-01-11] MEDS: SPIRONOLACTONE 25 MG TABLET PO SCH (11:01)
[2020-01-11] MEDS: CARVEDILOL 6.25 MG TABLET PO SCH ×2 (11:01→21:41)
[2020-01-11] MEDS: LIDOCAINE 5% (700 MG) TRANSDERMAL ADH..PATCH TP SCH (11:02)
[2020-01-11] MEDS: LISINOPRIL 10 MG TABLET PO SCH (11:02)
--- NOTE | 2020-01-11 18:33 | PDOC PROGRESS REPORT ---
Subjective Progress Note for:: 01/11/20 Subjective:: Patient admitted for recurrent MRSA bacteremia, suspected source most likely right ankle osteomyelitis which is now chronic per ID. Patient was previously treated with 6 weeks of daptomycin IV outpatient. Patient also had a recent fall on his left clavicle and has an intramuscular hematoma of the left SCM which is enlarging per recent imaging. General surgery consulted for possible I&D. Orthopedic surgery consulted for possible right BKA given unresolving ost eomyelitis. Long discussion with the patient and his separately today going over all of the relevant results and the plan going forward. Patient has been following with an orthopedist in [place] and the is reaching out to him today to see if he wants the patient transferred up there for a BKA. We will attempt to get a bone biopsy either here or in [place] as soon as we can. This will tell us definitively if the patient has ongoing osteomyelitis in the right ankle. Very likely he has MRSA infected blood in his left SCM hematoma that will need to be drained for good source control. Patient is continued on vancomycin. He states his right ankle does not hurt although his l eft SCM is still quite tender. He has no other complaints. 01/11/2020 Patient positive for COVID, possible hospital-acquired. Patient denies any significant respiratory symptoms but still has pain in his left neck. General surgery has no plans to intervene to drain the hematoma in his left neck. Orthopedic surgery following, recommended amputation although is having trouble accepting this possibility. Patient is continued on antibiotics. Low potassium, replete. Reason For Visit: FEVER,LEFT STERNOCLAVICULAR CONTUSION Physical Exam Vital Signs: Temp Pulse Resp BP Pulse Ox 99.1 F 68 16 101/56 L 91 L 01/11/20 13:06 01/11/20 14:00 01/11/20 13:06 01/11/20 13:06 01/11/20 13:06 Intake & Output 01/10/20 01/11/20 01/12/20 06:59 06:59 06:59 Intake Total 920 487 Output Total 1600 975 Balance -680 -488 Weight 87.9 kg 87.9 kg General appearance: PRESENT: no acute distress, well-developed, well-nourished Head exam: PRESENT: atraumatic, normocephalic Eye exam: PRESENT: conjunctiva pink Mouth exam: PRESENT: moist Neck exam: PRESENT: tenderness - Left SCM hematoma tender Respiratory exam: PRESENT: clear to auscultation brenda. ABSENT: rales, rhonchi, wheezes Cardiovascular exam: PRESENT: RRR. ABSENT: diastolic murmur, rubs, systolic murmur GI/Abdominal exam: PRESENT: normal bowel sounds, soft. ABSENT: distended, guarding, mass, organolmegaly, rebound, tenderness Neurological exam: PRESENT: alert, awake, oriented to person, oriented to place, oriented to time, oriented to situation Psychiatric exam: PRESENT: appropriate affect, normal mood Skin exam: PRESENT: dry, intact, warm Results Laboratory Results: 01/11/20 07:30 01/11/20 07:30 01/11/20 01/11/20 07:30 07:30 WBC 3.2 L RBC 3.24 L Hgb 10.5 L Hct 30.0 L MCV 93 MCH 32.3 MCHC 34.8 RDW 16.2 H Plt Count 137 L Seg Neutrophils % 70.7 Sodium 131.4 L Potassium 4.1 Chloride 101 Carbon Dioxide 22 Anion Gap 8 BUN 20 Creatinine 0.92 Est GFR ( Amer) > 60 Glucose 115 H Calcium 7.8 L 01/02/20 01/02/20 01/03/20 10:54 10:54 06:37 Creatine Kinase 86 Troponin I < 0.012 NT-Pro-B Natriuret Pep 1190 H 01/03/20 06:37 Creatine Kinase 95 Troponin I NT-Pro-B Natriuret Pep Impressions: Cervical Spine CT 01/02/20 10:04 IMPRESSION: 1. No evidence of acute bony abnormality cervical spine. 2. Multilevel degenerative changes above. Chest X-Ray 01/02/20 10:04 IMPRESSION: No evidence of acute cardiopulmonary process. Head CT 01/02/20 10:04 IMPRESSION: NO ACUTE INTRACRANIAL IMAGING FINDINGS. EVIDENCE OF ACUTE STROKE: NO. Chest MRI 01/03/20 00:00 IMPRESSION: No evidence of septic arthritis. Chest Ultrasound 01/05/20 00:00 IMPRESSION: Contusion/hematoma. No definite abscess. Lower Extremity MRI 01/05/20 00:00 IMPRESSION: Cortical breakthrough anterior talus consistent with osteomyelitis. Chest CT 01/08/20 00:00 IMPRESSION: 1. Interval increase in size of a left sternocleidomastoid intramuscular hematoma. Interval development of a small left-sided pleural effusion. 2. Splenomegaly. 3. Marked bilateral gynecomastia. Assessment and Plan - Diagnosis (1) Osteomyelitis Qualifiers: Osteomyelitis type: other chronic Osteomyelitis location: foot Laterality: right Qualified Code(s): M86.671 - Other chronic osteomyelitis, right ankle and foot Is this a current diagnosis for this admission?: Yes Plan: MRI revealed osteomyelitis of the Rt talus (+) MRSA blood cultures Continue IV Vancomycin. Infectious disease consulted. Spoke w/ clinical pharmacist; requesting Dr. Ricardo's opinion on osteo. Specifically; would she consider this to be osteo w/ treatment failure (potentially necessitating surgical source control/BKA) as the patient was treated from MRSA septic ankle joint in this year, or does there remain the option for conservative treatment with IV antibiotics. 01/10/2020 Chronic osteomyelitis of right ankle, no external wound visible ID consulted: Recommended right BKA as previous course of IV antibiotics was unsuccessful at clearing the bacteria IV vancomycin 01/10/2022 Patient and are considering [facility] ([facility]) Sternoclavicular joint pain Qualifiers: Laterality: left Qualified Code(s): M25.512 - Pain in left shoulder Is this a current diagnosis for this admission?: Yes Plan: Continues to improve. CT and MRI imagining is benign. U/S confirms hematoma; no fluid/abscess noted Repeat CT showed increased hematoma. 01/10/2020 Left SCM with large hematoma, likely infected with MRSA General surgery consulted for possible I&D and source control Analgesics as needed; lidoderm patches and as needed percocet. Half Percocet dose due to narcotic sensitivity, try to give nonnarcotic options as able 01/11/2020 General surgery has no plans to intervene at this time (3) Chronic diastolic heart failure Is this a current diagnosis for this admission?: Yes (4) Diabetes mellitus type 2 in nonobese Is this a current diagnosis for this admission?: Yes - Time Time Spent with patient: 35 or more minutes Medications reviewed and adjusted accordingly: Yes Anticipated Discharge Disposition: Home with Home Health Anticipated Discharge Timeframe: within 72 hours - Inpatient Certification Based on my medical assessment, after consideration of the patient's comorbidities, presenting symptoms, or acuity I expect that the services needed warrant INPATIENT care.: Yes I certify that my determination is in accordance with my understanding of Medicare's requirements for reasonable and necessary INPATIENT services [42 CFR 412.3e].: Yes Medical Necessity: Significant Comorbidiites Make Outpatient Treatment Too Risky, Need Close Monitoring Due to Risk of Patient Decompensation, Need for IV Antibiotics, Risk of Complication if Not Cared For in Hospital, Risk of Diagnosis Which Will Require Inpatient Eval/Care/Monitoring
[2020-01-12 06:58] LABS: ABSOLUTE LYMPHOCYTES (AUTO) 0.9 10^3/uL (0.5-4.7); ABSOLUTE MONOCYTES (AUTO) 0.4 10^3/uL (0.1-1.4); ABSOLUTE NEUT (AUTO) 3.2 10^3/uL (1.7-8.2); BASOPHILS % (AUTO) 0.7 % (0-2); EOSINOPHILS % (AUTO) 0.3 % (0-6); HEMATOCRIT 30.3 % (37.9-51.0); HEMOGLOBIN 10.7 g/dL (13.5-17.0); LYMPHOCYTES % (AUTO) 19.9 % (13-45); MEAN CORPUSCULAR HEMOGLOBIN 32.1 pg (27.0-33.4); MEAN CORPUSCULAR HGB CONC 35.1 g/dL (32.0-36.0); MEAN CORPUSCULAR VOLUME 91 fl (80-97); MONOCYTES % (AUTO) 7.8 % (3-13); PLATELET COUNT 139 10^3/uL (150-450); RED BLOOD COUNT 3.32 10^6/uL (4.35-5.55); RED CELL DISTRIBUTION WIDTH 15.7 % (11.5-14.0); SEGMENTED NEUTROPHILS % (AUTO) 71.3 % (42-78); TOTAL CELLS COUNTED % (AUTO) 100 %; WHITE BLOOD COUNT 4.5 10^3/uL (4.0-10.5)
[2020-01-12] MEDS: INSULIN REG, HUMAN 100 UNIT/ML 3 ML VIAL (PYX) SUBCUT SCH ×4 (09:17→21:44)
[2020-01-12 09:31] LABS: ANION GAP 8 (5-19); BLOOD UREA NITROGEN 21 mg/dL (7-20); CALCIUM 7.8 mg/dL (8.4-10.2); CARBON DIOXIDE 21 mmol/L (22-30); CHLORIDE 100 mmol/L (98-107); GLUCOSE 115 mg/dL (75-110); POTASSIUM 4.2 mmol/L (3.6-5.0)
[2020-01-12] MEDS: DOCUSATE SODIUM 100 MG CAPSULE PO SCH ×2 (10:06→17:41)
[2020-01-12] MEDS: LISINOPRIL 10 MG TABLET PO SCH (10:06)
[2020-01-12] MEDS: FAMOTIDINE 20 MG TABLET PO SCH ×2 (10:06→21:46)
[2020-01-12] MEDS: SPIRONOLACTONE 25 MG TABLET PO SCH (10:07)
[2020-01-12] MEDS: FUROSEMIDE 40 MG TABLET PO SCH (10:07)
[2020-01-12] MEDS: LIDOCAINE 5% (700 MG) TRANSDERMAL ADH..PATCH TP SCH (10:08)
[2020-01-12] MEDS: CARVEDILOL 6.25 MG TABLET PO SCH ×2 (10:08→21:46)
[2020-01-12] MEDS: SOFOSBUVIR VELPATASVIR PO SCH (10:09)
[2020-01-12] MEDS: VANCOMYCIN HCL 1,500 MG in DEXTROSE 5%-WATER 250 ML IV SCH ×2 (10:10→21:46)
[2020-01-12] MEDS: FLUTICASONE/VILANTEROL 200-25 MCG/DOSE IH SCH (12:13)
--- NOTE | 2020-01-12 13:26 | PDOC PROGRESS REPORT ---
Subjective Subjective:: Patient admitted for recurrent MRSA bacteremia, suspected source most likely right ankle osteomyelitis which is now chronic per ID. Patient was previously treated with 6 weeks of daptomycin IV outpatient. Patient also had a recent fall on his left clavicle and has an intramuscular hematoma of the left SCM which is enlarging per recent imaging. General surgery consulted for possible I&D. Orthopedic surgery consulted for possible right BKA given unresolving osteomyelitis. Long discussion with the patient and his separately today going over all of the relevant results and the plan going forward. Patient has been following with an orthopedist in [place] and the is reaching out to him today to see if he wants the patient transferred up there for a BKA. We will attempt to get a bone biopsy either here or in [place] as soon as we can. This will tell us definitively if the patient has ongoing osteomyelitis in the right ankle. Very likely he has MRSA infected blood in his left SCM hematoma that will need to be drained for good source control. Patient is continued on vancomycin. He states his right ankle does not hurt although his left SCM is still quite tender. He has no other complaints. 01/11/2020 Patient positive for COVID, possible hospital-acquired. Patient denies any significant respiratory symptoms but still has pain in his left neck. General surgery has no plans to intervene to drain the hematoma in his left neck. Orthopedic surgery following, recommended amputation although is having trouble accepting this possibility. Patient is continued on antibiotics. Low potassium, replete. 01/12/2020 Patient needs a bone biopsy to be done in order to confirm persistent osteomyelitis in his right ankle. This is reportedly the plan of his orthopedist in [place] per the patient and his . They are both refusing any consideration of amputation at this time. They both agree that they would like to have the patient surgeon in [place] perform any surgeries that are required. Patient is not a candidate for any surgical intervention while he is currently infected with COVID-19. We may need to plan out his transfer to [place] once his COVID test becomes negative. Reason For Visit: FEVER,LEFT STERNOCLAVICULAR CONTUSION Physical Exam Vital Signs: Temp Pulse Resp BP Pulse Ox 98.4 F 95 18 107/64 100 01/12/20 11:00 01/12/20 11:00 01/12/20 11:00 01/12/20 11:00 01/12/20 11:00 Intake & Output 01/11/20 01/12/20 01/13/20 06:59 06:59 06:59 Intake Total 487 1177 Output Total 975 3220 Balance -488 -623 Weight 87.9 kg 87.9 kg General appearance: PRESENT: no acute distress, well-developed, well-nourished Head exam: PRESENT: atraumatic, normocephalic Eye exam: PRESENT: conjunctiva pink Mouth exam: PRESENT: moist Neck exam: PRESENT: tenderness - Left neck hematoma compression molding machine tender, perhaps a bit smaller Respiratory exam: PRESENT: clear to auscultation brenda. ABSENT: rales, rhonchi, wheezes Cardiovascular exam: PRESENT: RRR. ABSENT: diastolic murmur, rubs, systolic murmur GI/Abdominal exam: PRESENT: normal bowel sounds, soft. ABSENT: distended, guarding, mass, organolmegaly, rebound, tenderness Neurological exam: PRESENT: alert, awake, oriented to person, oriented to place, oriented to time, oriented to situation Psychiatric exam: PRESENT: appropriate affect, normal mood Skin exam: PRESENT: dry, intact, warm Results Laboratory Results: 01/12/20 06:23 01/12/20 06:23 01/12/20 01/12/20 06:23 06:23 WBC 4.5 RBC 3.32 L Hgb 10.7 L Hct 30.3 L MCV 91 MCH 32.1 MCHC 35.1 RDW 15.7 H Plt Count 139 L Seg Neutrophils % 71.3 Sodium 129.0 L Potassium 4.2 Chloride 100 Carbon Dioxide 21 L Anion Gap 8 BUN 21 H Creatinine 1.00 Est GFR ( Amer) > 60 Glucose 115 H Calcium 7.8 L 01/07/20 09:28 Blood Blood Culture - Final NO GROWTH IN 5 DAYS 01/07/20 05:49 Blood Blood Culture - Final NO GROWTH IN 5 DAYS 01/02/20 01/02/20 01/03/20 10:54 10:54 06:37 Creatine Kinase 86 Troponin I < 0.012 NT-Pro-B Natriuret Pep 1190 H 01/03/20 06:37 Creatine Kinase 95 Troponin I NT-Pro-B Natriuret Pep Impressions: Cervical Spine CT 01/02/20 10:04 IMPRESSION: 1. No evidence of acute bony abnormality cervical spine. 2. Multilevel degenerative changes above. Chest X-Ray 01/02/20 10:04 IMPRESSION: No evidence of acute cardiopulmonary process. Head CT 01/02/20 10:04 IMPRESSION: NO ACUTE INTRACRANIAL IMAGING FINDINGS. EVIDENCE OF ACUTE STROKE: NO. Chest MRI 01/03/20 00:00 IMPRESSION: No evidence of septic arthritis. Chest Ultrasound 01/05/20 00:00 IMPRESSION: Contusion/hematoma. No definite abscess. Lower Extremity MRI 01/05/20 00:00 IMPRESSION: Cortical breakthrough anterior talus consistent with osteomyelitis. Chest CT 01/08/20 00:00 IMPRESSION: 1. Interval increase in size of a left sternocleidomastoid intramuscular hematoma. Interval development of a small left-sided pleural effusion. 2. Splenomegaly. 3. Marked bilateral gynecomastia. Assessment and Plan - Diagnosis (1) Osteomyelitis Qualifiers: Osteomyelitis type: other chronic Osteomyelitis location: foot Laterality: right Qualified Code(s): M86.671 - Other chronic osteomyelitis, right ankle and foot Is this a current diagnosis for this admission?: Yes Plan: MRI revealed osteomyelitis of the Rt talus (+) MRSA blood cultures Continue IV Vancomycin. Infectious disease consulted. Spoke w/ clinical pharmacist; requesting Dr. Ricardo's opinion on osteo. Specifically; would she consider this to be osteo w/ treatment failure (potentially necessitating surgical source control/BKA) as the patient was treated from MRSA septic ankle joint in this year, or does there remain the option for conservative treatment with IV antibiotics. 01/10/2020 Chronic osteomyelitis of right ankle, no external wound visible ID consulted: Recommended right BKA as previous course of IV antibiotics was unsuccessful at clearing the bacteria IV vancomycin 01/11/2020 Patient and are considering amputation which has been recommended by orthopedic surgery 01/12/2020 Continue IV antibiotics Patient and his are both adamantly refusing any surgical intervention at this facility, they want to be transferred to [place] for any surgeries on the patient's right ankle including bone biopsy or amputation. Can plan out transfer to [facility] once patient is COVID negative. (2) Sternoclavicular joint pain Qualifiers: Laterality: left Qualified Code(s): M25.512 - Pain in left shoulder Is this a current diagnosis for this admission?: Yes Plan: Continues to improve. CT and MRI imagining is benign. U/S confirms hematoma; no fluid/abscess noted Repeat CT showed increased hematoma. 01/10/2020 Left SCM with large hematoma, likely infected with MRSA General surgery consulted for possible I&D and source control Analgesics as needed; lidoderm patches and as needed percocet. Half Percocet dose due to narcotic sensitivity, try to give nonnarcotic options as able 01/11/2020 General surgery has no plans to intervene at this time 01/12/2020 Hematoma perhaps smaller today, still a bit tender (3) Chronic diastolic heart failure Is this a current diagnosis for this admission?: Yes (4) Diabetes mellitus type 2 in nonobese Is this a current diagnosis for this admission?: Yes - Time Time Spent with patient: 35 or more minutes Medications reviewed and adjusted accordingly: Yes Anticipated Discharge Disposition: Tertiary Anticipated Discharge Timeframe: within 72 hours - Inpatient Certification Based on my medical assessment, after consideration of the patient's comorbidities, presenting symptoms, or acuity I expect that the services needed warrant INPATIENT care.: Yes I certify that my determination is in accordance with my understanding of Medicare's requirements for reasonable and necessary INPATIENT services [42 CFR 412.3e].: Yes Medical Necessity: Significant Comorbidiites Make Outpatient Treatment Too Risky, Need Close Monitoring Due to Risk of Patient Decompensation, Need for IV Antibiotics, Need for Surgery, Risk of Complication if Not Cared For in Hospital, Risk of Diagnosis Which Will Require Inpatient Eval/Care/Monitoring
[2020-01-12] MEDS: HEPARIN SOD (PORCINE) 5,000 UNIT/ML 1 ML VIAL SUBCUT SCH ×2 (15:05→21:44)
[2020-01-13 05:34] LABS: ABSOLUTE MONOCYTES (AUTO) 0.3 10^3/uL (0.1-1.4); ABSOLUTE NEUT (AUTO) 3.4 10^3/uL (1.7-8.2); BASOPHILS % (AUTO) 0.5 % (0-2); EOSINOPHILS % (AUTO) 0.5 % (0-6); HEMATOCRIT 31.4 % (37.9-51.0); HEMOGLOBIN 11.1 g/dL (13.5-17.0); LYMPHOCYTES % (AUTO) 20.3 % (13-45); MEAN CORPUSCULAR HEMOGLOBIN 32.2 pg (27.0-33.4); MEAN CORPUSCULAR HGB CONC 35.3 g/dL (32.0-36.0); MEAN CORPUSCULAR VOLUME 91 fl (80-97); PLATELET COUNT 154 10^3/uL (150-450); RED BLOOD COUNT 3.44 10^6/uL (4.35-5.55); RED CELL DISTRIBUTION WIDTH 15.8 % (11.5-14.0); SEGMENTED NEUTROPHILS % (AUTO) 71.7 % (42-78); TOTAL CELLS COUNTED % (AUTO) 100 %; WHITE BLOOD COUNT 4.7 10^3/uL (4.0-10.5)
[2020-01-13] MEDS: HEPARIN SOD (PORCINE) 5,000 UNIT/ML 1 ML VIAL SUBCUT SCH ×3 (05:57→21:26)
[2020-01-13] MEDS: INSULIN REG, HUMAN 100 UNIT/ML 3 ML VIAL (PYX) SUBCUT SCH ×5 (10:19→21:52)
[2020-01-13] MEDS: DOCUSATE SODIUM 100 MG CAPSULE PO SCH ×2 (10:20→17:22)
[2020-01-13] MEDS: FUROSEMIDE 40 MG TABLET PO SCH (10:20)
[2020-01-13] MEDS: LISINOPRIL 10 MG TABLET PO SCH (10:20)
[2020-01-13] MEDS: FAMOTIDINE 20 MG TABLET PO SCH ×2 (10:20→21:48)
[2020-01-13] MEDS: CARVEDILOL 6.25 MG TABLET PO SCH ×2 (10:21→21:48)
[2020-01-13] MEDS: SPIRONOLACTONE 25 MG TABLET PO SCH (10:21)
[2020-01-13] MEDS: VANCOMYCIN HCL 1,500 MG in DEXTROSE 5%-WATER 250 ML IV SCH (10:22)
[2020-01-13] MEDS: SOFOSBUVIR VELPATASVIR PO SCH (10:24)
[2020-01-13] MEDS: LIDOCAINE 5% (700 MG) TRANSDERMAL ADH..PATCH TP SCH (10:24)
[2020-01-13] MEDS: FLUTICASONE/VILANTEROL 200-25 MCG/DOSE IH SCH (10:32)
[2020-01-13 10:56] LABS: VANCOMYCIN,TROUGH 13.4 ug/mL (5.0-20.0)
--- NOTE | 2020-01-13 17:30 | PDOC PROGRESS REPORT ---
Subjective Subjective:: Patient admitted for recurrent MRSA bacteremia, suspected source most likely right ankle osteomyelitis which is now chronic per ID. Patient was previously treated with 6 weeks of daptomycin IV outpatient. Patient also had a recent fall on his left clavicle and has an intramuscular hematoma of the left SCM which is enlarging per recent imaging. General surgery consulted for possible I&D. Orthopedic surgery consulted for possible right BKA given unresolving osteomyelitis. Long discussion with the patient and his separately today going over all of the relevant results and the plan going forward. Patient has been following with an orthopedist in [place] and the is reaching out to him today to see if he wants the patient transferred up there for a BKA. We will attempt to get a bone biopsy either here or in [place] as soon as we can. This will tell us definitively if the patient has ongoing osteomyelitis in the right ankle. Very likely he has MRSA infected blood in his left SCM hematoma that will need to be drained for good source control. Patient is continued on vancomycin. He states his right ankle does not hurt although his left SCM is still quite tender. He has no other complaints. 01/11/2020 Patient positive for COVID, possible hospital-acquired. Patient denies any significant respiratory symptoms but still has pain in his left neck. General surgery has no plans to intervene to drain the hematoma in his left neck. Orthopedic surgery following, recommended amputation although is having trouble accepting this possibility. Patient is continued on antibiotics. Low potassium, replete. 01/12/2020 Patient needs a bone biopsy to be done in order to confirm persistent osteomyelitis in his right ankle. This is reportedly the plan of his orthopedist in [place] per the patient and his . They are both refusing any consideration of amputation at this time. They both agree that they would like to have the patient surgeon in [place] perform any surgeries that are required. Patient is not a candidate for any surgical intervention while he is currently infected with COVID-19. We may need to plan out his transfer to [place] once his COVID test becomes negative. 01/13/2020 Still await clearance of COVID-19 to the patient can get a bone biopsy and if this is positive for infection/osteomyelitis he will need his right foot amputated most likely. Patient and his did not want this done here and would rather have patient transferred to [place]. Transfer is not possible while patient is actively infected with COVID-19. We can recheck COVID-19 test tomorrow. Patient has no new complaints today. Reason For Visit: FEVER,LEFT STERNOCLAVICULAR CONTUSION Physical Exam Vital Signs: Temp Pulse Resp BP Pulse Ox 97.9 F 76 22 H 118/74 98 01/13/20 15:23 01/13/20 15:23 01/13/20 15:23 01/13/20 15:23 01/13/20 15:23 Intake & Output 01/12/20 01/13/20 01/14/20 06:59 06:59 06:59 Intake Total 1177 500 250 Output Total 1800 665 Balance -623 -165 250 Weight 87.9 kg 88.9 kg General appearance: PRESENT: no acute distress, well-developed, well-nourished Head exam: PRESENT: atraumatic, normocephalic Eye exam: PRESENT: conjunctiva pink Mouth exam: PRESENT: moist Neck exam: PRESENT: tenderness - Left neck hematoma smaller Respiratory exam: PRESENT: clear to auscultation brenda. ABSENT: rales, rhonchi, wheezes Cardiovascular exam: PRESENT: RRR. ABSENT: diastolic murmur, rubs, systolic murmur GI/Abdominal exam: PRESENT: normal bowel sounds, soft. ABSENT: distended, guarding, mass, organolmegaly, rebound, tenderness Neurological exam: PRESENT: alert, awake, oriented to person, oriented to place, oriented to time, oriented to situation Psychiatric exam: PRESENT: appropriate affect, normal mood Skin exam: PRESENT: dry, intact, warm Results Laboratory Results: 01/13/20 04:54 01/12/20 06:23 01/13/20 04:54 WBC 4.7 RBC 3.44 L Hgb 11.1 L Hct 31.4 L MCV 91 MCH 32.2 MCHC 35.3 RDW 15.8 H Plt Count 154 Seg Neutrophils % 71.7 01/02/20 01/02/20 01/03/20 10:54 10:54 06:37 Creatine Kinase 86 Troponin I < 0.012 NT-Pro-B Natriuret Pep 1190 H 01/03/20 06:37 Creatine Kinase 95 Troponin I NT-Pro-B Natriuret Pep Impressions: Cervical Spine CT 01/02/20 10:04 IMPRESSION: 1. No evidence of acute bony abnormality cervical spine. 2. Multilevel degenerative changes above. Chest X-Ray 01/02/20 10:04 IMPRESSION: No evidence of acute cardiopulmonary process. Head CT 01/02/20 10:04 IMPRESSION: NO ACUTE INTRACRANIAL IMAGING FINDINGS. EVIDENCE OF ACUTE STROKE: NO. Chest MRI 01/03/20 00:00 IMPRESSION: No evidence of septic arthritis. Chest Ultrasound 01/05/20 00:00 IMPRESSION: Contusion/hematoma. No definite abscess. Lower Extremity MRI 01/05/20 00:00 IMPRESSION: Cortical breakthrough anterior talus consistent with osteomyelitis. Chest CT 01/08/20 00:00 IMPRESSION: 1. Interval increase in size of a left sternocleidomastoid intramuscular hematoma. Interval development of a small left-sided pleural effusion. 2. Splenomegaly. 3. Marked bilateral gynecomastia. Assessment and Plan - Diagnosis (1) Osteomyelitis Qualifiers: Osteomyelitis type: other chronic Osteomyelitis location: foot Laterality: right Qualified Code(s): M86.671 - Other chronic osteomyelitis, right ankle and foot Is this a current diagnosis for this admission?: Yes Plan: MRI revealed osteomyelitis of the Rt talus (+) MRSA blood cultures Continue IV Vancomycin. Infectious disease consulted. Spoke w/ clinical pharmacist; requesting Dr. Ricardo's opinion on osteo. Specifically; would she consider this to be osteo w/ treatment failure (potentially necessitating surgical source control/BKA) as the patient was treated from MRSA septic ankle joint in this year, or does there remain the option for conservative treatment with IV antibiotics. 01/10/2020 Chronic osteomyelitis of right ankle, no external wound visible ID consulted: Recommended right BKA as previous course of IV antibiotics was unsuccessful at clearing the bacteria IV vancomycin 01/11/2020 Patient and are considering amputation which has been recommended by orthopedic surgery 01/12/2020 Continue IV antibiotics Patient and his are both adamantly refusing any surgical intervention at this facility, they want to be transferred to [place] for any surgeries on the patient's right ankle including bone biopsy or amputation. Can plan out transfer to [facility] once patient is COVID negative. 01/13/2020 Recheck COVID-19 on 01/13, if negative can be transferred to [place] for bone biopsy and possible amputation of his right foot Antibiotics continue (2) Sternoclavicular joint pain Qualifiers: Laterality: left Qualified Code(s): M25.512 - Pain in left shoulder Is this a current diagnosis for this admission?: Yes Plan: Continues to improve. CT and MRI imagining is benign. U/S confirms hematoma; no fluid/abscess noted Repeat CT showed increased hematoma. 01/10/2020 Left SCM with large hematoma, likely infected with MRSA General surgery consulted for possible I&D and source control Analgesics as needed; lidoderm patches and as needed percocet. Half Percocet dose due to narcotic sensitivity, try to give nonnarcotic options as able 01/11/2020 General surgery has no plans to intervene at this time 01/12/2020 Hematoma perhaps smaller today, still a bit tender 01/13/2020 Shrinking hematoma, mildly tender (3) Chronic diastolic heart failure Is this a current diagnosis for this admission?: Yes (4) Diabetes mellitus type 2 in nonobese Is this a current diagnosis for this admission?: Yes - Time Time Spent with patient: 35 or more minutes Medications reviewed and adjusted accordingly: Yes Anticipated Discharge Disposition: Tertiary Anticipated Discharge Timeframe: within 72 hours - Inpatient Certification Based on my medical assessment, after consideration of the patient's comorbidities, presenting symptoms, or acuity I expect that the services needed warrant INPATIENT care.: Yes I certify that my determination is in accordance with my understanding of Medicare's requirements for reasonable and necessary INPATIENT services [42 CFR 412.3e].: Yes Medical Necessity: Significant Comorbidiites Make Outpatient Treatment Too Risky, Need Close Monitoring Due to Risk of Patient Decompensation, Need for IV Antibiotics, Need for Surgery, Risk of Complication if Not Cared For in Hospital, Risk of Diagnosis Which Will Require Inpatient Eval/Care/Monitoring
[2020-01-13] MEDS: VANCOMYCIN HCL 1,000 MG in DEXTROSE 5%-WATER 250 ML IV SCH (18:25)
[2020-01-14] MEDS: VANCOMYCIN HCL 1,000 MG in DEXTROSE 5%-WATER 250 ML IV SCH ×3 (01:40→17:52)
[2020-01-14] MEDS: HEPARIN SOD (PORCINE) 5,000 UNIT/ML 1 ML VIAL SUBCUT SCH ×3 (05:12→22:05)
[2020-01-14] MEDS: INSULIN REG, HUMAN 100 UNIT/ML 3 ML VIAL (PYX) SUBCUT SCH ×4 (08:41→22:06)
[2020-01-14] MEDS: SPIRONOLACTONE 25 MG TABLET PO SCH (09:00)
[2020-01-14] MEDS: FUROSEMIDE 40 MG TABLET PO SCH (09:00)
[2020-01-14] MEDS: CARVEDILOL 6.25 MG TABLET PO SCH ×2 (09:00→22:05)
[2020-01-14] MEDS: FLUTICASONE/VILANTEROL 200-25 MCG/DOSE IH SCH (09:00)
[2020-01-14] MEDS: LISINOPRIL 10 MG TABLET PO SCH (09:01)
[2020-01-14] MEDS: DOCUSATE SODIUM 100 MG CAPSULE PO SCH ×2 (09:08→17:29)
[2020-01-14] MEDS: FAMOTIDINE 20 MG TABLET PO SCH ×2 (09:08→22:06)
[2020-01-14] MEDS: SOFOSBUVIR VELPATASVIR PO SCH (09:09)
[2020-01-14] MEDS: LIDOCAINE 5% (700 MG) TRANSDERMAL ADH..PATCH TP SCH (09:09)
[2020-01-14 10:16] LABS: ABSOLUTE LYMPHOCYTES (AUTO) 0.6 10^3/uL (0.5-4.7); ABSOLUTE MONOCYTES (AUTO) 0.2 10^3/uL (0.1-1.4); ABSOLUTE NEUT (AUTO) 1.6 10^3/uL (1.7-8.2); BASOPHILS % (AUTO) 1.1 % (0-2); EOSINOPHILS % (AUTO) 0.3 % (0-6); HEMATOCRIT 29.7 % (37.9-51.0); HEMOGLOBIN 10.4 g/dL (13.5-17.0); LYMPHOCYTES % (AUTO) 23.1 % (13-45); MEAN CORPUSCULAR HEMOGLOBIN 32.1 pg (27.0-33.4); MEAN CORPUSCULAR HGB CONC 35.1 g/dL (32.0-36.0); MEAN CORPUSCULAR VOLUME 92 fl (80-97); MONOCYTES % (AUTO) 10.2 % (3-13); PLATELET COUNT 113 10^3/uL (150-450); RED BLOOD COUNT 3.24 10^6/uL (4.35-5.55); RED CELL DISTRIBUTION WIDTH 15.8 % (11.5-14.0); SEGMENTED NEUTROPHILS % (AUTO) 65.3 % (42-78); TOTAL CELLS COUNTED % (AUTO) 100 %
[2020-01-14 10:29] LABS: ANION GAP 9 (5-19); BLOOD UREA NITROGEN 23 mg/dL (7-20); CALCIUM 7.5 mg/dL (8.4-10.2); CARBON DIOXIDE 17 mmol/L (22-30); CHLORIDE 101 mmol/L (98-107); GLUCOSE 182 mg/dL (75-110); POTASSIUM 4.3 mmol/L (3.6-5.0)
[2020-01-14 10:35] LABS: WHITE BLOOD COUNT 2.4 10^3/uL (4.0-10.5)
--- NOTE | 2020-01-14 17:09 | PDOC PROGRESS REPORT ---
Subjective Subjective:: Patient admitted for recurrent MRSA bacteremia, suspected source most likely right ankle osteomyelitis which is now chronic per ID. Patient was previously treated with 6 weeks of daptomycin IV outpatient. Patient also had a recent fall on his left clavicle and has an intramuscular hematoma of the left SCM which is enlarging per recent imaging. General surgery consulted for possible I&D. Orthopedic surgery consulted for possible right BKA given unresolving osteomyelitis. Long discussion with the patient and his separately today going over all of the relevant results and the plan going forward. Patient has been following with an orthopedist in [place] and the is reaching out to him today to see if he wants the patient transferred up there for a BKA. We will attempt to get a bone biopsy either here or in [place] as soon as we can. This will tell us definitively if the patient has ongoing osteomyelitis in the right ankle. Very likely he has MRSA infected blood in his left SCM hematoma that will need to be drained for good source control. Patient is continued on vancomycin. He states his right ankle does not hurt although his left SCM is still quite tender. He has no other complaints. 01/11/2020 Patient positive for COVID, possible hospital-acquired. Patient denies any significant respiratory symptoms but still has pain in his left neck. General surgery has no plans to intervene to drain the hematoma in his left neck. Orthopedic surgery following, recommended amputation although is having trouble accepting this possibility. Patient is continued on antibiotics. Low potassium, replete. 01/12/2020 Patient needs a bone biopsy to be done in order to confirm persistent osteomyelitis in his right ankle. This is reportedly the plan of his orthopedist in [place] per the patient and his . They are both refusing any consideration of amputation at this time. They both agree that they would like to have the patient surgeon in [place] perform any surgeries that are required. Patient is not a candidate for any surgical intervention while he is currently infected with COVID-19. We may need to plan out his transfer to [place] once his COVID test becomes negative. 01/13/2020 Still await clearance of COVID-19 to the patient can get a bone biopsy and if this is positive for infection/osteomyelitis he will need his right foot amputated most likely. Patient and his did not want this done here and would rather have patient transferred to [place]. Transfer is not possible while patient is actively infected with COVID-19. We can recheck COVID-19 test tomorrow. Patient has no new complaints today. 01/14/2020 We will recheck COVID-19 swab today to see if patient is still positive. Once he becomes negative, we will attempt to transfer him to [facility] in order to see his surgeon and have a bone biopsy and potentially a right BKA to treat his osteomyelitis. Patient denies having any complaints today. Case discussed with the nurse, labs and vitals reviewed. Reason For Visit: FEVER,LEFT STERNOCLAVICULAR CONTUSION Physical Exam Vital Signs: Temp Pulse Resp BP Pulse Ox 99.4 F 72 16 102/55 L 93 01/14/20 16:06 01/14/20 16:06 01/14/20 16:06 01/14/20 16:06 01/14/20 16:06 Intake & Output 01/13/20 01/14/20 01/15/20 06:59 06:59 06:59 Intake Total 500 750 370 Output Total 665 450 675 Balance -165 300 -305 Weight 88.9 kg 84 kg General appearance: PRESENT: no acute distress, well-developed, well-nourished Head exam: PRESENT: atraumatic, normocephalic Eye exam: PRESENT: conjunctiva pink Mouth exam: PRESENT: moist Respiratory exam: PRESENT: clear to auscultation brenda. ABSENT: rales, rhonchi, wheezes Cardiovascular exam: PRESENT: RRR. ABSENT: diastolic murmur, rubs, systolic murmur GI/Abdominal exam: PRESENT: normal bowel sounds, soft. ABSENT: distended, guarding, mass, organolmegaly, rebound, tenderness Neurological exam: PRESENT: alert, awake, oriented to person, oriented to place, oriented to time, oriented to situation Psychiatric exam: PRESENT: appropriate affect, normal mood Skin exam: PRESENT: dry, intact, warm Results Laboratory Results: 01/14/20 09:43 01/14/20 09:43 01/14/20 01/14/20 09:43 09:43 WBC 2.4 L D RBC 3.24 L Hgb 10.4 L Hct 29.7 L MCV 92 MCH 32.1 MCHC 35.1 RDW 15.8 H Plt Count 113 L Seg Neutrophils % 65.3 Sodium 126.8 L Potassium 4.3 Chloride 101 Carbon Dioxide 17 L Anion Gap 9 BUN 23 H Creatinine 0.94 Est GFR ( Amer) > 60 Glucose 182 H Calcium 7.5 L 01/02/20 01/02/20 01/03/20 10:54 10:54 06:37 Creatine Kinase 86 Troponin I < 0.012 NT-Pro-B Natriuret Pep 1190 H 01/03/20 06:37 Creatine Kinase 95 Troponin I NT-Pro-B Natriuret Pep Impressions: Cervical Spine CT 01/02/20 10:04 IMPRESSION: 1. No evidence of acute bony abnormality cervical spine. 2. Multilevel degenerative changes above. Chest X-Ray 01/02/20 10:04 IMPRESSION: No evidence of acute cardiopulmonary process. Head CT 01/02/20 10:04 IMPRESSION: NO ACUTE INTRACRANIAL IMAGING FINDINGS. EVIDENCE OF ACUTE STROKE: NO. Chest MRI 01/03/20 00:00 IMPRESSION: No evidence of septic arthritis. Chest Ultrasound 01/05/20 00:00 IMPRESSION: Contusion/hematoma. No definite abscess. Lower Extremity MRI 01/05/20 00:00 IMPRESSION: Cortical breakthrough anterior talus consistent with osteomyelitis. Chest CT 01/08/20 00:00 IMPRESSION: 1. Interval increase in size of a left sternocleidomastoid intramuscular hematoma. Interval development of a small left-sided pleural effusion. 2. Splenomegaly. 3. Marked bilateral gynecomastia. Assessment and Plan - Diagnosis (1) Osteomyelitis Qualifiers: Osteomyelitis type: other chronic Osteomyelitis location: foot Laterality: right Qualified Code(s): M86.671 - Other chronic osteomyelitis, right ankle and foot Is this a current diagnosis for this admission?: Yes Plan: MRI revealed osteomyelitis of the Rt talus (+) MRSA blood cultures Continue IV Vancomycin. Infectious disease consulted. Spoke w/ clinical pharmacist; requesting Dr. Ricardo's opinion on osteo. S pecifically; would she consider this to be osteo w/ treatment failure (potentially necessitating surgical source control/BKA) as the patient was treated from MRSA septic ankle joint in this year, or does there remain the option for conservative treatment with IV antibiotics. 01/10/2020 Chronic osteomyelitis of right ankle, no external wound visible ID consulted: Recommended right BKA as previous course of IV antibiotics was unsuccessful at clearing the bacteria IV vancomycin 01/11/2020 Patient and are considering amputation which has been recommended by orthopedic surgery 01/12/2020 Continue IV antibiotics Patient and his are both adamantly refusing any surgical intervention at this facility, they want to be transferred to [place] for any surgeries on the patient's right ankle including bone biopsy or amputation. Can plan out transfer to [facility] once patient is COVID negative. 01/13/2020 Recheck COVID-19 on 01/13, if negative can be transferred to [place] for bone biopsy and possible amputation of his right foot Antibiotics continue 01/14/2020 Recheck COVID-19 test done today, we will have results hopefully on Thursday and can decide if patient will be transferred to [facility] at that point. Tolerating antibiotics well (2) Sternoclavicular joint pain Qualifiers: Laterality: left Qualified Code(s): M25.512 - Pain in left shoulder Is this a current diagnosis for this admission?: Yes (3) Chronic diastolic heart failure Is this a current diagnosis for this admission?: Yes (4) Diabetes mellitus type 2 in nonobese Is this a current diagnosis for this admission?: Yes - Time Time Spent with patient: 35 or more minutes Medications reviewed and adjusted accordingly: Yes Anticipated Discharge Disposition: Home, Self Care Anticipated Discharge Timeframe: within 72 hours - Inpatient Certification Based on my medical assessment, after consideration of the patient's comorbidities, presenting symptoms, or acuity I expect that the services needed warrant INPATIENT care.: Yes I certify that my determination is in accordance with my understanding of Medicare's requirements for reasonable and necessary INPATIENT services [42 CFR 412.3e].: Yes Medical Necessity: Significant Comorbidiites Make Outpatient Treatment Too Risky, Need Close Monitoring Due to Risk of Patient Decompensation, Need for IV Antibiotics, Risk of Complication if Not Cared For in Hospital, Risk of Diagnosis Which Will Require Inpatient Eval/Care/Monitoring
[2020-01-14 18:33] LABS: VANCOMYCIN,TROUGH 16.8 ug/mL (5.0-20.0)
[2020-01-15] MEDS: VANCOMYCIN HCL 1,000 MG in DEXTROSE 5%-WATER 250 ML IV SCH ×3 (01:24→17:27)
[2020-01-15] MEDS: HEPARIN SOD (PORCINE) 5,000 UNIT/ML 1 ML VIAL SUBCUT SCH ×3 (06:02→22:01)
[2020-01-15] MEDS: INSULIN REG, HUMAN 100 UNIT/ML 3 ML VIAL (PYX) SUBCUT SCH ×4 (09:06→22:02)
[2020-01-15] MEDS: LISINOPRIL 10 MG TABLET PO SCH (12:11)
[2020-01-15] MEDS: FUROSEMIDE 40 MG TABLET PO SCH (12:11)
[2020-01-15] MEDS: SOFOSBUVIR VELPATASVIR PO SCH (12:12)
[2020-01-15] MEDS: CARVEDILOL 6.25 MG TABLET PO SCH ×2 (12:12→22:01)
[2020-01-15] MEDS: SPIRONOLACTONE 25 MG TABLET PO SCH (12:12)
[2020-01-15] MEDS: FAMOTIDINE 20 MG TABLET PO SCH ×2 (12:13→22:45)
[2020-01-15] MEDS: DOCUSATE SODIUM 100 MG CAPSULE PO SCH ×2 (12:13→17:27)
[2020-01-15] MEDS: FLUTICASONE/VILANTEROL 200-25 MCG/DOSE IH SCH (12:15)
[2020-01-15] MEDS: LIDOCAINE 5% (700 MG) TRANSDERMAL ADH..PATCH TP SCH (12:15)
--- NOTE | 2020-01-15 13:46 | PDOC PROGRESS REPORT ---
Subjective Subjective:: Patient admitted for recurrent MRSA bacteremia, suspected source most likely right ankle osteomyelitis which is now chronic per ID. Patient was previously treated with 6 weeks of daptomycin IV outpatient. Patient also had a recent fall on his left clavicle and has an intramuscular hematoma of the left SCM which is enlarging per recent imaging. General surgery consulted for possible I&D. Orthopedic surgery consulted for possible right BKA given unresolving osteomyelitis. Long discussion with the patient and his separately today going over all of the relevant results and the plan going forward. Patient has been following with an orthopedist in [place] and the is reaching out to him today to see if he wants the patient transferred up there for a BKA. We will attempt to get a bone biopsy either here or in [place] as soon as we can. This will tell us definitively if the patient has ongoing osteomyelitis in the right ankle. Very likely he has MRSA infected blood in his left SCM hematoma that will need to be drained for good source control. Patient is continued on vancomycin. He states his right ankle does not hurt although his left SCM is still quite tender. He has no other complaints. 01/11/2020 Patient positive for COVID, possible hospital-acquired. Patient denies any significant respiratory symptoms but still has pain in his left neck. General surgery has no plans to intervene to drain the hematoma in his left neck. Orthopedic surgery following, recommended amputation although is having trouble accepting this possibility. Patient is continued on antibiotics. Low potassium, replete. 01/12/2020 Patient needs a bone biopsy to be done in order to confirm persistent osteomyelitis in his right ankle. This is reportedly the plan of his orthopedist in [place] per the patient and his . They are both refusing any consideration of amputation at this time. They both agree that they would like to have the patient surgeon in [place] perform any surgeries that are required. Patient is not a candidate for any surgical intervention while he is currently infected with COVID-19. We may need to plan out his transfer to [place] once his COVID test becomes negative. 01/13/2020 Still await clearance of COVID-19 to the patient can get a bone biopsy and if this is positive for infection/osteomyelitis he will need his right foot amputated most likely. Patient and his did not want this done here and would rather have patient transferred to [place]. Transfer is not possible while patient is actively infected with COVID-19. We can recheck COVID-19 test tomorrow. Patient has no new complaints today. 01/14/2020 We will recheck COVID-19 swab today to see if patient is still positive. Once he becomes negative, we will attempt to transfer him to [facility] in order to see his surgeon and have a bone biopsy and potentially a right BKA to treat his osteomyelitis. Patient denies having any complaints today. Case discussed with the nurse, labs and vitals reviewed. 01/15/2020 Patient seems to be doing fine today. Repeat COVID-19 swab is pending and should be back tomorrow. I will reach out to [facility] tomorrow to see if he can be transferred under the care of his orthopedic surgeon at their facility. This is the request of the patient and his . Patient has no new complaints today. Reason For Visit: FEVER,LEFT STERNOCLAVICULAR CONTUSION Physical Exam Vital Signs: Temp Pulse Resp BP Pulse Ox 97.8 F 75 19 106/50 L 92 01/15/20 08:55 01/15/20 08:17 01/15/20 08:17 01/15/20 08:17 01/15/20 08:17 Intake & Output 01/14/20 01/15/20 01/16/20 06:59 06:59 06:59 Intake Total 750 1560 Output Total 450 2100 Balance 300 -540 Weight 84 kg 89.7 kg General appearance: PRESENT: no acute distress, well-developed, well-nourished Head exam: PRESENT: atraumatic, normocephalic Eye exam: PRESENT: conjunctiva pink Mouth exam: PRESENT: moist Neck exam: PRESENT: other - Hematoma in left neck is smaller and much less tender Respiratory exam: PRESENT: clear to auscultation brenda. ABSENT: rales, rhonchi, wheezes Cardiovascular exam: PRESENT: RRR. ABSENT: diastolic murmur, rubs, systolic murmur GI/Abdominal exam: PRESENT: normal bowel sounds, soft. ABSENT: distended, guarding, mass, organolmegaly, rebound, tenderness Neurological exam: PRESENT: alert, awake, oriented to person, oriented to place, oriented to time, oriented to situation, motor sensory deficit Psychiatric exam: PRESENT: appropriate affect, normal mood Skin exam: PRESENT: dry, intact, warm Results Laboratory Results: 01/14/20 09:43 01/14/20 09:43 01/02/20 01/02/20 01/03/20 10:54 10:54 06:37 Creatine Kinase 86 Troponin I < 0.012 NT-Pro-B Natriuret Pep 1190 H 01/03/20 06:37 Creatine Kinase 95 Troponin I NT-Pro-B Natriuret Pep Impressions: Cervical Spine CT 01/02/20 10:04 IMPRESSION: 1. No evidence of acute bony abnormality cervical spine. 2. Multilevel degenerative changes above. Chest X-Ray 01/02/20 10:04 IMPRESSION: No evidence of acute cardiopulmonary process. Head CT 01/02/20 10:04 IMPRESSION: NO ACUTE INTRACRANIAL IMAGING FINDINGS. EVIDENCE OF ACUTE STROKE: NO. Chest MRI 01/03/20 00:00 IMPRESSION: No evidence of septic arthritis. Chest Ultrasound 01/05/20 00:00 IMPRESSION: Contusion/hematoma. No definite abscess. Lower Extremity MRI 01/05/20 00:00 IMPRESSION: Cortical breakthrough anterior talus consistent with osteomyelitis. Chest CT 01/08/20 00:00 IMPRESSION: 1. Interval increase in size of a left sternocleidomastoid intramuscular hematoma. Interval development of a small left-sided pleural effusion. 2. Splenomegaly. 3. Marked bilateral gynecomastia. Assessment and Plan - Diagnosis (1) Osteomyelitis Qualifiers: Osteomyelitis type: other chronic Osteomyelitis location: foot Laterality: right Qualified Code(s): M86.671 - Other chronic osteomyelitis, right ankle and foot Is this a current diagnosis for this admission?: Yes Plan: MRI revealed osteomyelitis of the Rt talus (+) MRSA blood cultures Continue IV Vancomycin. Infectious disease consulted. Spoke w/ clinical pharmacist; requesting Dr. Ricardo's opinion on osteo. Specifically; would she consider this to be osteo w/ treatment failure (potentially necessitating surgical source control/BKA) as the patient was treated from MRSA septic ankle joint in this year, or does there remain the option for conservative treatment with IV antibiotics. 01/10/2020 Chronic osteomyelitis of right ankle, no external wound visible ID consulted: Recommended right BKA as previous course of IV antibiotics was unsuccessful at clearing the bacteria IV vancomycin 01/11/2020 Patient and are considering amputation which has been recommended by orthopedic surgery 01/12/2020 Continue IV antibiotics Patient and his are both adamantly refusing any surgical intervention at this facility, they want to be transferred to [place] for any surgeries on the patient's right ankle including bone biopsy or amputation. Can plan out transfer to [facility] once patient is COVID negative. 01/13/2020 Recheck COVID-19 on 01/13, if negative can be transferred to [place] for bone biopsy and possible amputation of his right foot Antibiotics continue 01/14/2020 Recheck COVID-19 test done today, we will have results hopefully on Thursday and can decide if patient will be transferred to [facility] at that point. Tolerating antibiotics well 01/15/2020 COVID-19 recheck test is pending Antibiotics continue Left neck hematoma seems to be much smaller and less tender (2) Sternoclavicular joint pain Qualifiers: Laterality: left Qualified Code(s): M25.512 - Pain in left shoulder Is this a current diagnosis for this admission?: Yes (3) Chronic diastolic heart failure Is this a current diagnosis for this admission?: Yes (4) Diabetes mellitus type 2 in nonobese Is this a current diagnosis for this admission?: Yes - Time Time Spent with patient: 35 or more minutes Medications reviewed and adjusted accordingly: Yes Anticipated Discharge Disposition: Tertiary Anticipated Discharge Timeframe: within 48 hours - Inpatient Certification Based on my medical assessment, after consideration of the patient's comorbidities, presenting symptoms, or acuity I expect that the services needed warrant INPATIENT care.: Yes I certify that my determination is in accordance with my understanding of Medicare's requirements for reasonable and necessary INPATIENT services [42 CFR 412.3e].: Yes Medical Necessity: Significant Comorbidiites Make Outpatient Treatment Too Risky, Need Close Monitoring Due to Risk of Patient Decompensation, Need for IV Antibiotics, Need for Surgery, Risk of Complication if Not Cared For in Hospital, Risk of Diagnosis Which Will Require Inpatient Eval/Care/Monitoring
[2020-01-16] MEDS: VANCOMYCIN HCL 1,000 MG in DEXTROSE 5%-WATER 250 ML IV SCH ×3 (01:33→17:59)
[2020-01-16] MEDS: HEPARIN SOD (PORCINE) 5,000 UNIT/ML 1 ML VIAL SUBCUT SCH ×3 (05:01→22:16)
[2020-01-16] MEDS ORDERED: NORMAL SALINE 1000 ML 1,000 ML IV ONE (05:15)
[2020-01-16] MEDS: INSULIN REG, HUMAN 100 UNIT/ML 3 ML VIAL (PYX) SUBCUT SCH ×4 (09:05→22:16)
[2020-01-16] MEDS: FUROSEMIDE 40 MG TABLET PO SCH (10:00)
[2020-01-16] MEDS: SOFOSBUVIR VELPATASVIR PO SCH (10:00)
[2020-01-16] MEDS: LIDOCAINE 5% (700 MG) TRANSDERMAL ADH..PATCH TP SCH (10:00)
[2020-01-16] MEDS: LISINOPRIL 10 MG TABLET PO SCH (10:00)
[2020-01-16] MEDS: FAMOTIDINE 20 MG TABLET PO SCH ×2 (10:00→22:19)
[2020-01-16] MEDS: CARVEDILOL 6.25 MG TABLET PO SCH ×2 (10:00→22:19)
[2020-01-16] MEDS: DOCUSATE SODIUM 100 MG CAPSULE PO SCH ×2 (10:01→17:59)
[2020-01-16] MEDS: FLUTICASONE/VILANTEROL 200-25 MCG/DOSE IH SCH (10:01)
[2020-01-16] MEDS: SPIRONOLACTONE 25 MG TABLET PO SCH (10:01)
[2020-01-16 11:57] LABS: ABSOLUTE LYMPHOCYTES (AUTO) 0.7 10^3/uL (0.5-4.7); ABSOLUTE MONOCYTES (AUTO) 0.3 10^3/uL (0.1-1.4); ABSOLUTE NEUT (AUTO) 1.3 10^3/uL (1.7-8.2); BASOPHILS % (AUTO) 1.1 % (0-2); EOSINOPHILS % (AUTO) 0.5 % (0-6); HEMATOCRIT 32.6 % (37.9-51.0); HEMOGLOBIN 11.3 g/dL (13.5-17.0); LYMPHOCYTES % (AUTO) 29.6 % (13-45); MEAN CORPUSCULAR HEMOGLOBIN 31.4 pg (27.0-33.4); MEAN CORPUSCULAR HGB CONC 34.5 g/dL (32.0-36.0); MEAN CORPUSCULAR VOLUME 91 fl (80-97); MONOCYTES % (AUTO) 13.1 % (3-13); PLATELET COUNT 102 10^3/uL (150-450); RED BLOOD COUNT 3.59 10^6/uL (4.35-5.55); RED CELL DISTRIBUTION WIDTH 15.6 % (11.5-14.0); SEGMENTED NEUTROPHILS % (AUTO) 55.7 % (42-78); TOTAL CELLS COUNTED % (AUTO) 100 %; WHITE BLOOD COUNT 2.2 10^3/uL (4.0-10.5)
[2020-01-16 12:16] LABS: ANION GAP 7 (5-19); BLOOD UREA NITROGEN 18 mg/dL (7-20); CALCIUM 7.9 mg/dL (8.4-10.2); CARBON DIOXIDE 16 mmol/L (22-30); CHLORIDE 104 mmol/L (98-107); GLUCOSE 165 mg/dL (75-110); POTASSIUM 4.9 mmol/L (3.6-5.0)
--- NOTE | 2020-01-16 16:45 | PDOC PROGRESS REPORT ---
Subjective Subjective:: Patient admitted for recurrent MRSA bacteremia, suspected source most likely right ankle osteomyelitis which is now chronic per ID. Patient was previously treated with 6 weeks of daptomycin IV outpatient. Patient also had a recent fall on his left clavicle and has an intramuscular hematoma of the left SCM which is enlarging per recent imaging. General surgery consulted for possible I&D. Orthopedic surgery consulted for possible right BKA given unresolving osteomyelitis. Long discussion with the patient and his separately today going over all of the relevant results and the plan going forward. Patient has been following with an orthopedist in [place] and the is reaching out to him today to see if he wants the patient transferred up there for a BKA. We will attempt to get a bone biopsy either here or in [place] as soon as we can. This will tell us definitively if the patient has ongoing osteomyelitis in the right ankle. Very likely he has MRSA infected blood in his left SCM hematoma that will need to be drained for good source control. Patient is continued on vancomycin. He states his right ankle does not hurt although his left SCM is still quite tender. He has no other complaints. 01/11/2020 Patient positive for COVID, possible hospital-acquired. Patient denies any significant respiratory symptoms but still has pain in his left neck. General surgery has no plans to intervene to drain the hematoma in his left neck. Orthopedic surgery following, recommended amputation although is having trouble accepting this possibility. Patient is continued on antibiotics. Low potassium, replete. 01/12/2020 Patient needs a bone biopsy to be done in order to confirm persistent osteomyelitis in his right ankle. This is reportedly the plan of his orthopedist in [place] per the patient and his . They are both refusing any consideration of amputation at this time. They both agree that they would like to have the patient surgeon in [place] perform any surgeries that are required. Patient is not a candidate for any surgical intervention while he is currently infected with COVID-19. We may need to plan out his transfer to [place] once his COVID test becomes negative. 01/13/2020 Still await clearance of COVID-19 to the patient can get a bone biopsy and if this is positive for infection/osteomyelitis he will need his right foot amputated most likely. Patient and his did not want this done here and would rather have patient transferred to [place]. Transfer is not possible while patient is actively infected with COVID-19. We can recheck COVID-19 test tomorrow. Patient has no new complaints today. 01/14/2020 We will recheck COVID-19 swab today to see if patient is still positive. Once he becomes negative, we will attempt to transfer him to [facility] in order to see his surgeon and have a bone biopsy and potentially a right BKA to treat his osteomyelitis. Patient denies having any complaints today. Case discussed with the nurse, labs and vitals reviewed. 01/15/2020 Patient seems to be doing fine today. Repeat COVID-19 swab is pending and should be back tomorrow. I will reach out to [facility] tomorrow to see if he can be transferred under the care of his orthopedic surgeon at their facility. This is the request of the patient and his . Patient has no new complaints today. 01/16/2020 Reportedly has been speaking to the patient's orthopedic surgeon at [facility] and the surgeon requested that we get a tagged WBC scan and a bone biopsy. I will order the tagged WBC scan. It is not feasible for patient to have any elective surgery until he is cleared his coronavirus infection per our surgery department guidelines. Patient has no new complaints today. He remains in the COVID unit Reason For Visit: FEVER,LEFT STERNOCLAVICULAR CONTUSION Physical Exam Vital Signs: Temp Pulse Resp BP Pulse Ox 97.6 F 76 20 111/59 L 92 01/16/20 11:25 01/16/20 14:00 01/16/20 11:25 01/16/20 11:25 01/16/20 11:25 Intake & Output 01/15/20 01/16/20 01/17/20 06:59 06:59 06:59 Intake Total 1560 2086 480 Output Total 2100 1325 575 Balance -540 761 -95 Weight 89.7 kg 83.3 kg 83.3 kg Exam: General appearance: PRESENT: no acute distress, well-developed, well-nourished, states he feels fine today Head exam: PRESENT: atraumatic, normocephalic Eye exam: PRESENT: conjunctiva pink Mouth exam: PRESENT: moist Neck exam: PRESENT: other - Hematoma in left neck continues to be smaller and much less tender Respiratory exam: PRESENT: clear to auscultation brenda. ABSENT: rales, rhonchi, wheezes Cardiovascular exam: PRESENT: RRR. ABSENT: diastolic murmur, rubs, systolic murmur GI/Abdominal exam: PRESENT: normal bowel sounds, soft. ABSENT: distended, guarding, mass, organolmegaly, rebound, tenderness Neurological exam: PRESENT: alert, awake, oriented to person, oriented to place, oriented to time, oriented to situation, motor sensory deficit Psychiatric exam: PRESENT: appropriate affect, normal mood Skin exam: PRESENT: dry, intact, warm Results Laboratory Results: 01/16/20 11:25 01/16/20 11:25 01/16/20 01/16/20 11:25 11:25 WBC 2.2 L RBC 3.59 L Hgb 11.3 L Hct 32.6 L MCV 91 MCH 31.4 MCHC 34.5 RDW 15.6 H Plt Count 102 L Seg Neutrophils % 55.7 Sodium 126.9 L Potassium 4.9 Chloride 104 Carbon Dioxide 16 L Anion Gap 7 BUN 18 Creatinine 0.77 Est GFR ( Amer) > 60 Glucose 165 H Calcium 7.9 L 01/02/20 01/02/20 01/03/20 10:54 10:54 06:37 Creatine Kinase 86 Troponin I < 0.012 NT-Pro-B Natriuret Pep 1190 H 01/03/20 06:37 Creatine Kinase 95 Troponin I NT-Pro-B Natriuret Pep Impressions: Cervical Spine CT 01/02/20 10:04 IMPRESSION: 1. No evidence of acute bony abnormality cervical spine. 2. Multilevel degenerative changes above. Chest X-Ray 01/02/20 10:04 IMPRESSION: No evidence of acute cardiopulmonary process. Head CT 01/02/20 10:04 IMPRESSION: NO ACUTE INTRACRANIAL IMAGING FINDINGS. EVIDENCE OF ACUTE STROKE: NO. Chest MRI 01/03/20 00:00 IMPRESSION: No evidence of septic arthritis. Chest Ultrasound 01/05/20 00:00 IMPRESSION: Contusion/hematoma. No definite abscess. Lower Extremity MRI 01/05/20 00:00 IMPRESSION: Cortical breakthrough anterior talus consistent with osteomyelitis. Chest CT 01/08/20 00:00 IMPRESSION: 1. Interval increase in size of a left sternocleidomastoid intramuscular hematoma. Interval development of a small left-sided pleural eff usion. 2. Splenomegaly. 3. Marked bilateral gynecomastia. Assessment and Plan - Diagnosis (1) Osteomyelitis Qualifiers: Osteomyelitis type: other chronic Osteomyelitis location: foot Laterality: right Qualified Code(s): M86.671 - Other chronic osteomyelitis, right ankle and foot Is this a current diagnosis for this admission?: Yes Plan: MRI revealed osteomyelitis of the Rt talus (+) MRSA blood cultures Continue IV Vancomycin. Infectious disease consulted. Spoke w/ clinical pharmacist; requesting Dr. Ricardo's opinion on osteo. Specifically; would she consider this to be osteo w/ treatment failure (potentially necessitating surgical source control/BKA) as the patient was treated from MRSA septic ankle joint in this year, or does there remain the option for conservative treatment with IV antibiotics. 01/10/2020 Chronic osteomyelitis of right ankle, no external wound visible ID consulted: Recommended right BKA as previous course of IV antibiotics was unsuccessful at clearing the bacteria IV vancomycin 01/11/2020 Patient and are considering amputation which has been recommended by orthopedic surgery 01/12/2020 Continue IV antibiotics Patient and his are both adamantly refusing any surgical intervention at this facility, they want to be transferred to [place] for any surgeries on the patient's right ankle including bone biopsy or amputation. Can plan out transfer to [facility] once patient is COVID negative. 01/13/2020 Recheck COVID-19 on 01/13, if negative can be transferred to [place] for bone biopsy and possible amputation of his right foot Antibiotics continue 01/14/2020 Recheck COVID-19 test done today, we will have results hopefully on Thursday and can decide if patient will be transferred to [facility] at that point. Tolerating antibiotics well 01/15/2020 COVID-19 recheck test is pending Antibiotics continue Left neck hematoma seems to be much smaller and less tender 01/16/2020 We will order tagged WBC scan per request by patient's orthopedic surgeon in [place] Patient's surgeon also reportedly wants a bone biopsy. We cannot do a bone biopsy or any other elective surgery on patients that are COVID positive per our surgery guidelines. (2) Sternoclavicular joint pain Qualifiers: Laterality: left Qualified Code(s): M25.512 - Pain in left shoulder Is this a current diagnosis for this admission?: Yes (3) Chronic diastolic heart failure Is this a current diagnosis for this admission?: Yes (4) Diabetes mellitus type 2 in nonobese Is this a current diagnosis for this admission?: Yes - Time Time Spent with patient: 35 or more minutes Medications reviewed and adjusted accordingly: Yes Anticipated Discharge Disposition: Tertiary Anticipated Discharge Timeframe: within 72 hours - Inpatient Certification Based on my medical assessment, after consideration of the patient's comorbidities, presenting symptoms, or acuity I expect that the services needed warrant INPATIENT care.: Yes I certify that my determination is in accordance with my understanding of Medicare's requirements for reasonable and necessary INPATIENT services [42 CFR 412.3e].: Yes Medical Necessity: Significant Comorbidiites Make Outpatient Treatment Too Risky, Need Close Monitoring Due to Risk of Patient Decompensation, Need for IV Antibiotics, Risk of Complication if Not Cared For in Hospital, Risk of Diagnosis Which Will Require Inpatient Eval/Care/Monitoring
[2020-01-16] MEDS: MELATONIN 5 MG TABLET PO PRN (22:19)
[2020-01-17] MEDS: VANCOMYCIN HCL 1,000 MG in DEXTROSE 5%-WATER 250 ML IV SCH ×3 (02:19→17:17)
[2020-01-17] MEDS: HEPARIN SOD (PORCINE) 5,000 UNIT/ML 1 ML VIAL SUBCUT SCH ×3 (05:08→22:58)
[2020-01-17] MEDS: INSULIN REG, HUMAN 100 UNIT/ML 3 ML VIAL (PYX) SUBCUT SCH ×4 (08:31→22:58)
[2020-01-17] MEDS: LISINOPRIL 10 MG TABLET PO SCH (09:48)
[2020-01-17] MEDS: CARVEDILOL 6.25 MG TABLET PO SCH ×2 (09:48→22:57)
[2020-01-17] MEDS: SPIRONOLACTONE 25 MG TABLET PO SCH (09:48)
[2020-01-17] MEDS: SODIUM CHLORIDE 1 GM TABLET PO SCH ×2 (09:58→17:17)
[2020-01-17] MEDS: DOCUSATE SODIUM 100 MG CAPSULE PO SCH ×2 (09:59→17:17)
[2020-01-17] MEDS: FAMOTIDINE 20 MG TABLET PO SCH ×2 (09:59→22:59)
[2020-01-17] MEDS: FUROSEMIDE 40 MG TABLET PO SCH (10:00)
[2020-01-17] MEDS: LIDOCAINE 5% (700 MG) TRANSDERMAL ADH..PATCH TP SCH (10:00)
[2020-01-17] MEDS: FLUTICASONE/VILANTEROL 200-25 MCG/DOSE IH SCH (10:01)
[2020-01-17 10:10] LABS: ANION GAP 9 (5-19); BLOOD UREA NITROGEN 17 mg/dL (7-20); CALCIUM 8.1 mg/dL (8.4-10.2); CARBON DIOXIDE 17 mmol/L (22-30); CHLORIDE 101 mmol/L (98-107); GLUCOSE 171 mg/dL (75-110)
[2020-01-17] MEDS: SOFOSBUVIR VELPATASVIR PO SCH (11:08)
--- NOTE | 2020-01-17 14:16 | PDOC PROGRESS REPORT ---
Subjective Subjective:: Patient admitted for recurrent MRSA bacteremia, suspected source most likely right ankle osteomyelitis which is now chronic per ID. Patient was previously treated with 6 weeks of daptomycin IV outpatient. Patient also had a recent fall on his left clavicle and has an intramuscular hematoma of the left SCM which is enlarging per recent imaging. General surgery consulted for possible I&D. Orthopedic surgery consulted for possible right BKA given unresolving osteomyelitis. Long discussion with the patient and his separately today going over all of the relevant results and the plan going forward. Patient has been following with an orthopedist in [place] and the is reaching out to him today to see if he wants the patient transferred up there for a BKA. We will attempt to get a bone biopsy either here or in [place] as soon as we can. This will tell us definitively if the patient has ongoing osteomyelitis in the right ankle. Very likely he has MRSA infected blood in his left SCM hematoma that will need to be drained for good source control. Patient is continued on vancomycin. He states his right ankle does not hurt although his left SCM is still quite tender. He has no other complaints. 01/11/2020 Patient positive for COVID, possible hospital-acquired. Patient denies any significant respiratory symptoms but still has pain in his left neck. General surgery has no plans to intervene to drain the hematoma in his left neck. Orthopedic surgery following, recommended amputation although is having trouble accepting this possibility. Patient is continued on antibiotics. Low potassium, replete. 01/12/2020 Patient needs a bone biopsy to be done in order to confirm persistent osteomyelitis in his right ankle. This is reportedly the plan of his orthopedist in [place] per the patient and his . They are both refusing any consideration of amputation at this time. They both agree that they would like to have the patient surgeon in [place] perform any surgeries that are required. Patient is not a candidate for any surgical intervention while he is currently infected with COVID-19. We may need to plan out his transfer to [place] once his COVID test becomes negative. 01/13/2020 Still await clearance of COVID-19 to the patient can get a bone biopsy and if this is positive for infection/osteomyelitis he will need his right foot amputated most likely. Patient and his did not want this done here and would rather have patient transferred to [place]. Transfer is not possible while patient is actively infected with COVID-19. We can recheck COVID-19 test tomorrow. Patient has no new complaints today. 01/14/2020 We will recheck COVID-19 swab today to see if patient is still positive. Once he becomes negative, we will attempt to transfer him to [facility] in order to see his surgeon and have a bone biopsy and potentially a right BKA to treat his osteomyelitis. Patient denies having any complaints today. Case discussed with the nurse, labs and vitals reviewed. 01/15/2020 Patient seems to be doing fine today. Repeat COVID-19 swab is pending and should be back tomorrow. I will reach out to [facility] tomorrow to see if he can be transferred under the care of his orthopedic surgeon at their facility. This is the request of the patient and his . Patient has no new complaints today. 01/16/2020 Reportedly has been speaking to the patient's orthopedic surgeon at [facility] and the surgeon requested that we get a tagged WBC scan and a bone biopsy. I will order the tagged WBC scan. It is not feasible for patient to have any elective surgery until he is cleared his coronavirus infection per our surgery department guidelines. Patient has no new complaints today. He remains in the COVID unit 01/17/2020 Tagged WBC scan has been started today we will get some results tomorrow hopefully. Patient is not a candidate for a bone biopsy or any other surgery while he is COVID positive. We will continue IV antibiotics in the meantime. Repeat coronavirus test in a few days and if he is negative we can transfer him to [place] for definitive treatment with his surgeon. He has no new complaints and feels well overall. Reason For Visit: FEVER,LEFT STERNOCLAVICULAR CONTUSION Physical Exam Vital Signs: Temp Pulse Resp BP Pulse Ox 97.9 F 70 18 98/57 L 91 L 01/17/20 11:35 01/17/20 11:35 01/17/20 11:35 01/17/20 11:35 01/17/20 11:35 Intake & Output 01/16/20 01/17/20 01/18/20 06:59 06:59 06:59 Intake Total 2088 1730 Output Total 1325 1275 Balance 761 455 Weight 83.3 kg 83.3 kg Exam: General appearance: PRESENT: no acute distress, well-developed, well-nourished, states he has no new complaints and states his blood was drawn for the WBC scan today Head exam: PRESENT: atraumatic, normocephalic Eye exam: PRESENT: conjunctiva pink Mouth exam: PRESENT: moist Neck exam: PRESENT: other - Hematoma in left neck continues to be smaller and much less tender Respiratory exam: PRESENT: clear to auscultation brenda. ABSENT: rales, rhonchi, wheezes Cardiovascular exam: PRESENT: RRR. ABSENT: diastolic murmur, rubs, systolic murmur GI/Abdominal exam: PRESENT: normal bowel sounds, soft. ABSENT: distended, guarding, mass, organolmegaly, rebound, tenderness Neurological exam: PRESENT: alert, awake, oriented to person, oriented to place, oriented to time, oriented to situation, motor sensory deficit Psychiatric exam: PRESENT: appropriate affect, normal mood Skin exam: PRESENT: dry, intact, warm Results Laboratory Results: 01/16/20 11:25 01/17/20 09:25 01/17/20 09:25 Sodium 127.3 L Potassium 5.0 Chloride 101 Carbon Dioxide 17 L Anion Gap 9 BUN 17 Creatinine 0.81 Est GFR ( Amer) > 60 Glucose 171 H Calcium 8.1 L 01/02/20 01/02/20 01/03/20 10:54 10:54 06:37 Creatine Kinase 86 Troponin I < 0.012 NT-Pro-B Natriuret Pep 1190 H 01/03/20 06:37 Creatine Kinase 95 Troponin I NT-Pro-B Natriuret Pep Impressions: Cervical Spine CT 01/02/20 10:04 IMPRESSION: 1. No evidence of acute bony abnormality cervical spine. 2. Multilevel degenerative changes above. Chest X-Ray 01/02/20 10:04 IMPRESSION: No evidence of acute cardiopulmonary process. Head CT 01/02/20 10:04 IMPRESSION: NO ACUTE INTRACRANIAL IMAGING FINDINGS. EVIDENCE OF ACUTE STROKE: NO. Chest MRI 01/03/20 00:00 IMPRESSION: No evidence of septic arthritis. Chest Ultrasound 01/05/20 00:00 IMPRESSION: Contusion/hematoma. No definite abscess. Lower Extremity MRI 01/05/20 00:00 IMPRESSION: Cortical breakthrough anterior talus consistent with osteomyelitis. Chest CT 01/08/20 00:00 IMPRESSION: 1. Interval increase in size of a left sternocleidomastoid intramuscular hematoma. Interval development of a small left-sided pleural effusion. 2. Splenomegaly. 3. Marked bilateral gynecomastia. Assessment and Plan - Diagnosis (1) Osteomyelitis Qualifiers: Osteomyelitis type: other chronic Osteomyelitis location: foot Laterality: right Qualified Code(s): M86.671 - Other chronic osteomyelitis, right ankle and foot Is this a current diagnosis for this admission?: Yes Plan: MRI revealed osteomyelitis of the Rt talus (+) MRSA blood cultures Continue IV Vancomycin. Infectious disease consulted. Spoke w/ clinical pharmacist; requesting Dr. Ricardo's opinion on osteo. Specifically; would she consider this to be osteo w/ treatment failure (potentially necessitating surgical source control/BKA) as the patient was aaliyah soni from MRSA septic ankle joint in this year, or does there remain the option for conservative treatment with IV antibiotics. 01/10/2020 Chronic osteomyelitis of right ankle, no external wound visible ID consulted: Recommended right BKA as previous course of IV antibiotics was unsuccessful at clearing the bacteria IV vancomycin 01/11/2020 Patient and are considering amputation which has been recommended by orthopedic surgery 01/12/2020 Continue IV antibiotics Patient and his are both adamantly refusing any surgical intervention at this facility, they want to be transferred to [place] for any surgeries on the patient's right ankle including bone biopsy or amputation. Can plan out transfer to [facility] once patient is COVID negative. 01/13/2020 Recheck COVID-19 on 01/13, if negative can be transferred to [place] for bone biopsy and possible amputation of his right foot Antibiotics continue 01/14/2020 Recheck COVID-19 test done today, we will have results hopefully on Thursday and can decide if patient will be transferred to [facility] at that point. Tolerating antibiotics well 01/15/2020 COVID-19 recheck test is pending Antibiotics continue Left neck hematoma seems to be much smaller and less tender 01/16/2020 We will order tagged WBC scan per request by patient's orthopedic surgeon in [place] Patient's surgeon also reportedly wants a bone biopsy. We cannot do a bone biopsy or any other elective surgery on patients that are COVID positive per our surgery guidelines. 01/17/2020 Tagged WBC scan is now in process. We should have some results tomorrow Recheck SHERRIE again in a few days to see if he is negative and can be transfer red to [place] (2) Sternoclavicular joint pain Qualifiers: Laterality: left Qualified Code(s): M25.512 - Pain in left shoulder Is this a current diagnosis for this admission?: Yes (3) Chronic diastolic heart failure Is this a current diagnosis for this admission?: Yes (4) Diabetes mellitus type 2 in nonobese Is this a current diagnosis for this admission?: Yes - Time Time Spent with patient: 35 or more minutes Medications reviewed and adjusted accordingly: Yes Anticipated Discharge Disposition: Tertiary Anticipated Discharge Timeframe: within 72 hours - Inpatient Certification Based on my medical assessment, after consideration of the patient's comorbidities, presenting symptoms, or acuity I expect that the services needed warrant INPATIENT care.: Yes I certify that my determination is in accordance with my understanding of Medicare's requirements for reasonable and necessary INPATIENT services [42 CFR 412.3e].: Yes Medical Necessity: Significant Comorbidiites Make Outpatient Treatment Too [place], Need Close Monitoring Due to Risk of Patient Decompensation, Need for IV Antibiotics, Risk of Complication if Not Cared For in Hospital, Risk of Diagnosis Which Will Require Inpatient Eval/Care/Monitoring
--- NOTE | 2020-01-17 15:59 | RADIOLOGY REPORT (SQ) ---
EXAM DESCRIPTION: NM CERETEC WBC SCAN WHOLE BODY IMAGES COMPLETED DATE/TIME: 01/17/2020 3:42 pm REASON FOR STUDY: Right foot osteomyelitis, left neck hematoma, MRSA COMPARISON: None. RADIONUCLIDE AND DOSE: Technetium labeled white blood cells with Ceretec 10 mCi ADDITIONAL DRUGS AND DOSES: None TECHNIQUE: Imaging was performed at 2 and 4 hours. LIMITATIONS: None. FINDINGS: Normal distribution of activity is seen. There is slightly greater uptake in the right fo ot than the left, but no focal uptake is appreciated. IMPRESSION: There is slightly greater uptake in the right foot than the left but no focal uptake is appreciated. TECHNICAL DOCUMENTATION: JOB ID: [id number] 2010 [employer]- All Rights Reserved Reading location - IP/workstation name: [email or web address]
[2020-01-18] MEDS: VANCOMYCIN HCL 1,000 MG in DEXTROSE 5%-WATER 250 ML IV SCH ×2 (03:10→09:55)
[2020-01-18] MEDS: HEPARIN SOD (PORCINE) 5,000 UNIT/ML 1 ML VIAL SUBCUT SCH ×3 (05:36→22:59)
[2020-01-18 09:36] LABS: ABSOLUTE EOSINOPHILS # (AUTO) 0.1 10^3/uL (0.0-0.6); ABSOLUTE LYMPHOCYTES (AUTO) 1.1 10^3/uL (0.5-4.7); ABSOLUTE MONOCYTES (AUTO) 0.5 10^3/uL (0.1-1.4); ABSOLUTE NEUT (AUTO) 1.6 10^3/uL (1.7-8.2); BASOPHILS % (AUTO) 1.5 % (0-2); EOSINOPHILS % (AUTO) 1.6 % (0-6); HEMOGLOBIN 12.2 g/dL (13.5-17.0); LYMPHOCYTES % (AUTO) 34.1 % (13-45); MEAN CORPUSCULAR HEMOGLOBIN 31.6 pg (27.0-33.4); MEAN CORPUSCULAR HGB CONC 34.9 g/dL (32.0-36.0); MEAN CORPUSCULAR VOLUME 90 fl (80-97); MONOCYTES % (AUTO) 14.4 % (3-13); PLATELET COUNT 124 10^3/uL (150-450); RED BLOOD COUNT 3.87 10^6/uL (4.35-5.55); RED CELL DISTRIBUTION WIDTH 15.8 % (11.5-14.0); SEGMENTED NEUTROPHILS % (AUTO) 48.4 % (42-78); TOTAL CELLS COUNTED % (AUTO) 100 %; WHITE BLOOD COUNT 3.3 10^3/uL (4.0-10.5)
[2020-01-18] MEDS: INSULIN REG, HUMAN 100 UNIT/ML 3 ML VIAL (PYX) SUBCUT SCH ×4 (09:53→22:59)
[2020-01-18] MEDS: FLUTICASONE/VILANTEROL 200-25 MCG/DOSE IH SCH (09:53)
[2020-01-18] MEDS: SPIRONOLACTONE 25 MG TABLET PO SCH (09:53)
[2020-01-18] MEDS: DOCUSATE SODIUM 100 MG CAPSULE PO SCH (09:53)
[2020-01-18] MEDS: FAMOTIDINE 20 MG TABLET PO SCH ×2 (09:54→23:12)
[2020-01-18] MEDS: CARVEDILOL 6.25 MG TABLET PO SCH ×2 (09:54→23:12)
[2020-01-18] MEDS: LIDOCAINE 5% (700 MG) TRANSDERMAL ADH..PATCH TP SCH (09:54)
[2020-01-18] MEDS: FUROSEMIDE 40 MG TABLET PO SCH (09:54)
[2020-01-18] MEDS: LISINOPRIL 10 MG TABLET PO SCH (09:54)
[2020-01-18] MEDS: SODIUM CHLORIDE 1 GM TABLET PO SCH (09:55)
[2020-01-18] MEDS: SOFOSBUVIR VELPATASVIR PO SCH (09:55)
[2020-01-18 09:59] LABS: ANION GAP 10 (5-19); BLOOD UREA NITROGEN 16 mg/dL (7-20); C-REACTIVE PROTEIN 20.2 mg/L (<10.0); CALCIUM 8.3 mg/dL (8.4-10.2); CARBON DIOXIDE 18 mmol/L (22-30); CHLORIDE 103 mmol/L (98-107); GLUCOSE 158 mg/dL (75-110); POTASSIUM 4.9 mmol/L (3.6-5.0)
--- NOTE | 2020-01-18 10:47 | RADIOLOGY REPORT (SQ) ---
EXAM DESCRIPTION: PICC INSERTION IMAGES COMPLETED DATE/TIME: 01/18/2020 10:23 am REASON FOR STUDY: buttermaker helper antibiotics COMPARISON: None. FLUOROSCOPY TIME: 1.3 minutes 2 images saved to PACS. TECHNIQUE: Fluoroscopic and ultrasound guided PICC placement. LIMITATIONS: None. PROCEDURE: After written consent and assessment were obtained, the patient was brought into the fluo roscopy room and placed supine on the table. Ultrasound evaluation of potential access sites were per formed. After successfully identifying a patent right basilic vein, the right arm was prepped and yosef ped in a sterile fashion along with the ultrasound probe. The entry site was anesthetized with 1% lid ocaine. A 21 gauge 7 cm needle was advanced through the skin and into the basilic vein under live ult rasound guidance. An ultrasound image was saved to PACS confirming access site. A .018 guide wire w as then inserted through the needle and into the venous system. The needle was then removed and an 11 blade scalpel was used to make a 1cm skin incision. A 5 fr peel-away sheath was advanced over the w twyla and into the venous system. A measurement was then made using the existing wire and live fluorosc opic guidance. The wire was then removed and trimmed. The PICC was advanced through the peel-away she ath and into the venous system. The peel-away sheath was removed and the catheter was adhered to the patients arm with a stat lock. The catheter was then aspirated and flushed and a sterile bandage was placed over the access site. A fluoroscopic spot image was saved to PACS confirming the catheter tip within the superior vena cava. IMPRESSION: SUCCESSFUL PLACEMENT OF A 5 FR DUAL LUMEN 36 CM PICC IN THE RIGHT BASILIC VEIN. COMMENT: Patient medication list reviewed: Yes- Quality ID# [id number]:Eligible professional attests to doc umenting in the medical record they obtained, updated, or reviewed the patient's current medications. . Quality ID 145: Final reports for procedures using fluoroscopy that document radiation exposure fran eber, or exposure time and number of fluorographic images (if radiation exposure indices are not avail able) Quality ID #[id number]: The patient was prepped and draped using maximum sterile barrier technique including cap, mask, sterile gown, sterile gloves, a large sterile sheet, hand hygiene, and 2% Chlorhexidine fo r cutaneous antisepsis. When ultrasound is used, sterile ultrasound techniques are followed requiring sterile gel and sterile probes. TECHNICAL DOCUMENTATION: JOB ID: [id number] 2010 [employer]- All Rights Reserved rev-10/09 Reading location - IP/workstation name: [email or web address]
--- NOTE | 2020-01-18 13:05 | RADIOLOGY REPORT (SQ) ---
EXAM DESCRIPTION: U/S CHEST IMAGES COMPLETED DATE/TIME: 01/18/2020 12:52 pm REASON FOR STUDY: follow up on SCJ hematoma COMPARISON: Ultrasound chest dated 01/05/2020 TECHNIQUE: Dynamic and static grayscale images acquired of the localized site of clinical concern an d recorded on PACS. Additional selected color Doppler and spectral images recorded. SITE OF CONCERN: Left sternoclavicular joint LIMITATIONS: None. FINDINGS: SKIN AND SUBCUTANEOUS TISSUES: Complex hypoechoic fluid collection has decreased in size. It now measures 3.4 x 2.6 x 1.2 cm. DEEP SOFT TISSUES/MUSCLES: No masses. No fluid collections. No edema. VASCULAR: No increased or decreased vascularity. No occlusions. OTHER: No other significant finding. IMPRESSION: Complex fluid collection adjacent to the left sternoclavicular joint has slightly decrea sed in size. No other significant interval change. TECHNICAL DOCUMENTATION: JOB ID: [id number] 2010 [employer]- All Rights Reserved Reading location - IP/workstation name: [email or web address]
--- NOTE | 2020-01-18 16:56 | PDOC PROGRESS REPORT ---
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 Patient was seen on morning rounds. He is found resting in bed, comfortably, on room air. Patient reports right shoulder, neck, and upper back pain are resolved. Feeling much better than last I saw him last week. Discussed possible d/c on IV antibiotics with outpatient follow up; patient is readily agreeable. Spoke with patient's on the phone, separately, to discuss options (SNF vs HH). He specifically denies chest pain, palpitations, dyspnea, orthopnea, cough, abdominal pain, nausea, vomiting, diarrhea. He has no other questions or concerns today. No concerns per nursing. Reason For Visit: FEVER,LEFT STERNOCLAVICULAR CONTUSION Physical Exam Vital Signs: Temp Pulse Resp BP Pulse Ox 97.7 F 78 18 112/62 93 01/18/20 15:22 01/18/20 15:22 01/18/20 15:22 01/18/20 15:22 01/18/20 15:22 Intake & Output 01/17/20 01/18/20 01/19/20 06:59 06:59 06:59 Intake Total 1730 1230 Output Total 1275 250 Balance 455 980 Weight 83.3 kg 82.2 kg General appearance: PRESENT: no acute distress, cooperative, well-developed, well-nourished Head exam: PRESENT: atraumatic, normocephalic Eye exam: PRESENT: conjunctiva pink, EOMI, PERRLA. ABSENT: scleral icterus Mouth exam: PRESENT: moist, tongue midline Neck exam: PRESENT: other - Hematoma in left neck continues to be smaller; erythema and ecchymosis have resolved. Nontender. Respiratory exam: PRESENT: clear to auscultation brenda, symmetrical, unlabored. ABSENT: rales, rhonchi, wheezes Cardiovascular exam: PRESENT: RRR, +S1, +S2. ABSENT: diastolic murmur, rubs, systolic murmur Pulses: PRESENT: normal dorsalis pedis pul Vascular exam: PRESENT: normal capillary refill Extremities exam: PRESENT: full ROM. ABSENT: calf tenderness, clubbing, pedal edema Neurological exam: PRESENT: alert, awake, oriented to person, oriented to place, oriented to time, oriented to situation, CN II-XII grossly intact. ABSENT: motor sensory deficit Psychiatric exam: PRESENT: appropriate affect, normal mood. ABSENT: homicidal ideation, suicidal ideation Skin exam: PRESENT: dry, intact, warm. ABSENT: cyanosis, rash Results Laboratory Results: 01/18/20 09:20 01/18/20 09:20 01/18/20 01/18/20 09:20 09:20 WBC 3.3 L RBC 3.87 L Hgb 12.2 L Hct 35.0 L MCV 90 MCH 31.6 MCHC 34.9 RDW 15.8 H Plt Count 124 L Seg Neutrophils % 48.4 Sodium 130.8 L Potassium 4.9 Chloride 103 Carbon Dioxide 18 L Anion Gap 10 BUN 16 Creatinine 0.79 Est GFR ( Amer) > 60 Glucose 158 H Calcium 8.3 L Ferritin 324.00 C-Reactive Protein 20.2 H 01/02/20 01/02/20 01/03/20 10:54 10:54 06:37 Creatine Kinase 86 Troponin I < 0.012 NT-Pro-B Natriuret Pep 1190 H 01/03/20 06:37 Creatine Kinase 95 Troponin I NT-Pro-B Natriuret Pep Impressions: Cervical Spine CT 01/02/20 10:04 IMPRESSION: 1. No evidence of acute bony abnormality cervical spine. 2. Multilevel degenerative changes above. Chest X-Ray 01/02/20 10:04 IMPRESSION: No evidence of acute cardiopulmonary process. Head CT 01/02/20 10:04 IMPRESSION: NO ACUTE INTRACRANIAL IMAGING FINDINGS. EVIDENCE OF ACUTE STROKE: NO. Chest MRI 01/03/20 00:00 IMPRESSION: No evidence of septic arthritis. Lower Extremity MRI 01/05/20 00:00 IMPRESSION: Cortical breakthrough anterior talus consistent with osteomyelitis. Chest CT 01/08/20 00:00 IMPRESSION: 1. Interval increase in size of a left sternocleidomastoid intramuscular hematoma. Interval development of a small left-sided pleural effusion. 2. Splenomegaly. 3. Marked bilateral gynecomastia. WBC Scan Nuclear Medicine 01/16/20 00:00 IMPRESSION: There is slightly greater uptake in the right foot than the left but no focal uptake is appreciated. Chest Ultrasound 01/18/20 00:00 IMPRESSION: Complex fluid collection adjacent to the left sternoclavicular joint has slightly decreased in size. No other significant interval change. PICC Line Insertion 01/18/20 00:00 IMPRESSION: SUCCESSFUL PLACEMENT OF A 5 FR DUAL LUMEN 36 CM PICC IN THE RIGHT BASILIC VEIN. Assessment and Plan - Diagnosis (1) Bacteremia Is this a current diagnosis for this admission?: Yes Plan: Rt talus osteomyelitis as likely source (previous septic arthritis to Rt ankle) Blood cultures (4/4 bottles) show MRSA bacteremia Repeat cultures (01/04; following 48 hrs IV Vancomycin) w/ MRSA Repeat blood cultures (following 96 hrs IV Vanc) negative x5 days Echocardiogram poor quality study; no obvious vegetation Now with PICC line placed. Infectious disease was consulted. Spoke with Dr. Ricardo today. Agrees with transition to IV daptomycin once daily in anticipation of discharged home with home infusion. She recommends follow-up chest ultrasound in 2 to 3 weeks to assess the SCJ joint and ensure continued resolution of the hematoma. We will ask our radiology department to attempt bone biopsy per patient/family request as this was the initial plan by Dr. Eden (podiatry in [place]) did discuss this with Dr. Ricardo, she does continue to believe, as do I, that the patient will ultimately require a BKA. We will need to continue IV antibiotics x6 weeks; EOT 02/11/2020. Discharge planning consulted to help arrange for home infusion services. (2) Osteomyelitis Qualifiers: Osteomyelitis type: other chronic Osteomyelitis location: foot Laterality: right Qualified Code(s): M86.671 - Other chronic osteomyelitis, right ankle and foot Is this a current diagnosis for this admission?: Yes Plan: MRI revealed osteomyelitis of the Rt talus (+) MRSA blood cultures Plan as above. (3) Sternoclavicular joint pain Qualifiers: Laterality: left Qualified Code(s): M25.512 - Pain in left shoulder Is this a current diagnosis for this admission?: Yes Plan: Continues to improve. CT and MRI imagining is benign. U/S confirms hematoma; no fluid/abscess noted Repeat CT showed increased hematoma. Repeat U/S shows decreased size General surgery has no plans to intervene at this time Discussed with ID; recommends repeat U/S in 2-3 weeks (4) Pancytopenia Is this a current diagnosis for this admission?: Yes Plan: Continues to show improvement Unclear etiology; likely related to MRSA bacteremia. Patient does have cirrhosis/chronic hepatitis C. Review of lab work shows intermittent thrombocytopenia and chronic mild anemia (baseline hemoglobin 11). However, leukocytosis is a new development as of the last week. Likely acute reaction. Cultures and antibiotics as above. (5) Chronic diastolic heart failure Is this a current diagnosis for this admission?: Yes Plan: Not in exacerbation Continue home medications (6) Diabetes mellitus type 2 in nonobese Is this a current diagnosis for this admission?: Yes Plan: A1C 5.8% (01/03/20) Diet controlled at home Accu-Cheks, LD CI (7) Fever Qualifiers: Fever type: unspecified Qualified Code(s): R50.9 - Fever, unspecified Is this a current diagnosis for this admission?: Yes Plan: Resolved. Evaluation as in #1 (8) Hematuria Qualifiers: Hematuria type: gross Qualified Code(s): R31.0 - Gross hematuria Is this a current diagnosis for this admission?: Yes Plan: No evidence of infection. Culture <2k colonies. Monitor for worsening hematuria/acute urinary obstruction. (9) Hypocalcemia Is this a current diagnosis for this admission?: Yes Plan: Nml calcium when corrected for albumin Routine monitoring. (10) Hyponatremia Is this a current diagnosis for this admission?: Yes Plan: Trending up; 125.6-> 124.6-> 127.2-> 127.7-> 130.5-> 131.6-> 130.5-> 130.8 Chronic hyponatremia, nearing baseline. Likely related to cirrhosis, furosemide/spironolactone. Fluid restrict to 2L daily (11) Tobacco abuse Is this a current diagnosis for this admission?: Yes Plan: Cessation counseled. Nicotine replacement therapy provided. (12) SIRS (systemic inflammatory response syndrome) Is this a current diagnosis for this admission?: Yes Plan: Resolved. Secondary to MRSA bacteremia. Management as above. (13) HTN (hypertension) Is this a current diagnosis for this admission?: Yes Plan: Continue home dose furosemide. Increase spironolactone to 100 mg daily. Increase carvedilol to 6.25 mg twice daily. Continue lisinopril 10 mg daily. PRN p.o. hydralazine. (14) Hypokalemia Is this a current diagnosis for this admission?: Yes Plan: replete (15) COVID-19 virus detected Is this a current diagnosis for this admission?: Yes Plan: Afebrile, asymptomatic, maintaining oxygen saturations on room air. COVID PCR negative (01/02/2020) COVID-19 positive (01/10/2020) COVID positive (01/14/2020) SARS COVID IgG pending Discussed with Dr. Ricardo, Infectious Disease, to seek guidance on repeat testing for COVID clearance. Dr. Ricardo advises that PCR testing indicates active viral shedding and that tests can remain positive for several weeks. She recommends COVID IgG testing as this would indicate immunity and, therefore, patient would no longer be contagious. Discussed w/ lab; testing is available as a send out [facility] test with 2 week turn around time. As patient has high probability of needed surgical interventions in near future, have ordered SARS COVID IgG testing. - Time Time Spent with patient: 35 or more minutes Medications reviewed and adjusted accordingly: Yes Anticipated Discharge Disposition: Home with Home Health Anticipated Discharge Timeframe: within 72 hours
[2020-01-18] MEDS ORDERED: DAPTOMYCIN 500 MG in NORMAL SALINE 50 ML IV SCH (18:00)
[2020-01-19] MEDS: HEPARIN SOD (PORCINE) 5,000 UNIT/ML 1 ML VIAL SUBCUT SCH ×3 (05:01→22:04)
[2020-01-19] MEDS: SODIUM CHLORIDE 1 GM TABLET PO SCH ×3 (08:18→17:32)
[2020-01-19] MEDS: DOCUSATE SODIUM 100 MG CAPSULE PO SCH ×3 (08:18→17:31)
[2020-01-19] MEDS: INSULIN REG, HUMAN 100 UNIT/ML 3 ML VIAL (PYX) SUBCUT SCH ×4 (08:19→22:04)
[2020-01-19] MEDS: SPIRONOLACTONE 25 MG TABLET PO SCH (10:44)
[2020-01-19] MEDS: SOFOSBUVIR VELPATASVIR PO SCH (10:44)
[2020-01-19] MEDS: MIDODRINE HCL 5 MG TABLET PO SCH ×3 (10:45→17:31)
[2020-01-19] MEDS: FAMOTIDINE 20 MG TABLET PO SCH ×2 (10:45→22:07)
[2020-01-19] MEDS: FUROSEMIDE 40 MG TABLET PO SCH (10:45)
[2020-01-19] MEDS: LIDOCAINE 5% (700 MG) TRANSDERMAL ADH..PATCH TP SCH (10:46)
[2020-01-19] MEDS: FLUTICASONE/VILANTEROL 200-25 MCG/DOSE IH SCH (10:46)
[2020-01-19] MEDS: LISINOPRIL 10 MG TABLET PO SCH (10:46)
[2020-01-19] MEDS: CARVEDILOL 6.25 MG TABLET PO SCH ×2 (10:46→22:07)
--- NOTE | 2020-01-19 16:47 | PDOC PROGRESS REPORT ---
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 Patient was seen on afternoon rounds. He is found sitting up to the recliner, comfortably, on room air. Patient reports right shoulder, neck, and upper back pain are resolved. Discussed possible d/c on IV antibiotics with outpatient follow up; patient is readily agreeable. He denies chest pain, palpitations, dyspnea, orthopnea, cough, abdominal pain, nausea, vomiting, diarrhea. He has no questions or concerns today. No concerns per nursing. Reason For Visit: FEVER,LEFT STERNOCLAVICULAR CONTUSION Physical Exam Vital Signs: Temp Pulse Resp BP Pulse Ox 98.2 F 68 16 92/51 L 90 L 01/19/20 08:07 01/19/20 07:00 01/19/20 04:00 01/19/20 04:00 01/19/20 04:00 Intake & Output 01/18/20 01/19/20 01/20/20 06:59 06:59 06:59 Intake Total 1230 260 Output Total 250 250 Balance 980 10 Weight 82.2 kg 82.2 kg General appearance: PRESENT: no acute distress, cooperative, well-developed, well-nourished Head exam: PRESENT: atraumatic, normocephalic Eye exam: PRESENT: conjunctiva pink, EOMI, PERRLA. ABSENT: scleral icterus Mouth exam: PRESENT: moist, tongue midline Neck exam: PRESENT: other - Hematoma in left neck; erythema and ecchymosis have resolved. Nontender. Respiratory exam: PRESENT: clear to auscultation brenda, symmetrical, unlabored. ABSENT: rales, rhonchi, wheezes Cardiovascular exam: PRESENT: RRR. ABSENT: diastolic murmur, rubs, systolic murmur Vascular exam: PRESENT: normal capillary refill Extremities exam: PRESENT: full ROM. ABSENT: calf tenderness, clubbing, pedal edema Musculoskeletal exam: PRESENT: ambulatory Neurological exam: PRESENT: alert, awake, oriented to person, oriented to place, oriented to time, oriented to situation, CN II-XII grossly intact. ABSENT: motor sensory deficit Psychiatric exam: PRESENT: appropriate affect, normal mood. ABSENT: homicidal ideation, suicidal ideation Skin exam: PRESENT: dry, intact, warm. ABSENT: cyanosis, rash Results Laboratory Results: 01/18/20 09:20 01/18/20 09:20 01/02/20 01/02/20 01/03/20 10:54 10:54 06:37 Creatine Kinase 86 Troponin I < 0.012 NT-Pro-B Natriuret Pep 1190 H 01/03/20 06:37 Creatine Kinase 95 Troponin I NT-Pro-B Natriuret Pep Impressions: Cervical Spine CT 01/02/20 10:04 IMPRESSION: 1. No evidence of acute bony abnormality cervical spine. 2. Multilevel degenerative changes above. Chest X-Ray 01/02/20 10:04 IMPRESSION: No evidence of acute cardiopulmonary process. Head CT 01/02/20 10:04 IMPRESSION: NO ACUTE INTRACRANIAL IMAGING FINDINGS. EVIDENCE OF ACUTE STROKE: NO. Chest MRI 01/03/20 00:00 IMPRESSION: No evidence of septic arthritis. Lower Extremity MRI 01/05/20 00:00 IMPRESSION: Cortical breakthrough anterior talus consistent with osteomyelitis. Chest CT 01/08/20 00:00 IMPRESSION: 1. Interval increase in size of a left sternocleidomastoid intramuscular hematoma. Interval development of a small left-sided pleural effusion. 2. Splenomegaly. 3. Marked bilateral gynecomastia. WBC Scan Nuclear Medicine 01/16/20 00:00 IMPRESSION: There is slightly greater uptake in the right foot than the left but no focal uptake is appreciated. Chest Ultrasound 01/18/20 00:00 IMPRESSION: Complex fluid collection adjacent to the left sternoclavicular joint has slightly decreased in size. No other significant interval change. PICC Line Insertion 01/18/20 00:00 IMPRESSION: SUCCESSFUL PLACEMENT OF A 5 FR DUAL LUMEN 36 CM PICC IN THE RIGHT BASILIC VEIN. Assessment and Plan - Diagnosis (1) Bacteremia Is this a current diagnosis for this admission?: Yes Plan: Rt talus osteomyelitis as likely source (previous septic arthritis to Rt ankle) Blood cultures (4/4 bottles) show MRSA bacteremia Repeat cultures (01/04; following 48 hrs IV Vancomycin) w/ MRSA Repeat blood cultures (following 96 hrs IV Vanc) negative x5 days Echocardiogram poor quality study; no obvious vegetation Now with PICC line placed. Infectious disease was consulted. Spoke with Dr. Ricardo. Agrees with transition to IV daptomycin once daily in anticipation of discharged home with home infusion. She recommends follow-up chest ultrasound in 2 to 3 weeks to assess the SCJ joint and ensure continued resolution of the hematoma. Discussed with radiology; unable to do a bone biopsy at our facility due to location of the talus bone; I recommend this be done by the orthopedic surgeon. Patient will need follow-up as outpatient. We will need to continue IV antibiotics x6 weeks; EOT 02/11/2020. Discharge planning consulted to help arrange for home infusion services. (2) Osteomyelitis Qualifiers: Osteomyelitis type: other chronic Osteomyelitis location: foot Laterality: right Qualified Code(s): M86.671 - Other chronic osteomyelitis, right ankle and foot Is this a current diagnosis for this admission?: Yes Plan: MRI revealed osteomyelitis of the Rt talus (+) MRSA blood cultures Plan as above. (3) Sternoclavicular joint pain Qualifiers: Laterality: left Qualified Code(s): M25.512 - Pain in left shoulder Is this a current diagnosis for this admission?: Yes Plan: Continues to improve. CT and MRI imagining is benign. U/S confirms hematoma; no fluid/abscess noted Repeat CT showed increased hematoma. Repeat U/S shows decreased size General surgery has no plans to intervene at this time Discussed with ID; recommends repeat U/S in 2-3 weeks (4) Pancytopenia Is this a current diagnosis for this admission?: Yes Plan: Continues to show improvement Unclear etiology; likely related to MRSA bacteremia. Patient does have cirrhosis/chronic hepatitis C. Review of lab work shows intermittent thrombocytopenia and chronic mild anemia (baseline hemoglobin 11). However, leukocytosis is a new development as of the last week. Likely acute reaction. Cultures and antibiotics as above. (5) Chronic diastolic heart failure Is this a current diagnosis for this admission?: Yes Plan: Not in exacerbation Continue home medications (6) Diabetes mellitus type 2 in nonobese Is this a current diagnosis for this admission?: Yes Plan: A1C 5.8% (01/03/20) Diet controlled at home Accu-Cheks, LD CI (7) Fever Qualifiers: Fever type: unspecified Qualified Code(s): R50.9 - Fever, unspecified Is this a current diagnosis for this admission?: Yes Plan: Resolved. Evaluation as in #1 (8) Hematuria Qualifiers: Hematuria type: gross Qualified Code(s): R31.0 - Gross hematuria Is this a current diagnosis for this admission?: Yes Plan: No evidence of infection. Culture <2k colonies. Monitor for worsening hematuria/acute urinary obstruction. (9) Hypocalcemia Is this a current diagnosis for this admission?: Yes Plan: Nml calcium when corrected for albumin Routine monitoring. (10) Hyponatremia Is this a current diagnosis for this admission?: Yes Plan: Trending up; 125.6-> 124.6-> 127.2-> 127.7-> 130.5-> 131.6-> 130.5-> 130.8 Chronic hyponatremia, nearing baseline. Likely related to cirrhosis, furosemide/spironolactone. Fluid restrict to 2L daily (11) Tobacco abuse Is this a current diagnosis for this admission?: Yes Plan: Cessation counseled. Nicotine replacement therapy provided. (12) SIRS (systemic inflammatory response syndrome) Is this a current diagnosis for this admission?: Yes Plan: Resolved. Secondary to MRSA bacteremia. Management as above. (13) HTN (hypertension) Is this a current diagnosis for this admission?: Yes Plan: Continue home dose furosemide. Increase spironolactone to 100 mg daily. Increase carvedilol to 6.25 mg twice daily. Continue lisinopril 10 mg daily. PRN p.o. hydralazine. (14) Hypokalemia Is this a current diagnosis for this admission?: Yes Plan: replete (15) COVID-19 virus detected Is this a current diagnosis for this admission?: Yes Plan: Afebrile, asymptomatic, maintaining oxygen saturations on room air. COVID PCR negative (01/02/2020) COVID-19 positive (01/10/2020) COVID positive (01/14/2020) SARS COVID IgG pending Discussed with Dr. Ricardo, Infectious Disease, to seek guidance on repeat testing for COVID clearance. Dr. Ricardo advises that PCR testing indicates active viral shedding and that tests can remain positive for several weeks. She recommends COVID IgG testing as this would indicate immunity and, therefore, patient would no longer be contagious. Discussed w/ lab; testing is available as a send out [facility] test with 2 week turn around time. As patient has high probability of needed surgical interventions in near future, have ordered SARS COVID IgG testing. - Time Time Spent with patient: 35 or more minutes Medications reviewed and adjusted accordingly: Yes Anticipated Discharge Disposition: Home with Home Health Anticipated Discharge Timeframe: pending arrangements
[2020-01-19] MEDS ORDERED: NORMAL SALINE 10 ML SDV (AFTER EACH USE) IV PRN (18:00)
[2020-01-19 18:24] LABS: VANCOMYCIN,TROUGH 7.7 ug/mL (5.0-20.0)
[2020-01-19] MEDS: NORMAL SALINE 10 ML SDV (SCHEDULED) IV SCH (22:06)
[2020-01-20] MEDS: HEPARIN SOD (PORCINE) 5,000 UNIT/ML 1 ML VIAL SUBCUT SCH ×2 (05:36→13:27)
[2020-01-20] MEDS: INSULIN REG, HUMAN 100 UNIT/ML 3 ML VIAL (PYX) SUBCUT SCH ×2 (08:26→11:50)
[2020-01-20] MEDS ORDERED: DAPTOMYCIN 500 MG in NORMAL SALINE 50 ML IV SCH (10:00)
[2020-01-20] MEDS: LIDOCAINE 5% (700 MG) TRANSDERMAL ADH..PATCH TP SCH (10:00)
[2020-01-20] MEDS: SODIUM CHLORIDE 1 GM TABLET PO SCH (10:01)
[2020-01-20] MEDS: DOCUSATE SODIUM 100 MG CAPSULE PO SCH (10:01)
[2020-01-20] MEDS: FUROSEMIDE 40 MG TABLET PO SCH (10:01)
[2020-01-20] MEDS: SPIRONOLACTONE 25 MG TABLET PO SCH (10:01)
[2020-01-20] MEDS: CARVEDILOL 6.25 MG TABLET PO SCH (10:02)
[2020-01-20] MEDS: LISINOPRIL 10 MG TABLET PO SCH (10:02)
[2020-01-20] MEDS: MIDODRINE HCL 5 MG TABLET PO SCH ×2 (10:03→14:35)
[2020-01-20] MEDS: NORMAL SALINE 10 ML SDV (SCHEDULED) IV SCH (10:04)
[2020-01-20] MEDS: FLUTICASONE/VILANTEROL 200-25 MCG/DOSE IH SCH (10:05)
[2020-01-20] MEDS: SOFOSBUVIR VELPATASVIR PO SCH (10:06)
[2020-01-20] MEDS: FAMOTIDINE 20 MG TABLET PO SCH (10:07)
[2020-01-20 13:49] VITALS: BP 92/51
--- NOTE | 2020-01-24 10:17 | PDOC DISCHARGE SUMMARY ---
Impression - Admit/DC Date/PCP Admission Date/Primary Care Provider: 01/02/20 20:44 KRUPA ABERNATHY MD Discharge Date: 01/20/20 - Discharge Diagnosis (1) Bacteremia Is this a current diagnosis for this admission?: Yes (2) Osteomyelitis Is this a current diagnosis for this admission?: Yes (3) Sternoclavicular joint pain Is this a current diagnosis for this admission?: Yes (4) Pancytopenia Is this a current diagnosis for this admission?: Yes (5) Chronic diastolic heart failure Is this a current diagnosis for this admission?: Yes (6) Diabetes mellitus type 2 in nonobese Is this a current diagnosis for this admission?: Yes (7) Fever Is this a current diagnosis for this admission?: Yes (8) Hematuria Is this a current diagnosis for this admission?: Yes (9) Hypocalcemia Is this a current diagnosis for this admission?: Yes (10) Hyponatremia Is this a current diagnosis for this admission?: Yes (11) Tobacco abuse Is this a current diagnosis for this admission?: Yes (12) SIRS (systemic inflammatory response syndrome) Is this a current diagnosis for this admission?: Yes (13) HTN (hypertension) Is this a current diagnosis for this admission?: Yes (14) Hypokalemia Is this a current diagnosis for this admission?: Yes (15) COVID-19 virus detected Is this a current diagnosis for this admission?: Yes - Additional Information Resuscitation Status: Full Code Discharge Diet: Cardiac, Diabetic Discharge Activity: Activity As Tolerated, Balance Activity w/Rest, Weigh Daily Referrals: KRUPA ABERNATHY MD [Primary Care Provider] - 01/27/20 9:30 am Prescriptions: Fluticasone/Vilanterol [Breo 200-25 Mcg Ellipta 14 Dose/Dpi] 1 inh IH DAILY #1 inhaler Carvedilol [Coreg 6.25 mg Tablet] 6.25 mg PO Q12 #60 tablet Nicotine [Nicoderm 21 mg/24 Hr Transderm Patch] 1 each TD DAILYP PRN #30 patch.td24 PRN Reason: Lisinopril [Prinivil 10 mg Tablet] 10 mg PO DAILY #30 tablet Midodrine HCl [Proamatine 5 mg Tablet] 5 mg PO TID #90 tablet Sodium Chloride [Sodium Chloride 1 gm Tablet] 1 gm PO BID #60 tablet Home Medications: Furosemide [Lasix 40 mg Tablet] 40 mg PO DAILY 15 Days #15 tablet 06/01/19 Sofosbuvir/Velpatasvir [Sofosbuvir-Velpatasvir 400-100] 1 tab PO DAILY 01/03/20 Spironolactone [Aldactone 25 mg Tablet] 75 mg PO DAILY 01/03/20 Acetaminophen [Tylenol 325 mg Tablet] 650 mg PO Q4HP PRN tablet 01/20/20 Carvedilol [Coreg 6.25 mg Tablet] 6.25 mg PO Q12 #60 tablet 01/20/20 Daptomycin [Cubicin Inj 500 mg Vial] 500 mg IV DAILY vial 01/20/20 Fluticasone/Vilanterol [Breo 200-25 Mcg Ellipta 14 Dose/Dpi] 1 inh IH DAILY #1 inhaler 01/20/20 Lisinopril [Prinivil 10 mg Tablet] 10 mg PO DAILY #30 tablet 01/20/20 Midodrine HCl [Proamatine 5 mg Tablet] 5 mg PO TID #90 tablet 01/20/20 Nicotine [Nicoderm 21 mg/24 Hr Transderm Patch] 1 each TD DAILYP PRN #30 patch.td24 01/20/20 Sodium Chloride [Sodium Chloride 1 gm Tablet] 1 gm PO BID #60 tablet 01/20/20 History of Present Illiness History of Present Illness: Per H&P by Dr. Ceron: RENATA STRICKLAND is a 64 year old male who presented to the emergency room with a 3-day history of left sternal clavicular pain. He admits falling while using his crutches 3 days ago and immediately developed severe sharp pain in his left clavicle and manubrium area which has persisted since the injury and is made worse by movements of the chest or left shoulder. He denies other associated or accompanying signs and symptoms. He denied prior similar injuries. He has not identified any additional aggravating or ameliorating factors for his left sternal clavicular pain. In the emergency room he was found to have several laboratory abnormalities, but the evaluation of his sternoclavicular pain showed no evidence of fracture or dislocation. Because of his laboratory abnormalities additional testing was performed and during the course of his emergency room stay his temperature meagan to 102.7 F. His laboratory abnormalities included leukopenia, hyponatremia, and increased CRP, and increased ESR and hypocalcemia. Emergency room provider discussed the patient with Dr. Childress who advised that the patient would be admitted by the roller staker service. Hospital Course Hospital Course: (1) Bacteremia Rt talus osteomyelitis as likely source (previous septic arthritis to Rt ankle) Blood cultures (4/4 bottles) show MRSA bacteremia Repeat cultures (01/04; following 48 hrs IV Vancomycin) w/ MRSA Repeat blood cultures (following 96 hrs IV Vanc) negative x5 days Echocardiogram poor quality study; no obvious vegetation Now with PICC line placed. Infectious disease was consulted. Spoke with Dr. Ricardo. Agrees with transition to IV daptomycin once daily in anticipation of discharged home with home infusion. She recommends follow-up chest ultrasound in 2 to 3 weeks to assess the SCJ joint and ensure continued resolution of the hematoma. Discussed with radiology; unable to do a bone biopsy at our facility due to location of the talus bone; I recommend this be done by the orthopedic surgeon. Patient will need follow-up as outpatient. We will need to continue IV antibiotics x6 weeks; EOT 02/11/2020. (2) Osteomyelitis MRI revealed osteomyelitis of the Rt talus (+) MRSA blood cultures Plan as above. (3) Sternoclavicular joint pain Continues to improve. CT and MRI imagining is benign. U/S confirms hematoma; no fluid/abscess noted Repeat CT showed increased hematoma. Repeat U/S shows decreased size General surgery has no plans to intervene at this time Discussed with ID; recommends repeat U/S in 2-3 weeks (4) Pancytopenia Continues to show improvement Unclear etiology; likely related to MRSA bacteremia. Patient does have cirrhosis/chronic hepatitis C. Review of lab work shows intermittent thrombocytopenia and chronic mild anemia (baseline hemoglobin 11). However, leukocytosis is a new development as of the last week. Likely acute reaction. Cultures and antibiotics as above. (5) Chronic diastolic heart failure Not in exacerbation Continue home medications (6) Diabetes mellitus type 2 in nonobese A1C 5.8% (01/03/20) Diet controlled at home Outpatient PCP management. (7) Fever Resolved. Evaluation as in #1 (8) Hematuria No evidence of infection. Culture <2k colonies. Monitor for worsening hematuria/acute urinary obstruction. (9) Hypocalcemia Nml calcium when corrected for albumin Routine monitoring. (10) Hyponatremia Stable ~130 Improved; 125.6-> 124.6-> 127.2-> 127.7-> 130.5-> 131.6-> 130.5-> 130.8 Chronic hyponatremia, nearing baseline. Likely related to cirrhosis, furosemide/spironolactone. Fluid restrict to 2L daily (11) Tobacco abuse Cessation counseled. Nicotine replacement therapy provided. (12) SIRS (systemic inflammatory response syndrome) Resolved. Secondary to MRSA bacteremia. Management as above. (13) HTN (hypertension) Currently well controlled Continue home dose furosemide. Have increased spironolactone to 100 mg daily. Have increased carvedilol to 6.25 mg twice daily. Continue lisinopril 10 mg daily. Outpatient PCP management. (14) Hypokalemia replete (15) COVID-19 virus detected Afebrile, asymptomatic, maintaining oxygen saturations on room air. COVID PCR negative (01/02/2020) COVID-19 positive (01/10/2020) COVID positive (01/14/2020) SARS COVID IgG pending Discussed with Dr. Ricardo, Infectious Disease, to seek guidance on repeat testing for COVID clearance. Dr. Ricardo advises that PCR testing indicates active viral shedding and that tests can remain positive for several weeks. She recommends COVID IgG testing as this would indicate immunity and, therefore, patient would no longer be contagious. Discussed w/ lab; testing is available as a send out [facility] test with 2 week turn around time. As patient has high probability of needed surgical interventions in near future, have ordered SARS COVID IgG testing. Physical Exam Vital Signs: Temp Pulse Resp BP Pulse Ox 97.5 F 68 18 92/51 L 94 01/20/20 13:40 01/20/20 13:40 01/20/20 13:40 01/20/20 13:40 01/20/20 13:40 General appearance: PRESENT: no acute distress, cooperative, well-developed, well-nourished Head exam: PRESENT: atraumatic, normocephalic Eye exam: PRESENT: conjunctiva pink, EOMI, PERRLA. ABSENT: scleral icterus Mouth exam: PRESENT: moist, tongue midline Neck exam: PRESENT: other - Hematoma in left neck; erythema and ecchymosis have resolved. Nontender.. ABSENT: carotid bruit, JVD, lymphadenopathy, thyromegaly Respiratory exam: PRESENT: clear to auscultation brenda. ABSENT: rales, rhonchi, wheezes Cardiovascular exam: PRESENT: RRR. ABSENT: diastolic murmur, rubs, systolic murmur Pulses: PRESENT: normal dorsalis pedis pul Vascular exam: PRESENT: normal capillary refill Extremities exam: PRESENT: full ROM. ABSENT: calf tenderness, clubbing, pedal edema Musculoskeletal exam: PRESENT: ambulatory Neurological exam: PRESENT: alert, awake, oriented to person, oriented to place, oriented to time, oriented to situation, CN II-XII grossly intact. ABSENT: motor sensory deficit Psychiatric exam: PRESENT: appropriate affect, normal mood. ABSENT: homicidal ideation, suicidal ideation Skin exam: PRESENT: dry, intact, warm. ABSENT: cyanosis, rash Results Laboratory Results: WBC 3.3 10^3/uL (4.0-10.5) L 01/18/20 09:20 RBC 3.87 10^6/uL (4.35-5.55) L 01/18/20 09:20 Hgb 12.2 g/dL (13.5-17.0) L 01/18/20 09:20 Hct 35.0 % (37.9-51.0) L 01/18/20 09:20 MCV 90 fl (80-97) 01/18/20 09:20 MCH 31.6 pg (27.0-33.4) 01/18/20 09:20 MCHC 34.9 g/dL (32.0-36.0) 01/18/20 09:20 RDW 15.8 % (11.5-14.0) H 01/18/20 09:20 Plt Count 124 10^3/uL (150-450) L 01/18/20 09:20 Lymph % (Auto) 34.1 % (13-45) 01/18/20 09:20 [place] % (Auto) 14.4 % (3-13) H 01/18/20 09:20 Eos % (Auto) 1.6 % (0-6) 01/18/20 09:20 Baso % (Auto) 1.5 % (0-2) 01/18/20 09:20 Absolute Neuts (auto) 1.6 10^3/uL (1.7-8.2) L 01/18/20 09:20 Absolute Lymphs (auto) 1.1 10^3/uL (0.5-4.7) 01/18/20 09:20 Absolute Monos (auto) 0.5 10^3/uL (0.1-1.4) 01/18/20 09:20 Absolute Eos (auto) 0.1 10^3/uL (0.0-0.6) 01/18/20 09:20 Absolute Basos (auto) 0.0 10^3/uL (0.0-0.2) 01/18/20 09:20 Seg Neutrophils % 48.4 % (42-78) 01/18/20 09:20 ESR 67 mm/hr (0-20) H 01/18/20 09:20 PT 14.7 SEC (11.4-15.4) 01/11/20 07:30 INR 1.13 01/11/20 07:30 D-Dimer 2.34 ug/mL (0.00-0.50) H 01/18/20 09:20 Sodium 130.8 mmol/L (137-145) L 01/18/20 09:20 Potassium 4.9 mmol/L (3.6-5.0) 01/18/20 09:20 Chloride 103 mmol/L (98-107) 01/18/20 09:20 Carbon Dioxide 18 mmol/L (22-30) L 01/18/20 09:20 Anion Gap 10 (5-19) 01/18/20 09:20 BUN 16 mg/dL (7-20) 01/18/20 09:20 Creatinine 0.79 mg/dL (0.52-1.25) 01/18/20 09:20 Est GFR ( Amer) > 60 (>60) 01/18/20 09:20 Est GFR (MDRD) Non-Af > 60 (>60) 01/18/20 09:20 Glucose 158 mg/dL (75-110) H 01/18/20 09:20 POC Glucose 152 mg/dL (70-110) H 01/20/20 11:29 Hemoglobin A1c % 5.8 % (4.7-6.0) 01/03/20 06:37 Lactic Acid 1.9 mmol/L (0.7-2.1) 01/03/20 09:39 Calcium 8.3 mg/dL (8.4-10.2) L 01/18/20 09:20 Magnesium 1.9 mg/dL (1.6-2.3) 01/03/20 06:37 Ferritin 324.00 ng/mL (17.9-464.0) 01/18/20 09:20 Total Bilirubin 1.0 mg/dL (0.2-1.3) 01/08/20 04:58 Direct Bilirubin 0.0 mg/dL (0.0-0.4) 01/08/20 04:58 Neonat Total Bilirubin Not Reportable 01/08/20 04:58 Neonat Direct Bilirubin Not Reportable 01/08/20 04:58 Neonat Indirect Bili Not Reportable 01/08/20 04:58 AST 36 U/L (17-59) 01/08/20 04:58 ALT 37 U/L (<50) 01/08/20 04:58 Alkaline Phosphatase 68 U/L (38-126) 01/08/20 04:58 Lactate Dehydrogenase 242 U/L (120-246) 01/18/20 09:20 Creatine Kinase 95 U/L (55-170) 01/03/20 06:37 Troponin I < 0.012 ng/mL 01/02/20 10:54 C-Reactive Protein 20.2 mg/L (<10.0) H 01/18/20 09:20 NT-Pro-B Natriuret Pep 1190 pg/mL (<125) H 01/03/20 06:37 Total Protein 5.6 g/dL (6.3-8.2) L 01/08/20 04:58 Albumin 2.5 g/dL (3.5-5.0) L 01/08/20 04:58 TSH 5.22 uIU/mL (0.47-4.68) H 01/03/20 06:37 Free T4 0.90 ng/dL (0.78-2.19) 01/03/20 06:37 Free T3 pg/mL 1.51 pg/mL (2.77-5.27) L 01/03/20 06:37 Urine Color ANUPAM 01/02/20 13:36 Urine Appearance CLOUDY 01/02/20 13:36 Urine pH 6.0 (5.0-9.0) 01/02/20 13:36 Ur Specific [place] 1.036 08/10/20 13:36 Urine Protein 100 mg/dL (NEGATIVE) H 01/02/20 13:36 Urine Glucose (UA) NEGATIVE mg/dL (NEGATIVE) 01/02/20 13:36 Urine Ketones NEGATIVE mg/dL (NEGATIVE) 01/02/20 13:36 Urine Blood LARGE (NEGATIVE) H 01/02/20 13:36 Urine Nitrite NEGATIVE (NEGATIVE) 01/02/20 13:36 Urine Bilirubin NEGATIVE (NEGATIVE) 01/02/20 13:36 Urine Urobilinogen NEGATIVE mg/dL (<2.0) 01/02/20 13:36 Ur Leukocyte Esterase NEGATIVE (NEGATIVE) 01/02/20 13:36 Urine WBC (Auto) 10 /HPF 01/02/20 13:36 Urine RBC (Auto) >182 /HPF 01/02/20 13:36 Urine Bacteria (Auto) 3+ /HPF 01/02/20 13:36 Squamous Epi Cells Auto 1 /HPF 01/02/20 13:36 Urine Mucus (Auto) FEW /LPF 01/02/20 13:36 Urine Yeast (Budding) PRESENT /HPF 01/02/20 13:36 Urine Ascorbic Acid NEGATIVE (NEGATIVE) 01/02/20 13:36 Time Trough Drawn 1741 01/19/20 17:41 Vancomycin Trough 7.7 ug/mL (5.0-20.0) 01/19/20 17:41 COVID-19 Source NASOPHARYNGEAL 01/14/20 12:11 COVID-19 (MARICRUZ) DETECTED H 01/14/20 12:11 SARS-CoV-2 (PCR) POSITIVE (NEGATIVE) H 01/10/20 15:45 01/02/20 01/03/20 10:54 06:37 Troponin I < 0.012 NT-Pro-B Natriuret Pep 1190 H Impressions: Cervical Spine CT 01/02/20 10:04 IMPRESSION: 1. No evidence of acute bony abnormality cervical spine. 2. Multilevel degenerative changes above. Chest X-Ray 01/02/20 10:04 IMPRESSION: No evidence of acute cardiopulmonary process. Head CT 01/02/20 10:04 IMPRESSION: NO ACUTE INTRACRANIAL IMAGING FINDINGS. EVIDENCE OF ACUTE STROKE: NO. Chest CT 01/02/20 11:26 IMPRESSION: 1. No osseous abnormality is seen in the left sternoclavicular joint or elsewhere in the chest. 2. Splenomegaly. Chest MRI 01/03/20 00:00 IMPRESSION: No evidence of septic arthritis. Chest Ultrasound 01/05/20 00:00 IMPRESSION: Contusion/hematoma. No definite abscess. Lower Extremity MRI 01/05/20 00:00 IMPRESSION: Cortical breakthrough anterior talus consistent with osteomyelitis. Chest CT 01/08/20 00:00 IMPRESSION: 1. Interval increase in size of a left sternocleidomastoid intramuscular hematoma. Interval development of a small left-sided pleural effusion. 2. Splenomegaly. 3. Marked bilateral gynecomastia. WBC Scan Nuclear Medicine 01/16/20 00:00 IMPRESSION: There is slightly greater uptake in the right foot than the left but no focal uptake is appreciated. Chest Ultrasound 01/18/20 00:00 IMPRESSION: Complex fluid collection adjacent to the left sternoclavicular joint has slightly decreased in size. No other significant interval change. PICC Line Insertion 01/18/20 00:00 IMPRESSION: SUCCESSFUL PLACEMENT OF A 5 FR DUAL LUMEN 36 CM PICC IN THE RIGHT BASILIC VEIN. Plan Plan of Treatment: Patient is discharged home. Attempts to arrange for home health services, for antibiotic infusion therapy, were exhausted. Fortunately, the patient and family members were well/recently declining initiation of daptomycin. Able to talk through the process and questions to verify that familiarity with the process. They were advised to call the hospital and asked to speak with the exam team clinical nurse, or myself, for assistance should they have questions. They were also encouraged to come to the emergency department for any concerns regarding his PICC line or antibiotic infusion. He is advised to follow-up with his primary care provider within 1 week. He is instructed to follow-up with his orthopedic surgeon in [place] at the earliest available appointment as the recommendations from infectious disease are to proceed with BKA, however, the family would like to discuss option for conservative management and potential bone biopsy prior to proceeding with surgical source control. He is instructed to take his other medications as prescribed. Eat a heart healthy diet. Return to emergency department as needed for concerning symptoms. Patient has completed his CDC recommended quarantine. For COVID-19 infection. He is advised that upon returning home, he should resume standard social distancing precautions. Time Spent: Greater than 30 Minutes Stroke Is this a Stroke Patient?: No Acute Heart Failure - Is this a Heart Failure Patient?: No
== END 2020-01-20 15:00 | disposition home or self-care (01) | DRG 539 ==
LOC: ER 09:43 → EH 20:44 → 4S 01-03 00:12 → 3W 01-10 18:15
PROVIDERS: ADMIT Emergency Medicine; ATTEND Registered Nurse
PROC: 02HV33Z Insertion of Infusion Device into Superior Vena Cava, Percutaneous Approach (ICD-10-PCS; principal; 2020-01-18)
PROC: B5181ZA Fluoroscopy of Superior Vena Cava using Low Osmolar Contrast, Guidance (ICD-10-PCS; 2020-01-18)
PROC: B548ZZA Ultrasonography of Superior Vena Cava, Guidance (ICD-10-PCS; 2020-01-18)
DX: M86.8X7 Other osteomyelitis, ankle and foot (principal); U07.1 COVID-19; E87.1 Hypo-osmolality and hyponatremia; D61.818 Other pancytopenia; R78.81 Bacteremia; I50.32 Chronic diastolic (congestive) heart failure; S40.011A Contusion of right shoulder, initial encounter; E11.610 Type 2 diabetes mellitus with diabetic neuropathic arthropathy; W19.XXXA Unspecified fall, initial encounter; I11.0 Hypertensive heart disease with heart failure; B95.62 Methicillin resistant Staphylococcus aureus infection as the cause of diseases classified elsewhere; R31.0 Gross hematuria; E83.51 Hypocalcemia; D72.810 Lymphocytopenia; K74.69 Other cirrhosis of liver; B18.2 Chronic viral hepatitis C; F17.210 Nicotine dependence, cigarettes, uncomplicated; M25.512 Pain in left shoulder; Z88.6 Allergy status to analgesic agent; Z83.3 Family history of diabetes mellitus; Z82.49 Family history of ischemic heart disease and other diseases of the circulatory system; Z79.899 Other long term (current) drug therapy
CPT/HCPCS: 36415; 36573; 70450; 71046; 71250; 71260; 71550; 72125; 76604; 78802; 80048; 80053; 80202; 81001; 82550; 82728; 82962; 83036; 83605; 83615; 83735; 83880; 84439; 84443; 84481; 84484; 85025; 85027; 85379; 85610; 85652; 86140; 87040; 87077; 87086; 87150; 87186; 87635; 93005; 93010; 93306; 94640; 94667; 94668; 94799; 99285; A9569; C9803; J0878; J1642; J1815; J2543; J3370; J3490; J7030; J7050; J7060; J7120

== ENCOUNTER 2020-01-26 15:09 | Outpatient (CLI) | payer BC ==
[2020-01-26 15:52] VITALS: BP 132/82
== END 2020-01-26 16:04 | disposition home or self-care (01) ==
LOC: II 15:09 → 5TH 15:44 → II 16:04
PROVIDERS: ATTEND Hospitalist
DX: M86.9 Osteomyelitis, unspecified (principal)